=== PATIENT | male | born 1980 | race Caucasian/White ===

== ENCOUNTER 2017-02-07 12:41 | Inpatient (IN) | payer MEDICARE, MEDICAID ==
[~2017-02-07] VITALS: Ht 162.6 cm; Wt 121.2 kg
[~2017-02-07 12:41] MED LIST: /ADVA50050; /ADVA50050 IN; /ESCI10TA; /ESCI20TA; /HALO1T OR; /MOXI40TA OR; ABIL2TAB PO; ABIL5TAB; ALBU17IN INH; ALBUTEROL; AMMO12CR4 TOP; AMMO12LO TOP; AMMONIUM LACTATE; ATARAX; BABY81CH; BABY81CH OR; BETAMETHASONE; BUSP1TAB PO; BYET10IN2 SC; CHLO25CA PO; CHLORDIAZEPOXIDE PO; CLAR5CHW OR; CLOZ100T PO; CLOZ25TA2 PO; DEPA250T32 PO; DEPA500T OR; DEPA500T2 PO; DEPLIN; DIVA125C5 PO; DIVA500T9 PO; DUONSOL IN; FLON0.05; FLON0.054; FLOV250A2 INH; FLUO10CA8 PO; GEOD40CA; GEOD40CA OR; GEOD40CA PO; GLUC1000 PO; GLUC500T; GLUC500T OR; GLUCTAB PO; HALD100I2 IM; HALO10TA PO; HALO1TAB29 PO; HALO5TA PO; HYDR25TA6; HYDR25TA6 OR; Haldol PO; IBUP80TA PO; JANUVIA; LAC-12LO3 TOP; LAMI25TA PO; LAMO10TA PO; LEVO25TA2; LEVO75TA2 OR; LISI-538 PO; LISI10TA4 OR; LISI20TA5 OR; LISI5TAB OR; LOPR100T; LOPR100T OR; LOPR100T PO; LOPR1TAB6 PO; LOPR50TA OR; LORA10TA2 PO; LOTRIMIN; LOVA1CAP16 PO; LOVA1CAP17 PO; METF500T PO; METF500T4 PO; METO100T PO; MULTCAP PO; MULTIVIT; MULTTAB4 PO; MULTTAB50 PO; NASACORT AQ; OMEP20TA7 OR; OMEP40CA2 PO; PREDNISOLONE; PRIL20CA; PRIL20CA PO; PROA1AER IN; PROA1AER INH; PROZ10CA7 PO; SIMV20TA2 PO; SIMV40TA2; SIMV40TA2 PO; SYNT100T PO; SYNT150T PO; THERGRAN; TOPI25TA2 OR; TRAZ100T2 PO; TRAZ50TA2 PO; TRAZ50TA4 PO; TRIAMCINOLONE; VICT18IN SC; VYTO10TA5; VYTO10TA5 OR; ZETI10TA; ZETI10TA OR; ZIPR20INJ PO; ZIPR80CAP; ZIPR80CAP OR; ZITH250T OR; [UNRECOGNIZED DRUG - OTHER]; ammonium lactate TOP; byetta SC; haldol PO; levothroid PO; nicotine patch TD; o2
[2017-02-07] MEDS ORDERED: TRAZ100T4 PO (13:26)
[2017-02-07] MEDS ORDERED: LAMO100T PO (13:26)
[2017-02-07] MEDS ORDERED: LISI10TA4 PO (13:26)
[2017-02-07] MEDS ORDERED: BUSP15TA47 PO (13:26)
[2017-02-07] MEDS ORDERED: CLOZ100T2 PO (13:26)
[2017-02-07] MEDS ORDERED: FLUO20CA9 PO (13:26)
[2017-02-07] MEDS ORDERED: NS IV ONE (13:45)
[2017-02-07] MEDS ORDERED: DILUENT IV ONE (13:45)
[2017-02-07] MEDS ORDERED: CLAR1TAB2 PO (13:53)
[2017-02-07] MEDS ORDERED: BYDU1INJ SC ×2 (13:53→15:03)
[2017-02-07] MEDS ORDERED: ADV500INH INH (13:53)
[2017-02-07 14:00] LABS: BASO % 0.4 % (0.0-1.0); EOS # 0.1 K/mm3 (0.0-0.50); EOS % 0.8 % (0.0-3.0); LARGE UNSTAINED CELL # 0.1 K/mm3 (0.0-0.4); LARGE UNSTAINED CELL % 0.5 % (0.0-4.0); LYMPH # 1.3 K/mm3 (1.5-4.5); LYMPH % 13.3 % (24.0-44.0); MEAN CORPUSCULAR VOLUME 88.1 fl (80.0-96.0); MONO # 0.4 K/mm3 (0.0-0.8); NEUTROPHILS # 7.8 K/mm3 (1.8-7.7); PLATELET COUNT, AUTOMATED 309 k/mm3 (150-450); RED CELL DISTRIBUTION WIDTH 12.9 % (11.5-14.5); WHITE BLOOD COUNT 9.6 K/mm3 (4.0-10.0)
[2017-02-07 14:03] LABS: INR 0.92
[2017-02-07 14:15] LABS: ALBUMIN 2.9 GM/DL (3.2-5.2); ALBUMIN/GLOBULIN RATIO 0.78 (1.00-1.93); ALKALINE PHOSPHATASE 70 U/L (45-117); ALT/SGPT 24 U/L (12-78); AMYLASE 23 U/L (25-115); ANION GAP 8 MEQ/L (8-16); AST/SGOT 17 U/L (15-37); BILIRUBIN,DIRECT 0.1 MG/DL (0.0-0.2); BILIRUBIN,TOTAL 0.4 MG/DL (0.2-1.0); BLOOD UREA NITROGEN 36 MG/DL (7-18); CALCIUM LEVEL 9.1 MG/DL (8.5-10.1); CARBON DIOXIDE LEVEL 37 MEQ/L (21-32); CHLORIDE LEVEL 85 MEQ/L (98-107); CREATININE FOR GFR 5.81 MG/DL (0.70-1.30); GLOMERULAR FILTRATION RATE 11.7 (>60); GLUCOSE, FASTING 124 MG/DL (70-105); POTASSIUM SERUM 3.6 MEQ/L (3.5-5.1); SODIUM LEVEL 130 MEQ/L (136-145); TOTAL PROTEIN 6.6 GM/DL (6.4-8.2)
--- NOTE | 2017-02-07 14:34 | REP ---
CHEST PORTABLE: AP portable view of the chest is performed. There is poor ventilation with mild bibasilar liner fibroatelectatic change. Cardiomediastinal silhouette appears magnified. I see no acute infiltrate. IMPRESSION: No acute infiltrate. Signed by Arnel Panda MD 02/08/2017 04:43 P
[2017-02-07 14:57] LABS: ABG BASE EXCESS 8.6 (-2.0-2.0); ABG HCO3 33.4 MEQ/L (22.0-26.0); ABG PARTIAL PRESSURE CO2 46.5 mmHg (35.0-45.0); ABG PARTIAL PRESSURE O2 89.3 mmHg (75.0-100.0); ABG STANDARD HCO3 32.4 MEQ/L (22.0-26.0); ABG TOTAL CO2 34.8 MEQ/L (22.0-29.0); ABG pH (ARTERIAL) 7.474 UNITS (7.350-7.450)
[2017-02-07] MEDS ORDERED: CLOZ50TA PO (15:03)
[2017-02-07] MEDS ORDERED: VITMTA PO (15:03)
[2017-02-07] MEDS ORDERED: HALO10AM IM (15:06)
[2017-02-07] MEDS ORDERED: FLON1SPR (15:06)
[2017-02-07] MEDS ORDERED: BUSP30TA PO (15:06)
[2017-02-07] MEDS ORDERED: CEFEPIME HCL 2 GM in D5W MINI-BAG PLUS 50 ML IV ONE (15:45)
[2017-02-07 15:53] LABS: METHADONE URINE NEGATIVE (NEGATIVE)
--- NOTE | 2017-02-07 17:27 | REP ---
Renal ultrasound, stat request for acute renal failure: The kidneys are normal size. The right kidney measures 313.4 x 6.4 x 5.8 cm. Left kidney measures 14.0 x 4.2 by 6.2 cm. There is no hydronephrosis on the right on the left. There are no renal calculi. There are no cysts. In the right kidney there is a solid 3.0 x 1.7 x 2.7 cm mass versus congenital column of Aniket. Follow-up CT with IV contrast enhancement might be considered to assist in this differentiation when the patient's renal function improves. Bladder ultrasound: The bladder is nondistended and cannot be evaluated. Impression: There is no hydronephrosis. There is a mass versus, Aniket in the right kidney. A followup CT with IV contrast enhancement might be considered to assist in this differentiation when the patient's renal function improves. Signed by Arnel Auguste MD 02/07/2017 05:18 P
[2017-02-07] MEDS: HumaLOG INSULIN (NovoLOG) PER UNIT SC SCH ×2 (17:30→21:00)
[2017-02-07] MEDS ORDERED: GLUCOSE 4 GM CHEW TABLET PO PRN (17:45)
[2017-02-07] MEDS ORDERED: DEXTROSE 50% 50 ML SYRINGE IV PRN (17:45)
[2017-02-07] MEDS ORDERED: GLUCAGON FOR INJ 1 MG VIAL (J1610) SC PRN (17:45)
[2017-02-07] MEDS ORDERED: IPRATROPIUM 0.5MG/ALBUTEROL 2.5MG INH SOL UD 3ML (DUONEB)(J7620) NEB PRN (18:00)
[2017-02-07] MEDS: NS 1,000 ML IV SCH (19:43)
[2017-02-07] MEDS: IPRATROPIUM 0.5MG/ALBUTEROL 2.5MG INH SOL UD 3ML (DUONEB)(J7620) NEB SCH (20:00)
--- NOTE | 2017-02-07 20:50 | REPUSA ---
CLINICAL HISTORY: SLURRED SPEECH, SYNCOPE TECHNIQUE: Multiple axial brain CT scan sections were obtained from base to vertex without contrast a dministration. COMMENTS: The study shows normal configuration of sella turcica. There are no intra or extra-axial collections. There is no mass effect or midline shift. There is no evidence of hematoma formation. No hydrocephal us is present. No abnormal calcifications are noted. No significant abnormalities are seen either in the posterior fossa or supratentorial compartment. The sinuses and mastoid air cells are patent. IMPRESSION: No evidence of acute intracranial pathology. Thank you for your kind referral of this patient.
[2017-02-07] MEDS ORDERED: cloZAPine 100 MG TAB (S0136) PO SCH ×2 (21:00→22:48)
[2017-02-07] MEDS ORDERED: cloZAPine 25 MG TAB (S0136) PO SCH (21:00)
[2017-02-07 22:43] VITALS: BP 118/56
[2017-02-07 22:45] VITALS: BP 102/48
[2017-02-07 22:47] VITALS: BP 98/54
[2017-02-07] MEDS: HEPARIN SOD (PORCINE) 5000 UNITS/ML VIAL SC SCH (23:20)
[2017-02-07] MEDS: SIMVASTATIN 20 MG TAB PO SCH (23:21)
[2017-02-07] MEDS: FLUTICASONE PROP 0.05% NASAL SPRAY 16 GM (FLONASE) SCH (23:21)
[2017-02-07] MEDS: OMEGA-3 1050MG CAPSULE PO SCH (23:22)
[2017-02-07] MEDS: lamoTRIgine 25 MG TAB PO SCH (23:22)
[2017-02-07] MEDS: cloZAPine 100 MG TAB (S0136) PO SCH (23:23)
[2017-02-07] MEDS: ADVAIR DISKUS 500/50 INH PWD INH SCH (23:37)
[2017-02-08] VITALS (8 sets, daily range): BP systolic 95–129; BP diastolic 49–83
[2017-02-08] MEDS: IPRATROPIUM 0.5MG/ALBUTEROL 2.5MG INH SOL UD 3ML (DUONEB)(J7620) NEB SCH ×4 (01:29→20:00)
[2017-02-08] MEDS: NS 1,000 ML IV SCH ×3 (04:10→21:42)
[2017-02-08] MEDS: CEFEPIME HCL 1 GM in D5W MINI-BAG PLUS 50 ML IV SCH ×2 (04:10→16:05)
[2017-02-08 05:35] LABS: BASO % 0.4 % (0.0-1.0); EOS # 0.1 K/mm3 (0.0-0.50); EOS % 1.2 % (0.0-3.0); LARGE UNSTAINED CELL # 0.1 K/mm3 (0.0-0.4); LARGE UNSTAINED CELL % 1.4 % (0.0-4.0); LYMPH % 25.9 % (24.0-44.0); MEAN CORPUSCULAR HEMOGLOBIN 31.9 pg (27.0-33.0); MEAN CORPUSCULAR HGB CONC 35.9 g/dl (32.0-36.5); MEAN CORPUSCULAR VOLUME 88.9 fl (80.0-96.0); MONO # 0.4 K/mm3 (0.0-0.8); MONO % 4.8 % (0.0-5.0); NEUTROPHILS # 5.2 K/mm3 (1.8-7.7); NEUTROPHILS % 66.3 % (36.0-66.0); PLATELET COUNT, AUTOMATED 252 k/mm3 (150-450); RED CELL DISTRIBUTION WIDTH 12.9 % (11.5-14.5); WHITE BLOOD COUNT 7.8 K/mm3 (4.0-10.0)
[2017-02-08 05:46] LABS: ALBUMIN 2.4 GM/DL (3.2-5.2); CREATININE FOR GFR 3.1 MG/DL (0.70-1.30); GLOMERULAR FILTRATION RATE 24.1 (>60); PHOSPHORUS LEVEL 3.2 MG/DL (2.5-4.9); POTASSIUM SERUM 3.3 MEQ/L (3.5-5.1)
[2017-02-08] MEDS: LEVOTHYROXINE 0.15 MG TAB (150 MCG) PO SCH (06:18)
[2017-02-08] MEDS: ADVAIR DISKUS 500/50 INH PWD INH SCH ×2 (07:22→19:36)
[2017-02-08] MEDS: HumaLOG INSULIN (NovoLOG) PER UNIT SC SCH ×4 (07:30→20:34)
[2017-02-08] MEDS ORDERED: POTASSIUM CHLORIDE 10 MEQ SR TABLET PO ONE (08:15)
--- NOTE | 2017-02-08 09:18 | ECGEPIP ---
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
[2017-02-08 09:19] LABS: MAGNESIUM LEVEL 1.7 MG/DL (1.8-2.4); THYROXINE (T4) 10.4 UG/DL (4.5-12.0)
[2017-02-08] MEDS: lamoTRIgine 25 MG TAB PO SCH ×2 (09:26→20:35)
[2017-02-08] MEDS: LORATADINE 10 MG TAB PO SCH (09:26)
[2017-02-08] MEDS: OMEGA-3 1050MG CAPSULE PO SCH ×2 (09:26→20:35)
[2017-02-08] MEDS: FLUoxetine 20 MG CAP PO SCH (09:27)
[2017-02-08] MEDS: cloZAPine 100 MG TAB (S0136) PO SCH ×2 (09:27→20:35)
[2017-02-08] MEDS: HEPARIN SOD (PORCINE) 5000 UNITS/ML VIAL SC SCH ×2 (09:28→20:35)
[2017-02-08] MEDS: FLUTICASONE PROP 0.05% NASAL SPRAY 16 GM (FLONASE) SCH ×2 (09:28→20:34)
--- NOTE | 2017-02-08 10:23 | IPNPDOC ---
Subjective Date Seen The patient was seen on 02/08/17. Subjective Chief Complaint/HPI The patient is a 36-year-old male admitted with a reason for visit of Arf; Hypotension. General: Denies: Chills Constitutional: Denies: Chills, Fever Eyes: Denies: Pain, Vision change, Conjunctivae inflammation, Eyelid inflammation Skin: Denies: Rash Pulmonary: Denies: Dyspnea, Cough Cardiovascular: Denies: Chest Pain, Palpitations Gastrointestinal: Denies: Nausea, Vomiting, Abdominal Pain Neurological: Denies: Weakness Psych: Reports: Mood Normal Objective Physical Examination General Exam: Positive: Cooperative, No Acute Distress Eye Exam: Positive: Conjunctiva & lids normal, EOMI, Negative: Sclera icteric, Ptosis ENT Exam: Positive: Atraumatic, Nares Patent Neck Exam: Positive: Supple Chest Exam: Positive: Rhonchi, Negative: Normal air movement, Rales, Wheezing, Diminished Heart Exam: Positive: Rate Normal, Normal S1, Normal S2, Negative: Tachycardic, Bradycardic Telemetry: Positive: No significant arrhythmia Abdomen Exam: Positive: Normal bowel sounds, Soft, Negative: BS Hyperactive, BS Hypoactive, Tenderness, Hepatospenomegaly Extremity Exam: Negative: Clubbing, Cyanosis, Edema Assessment /Plan Problems (1) Hypotension Status: Acute Response to Treatment: Stable Problem Text: Patient will continue to receive IV fluid hydration Currently 109/52 Patient is receiving antibiotic therapy GI panel and blood cultures pending Continue to monitor (2) Renal mass Status: Acute Response to Treatment: Stable Problem Text: Nephrology consulted, appreciate their recommendations. (3) Diabetes Status: Chronic Response to Treatment: Stable Problem Text: Sliding scale (4) Hypothyroid Status: Chronic Response to Treatment: Stable Problem Text: Will continue home medications (5) Dyslipidemia Status: Chronic Response to Treatment: Stable Problem Text: Will continue home medications (6) DVT prophylaxis Status: Acute Response to Treatment: Stable Problem Text: SCD teds Plan/VTE VTE Prophylaxis Ordered?: Yes Plan/Urinary Catheter Reason for insertion/continuin: Critical Pt monitoring VS, I&O, 24H, Fishbone Vital Signs/I&O Vital Signs Date Time Temp Pulse Resp B/P (MAP) Pulse Ox O2 Delivery O2 Flow Rate FiO2 02/08/17 08:00 Nasal Cannula 3.0 02/08/17 08:00 98.3 105 27 109/52 (71) 93 I&O- Last 24 Hours up to 6 AM 02/08/17 06:00 Intake Total 5700 ml Output Total 1485 ml Balance 4215 ml Laboratory Data 24H LABS Laboratory Tests 2 02/07/17 13:37: White Blood Count 9.6, Red Blood Count 4.12L, Hemoglobin 12.4L, Hematocrit 36.3L , Mean Corpuscular Volume 88.1, Mean Corpuscular Hemoglobin 30.0, Mean Corpuscular Hemoglobin Concent 34.0, Red Cell Distribution Width 12.9, Platelet Count 309, Neutrophils (%) (Auto) 81.0H, Lymphocytes (%) (Auto) 13.3L, Monocytes (%) (Auto) 4.0, Eosinophils (%) (Auto) 0.8, Basophils (%) (Auto) 0.4, Neutrophils # (Auto) 7.8H, Lymphocytes # (Auto) 1.3L, Monocytes # (Auto) 0.4, Eosinophils # (Auto) 0.1, Basophils # (Auto) 0.0, Large Unclassified Cells % 0.5 , Large Unclassified Cells # 0.1, Anion Gap 8, Glomerular Filtration Rate 11.7L , Lactic Acid Level 3.4*H, Calcium Level 9.1, Aspartate Amino Transf (AST/SGOT) 17, Alanine Aminotransferase (ALT/SGPT) 24, Alkaline Phosphatase 70, Total Bilirubin 0.4, Direct Bilirubin 0.1, Total Creatine Kinase 55, Creatine Kinase MB 1.0, Creatine Kinase MB Relative Index 1.81, Troponin I < 0.02, C-Reactive Protein, Quantitative 2.57H, Total Protein 6.6, Albumin 2.9L, Albumin/Globulin Ratio 0.78L, Amylase Level 23L, Salicylates Level < 1.7L, Acetaminophen Level < 2.0L 02/07/17 13:42: Prothrombin Time 12.5, Prothromb Time International Ratio 0.92, Activated Partial Thromboplast Time 28.5 02/07/17 14:12: Blood Gas Bicarbonate Standard 32.4H, Arterial Blood pH 7.474H, Arterial Blood Partial Pressure CO2 46.5H, Arterial Blood Partial Pressure O2 89.3, Arterial Blood Total CO2 34.8H, Arterial Blood HCO3 33.4H, Arterial Blood Base Excess 8.6H, Arterial Blood Oxygen Saturation 97.0 02/07/17 15:22: Urine Amphetamines Screen NEGATIVE, Urine Benzodiazepines Screen NEGATIVE, Urine Opiates Screen NEGATIVE, Urine Methadone Screen NEGATIVE, Urine Barbiturates Screen NEGATIVE, Urine Phencyclidine Screen NEGATIVE, Urine Cocaine Metabolite Screen NEGATIVE, Urine Cannabinoids Screen NEGATIVE 02/07/17 15:23: Urine Appearance CLOUDYH, Urine Color KYLE, Urine pH 5.0, Urine Specific [place] 1.018, Urine Protein 1+H, Urine Glucose (UA) NEGATIVE, Urine Ketones NEGATIVE, Urine Urobilinogen 2.0H, Urine Bilirubin 1+H, Urine Leukocyte Esterase NEGATIVE, Urine Blood NEGATIVE, Urine Nitrite NEGATIVE, Urine WBC (Auto ) 5H, Urine RBC (Auto) 2, Urine Hyaline Casts (Auto) 14, Urine Bacteria (Auto) 1 +H, Urine Squamous Epithelial Cells 1, Urine Amorphous Sediment SMALLH, Urine Mucus (Auto) SMALL, Urine Sperm (Auto) 02/07/17 18:16: Osmolality 286, Lactic Acid Followup at 4 Hours 1.5, Thyroid Stimulating Hormone (TSH) 0.139L, Ethyl Alcohol Level < 0.003 02/07/17 23:30: Urine Random Creatinine 163.0, Urine Random Sodium 18 02/08/17 04:51: Thyroid Stimulating Hormone (TSH) 0.091L, White Blood Count 7.8, Red Blood Count 3.44L, Hemoglobin 11.0L, Hematocrit 30.6L, Mean Corpuscular Volume 88.9, Mean Corpuscular Hemoglobin 31.9, Mean Corpuscular Hemoglobin Concent 35.9, Red Cell Distribution Width 12.9, Platelet Count 252, Neutrophils (%) (Auto) 66.3H, Lymphocytes (%) (Auto) 25.9, Monocytes (%) (Auto) 4.8, Eosinophils (%) (Auto) 1.2, Basophils (%) (Auto) 0.4, Neutrophils # (Auto) 5.2, Lymphocytes # (Auto) 2.0, Monocytes # (Auto) 0.4, Eosinophils # (Auto) 0.1, Basophils # (Auto) 0.0, Large Unclassified Cells % 1.4, Large Unclassified Cells # 0.1, Blood Urea Nitrogen 32H, Creatinine 3.10H, Sodium Level 136, Potassium Level 3.3L, Chloride Level 96L, Carbon Dioxide Level 32, Anion Gap 8, Glomerular Filtration Rate 24.1L, Calcium Level 8.0L, Phosphorus Level 3.2, Magnesium Level 1.7L, C- Reactive Protein, Quantitative 1.93H, Albumin 2.4L, Free Thyroxine Index 3.8, Thyroxine (T4) 10.4, Triiodothyronine (T3) Uptake 37 CBC/BMP Laboratory Tests 02/07/17 13:37 Red Blood Count 4.12 L, Mean Corpuscular Volume 88.1, Mean Corpuscular Hemoglobin 30.0, Mean Corpuscular Hemoglobin Concent 34.0, Red Cell Distribution Width 12.9, Neutrophils (%) (Auto) 81.0 H, Lymphocytes (%) (Auto) 13.3 L, Monocytes (%) (Auto) 4.0, Eosinophils (%) (Auto) 0.8, Basophils (%) ( Auto) 0.4, Neutrophils # (Auto) 7.8 H, Lymphocytes # (Auto) 1.3 L, Monocytes # ( Auto) 0.4, Eosinophils # (Auto) 0.1, Basophils # (Auto) 0.0 02/08/17 04:51 Red Blood Count 3.44 L, Mean Corpuscular Volume 88.9, Mean Corpuscular Hemoglobin 31.9, Mean Corpuscular Hemoglobin Concent 35.9, Red Cell Distribution Width 12.9, Neutrophils (%) (Auto) 66.3 H, Lymphocytes (%) (Auto) 25.9, Monocytes (%) (Auto) 4.8, Eosinophils (%) (Auto) 1.2, Basophils (%) (Auto ) 0.4, Neutrophils # (Auto) 5.2, Lymphocytes # (Auto) 2.0, Monocytes # (Auto) 0.4, Eosinophils # (Auto) 0.1, Basophils # (Auto) 0.0, Anion Gap 8 Microbiology Microbiology 02/07/17 Blood Culture, Received Pending 02/07/17 Blood Culture, Received Pending 02/07/17 Influenza Virus Type A Antigen - Final, Complete 02/07/17 Influenza Virus Type B Antigen - Final, Complete 02/07/17 Urine Culture, Received Pending GME ATTESTATION GME ATTESTATION My preceptor for this patient encounter was physically present in the building during the encounter and was fully available. As needed, all aspects of the patient interview, examination, medical decision making process, and medical care plan development were reviewed and approved by the preceptor. Preceptor is aware and concurs with the plan as stated in the body of this note and will attest to such by his/her cosignature. ATTENDING NOTE I have both independently examined this patient as well as reviewed the note. I have discussed in detail with the resident the findings and plan of treatment as documented in the residents note. I will continue to follow the patient and offer further guidance to the patients care as necessary during this hospital stay. NAJMA Alcazar MD, DO Feb 08, 2017 10:23 RITA AGARWAL MD Feb 09, 2017 06:42
--- NOTE | 2017-02-08 14:19 | HPE ---
DATE OF ADMISSION: 02/07/2017 PRIMARY CARE PROVIDER: Susan Khoury PSYCHIATRIST: Yamile Brennan, [facility], [facility]. CHIEF COMPLAINT: Lethargy. HISTORY OF PRESENT ILLNESS: Mr. Cason is a 36-year-old male with past medical history of schizoaffective disorder, type 2 diabetes, metabolic syndrome, who was brought in today for episode of lethargy, dizziness, and fall earlier today. The patient was in the parking lot with his roommate by his van and planned to go to a buffet; however, as he attempted to get out of the car, he felt dizzy, lightheaded, and unsteady and subsequently almost fell down in the parking lot. States that in the last month he has not been feeling well; has been vomiting almost every night, approximately three episodes a night. Mostly vomited of food and brownish content. Because of his nausea and vomiting, his appetite has been poor. Has not been drinking a lot of water. Associated with decreased urination, lightheadedness, blurry vision. Intentional 50-pound weight loss in the last 4 months. He is unsure if he has had diarrhea. History is somewhat difficult to obtain as he tends to have difficulty remembering details. He is a resident of [facility] and because of his extensive psychiatric history, he has a nurse case management who every week does a medication count. The patient himself denies any suicidal or homicidal ideation. Most recent medication count was today, and every medication was accounted for. Reports compliance with all his medications. Has not taken more medication than is allowed. His last visit to his primary care provider was 2 months ago. No adjustment to medications were made. Also reports cough ongoing in the last 7-10 days. Mostly coughs green and yellow production. No chest pain, palpitations, fever, chills. Reports shortness of breath only after excessive coughing spells. No paroxysmal nocturnal dyspnea or pillow orthopnea. No sick contacts. Has not been treated for his cough. In the emergency department, he was found to be hypotensive with systolic in the 60s. Heart rate in the 90s. He did receive 1 liter bolus and, after fluid hydration, his systolic blood pressure increased in 90s to 100s. His lethargic state improved significantly. He was also given Cefepime empirically for sepsis protocol. PAST MEDICAL HISTORY: Schizoaffective disorder. Depression. Hypertension. Type 2 diabetes. Obstructive sleep apnea (PAVAN). Has not been on his CPAP machine for the last three months because there is a problem with his equipment. Hyperlipidemia. Hypothyroidism. Metabolic syndrome. Hallucinations. Morbid obesity. Diverticulosis. Psychogenic polydipsia. PAST SURGICAL HISTORY: Colonoscopy 2004. Tonsillectomy. ALLERGIES: No known drug allergies. HOME MEDICATIONS: - ProAir FHA two puffs inhaled every 4 hours as needed - BuSpar 30 mg - clozapine 150 mg twice a day - exanatide 2 mg subcutaneous weekly on Saturdays - Flonase one spray inhaled twice a day - fluoxetine 20 mg by mouth daily - Haldol 200 mg intramuscularly (IM) every month (last administered a week ago) - lamotrigine 100 mg by mouth twice a day - Synthroid 150 mcg by mouth daily - lisinopril 10 mg nightly - loratadine 10 mg by mouth daily - metformin 500 mg by mouth twice a day - Lopressor 50 mg twice a day - multivitamin - [place]-3 two capsules by mouth twice a day - Advair Diskus one puff inhaled twice a day - trazodone 100 mg nightly SOCIAL HISTORY: The patient is an ex-smoker, 20 pack year, quit 2010. Denies alcohol use. Last use was 2000. Reports history of marijuana use in high school; however, has since quit. He is a resident of [facility], independent of all his daily activities including medication administration. No pets. No travel outside of state or country. Currently is on disability. 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 FAMILY HISTORY: Mother from complications from heart disease. Had an extensive psychiatric history per patient. Father of complications from diabetes 2014. REVIEW OF SYSTEMS: CONSTITUTIONAL: Reports night sweats but no fevers, chills, rigors. HEENT: Positive for blurry vision prior to his fall earlier today, which has since resolved. Positive for dizziness, lightheadedness. No headache, diplopia. Case management reports some slurring of his speech. PULMONARY: Is as above. CARDIOVASCULAR: No chest pain, palpitations, leg edema, orthopnea. Positive for shortness of breath only with excessive coughing. GASTROINTESTINAL: Positive for emesis as above. No melena, hematochezia, hematemesis. GENITOURINARY: Positive for decreased urination but no dysuria, urgency, frequency. HEMATOLOGY: Reported one episode of blood in his emesis approximately a month ago, only the size of a tip of a pen, which has since resolved. ONCOLOGY: No history of malignancy. ENDOCRINOLOGY: Positive for thyroid, diabetes, and metabolic syndrome. NEUROLOGICAL: No paresthesia, paralysis, positive for near syncope earlier today. PSYCHIATRIC: Includes schizoaffective disorder. Depression. However, denies any suicidal or homicidal ideation. SKIN: No new rashes or lesions. PHYSICAL EXAMINATION: VITAL SIGNS: Blood pressure 109/64, repeat was 167/91. Heart rate 96, respiration rate 16, pulse oximetry 95% on room air. Temperature 96.6. Lowest blood pressure was 64/32 with a mean arterial pressure (MAP) of 43. GENERAL: The patient is lying in bed approximately 40-degree angle, comfortable. No acute distress. He is alert, awake, and oriented times three. Cooperative. Appears older than stated age. Chronically ill appearing. Obese appearing. HEENT: Normocephalic, atraumatic. Moist oral mucosa. Edentulous. Eyes: Extraocular movements intact. Pupils equal and reactive to light. NECK: Supple. Large neck. Could not appreciate jugular venous distention (JVD) secondary to large neck size. CHEST: Symmetric chest rise. No accessory muscle use. Breath sounds are diminished with occasional wheezing bilateral lung bases. No rhonchi appreciated. HEART: Regular rate and rhythm with normal S1, S2. Did not appreciate murmurs, rubs, or gallops. Distant sounding. ABDOMEN: Obese but nontender, nondistended. Bowel sounds present. No guarding. No rebound. Protuberant. EXTREMITIES: No pedal edema. Pedal pulses present bilaterally. NEUROLOGICAL: Alert, awake, oriented times three, though he is slow at answering questions. There is some slurring of his speech, which reportedly is new. Sensory intact. Strength 5 out of 5 in all extremities. No other deficits appreciated. PSYCHIATRIC: Pleasant, cooperative. Normal affect. GENITOURINARY (): He has an indwelling Belle with tea-colored urine. INTEGUMENT: No obvious rashes or lesions appreciated. LABORATORY DATA: WBC 9.6, hemoglobin 12.4, hematocrit 36.3, platelets 309. Sodium 130, potassium 3.6, chloride 85, carbon dioxide 37, BUN 36, creatinine 5.81, glucose 124, lactic acid 3.4, calcium 9.1. Total bilirubin normal, 8. Liver profile normal. CRP 2.57, albumin 2.9, amylase 23. PT 12.5, INR is 0.92. Urinalysis is cloudy appearance, pH is 5, specific gravity is 1.018, 1+ protein, 1+ bilirubin, WBC 5. Toxicology screen negative for salicylates and Tylenol. Essentially negative toxicology screen. ABG showed pH of 7.47, pCO2 46.5, pO2 89. Chest x-ray showed no acute cardiopulmonary disease. No infiltrate appreciated, though it is poor ventilation with bibasilar fibroatelectatic change. Renal ultrasound showed no hydronephrosis. There is a mass versus Aniket in the right kidney. CT with contrast is recommended after renal function improves. IMPRESSION/PLAN: Mr. Cason is a 36-year-old male with an extensive psychiatric past history, also diabetes, on metformin ,who was brought in today due to concern for lethargy and near syncopal episode. Was found to have acute kidney injury and severe hypotension. 1. Lethargy and near syncope. Based on his history of nausea and vomiting along with poor by mouth intake, suspect that this is likely secondary to dehydration. He reportedly has improved after a bolus given in the ER. However, will need to monitor for other causes including thyroid and infectious that might contribute to his symptoms as well. He will be monitored closely in the progressive care unit (PCU) for any arrhythmia. Empirically continue antibiotics cefepime for now. Recheck lactic acid level. Continue fluid titration 125 mL per hour. Check orthostatic vital signs. 2. Hypotension. Likely secondary to dehydration and/or infection as mentioned above. His blood pressure has improved significantly after fluid titration. Reportedly was taking all his antihypertensives regimen the last few days despite his decreased by mouth intake. We will hold his lisinopril and metoprolol for now. 3. Acute kidney injury. This is likely secondary to dehydration combined with medication induced. Continue holding his home nephrotoxic medications. On maintenance fluid. Renal ultrasound did not show indication of hydronephrosis. There was a mention of possible mass versus Aniket in the right kidney. However, because of his renal function, CT contrast could not be performed at this time. Dr. Allen has already been consulted in the emergency room (ER). Will followup with his recommendations. 4. Elevated lactic acid. Could be due to infection and/or metformin. He is on IV fluid hydration, on empiric coverage for infection. Also, metformin will be held. 5. Metabolic alkalosis. It could be secondary to intractable vomiting. Ongoing at least 1 month and/or contraction alkalosis secondary to dehydration. He is on maintenance fluids as mentioned above. 6. Hyponatremia. Check serum osmolality and urine electrolytes. 7. Intractable vomiting. Etiology unclear. He will require further workup after his current condition stabilizes. Denies history of diabetic gastroparesis. 8. Hypertension. Blood pressure was actually on hypotensive side requiring fluid boluses. Home medications are on hold at this time. 9. History of schizoaffective disorder and depression. Continue psychiatric medications. Lamictal dose will be renally dosed. Have order for Lamictal level to be checked. 10. Type 2 diabetes. Will hold metformin. On insulin sliding scale. 11. Obesity. Body mass index (BMI) 43. Will continue to complicate medical management. 12. Obstructive sleep apnea. Has not been compliant with his CPAP in the last 3 months. He will be on PAVAN protocol. 13. Hypothyroidism. Continue home dose levothyroxine. 14. Hyperlipidemia. Continue home dose Zocor. 15. Depression. Continue home dose Prozac. 16. Deep venous thrombosis (DVT) prophylaxis, Sequential compression devices (SCDs), thromboembolism deterrents (TEDs), and heparin. DISPOSITION: Due to patient's condition we expect his stay to be greater than 2 midnights. My preceptor for this patient encounter was Dr. Krystina Ramos. The preceptor was physically present in the building during the encounter and was fully available. As needed, all aspects of the patient interview, examination, medical decision making process, and medical care plan development were reviewed and approved by the preceptor. The preceptor is aware and concurs with the plan as stated in the body of this note and will attest to such by his/her cosignature. [facility]
[2017-02-08] MEDS: ONDANSETRON 4MG/2ML VIAL (J2405) IV PRN (18:44)
--- NOTE | 2017-02-08 20:23 | CR ---
DATE OF CONSULTATION: 02/08/2017 CONSULTATION REPORT FOR: Ole Dixon DO REASON FOR CONSULTATION: Acute renal failure. HISTORY OF PRESENT ILLNESS: Mr. Cason is a 36-year-old male who was admitted through the emergency room last evening due to nausea and vomiting for over a month. He has known history of type 2 diabetes, metabolic syndrome, hypertension, hyperlipidemia, obstructive sleep apnea, hypothyroidism, morbid obesity and psychogenic polydipsia. He was found to have acute renal failure with creatinine about 5.8. He is being hydrated with IV fluid. A nephrology consultation was requested and the patient is seen in intensive care unit this morning. PAST MEDICAL AND SURGICAL HISTORY: Significant for: 1. Schizoaffective disorder. 2. Psychogenic polydipsia. 3. Depression. 4. Hypertension. 5. Type 2 diabetes. 6. Obstructive sleep apnea. 7. Hyperlipidemia. 8. Hypothyroidism. 9. Morbid obesity. 10. Diverticulosis. PAST SURGICAL HISTORY: Significant for tonsillectomy and colonoscopy. ALLERGIES: No known drug allergies. HOME MEDICATIONS: Include: BuSpar, ProAir, Flonase, fluoxetine, Haldol, lamotrigine, Synthroid, lisinopril, loratadine, metformin, Lopressor, multivitamin, [place] 3 and Advair. In the hospital currently his medications include: Prozac 20 mg daily, Claritin 10 mg daily, Synthroid 0.15 mg daily, cefepime 1 gram every 12 hours, heparin 5000 units subcutaneous twice a day, Humalog insulin, Advair Diskus one puff twice a day, Flonase nasal spray twice a day, simvastatin 20 mg daily, lamotrigine 75 mg twice a day, clozapine 150 mg twice a day, DuoNebs every 6 hours as needed, Zofran 4 mg every 6 hours as needed for nausea, IV normal saline 125 mL/hour. PERSONAL AND SOCIAL HISTORY: The patient is an ex-smoker. He quit in 2010. He denies any alcohol use. He does have a history of marijuana use long time ago. He is currently a resident of [facility]. FAMILY HISTORY: Mother from heart disease and also had extensive psychiatric history. Father of complications of diabetes. REVIEW OF SYSTEMS: The patient denies any fever or chills. Head and neck is unremarkable. He denies any sinus problems or nosebleed. Cardiovascular system negative for dyspnea or chest pain. Respiratory system negative for cough or hemoptysis. Gastrointestinal (GI) system is significant for recurrent nausea and vomiting. He denies any rectal bleeding or black-colored stools. There is no history of blood in the vomitus. Genitourinary () system is significant for decreased urine output. There is no history of kidney stones. Endocrine system is significant for diabetes. Psychosocial system significant for multiple psychiatric issues. Neurological system is significant for no seizures or stroke. Hematological system is negative for anemia, easy bruising or excessive bleeding. Skin is negative for rash or ulcers. PHYSICAL EXAMINATION: The patient is awake and alert lying in the bed comfortably. Temperature 98 degrees Fahrenheit, heart rate 104 per minute and respiratory rate 25 per minute. Blood pressure 105/49 mmHg and oxygen saturation 95%. Head is atraumatic. Neck veins are difficult to be assessed. Oral mucosa is moist and healthy now. Pupils are equal and reactive to light and sclerae is anicteric. Neck is supple and without jugular venous distention (JVD) or thyroid enlargement. Heart sounds are tachycardiac but regular. Lungs clear to auscultation. Abdomen soft and nontender. Bowel sounds are normal. There is no palpable organomegaly. Extremities have no cyanosis or clubbing. Neurologically he is awake, alert and oriented times three. LABORATORY DATA: WBC count 9.6, hemoglobin 12.4 and hematocrit 36.3 on admission. Platelets were 309. Sodium 130 and potassium 3.6. BUN was 36 and creatinine 5.81. Today's labs show sodium 136 and potassium 3.3. BUN 32 and creatinine 3.10. Calcium 8.0 and phosphorus 3.2. PROBLEMS: 1. Acute renal failure. Most likely dehydration caused by recurrent nausea and vomiting over last few weeks. I recommend to continue with IV fluid hydration with normal saline. 2. Hypokalemia, again related to poor oral intake. I suggest to add 20 mEq of potassium chloride in each liter of IV fluid. 3. Hypotension. His hypotension is most likely related to dehydration. Aggressive hydration is recommended. I do not feel that he needs pressors at this point. I thank you for involving me in the care of Mr. Cason. I will follow him along with you.
[2017-02-08] MEDS: SIMVASTATIN 20 MG TAB PO SCH (20:35)
[2017-02-09] VITALS: BP 131/59
[2017-02-09] MEDS: IPRATROPIUM 0.5MG/ALBUTEROL 2.5MG INH SOL UD 3ML (DUONEB)(J7620) NEB SCH ×4 (01:11→20:00)
[2017-02-09] MEDS: CEFEPIME HCL 1 GM in D5W MINI-BAG PLUS 50 ML IV SCH ×2 (03:48→16:51)
[2017-02-09 04:00] VITALS: BP 118/60
[2017-02-09 05:15] LABS: BASO % 0.3 % (0.0-1.0); EOS # 0.1 K/mm3 (0.0-0.50); EOS % 1.4 % (0.0-3.0); LARGE UNSTAINED CELL # 0.1 K/mm3 (0.0-0.4); LARGE UNSTAINED CELL % 1.5 % (0.0-4.0); LYMPH # 1.8 K/mm3 (1.5-4.5); MEAN CORPUSCULAR HEMOGLOBIN 30.9 pg (27.0-33.0); MEAN CORPUSCULAR HGB CONC 34.5 g/dl (32.0-36.5); MEAN CORPUSCULAR VOLUME 89.6 fl (80.0-96.0); MONO # 0.5 K/mm3 (0.0-0.8); MONO % 6.9 % (0.0-5.0); NEUTROPHILS # 4.3 K/mm3 (1.8-7.7); PLATELET COUNT, AUTOMATED 257 k/mm3 (150-450); RED CELL DISTRIBUTION WIDTH 13.1 % (11.5-14.5); WHITE BLOOD COUNT 6.8 K/mm3 (4.0-10.0)
[2017-02-09 05:40] LABS: ALBUMIN 2.3 GM/DL (3.2-5.2); ANION GAP 5 MEQ/L (8-16); BLOOD UREA NITROGEN 16 MG/DL (7-18); CALCIUM LEVEL 7.9 MG/DL (8.5-10.1); CARBON DIOXIDE LEVEL 31 MEQ/L (21-32); CHLORIDE LEVEL 106 MEQ/L (98-107); CREATININE FOR GFR 1.18 MG/DL (0.70-1.30); GLUCOSE, FASTING 95 MG/DL (70-105); PHOSPHORUS LEVEL 2.2 MG/DL (2.5-4.9); POTASSIUM SERUM 3.8 MEQ/L (3.5-5.1); SODIUM LEVEL 142 MEQ/L (136-145)
[2017-02-09] MEDS: LEVOTHYROXINE 0.15 MG TAB (150 MCG) PO SCH (05:52)
[2017-02-09] MEDS: NS 1,000 ML IV SCH (05:52)
[2017-02-09 05:56] LABS: GLOMERULAR FILTRATION RATE > 60.0 (>60)
[2017-02-09 06:00] VITALS: BP_SYST 101; BP_SYST 105; BP_SYST 106; BP_DIAS 51; BP_DIAS 53; BP_DIAS 56
[2017-02-09] MEDS: HumaLOG INSULIN (NovoLOG) PER UNIT SC SCH ×4 (07:30→20:38)
[2017-02-09] MEDS: ADVAIR DISKUS 500/50 INH PWD INH SCH ×2 (07:56→20:15)
[2017-02-09 08:17] VITALS: BP 148/67
[2017-02-09] MEDS ORDERED: INFLUENZA QUADRIVALENT PF VACCINE 0.5ML SYRINGE/VIAL (90686) IM ONE (09:00)
--- NOTE | 2017-02-09 09:24 | REP ---
CHEST, SINGLE VIEW: There is no evidence of acute infiltrate. No pleural effusion is seen. The heart is normal in size. The mediastinal silhouette is unremarkable. The visualized osseous structures are intact. IMPRESSION: No acute pulmonary disease. Signed by Arnel Panda MD 02/09/2017 04:36 P
[2017-02-09] MEDS: HEPARIN SOD (PORCINE) 5000 UNITS/ML VIAL SC SCH ×2 (09:44→20:38)
[2017-02-09] MEDS: cloZAPine 100 MG TAB (S0136) PO SCH ×2 (09:44→20:37)
[2017-02-09] MEDS: FLUoxetine 20 MG CAP PO SCH (09:44)
[2017-02-09] MEDS: OMEGA-3 1050MG CAPSULE PO SCH ×2 (09:44→20:37)
[2017-02-09] MEDS: LORATADINE 10 MG TAB PO SCH (09:44)
[2017-02-09] MEDS: lamoTRIgine 25 MG TAB PO SCH ×2 (09:44→20:37)
[2017-02-09] MEDS: FLUTICASONE PROP 0.05% NASAL SPRAY 16 GM (FLONASE) SCH ×2 (09:45→21:55)
--- NOTE | 2017-02-09 11:27 | IPNPDOC ---
Subjective Date Seen The patient was seen on 02/09/17. Subjective Chief Complaint/HPI The patient is a 36-year-old male admitted with a reason for visit of Arf; Hypotension. General: Denies: Chills Constitutional: Denies: Chills, Fever Eyes: Denies: Pain, Vision change, Conjunctivae inflammation, Eyelid inflammation, Redness Pulmonary: Reports: Cough (pt states he has green phlegm), Denies: Dyspnea Cardiovascular: Denies: Chest Pain, Palpitations, Orthopnea, Paroxysmal Noc. Dyspnea, Edema, Lt Headedness Gastrointestinal: Denies: Nausea, Vomiting, Abdominal Pain Neurological: Denies: Weakness Psych: Reports: Mood Normal Objective Physical Examination General Exam: Positive: Cooperative, No Acute Distress Eye Exam: Positive: Conjunctiva & lids normal, EOMI, Negative: Sclera icteric, Ptosis ENT Exam: Positive: Atraumatic, Nares Patent Neck Exam: Positive: Supple Chest Exam: Positive: Rhonchi (throughout lung nguyễn, coarse), Negative: Normal air movement, Rales, Wheezing, Diminished Heart Exam: Positive: Rate Normal, Tachycardic, Normal S1, Normal S2, Negative: Bradycardic, Gallops, Murmurs, Rubs Telemetry: Positive: No significant arrhythmia Abdomen Exam: Positive: Normal bowel sounds, Soft, Negative: BS Hyperactive, BS Hypoactive, Tenderness, Hepatospenomegaly Extremity Exam: Negative: Clubbing, Cyanosis, Edema Assessment /Plan Problems (1) Hypotension Status: Acute Response to Treatment: Stable Problem Text: Patient is tolerating oral intake without n/v or abdominal pain, will d/c fluids at this time Currently 148/67 pt will be moved out of ICU today blood cx negative 24 hours, sputum culture pending, resp. panel negative, urine culture negative, flu negative Patient is receiving antibiotic therapy Continue to monitor (2) Renal mass Status: Acute Response to Treatment: Stable Problem Text: Nephrology consulted, appreciate their recommendations. fluid hydration with K supplementation. d/c fluids today as pt. is tolerating oral intake well (3) Diabetes Status: Chronic Response to Treatment: Stable Problem Text: glucose 95 today Sliding scale (4) Hypothyroid Status: Chronic Response to Treatment: Stable Problem Text: Will continue home medications (5) Dyslipidemia Status: Chronic Response to Treatment: Stable Problem Text: Will continue home medications (6) Tachycardia Status: Acute Response to Treatment: Stable Problem Text: rates have been >100 Repeat EKG benign continue to monitor (7) DVT prophylaxis Status: Acute Response to Treatment: Stable Problem Text: SCD teds Plan/VTE VTE Prophylaxis Ordered?: Yes Plan/Urinary Catheter Reason for insertion/continuin: Critical Pt monitoring VS, I&O, 24H, Fishbone Vital Signs/I&O Vital Signs Date Time Temp Pulse Resp B/P (MAP) Pulse Ox O2 Delivery O2 Flow Rate FiO2 02/09/17 08:30 118 20 91 Room Air 02/09/17 08:17 98.9 148/67 (94) 02/09/17 08:15 2.0 I&O- Last 24 Hours up to 6 AM 02/09/17 06:00 Intake Total 2325 ml Output Total 2900 ml Balance -575 ml Laboratory Data 24H LABS Laboratory Tests 2 02/08/17 11:34: Bedside Glucose (Misc Panel) 122H 02/08/17 16:58: Bedside Glucose (Misc Panel) 115H 02/08/17 20:33: Bedside Glucose (Misc Panel) 124H 02/09/17 04:42: White Blood Count 6.8, Red Blood Count 3.56L, Hemoglobin 11.0L, Hematocrit 31.9L , Mean Corpuscular Volume 89.6, Mean Corpuscular Hemoglobin 30.9, Mean Corpuscular Hemoglobin Concent 34.5, Red Cell Distribution Width 13.1, Platelet Count 257, Neutrophils (%) (Auto) 63.0, Lymphocytes (%) (Auto) 27.0, Monocytes ( %) (Auto) 6.9H, Eosinophils (%) (Auto) 1.4, Basophils (%) (Auto) 0.3, Neutrophils # (Auto) 4.3, Lymphocytes # (Auto) 1.8, Monocytes # (Auto) 0.5, Eosinophils # (Auto) 0.1, Basophils # (Auto) 0.0, Large Unclassified Cells % 1.5 , Large Unclassified Cells # 0.1, Blood Urea Nitrogen 16, Creatinine 1.18#, Sodium Level 142, Potassium Level 3.8, Chloride Level 106, Carbon Dioxide Level 31, Anion Gap 5L, Glomerular Filtration Rate > 60.0, Calcium Level 7.9L, Phosphorus Level 2.2#L, C-Reactive Protein, Quantitative 2.85H, Albumin 2.3L CBC/BMP Laboratory Tests 02/09/17 04:42 Red Blood Count 3.56 L, Mean Corpuscular Volume 89.6, Mean Corpuscular Hemoglobin 30.9, Mean Corpuscular Hemoglobin Concent 34.5, Red Cell Distribution Width 13.1, Neutrophils (%) (Auto) 63.0, Lymphocytes (%) (Auto) 27.0, Monocytes (%) (Auto) 6.9 H, Eosinophils (%) (Auto) 1.4, Basophils (%) ( Auto) 0.3, Neutrophils # (Auto) 4.3, Lymphocytes # (Auto) 1.8, Monocytes # (Auto ) 0.5, Eosinophils # (Auto) 0.1, Basophils # (Auto) 0.0, Anion Gap 5 L Microbiology Microbiology 02/07/17 Blood Culture - Preliminary, Resulted No growth after 24 hours . All specim... 02/07/17 Blood Culture - Preliminary, Resulted No growth after 24 hours . All specim... 02/08/17 Gram Stain - Final, Resulted 02/08/17 Sputum Culture, Resulted Pending 02/08/17 Respiratory Virus Panel (PCR) ([facility]) - Final, Complete 02/07/17 Influenza Virus Type A Antigen - Final, Complete 02/07/17 Influenza Virus Type B Antigen - Final, Complete 02/07/17 Urine Culture - Final, Complete GME ATTESTATION GME ATTESTATION My preceptor for this patient encounter was physically present in the building during the encounter and was fully available. As needed, all aspects of the patient interview, examination, medical decision making process, and medical care plan development were reviewed and approved by the preceptor. Preceptor is aware and concurs with the plan as stated in the body of this note and will attest to such by his/her cosignature. ATTENDING NOTE I have both independently examined this patient as well as reviewed the note. I have discussed in detail with the resident the findings and plan of treatment as documented in the residents note. I will continue to follow the patient and offer further guidance to the patients care as necessary during this hospital stay. NAJMA Alcazar MD, DO Feb 09, 2017 11:27 RITA AGARWAL MD Feb 10, 2017 07:33
[2017-02-09 14:00] VITALS: BP 129/58
--- NOTE | 2017-02-09 16:27 | IPN ---
DATE: 02/09/2017 Mr. Cason is seen this morning on his bedside in intensive care unit. He is laying in the bed as usual. I have not seen him sitting up in the chair since his admission. He denies any nausea, vomiting, dyspnea or chest pain. He reports that he had a good dinner yesterday but did not have breakfast so far. PHYSICAL EXAMINATION: Temperature 98.9 degrees Fahrenheit, heart rate 107 per minute and respiratory rate 20 per minute. Blood pressure 148/67 mmHg and oxygen saturation 94% on room air. His head is atraumatic. Ears, nose and throat are unremarkable. Neck is supple and without jugular venous distention (JVD) or thyroid enlargement. His heart sounds are tachycardiac but regular. Lungs clear to auscultation. Abdomen soft, obese and nontender. Extremities without any cyanosis or clubbing. Neurologically he is awake, alert and oriented times three. Intake and output records from yesterday showed total intake 2200 and output 2450. Today's labs show WBC count 6.8, hemoglobin 11.0 and hematocrit 31.9. Sodium 142 and potassium 3.8. BUN is down to 16 and creatinine 1.18. Calcium level 7.9 and phosphorus 2.2. PROBLEMS: 1. Acute renal failure. Kidney function has improved nicely. At present his IV fluid can be stopped as his oral intake is now adequate and he is tolerating it well. 2. Hypokalemia, potassium level has also improved and he does not need any supplement. He should be placed on regular diet. 3. Hypertension and tachycardia. Blood pressure has improved and the patient is mildly tachycardiac. I recommend to resume beta violet in low-dose and monitor his blood pressure closely. I would suggest to keep him off angiotensin-converting enzyme (SHYLA) inhibitor for now. DISPOSITION: From a renal standpoint, the patient can be transferred out of intensive care unit to regular medical/surgical floor.
[2017-02-09] MEDS: SIMVASTATIN 20 MG TAB PO SCH (20:37)
[2017-02-09] MEDS: ONDANSETRON 4MG/2ML VIAL (J2405) IV PRN (21:58)
[2017-02-09 22:00] VITALS: BP 124/76
[2017-02-10] MEDS: IPRATROPIUM 0.5MG/ALBUTEROL 2.5MG INH SOL UD 3ML (DUONEB)(J7620) NEB SCH ×4 (01:25→20:00)
[2017-02-10] MEDS: CEFEPIME HCL 1 GM in D5W MINI-BAG PLUS 50 ML IV SCH ×2 (03:30→16:25)
[2017-02-10 06:00] VITALS: BP 142/65
[2017-02-10] MEDS: LEVOTHYROXINE 0.15 MG TAB (150 MCG) PO SCH (06:02)
[2017-02-10 06:43] LABS: BASO % 0.6 % (0.0-1.0); EOS # 0.2 K/mm3 (0.0-0.50); EOS % 2.5 % (0.0-3.0); LARGE UNSTAINED CELL # 0.1 K/mm3 (0.0-0.4); LYMPH % 29.1 % (24.0-44.0); MEAN CORPUSCULAR HEMOGLOBIN 30.6 pg (27.0-33.0); MEAN CORPUSCULAR HGB CONC 33.8 g/dl (32.0-36.5); MEAN CORPUSCULAR VOLUME 90.4 fl (80.0-96.0); MONO # 0.4 K/mm3 (0.0-0.8); MONO % 5.8 % (0.0-5.0); PLATELET COUNT, AUTOMATED 272 k/mm3 (150-450); RED CELL DISTRIBUTION WIDTH 13.1 % (11.5-14.5); WHITE BLOOD COUNT 6.7 K/mm3 (4.0-10.0)
[2017-02-10 06:47] LABS: ALBUMIN 2.3 GM/DL (3.2-5.2); ANION GAP 5 MEQ/L (8-16); BLOOD UREA NITROGEN 9 MG/DL (7-18); CALCIUM LEVEL 8.5 MG/DL (8.5-10.1); CARBON DIOXIDE LEVEL 28 MEQ/L (21-32); CHLORIDE LEVEL 107 MEQ/L (98-107); CREATININE FOR GFR 0.89 MG/DL (0.70-1.30); GLOMERULAR FILTRATION RATE > 60.0 (>60); GLUCOSE, FASTING 86 MG/DL (70-105); MAGNESIUM LEVEL 1.2 MG/DL (1.8-2.4); PHOSPHORUS LEVEL 2.6 MG/DL (2.5-4.9); SODIUM LEVEL 140 MEQ/L (136-145)
[2017-02-10] MEDS: HumaLOG INSULIN (NovoLOG) PER UNIT SC SCH ×4 (07:30→20:13)
--- NOTE | 2017-02-10 07:36 | ECGEPIP ---
Stationary ECG Study [facility] Test Date: 2017-02-09 Pat Name: SOLOMON JEREZ Department: Room: [place] [address] Gender: M Social Research Assistant: TAI : 1980 Requested By: RITA AGARWAL Order Number: [id number] Reading MD: Sonny Mcdaniel Measurements Intervals Porter Rate: 102 P: 59 SD: 215 QRS: 1 QRSD: 104 T: 10 QT: 339 QTc: 443 Interpretive Statements Sinus tachycardia with first degree AV block Consider prior IWMI Nonspecific T wave abnormality No significant change when compared to prior tracing of 02/07/2017 Electronically Signed On 02-10-2017 7:35:49 EDT by Sonny Mcdaniel
[2017-02-10] MEDS: ADVAIR DISKUS 500/50 INH PWD INH SCH ×2 (07:48→20:11)
[2017-02-10] MEDS ORDERED: MAG SULF 1GM/100ML (MAG RUN) 1 GM in APPROPRIATE DILUENT 1 EA IV ONE (08:15)
[2017-02-10] MEDS: LORATADINE 10 MG TAB PO SCH (09:05)
[2017-02-10] MEDS: cloZAPine 100 MG TAB (S0136) PO SCH ×2 (09:05→20:35)
[2017-02-10] MEDS: FLUoxetine 20 MG CAP PO SCH (09:05)
[2017-02-10] MEDS: OMEGA-3 1050MG CAPSULE PO SCH ×2 (09:06→20:34)
[2017-02-10] MEDS: lamoTRIgine 25 MG TAB PO SCH ×2 (09:06→20:33)
[2017-02-10] MEDS: FLUTICASONE PROP 0.05% NASAL SPRAY 16 GM (FLONASE) SCH ×2 (09:10→20:33)
[2017-02-10] MEDS: HEPARIN SOD (PORCINE) 5000 UNITS/ML VIAL SC SCH ×2 (09:10→20:32)
[2017-02-10] MEDS: MAG SULF 1GM/100ML (MAG RUN) 1 GM in APPROPRIATE DILUENT 1 EA IV SCH ×2 (09:16→10:12)
--- NOTE | 2017-02-10 11:45 | IPNPDOC ---
Subjective Date Seen The patient was seen on 02/10/17. Subjective Chief Complaint/HPI The patient is a 36-year-old male admitted with a reason for visit of Arf; Hypotension. General: Denies: Chills Constitutional: Denies: Chills Eyes: Denies: Vision change, Conjunctivae inflammation, Eyelid inflammation Pulmonary: Denies: Dyspnea, Cough Cardiovascular: Denies: Chest Pain, Palpitations Gastrointestinal: Reports: Abdominal Pain (describes some achy lower mid abdominal cramps), Denies: Nausea, Vomiting Neurological: Denies: Weakness Psych: Reports: Mood Normal Objective Physical Examination General Exam: Positive: Cooperative, No Acute Distress Eye Exam: Positive: Conjunctiva & lids normal, EOMI, Negative: Sclera icteric, Ptosis ENT Exam: Positive: Atraumatic, Nares Patent Neck Exam: Positive: Supple Chest Exam: Positive: Other (coarse in RUL), Negative: Normal air movement, Rales, Rhonchi, Wheezing, Diminished Heart Exam: Positive: Rate Normal, Tachycardic, Normal S1, Normal S2, Negative: Bradycardic, Gallops, Murmurs, Rubs Telemetry: Positive: No significant arrhythmia Abdomen Exam: Positive: Normal bowel sounds, Soft, Tenderness (tender to palpitation in mid abdomen and left left quadrant, no rebound ridgity or guarding. ), Negative: BS Hyperactive, BS Hypoactive, Hepatospenomegaly Extremity Exam: Negative: Clubbing, Cyanosis, Edema Assessment /Plan Problems (1) Hypotension Status: Acute Response to Treatment: Stable Problem Text: Patient is tolerating oral intake without n/v or abdominal pain, no IV fluids needed Currently 142/65 blood cx negative 48 hours, sputum culture pending, resp. panel negative, GI panel neg, urine culture negative, flu negative Patient is receiving antibiotic therapy Continue to monitor (2) Renal mass Status: Acute Response to Treatment: Stable Problem Text: Nephrology consulted, appreciate their recommendations. pt tolerating oral intake well, will continue (3) Abdominal pain Status: Acute Response to Treatment: Stable Problem Text: pt described some achy, crampy abdominal discomfort on exam today , had some tenderness to middle abdomen and LLQ, no rebound rigidity or guarding appreciated pt had BM one night prior will order CT abdomen w/o and follow up continue to monitor (4) Tachycardia Status: Acute Response to Treatment: Stable Problem Text: rates have been low 100's Repeat EKG benign continue to monitor (5) Dyslipidemia Status: Chronic Response to Treatment: Stable Problem Text: Will continue home medications (6) Diabetes Status: Chronic Response to Treatment: Stable Problem Text: glucose 86 today Sliding scale (7) Hypothyroid Status: Chronic Response to Treatment: Stable Problem Text: Will continue home medications (8) DVT prophylaxis Status: Acute Response to Treatment: Stable Problem Text: SCD teds Plan/VTE VTE Prophylaxis Ordered?: Yes Plan/Urinary Catheter Reason for insertion/continuin: Critical Pt monitoring VS, I&O, 24H, Fishbone Vital Signs/I&O Vital Signs Date Time Temp Pulse Resp B/P (MAP) Pulse Ox O2 Delivery O2 Flow Rate FiO2 02/10/17 06:00 97.8 106 20 142/65 (90) 92 Room Air 02/09/17 08:15 2.0 I&O- Last 24 Hours up to 6 AM 02/10/17 05:59 Intake Total 3305 ml Output Total 125 ml Balance 3180 ml Laboratory Data 24H LABS Laboratory Tests 2 02/09/17 11:50: Bedside Glucose (Misc Panel) 97 02/09/17 17:05: Bedside Glucose (Misc Panel) 110H 02/09/17 20:03: Bedside Glucose (Misc Panel) 104 02/10/17 06:17: White Blood Count 6.7, Red Blood Count 3.64L, Hemoglobin 11.1L, Hematocrit 32.9L , Mean Corpuscular Volume 90.4, Mean Corpuscular Hemoglobin 30.6, Mean Corpuscular Hemoglobin Concent 33.8, Red Cell Distribution Width 13.1, Platelet Count 272, Neutrophils (%) (Auto) 60.0, Lymphocytes (%) (Auto) 29.1, Monocytes ( %) (Auto) 5.8H, Eosinophils (%) (Auto) 2.5, Basophils (%) (Auto) 0.6, Neutrophils # (Auto) 4.0, Lymphocytes # (Auto) 2.0, Monocytes # (Auto) 0.4, Eosinophils # (Auto) 0.2, Basophils # (Auto) 0.0, Large Unclassified Cells % 2.0 , Large Unclassified Cells # 0.1, Blood Urea Nitrogen 9, Creatinine 0.89, Sodium Level 140, Potassium Level 4.0, Chloride Level 107, Carbon Dioxide Level 28, Anion Gap 5L, Glomerular Filtration Rate > 60.0, Calcium Level 8.5, Phosphorus Level 2.6, Magnesium Level 1.2L, C-Reactive Protein, Quantitative 2.97H, Albumin 2.3L CBC/BMP Laboratory Tests 02/10/17 06:17 Red Blood Count 3.64 L, Mean Corpuscular Volume 90.4, Mean Corpuscular Hemoglobin 30.6, Mean Corpuscular Hemoglobin Concent 33.8, Red Cell Distribution Width 13.1, Neutrophils (%) (Auto) 60.0, Lymphocytes (%) (Auto) 29.1, Monocytes (%) (Auto) 5.8 H, Eosinophils (%) (Auto) 2.5, Basophils (%) ( Auto) 0.6, Neutrophils # (Auto) 4.0, Lymphocytes # (Auto) 2.0, Monocytes # (Auto ) 0.4, Eosinophils # (Auto) 0.2, Basophils # (Auto) 0.0, Anion Gap 5 L Microbiology Microbiology 02/07/17 Blood Culture - Preliminary, Resulted No Growth after 48 hours. All Specime... 02/07/17 Blood Culture - Preliminary, Resulted No Growth after 48 hours. All Specime... 02/09/17 Gastrointestinal Tract Panel (PCR) - Final, Complete 02/08/17 Gram Stain - Final, Resulted 02/08/17 Sputum Culture, Resulted Pending 02/08/17 Respiratory Virus Panel (PCR) ([facility]) - Final, Complete 02/07/17 Influenza Virus Type A Antigen - Final, Complete 02/07/17 Influenza Virus Type B Antigen - Final, Complete 02/07/17 Urine Culture - Final, Complete GME ATTESTATION GME ATTESTATION My preceptor for this patient encounter was physically present in the building during the encounter and was fully available. As needed, all aspects of the patient interview, examination, medical decision making process, and medical care plan development were reviewed and approved by the preceptor. Preceptor is aware and concurs with the plan as stated in the body of this note and will attest to such by his/her cosignature. ATTENDING NOTE I have both independently examined this patient as well as reviewed the note. I have discussed in detail with the resident the findings and plan of treatment as documented in the residents note. I will continue to follow the patient and offer further guidance to the patients care as necessary during this hospital stay. NAJMA Alcazar DO Feb 10, 2017 11:45 RITA AGARWAL MD Feb 11, 2017 06:50
[2017-02-10 14:00] VITALS: BP 134/71
[2017-02-10] MEDS: METOPROLOL TART 50 MG TAB PO SCH ×2 (14:49→20:35)
--- NOTE | 2017-02-10 15:27 | REP ---
CT ABDOMEN WITHOUT CONTRAST: HISTORY: Abdominal pain. The liver, gallbladder, pancreas, spleen, adrenal glands, and kidneys are normal in appearance. There is no mass or adenopathy. A very small amount of free fluid is present lateral to the inferior right lobe of the liver. Small areas of atelectasis or infiltrate are present in the lower lobes. A very small right pleural effusion is present. A small hiatal hernia is present. IMPRESSION: 1. Small hiatal hernia. 2. There is a very small amount of free fluid along the inferior aspect of the right lobe of the liver. 3. Bibasilar atelectasis or infiltrates and small right pleural effusion Signed by Bin Bush MD 02/10/2017 03:58 P
--- NOTE | 2017-02-10 20:28 | IPN ---
DATE: 02/10/2017 SUBJECTIVE: The patient was seen and examined at the bedside today in the morning. He was laying in the bed, no apparent distress. His renal function is back to its baseline. REVIEW OF SYSTEMS: The patient denies any fevers, chills, rigors, headache, nausea, vomiting, chest pain, shortness of breath, pain in the abdomen, constipation or diarrhea. The rest of the review of systems is negative. OBJECTIVE: VITAL SIGNS: Temperature is 97.8 degrees Fahrenheit. Blood pressure is 142/65, pulse is 106, respiratory rate of 20, saturating 92% on room air. Intake and output: Urine output recorded yesterday at 700 mL. There is no urine output recorded today. Weight on the bed scale is 120.6 kg. PHYSICAL EXAMINATION: GENERAL: The patient is awake, alert, and oriented times three. Lying in bed. No apparent distress. HEAD AND NECK EXAMINATION: Extraocular muscles intact. Pupils are equal, round and reactive to light. Mucous membranes are moist. Neck is supple. There is no jugular venous distention (JVD). CARDIOVASCULAR: S1, S2. Regular rate. No murmur, rub or gallop. RESPIRATORY: Chest is clear to auscultation bilaterally. Bilateral equal air entry. No rales or rhonchi. ABDOMEN: Soft. Positive bowel sounds. Nontender. No ascites. No organomegaly. EXTREMITIES: No clubbing or cyanosis. Pulses are 2+. NEUROLOGIC: No focal neurological deficits. Power is 5/5 in all extremities. LABORATORY REVIEW: Complete blood count (CBC) showed a WBC of 6.7, hemoglobin 11.1. Basic metabolic panel (BMP) showed sodium 140, potassium 4, chloride 107, bicarbonate 28, BUN 9, creatinine 0.89, calcium 8.5, phosphorous 2.6, magnesium is 1.2, albumin is 2.3. CURRENT MEDICATIONS: The patient's medications were all reviewed by me. The patient is getting magnesium sulfate 1 gram IV times two doses. He continues to get IV cefepime. There is no other change in the medications today as compared with yesterday. ASSESSMENT: 36-year-old male with acute renal failure secondary to dehydration and volume depletion. PLAN: 1. Acute kidney injury. The patient's renal function is improved to baseline with IV hydration. His creatinine is 0.8 today. 2. Hypomagnesemia. Magnesium is already being repleted by primary team. He will get 2 grams of magnesium sulfate IV today. 3. Hypertension and tachycardia. His blood pressure is acceptable at this time. His jvldpwghosp-busjizuefv-ljaghr (SHYLA) inhibitors are already on hold. Metoprolol has been restarted today this morning at 50 mg by mouth twice a day. Blood pressure and tachycardia will hopefully normalize with current dose of beta blockers. DISCHARGE PLANNING: The patient's renal function has improved back to his baseline. His blood pressure is also within the acceptable limit. Nephrology service will sign off at this time. Plan of care was discussed with primary team hospitalist, Dr. Karmen Harrell. It is okay to discharge the patient from nephrology standpoint at this time.
[2017-02-10] MEDS: SIMVASTATIN 20 MG TAB PO SCH (20:32)
[2017-02-10] MEDS: ONDANSETRON 4MG/2ML VIAL (J2405) IV PRN (20:32)
[2017-02-10 22:00] VITALS: BP 135/81
[2017-02-11] MEDS: IPRATROPIUM 0.5MG/ALBUTEROL 2.5MG INH SOL UD 3ML (DUONEB)(J7620) NEB SCH ×2 (02:20→07:35)
[2017-02-11] MEDS: CEFEPIME HCL 1 GM in D5W MINI-BAG PLUS 50 ML IV SCH (03:56)
[2017-02-11] MEDS: LEVOTHYROXINE 0.15 MG TAB (150 MCG) PO SCH (05:23)
[2017-02-11 06:00] VITALS: BP 128/75
[2017-02-11 06:52] LABS: BASO % 0.7 % (0.0-1.0); EOS # 0.2 K/mm3 (0.0-0.50); EOS % 2.5 % (0.0-3.0); LARGE UNSTAINED CELL # 0.2 K/mm3 (0.0-0.4); LYMPH % 26.3 % (24.0-44.0); MEAN CORPUSCULAR HEMOGLOBIN 30.3 pg (27.0-33.0); MEAN CORPUSCULAR HGB CONC 33.1 g/dl (32.0-36.5); MEAN CORPUSCULAR VOLUME 91.6 fl (80.0-96.0); MONO # 0.5 K/mm3 (0.0-0.8); MONO % 6.2 % (0.0-5.0); NEUTROPHILS # 4.7 K/mm3 (1.8-7.7); NEUTROPHILS % 62.2 % (36.0-66.0); PLATELET COUNT, AUTOMATED 282 k/mm3 (150-450); RED CELL DISTRIBUTION WIDTH 13.2 % (11.5-14.5); WHITE BLOOD COUNT 7.6 K/mm3 (4.0-10.0)
[2017-02-11 07:08] LABS: ALBUMIN 2.4 GM/DL (3.2-5.2); ANION GAP 5 MEQ/L (8-16); BLOOD UREA NITROGEN 9 MG/DL (7-18); CALCIUM LEVEL 8.7 MG/DL (8.5-10.1); CARBON DIOXIDE LEVEL 29 MEQ/L (21-32); CHLORIDE LEVEL 108 MEQ/L (98-107); CREATININE FOR GFR 0.88 MG/DL (0.70-1.30); GLOMERULAR FILTRATION RATE > 60.0 (>60); GLUCOSE, FASTING 82 MG/DL (70-105); MAGNESIUM LEVEL 1.3 MG/DL (1.8-2.4); PHOSPHORUS LEVEL 3.1 MG/DL (2.5-4.9); POTASSIUM SERUM 4.2 MEQ/L (3.5-5.1); SODIUM LEVEL 142 MEQ/L (136-145)
[2017-02-11] MEDS: HumaLOG INSULIN (NovoLOG) PER UNIT SC SCH ×2 (07:30→12:00)
[2017-02-11] MEDS: ADVAIR DISKUS 500/50 INH PWD INH SCH (07:35)
[2017-02-11] MEDS: MAG SULF 1GM/100ML (MAG RUN) 1 GM in APPROPRIATE DILUENT 1 EA IV SCH ×3 (08:00→12:25)
[2017-02-11 09:00] VITALS: BP 128/75
[2017-02-11] MEDS: lamoTRIgine 25 MG TAB PO SCH (09:00)
[2017-02-11] MEDS: LORATADINE 10 MG TAB PO SCH (09:00)
[2017-02-11] MEDS: HEPARIN SOD (PORCINE) 5000 UNITS/ML VIAL SC SCH (09:00)
[2017-02-11] MEDS: FLUTICASONE PROP 0.05% NASAL SPRAY 16 GM (FLONASE) SCH (09:00)
[2017-02-11] MEDS: METOPROLOL TART 50 MG TAB PO SCH (09:00)
[2017-02-11] MEDS: OMEGA-3 1050MG CAPSULE PO SCH (09:00)
[2017-02-11] MEDS: FLUoxetine 20 MG CAP PO SCH (09:00)
[2017-02-11] MEDS: cloZAPine 100 MG TAB (S0136) PO SCH (09:00)
[2017-02-11 10:00] VITALS: BP 124/68
[2017-02-11] MEDS ORDERED: MAGN400C3 PO (11:37)
[2017-02-11 14:00] VITALS: BP 136/78
--- NOTE | 2017-02-12 06:20 | DSES ---
DATE OF ADMISSION: 02/07/2017 DATE OF DISCHARGE: 02/11/2017 PRIMARY CARE PROVIDER: Susan Nevarez NP PSYCHIATRIST: Yamile Brennan, [facility]. FINAL DIAGNOSIS: 1. Hypotension. 2. Renal mass. 3. Acute on chronic renal insufficiency. 4. Abdominal pain. 5. Tachycardia. 6. Obstructive sleep apnea (PAVAN). 7. Dyslipidemia. 8. Diabetes. 9. Lethargy. 10. Hypotension. 11. Hypothyroidism. HISTORY OF PRESENT ILLNESS: This is a 36-year-old male patient with underlying medical history of schizoaffective disorder, type 2 diabetes, morbid obesity, metabolic syndrome who was brought in today for an episode of lethargy, dizziness and falling. The patient was in the parking lot with his roommate by his van and planned to go to a buffet; however, as he attempted to get out of the car he felt dizzy and lightheaded and subsequently almost fell down in the ground. He stated that in the past month or so he has not been feeling well, was vomiting almost every night approximately three episodes a night, mostly vomiting food and brownish content. Because of his nausea and vomiting his appetite has been poor. He has not been drinking a lot of water associated with decreased urination, dizziness, blurry vision, and also weight loss unintentionally in the past four months of 50 pounds. He is unsure if he had a diarrhea. History is somewhat difficult to obtain as he tends to have difficulty remembering details. The patient is a poor historian. He is a resident of [facility] because of his extensive psychiatric history. Subsequently the patient was admitted to the hospital. In the hospital the patient was initially found to be hypotension. Blood pressure medication was on hold. Blood culture was sent. Gastrointestinal (GI) panel, respiratory panel were negative. Aggressive fluid hydration was done. Renal ultrasound and CT of the head was also done. Ultrasound renal shows kidney mass and then nephrology was consulted for acute on chronic renal insufficiency. CT of the abdomen was also done for abdominal discomfort. The patient's clinical status continued to improve with kidney function returning to baseline, resolution of lactic acidosis and normal electrolytes. The patient currently tolerating oral and comfortable, reported back to baseline and ready for discharge for further care as an outpatient. Obstructive sleep apnea (PAVAN) monitoring was observed while he was an inpatient. Given the patient is not compliant with C-PAP counseling has been provided. VITAL SIGNS: Temperature 98.2, pulse 99, respirations 14, blood pressure 124/68, pulse oximetry 90% on room air. LABORATORY DATA: WBC 7.6, hemoglobin 11, hematocrit 33.2, platelets 282. Chemistries: Sodium 142, potassium 4.2, chloride 108, bicarbonate 29, BUN 9, creatinine 0.88, magnesium 1.3 supplemented. MEDICATIONS: - magnesium oxide 400 mg by mouth twice a day - ProAir inhalation every 4 hours as needed - buspirone 30 mg - clozapine 150 mg by mouth twice a day - Bydureon 2 mg subcutaneously weekly - Flonase inhalation intranasal twice a day - fluoxetine 20 mg by mouth daily - Haldol every monthly 200 mg intramuscularly (IM) - lamotrigine 100 mg by mouth twice a day - Synthroid 150 mcg by mouth daily - loratadine 10 mg by mouth daily - metformin 500 mg by mouth twice a day - metoprolol 50 mg by mouth twice a day - multivitamin one tablet by mouth daily - [place]-3 fatty acid two capsules by mouth twice a day - Advair Diskus 550 mcg dosage inhalation twice a day - Zocor 20 mg by mouth nightly - trazodone 100 mg by mouth nightly DISCHARGE INSTRUCTIONS: The patient was instructed to followup with collection manager in 1-2 weeks, primary care provider in seven days. Return to the hospital if symptoms worsen. Encourage ambulation, encourage C-PAP compliance.
== END 2017-02-11 15:38 | disposition home or self-care (01) | DRG 683 ==
LOC: M ED 15:42 → M ED INP 17:28 → M ICU 22:32 → M MS5PR 02-09 13:13
PROVIDERS: ADMIT Internal Medicine; ATTEND Hospitalist
DX: N17.9 Acute kidney failure, unspecified (principal); E87.2 Acidosis; E87.3 Alkalosis; E87.1 Hypo-osmolality and hyponatremia; Z68.41 Body mass index [BMI] 40.0-44.9, adult; E66.01 Morbid (severe) obesity due to excess calories; E11.9 Type 2 diabetes mellitus without complications; E88.81 Metabolic syndrome and other insulin resistance; E03.9 Hypothyroidism, unspecified; E78.5 Hyperlipidemia, unspecified; F32.9 Major depressive disorder, single episode, unspecified; G47.33 Obstructive sleep apnea (adult) (pediatric); R00.0 Tachycardia, unspecified; I95.9 Hypotension, unspecified; F25.9 Schizoaffective disorder, unspecified; N28.89 Other specified disorders of kidney and ureter; Z79.84 Long term (current) use of oral hypoglycemic drugs; Z79.899 Other long term (current) drug therapy; Z87.891 Personal history of nicotine dependence; Z82.49 Family history of ischemic heart disease and other diseases of the circulatory system; Z83.3 Family history of diabetes mellitus; Z81.8 Family history of other mental and behavioral disorders

== ENCOUNTER → 2017-04-26 | Outpatient (CLI) | payer MEDICARE, MEDICAID ==
[~2017-04-26] MED LIST changes: +ADV500INH INH; +BUSP15TA47 PO; +BUSP30TA PO; +BYDU1INJ SC; +CLAR1TAB2 PO; +CLOZ100T2 PO; +CLOZ50TA PO; +FLON1SPR; +FLUO20CA19 PO; +HALO10AM IM; +LAMO100T PO; +LISI10TA4 PO; +MAGN400C3 PO; -METF500T PO; +METF500T13 PO; -PROA1AER IN; -PROA1AER INH; +PROAAER10 IN; +PROAAER10 INH; +TRAZ-136 PO; +TRAZ50TA11 PO; -TRAZ50TA4 PO; +VITMTA PO
[2017-04-26 12:46] LABS: ANION GAP 4 MEQ/L (8-16); BLOOD UREA NITROGEN 5 MG/DL (7-18); CALCIUM LEVEL 9.7 MG/DL (8.5-10.1); CARBON DIOXIDE LEVEL 33 MEQ/L (21-32); CHLORIDE LEVEL 96 MEQ/L (98-107); CREATININE FOR GFR 0.91 MG/DL (0.70-1.30); GLOMERULAR FILTRATION RATE > 60.0 (>60); GLUCOSE, FASTING 107 MG/DL (70-105); POTASSIUM SERUM 3.4 MEQ/L (3.5-5.1); SODIUM LEVEL 133 MEQ/L (136-145)
== END ==
LOC: M LAB 11:55
PROVIDERS: ATTEND Nurse Practitioner Family
DX: N17.9 Acute kidney failure, unspecified (principal)

== ENCOUNTER → 2017-05-07 | Outpatient (CLI) | payer MEDICARE, MEDICAID ==
[2017-05-07 13:57] LABS: ANION GAP 9 MEQ/L (8-16); BLOOD UREA NITROGEN 4 MG/DL (7-18); CARBON DIOXIDE LEVEL 27 MEQ/L (21-32); CHLORIDE LEVEL 98 MEQ/L (98-107); CREATININE FOR GFR 0.95 MG/DL (0.70-1.30); GLOMERULAR FILTRATION RATE > 60.0 (>60); GLUCOSE, FASTING 114 MG/DL (70-105); POTASSIUM SERUM 4.2 MEQ/L (3.5-5.1); SODIUM LEVEL 134 MEQ/L (136-145)
== END ==
LOC: M LAB 12:59
PROVIDERS: ATTEND Nurse Practitioner Family
DX: E87.8 Other disorders of electrolyte and fluid balance, not elsewhere classified (principal)

== ENCOUNTER → 2017-05-21 | Outpatient (CLI) | payer MEDICARE, MEDICAID | LOC: M LAB 13:12 | PROVIDERS: ATTEND Physician Assistant Medical | DX: E11.9 Type 2 diabetes mellitus without complications (principal); E06.3 Autoimmune thyroiditis ==

== ENCOUNTER → 2017-05-25 | Outpatient (CLI) | payer MEDICARE, MEDICAID ==
[2017-05-25 11:01] LABS: MEAN CORPUSCULAR HEMOGLOBIN 28.4 pg (27.0-33.0); MEAN CORPUSCULAR HGB CONC 34.1 g/dl (32.0-36.5); MEAN CORPUSCULAR VOLUME 83.4 fl (80.0-96.0); RED CELL DISTRIBUTION WIDTH 13.7 % (11.5-14.5); WHITE BLOOD COUNT 6.7 K/mm3 (4.0-10.0)
[2017-05-25 11:38] LABS: ALBUMIN 3.1 GM/DL (3.2-5.2); ALBUMIN/GLOBULIN RATIO 0.94 (1.00-1.93); ALKALINE PHOSPHATASE 81 U/L (45-117); ALT/SGPT 22 U/L (12-78); ANION GAP 9 MEQ/L (8-16); AST/SGOT 12 U/L (15-37); BILIRUBIN,TOTAL 0.3 MG/DL (0.2-1.0); BLOOD UREA NITROGEN 4 MG/DL (7-18); CALCIUM LEVEL 9.3 MG/DL (8.5-10.1); CARBON DIOXIDE LEVEL 28 MEQ/L (21-32); CHLORIDE LEVEL 103 MEQ/L (98-107); CHOLESTEROL LEVEL 117 MG/DL (<200); FREE T4 1.42 NG/DL (0.76-1.46); GLOMERULAR FILTRATION RATE > 60.0 (>60); GLUCOSE, FASTING 95 MG/DL (70-105); MAGNESIUM LEVEL 2.1 MG/DL (1.8-2.4); SODIUM LEVEL 140 MEQ/L (136-145); TOTAL PROTEIN 6.4 GM/DL (6.4-8.2); TRIGLYCERIDES LEVEL 213 MG/DL (<150)
== END ==
LOC: M LAB 09:43
PROVIDERS: ATTEND Nurse Practitioner Family
DX: E11.9 Type 2 diabetes mellitus without complications (principal); G03.9 Meningitis, unspecified; E78.5 Hyperlipidemia, unspecified; I10 Essential (primary) hypertension; E78.00 Pure hypercholesterolemia, unspecified; E03.9 Hypothyroidism, unspecified; E83.42 Hypomagnesemia; Z12.5 Encounter for screening for malignant neoplasm of prostate; Z79.899 Other long term (current) drug therapy

== ENCOUNTER → 2017-05-30 | Outpatient (REF) | payer MEDICARE, MEDICAID | LOC: M LAB REF 16:21 | PROVIDERS: ATTEND Nurse Practitioner Family | DX: E78.5 Hyperlipidemia, unspecified (principal); E11.9 Type 2 diabetes mellitus without complications; E03.9 Hypothyroidism, unspecified; Z51.81 Encounter for therapeutic drug level monitoring; Z79.899 Other long term (current) drug therapy ==

== ENCOUNTER → 2017-05-31 | Outpatient (CLI) | payer MEDICARE, MEDICAID ==
[~2017-05-31] MED LIST changes: +GASTROGRAFIN SOLUTION 30ML (Q9963) As Ordered ONE; +ISOVUE-370 76% 100ML VIAL (Q9967) As Ordered ONE
--- NOTE | 2017-05-31 17:32 | REP ---
CT of the abdomen pelvis without and with IV contrast and with bowel contrast: Comparison is 02/10/2017. The visualized lung nguyễn are unremarkable. The hepatic parenchyma, gallbladder, pancreas, spleen, adrenals, kidneys and abdominal aorta are unremarkable. There is no bowel distension. Just distal to the ileocecal valve in the proximal ascending colon, there is the impression of luminal narrowing and wall thickening of the colon. This is nonspecific and could be artifact from peristalsis or could represent a circumferential neoplasm. Consider barium enema or colonoscopy for follow up. The colon is otherwise unremarkable. Small bowel is unremarkable. Pelvis: The bladder is unremarkable. There are bilateral fat containing inguinal hernias. There is no adenopathy or ascites. Impression: Circumferential neoplasm versus artifact from peristalsis in the proximal ascending colon just distal to the ileocecal valve. There is no adenopathy or ascites. The hepatic parenchyma is homogeneous. Otherwise, negative CT of the abdomen and pelvis. Signed by Arnel Auguste MD 05/31/2017 05:23 P
== END ==
LOC: M RAD 15:09
PROVIDERS: ATTEND Nurse Practitioner Family
DX: R19.00 Intra-abdominal and pelvic swelling, mass and lump, unspecified site (principal)
CPT/HCPCS: 74178; Q9963; Q9967

== ENCOUNTER → 2017-07-06 | Outpatient (CLI) | payer MEDICARE, MEDICAID ==
[~2017-07-06] MED LIST changes: -GASTROGRAFIN SOLUTION 30ML (Q9963) As Ordered ONE; -ISOVUE-370 76% 100ML VIAL (Q9967) As Ordered ONE
[2017-07-06 19:30] LABS: BASO % 0.3 % (0.0-1.0); EOS # 0.3 K/mm3 (0.0-0.50); EOS % 3.2 % (0.0-3.0); LYMPH % 22.9 % (24.0-44.0); MEAN CORPUSCULAR HEMOGLOBIN 28.8 pg (27.0-33.0); MEAN CORPUSCULAR HGB CONC 34.5 g/dl (32.0-36.5); MEAN CORPUSCULAR VOLUME 83.3 fl (80.0-96.0); MONO # 0.4 K/mm3 (0.0-0.8); MONO % 4.2 % (0.0-5.0); NEUTROPHILS # 6.1 K/mm3 (1.8-7.7); NEUTROPHILS % 68.7 % (36.0-66.0); RED CELL DISTRIBUTION WIDTH 14.5 % (11.5-14.5); WHITE BLOOD COUNT 8.9 K/mm3 (4.0-10.0)
== END ==
LOC: M LAB 15:33
PROVIDERS: ATTEND Nurse Practitioner Psychiatric/Mental Health
DX: Z51.81 Encounter for therapeutic drug level monitoring (principal); Z79.899 Other long term (current) drug therapy

== ENCOUNTER → 2017-09-12 | Outpatient (CLI) | payer MEDICARE, MEDICAID ==
[2017-09-12 14:02] LABS: BASO % 0.4 % (0.0-1.0); EOS # 0.1 10^3/uL (0.0-0.50); EOS % 1.3 % (0.0-3.0); IMMATURE GRANULOCYTE % 0.4 % (0-0); LYMPH # 1.9 10^3/uL (1.5-4.5); LYMPH % 17.7 % (24.0-44.0); MEAN CORPUSCULAR HEMOGLOBIN 28.4 pg (27.0-33.0); MEAN CORPUSCULAR HGB CONC 33.3 g/dl (32.0-36.5); MEAN CORPUSCULAR VOLUME 85.3 fl (80.0-96.0); MONO # 0.7 10^3/uL (0.0-0.8); MONO % 6.7 % (0.0-5.0); NEUTROPHILS # 7.8 10^3/uL (1.8-7.7); NEUTROPHILS % 73.5 % (36.0-66.0); PLATELET COUNT, AUTOMATED 284 10^3/uL (150-450); RED CELL DISTRIBUTION WIDTH 14.3 % (11.5-14.5); WHITE BLOOD COUNT 10.6 10^3/uL (4.0-10.0)
== END ==
LOC: M LAB 13:17
PROVIDERS: ATTEND Nurse Practitioner Psychiatric/Mental Health
DX: Z79.899 Other long term (current) drug therapy (principal)

== ENCOUNTER → 2017-10-09 | Outpatient (CLI) | payer MEDICARE, MEDICAID ==
[2017-10-09 15:15] LABS: BASO # 0.1 10^3/uL (0.0-0.2); BASO % 0.5 % (0.0-1.0); EOS # 0.1 10^3/uL (0.0-0.50); EOS % 1.2 % (0.0-3.0); IMMATURE GRANULOCYTE % 0.5 % (0-0); LYMPH # 2.6 10^3/uL (1.5-4.5); LYMPH % 23.2 % (24.0-44.0); MEAN CORPUSCULAR HEMOGLOBIN 28.5 pg (27.0-33.0); MEAN CORPUSCULAR HGB CONC 34.1 g/dl (32.0-36.5); MEAN CORPUSCULAR VOLUME 83.6 fl (80.0-96.0); MONO # 0.9 10^3/uL (0.0-0.8); MONO % 7.7 % (0.0-5.0); NEUTROPHILS # 7.5 10^3/uL (1.8-7.7); NEUTROPHILS % 66.9 % (36.0-66.0); PLATELET COUNT, AUTOMATED 313 10^3/uL (150-450); RED CELL DISTRIBUTION WIDTH 13.8 % (11.5-14.5); WHITE BLOOD COUNT 11.2 10^3/uL (4.0-10.0)
== END ==
LOC: M LAB 14:33
PROVIDERS: ATTEND Nurse Practitioner Psychiatric/Mental Health
DX: Z79.899 Other long term (current) drug therapy (principal)

== ENCOUNTER → 2017-11-07 | Outpatient (CLI) | payer MEDICARE, MEDICAID ==
[2017-11-07 15:17] LABS: THYROID STIMULATING HORMONE 0.409 uIU/ML (0.358-3.740)
== END ==
LOC: M LAB 13:55
DX: E11.9 Type 2 diabetes mellitus without complications (principal); Z51.81 Encounter for therapeutic drug level monitoring; Z79.899 Other long term (current) drug therapy
CPT/HCPCS: 84443

== ENCOUNTER → 2017-11-07 | Outpatient (CLI) | payer MEDICARE, MEDICAID ==
[2017-11-07 14:41] LABS: HEMOGLOBIN 11.9 g/dl (14.0-18.0); RED BLOOD COUNT 4.14 10^6/uL (4.30-6.10); WHITE BLOOD COUNT 8.7 10^3/uL (4.0-10.0)
[2017-11-07 14:42] LABS: BASO % 0.3 % (0.0-1.0); EOS # 0.1 10^3/uL (0.0-0.50); EOS % 1.5 % (0.0-3.0); HEMATOCRIT 36.1 % (42.0-52.0); IMMATURE GRANULOCYTE # 0.1 10^3/uL (0-0); IMMATURE GRANULOCYTE % 0.6 % (0-0); LYMPH # 1.8 10^3/uL (1.5-4.5); LYMPH % 21.2 % (24.0-44.0); MEAN CORPUSCULAR HEMOGLOBIN 28.7 pg (27.0-33.0); MEAN CORPUSCULAR VOLUME 87.2 fl (80.0-96.0); MONO # 0.5 10^3/uL (0.0-0.8); MONO % 6.1 % (0.0-5.0); NEUTROPHILS # 6.1 10^3/uL (1.8-7.7); NEUTROPHILS % 70.3 % (36.0-66.0); PLATELET COUNT, AUTOMATED 319 10^3/uL (150-450); RED CELL DISTRIBUTION WIDTH 13.2 % (11.5-14.5)
== END ==
LOC: M LAB 13:50
DX: Z51.81 Encounter for therapeutic drug level monitoring (principal); Z79.899 Other long term (current) drug therapy

== ENCOUNTER → 2017-11-29 | Outpatient (CLI) | payer MEDICARE, MEDICAID ==
[2017-11-29 14:44] LABS: BASO % 0.4 % (0.0-1.0); EOS # 0.2 10^3/uL (0.0-0.50); EOS % 1.9 % (0.0-3.0); HEMATOCRIT 39.3 % (42.0-52.0); HEMOGLOBIN 13.1 g/dl (14.0-18.0); IMMATURE GRANULOCYTE % 0.4 % (0-3.0); LYMPH # 2.1 10^3/uL (1.5-4.5); LYMPH % 19.7 % (24.0-44.0); MEAN CORPUSCULAR HEMOGLOBIN 28.7 pg (27.0-33.0); MEAN CORPUSCULAR HGB CONC 33.3 g/dl (32.0-36.5); MEAN CORPUSCULAR VOLUME 86.2 fl (80.0-96.0); MONO # 0.8 10^3/uL (0.0-0.8); MONO % 7.1 % (0.0-5.0); NEUTROPHILS # 7.6 10^3/uL (1.8-7.7); NEUTROPHILS % 70.5 % (36.0-66.0); PLATELET COUNT, AUTOMATED 294 10^3/uL (150-450); RED BLOOD COUNT 4.56 10^6/uL (4.30-6.10); RED CELL DISTRIBUTION WIDTH 13.3 % (11.5-14.5); WHITE BLOOD COUNT 10.7 10^3/uL (4.0-10.0)
== END ==
LOC: M LAB 13:59
DX: Z51.81 Encounter for therapeutic drug level monitoring (principal); Z79.899 Other long term (current) drug therapy
CPT/HCPCS: 85027

== ENCOUNTER → 2017-12-11 | Outpatient (CLI) | payer MEDICARE, MEDICAID | LOC: M SLEEP 19:06 | DX: G47.33 Obstructive sleep apnea (adult) (pediatric) (principal) | CPT/HCPCS: 95810 ==

== ENCOUNTER → 2018-01-10 | Outpatient (CLI) | payer MEDICARE, MEDICAID ==
[2018-01-10 15:30] LABS: BASO # 0.1 10^3/uL (0.0-0.2); BASO % 0.6 % (0.0-1.0); EOS # 0.2 10^3/uL (0.0-0.50); EOS % 2.3 % (0.0-3.0); HEMATOCRIT 39.2 % (42.0-52.0); HEMOGLOBIN 13.2 g/dl (13.5-17.5); IMMATURE GRANULOCYTE % 0.4 % (0-3.0); LYMPH # 2.5 10^3/uL (1.5-4.5); MEAN CORPUSCULAR HEMOGLOBIN 28.8 pg (27.0-33.0); MEAN CORPUSCULAR HGB CONC 33.7 g/dl (32.0-36.5); MEAN CORPUSCULAR VOLUME 85.6 fl (80.0-96.0); MONO # 0.8 10^3/uL (0.0-0.8); MONO % 7.4 % (0.0-5.0); NEUTROPHILS # 6.9 10^3/uL (1.8-7.7); NEUTROPHILS % 65.3 % (36.0-66.0); PLATELET COUNT, AUTOMATED 353 10^3/uL (150-450); RED BLOOD COUNT 4.58 10^6/uL (4.30-6.10); RED CELL DISTRIBUTION WIDTH 13.6 % (11.5-14.5); WHITE BLOOD COUNT 10.5 10^3/uL (4.0-10.0)
== END ==
LOC: M LAB 15:08
DX: Z79.899 Other long term (current) drug therapy (principal)
CPT/HCPCS: 85027

== ENCOUNTER → 2018-02-13 | Outpatient (CLI) | payer MEDICARE, MEDICAID ==
[2018-02-13 16:08] LABS: BASO # 0.1 10^3/uL (0.0-0.2); BASO % 0.4 % (0.0-1.0); EOS # 0.2 10^3/uL (0.0-0.50); EOS % 1.8 % (0.0-3.0); HEMATOCRIT 35.2 % (42.0-52.0); HEMOGLOBIN 11.5 g/dl (13.5-17.5); IMMATURE GRANULOCYTE % 0.4 % (0-3.0); LYMPH # 2.1 10^3/uL (1.5-4.5); LYMPH % 18.4 % (24.0-44.0); MEAN CORPUSCULAR HEMOGLOBIN 28.1 pg (27.0-33.0); MEAN CORPUSCULAR HGB CONC 32.7 g/dl (32.0-36.5); MEAN CORPUSCULAR VOLUME 86.1 fl (80.0-96.0); MONO # 0.7 10^3/uL (0.0-0.8); NEUTROPHILS # 8.3 10^3/uL (1.8-7.7); PLATELET COUNT, AUTOMATED 303 10^3/uL (150-450); RED BLOOD COUNT 4.09 10^6/uL (4.30-6.10); RED CELL DISTRIBUTION WIDTH 14.5 % (11.5-14.5); WHITE BLOOD COUNT 11.4 10^3/uL (4.0-10.0)
== END ==
LOC: M LAB 15:20
DX: Z79.899 Other long term (current) drug therapy (principal)
CPT/HCPCS: 85027

== ENCOUNTER → 2018-02-17 | Outpatient (CLI) | payer MEDICARE, MEDICAID | LOC: M SLEEP 20:00 | DX: G47.33 Obstructive sleep apnea (adult) (pediatric) (principal); G47.61 Periodic limb movement disorder | CPT/HCPCS: 95811 ==

== ENCOUNTER → 2018-02-21 | Outpatient (CLI) | payer MEDICARE, MEDICAID ==
[2018-02-21 10:58] LABS: HEMATOCRIT 38.8 % (42.0-52.0); HEMOGLOBIN 13.1 g/dl (13.5-17.5); MEAN CORPUSCULAR HEMOGLOBIN 28.3 pg (27.0-33.0); MEAN CORPUSCULAR HGB CONC 33.8 g/dl (32.0-36.5); MEAN CORPUSCULAR VOLUME 83.8 fl (80.0-96.0); PLATELET COUNT, AUTOMATED 386 10^3/uL (150-450); RED BLOOD COUNT 4.63 10^6/uL (4.30-6.10); RED CELL DISTRIBUTION WIDTH 13.9 % (11.5-14.5); WHITE BLOOD COUNT 8.6 10^3/uL (4.0-10.0)
[2018-02-21 11:58] LABS: ALBUMIN 3.3 GM/DL (3.2-5.2); ALBUMIN/GLOBULIN RATIO 0.94 (1.00-1.93); ALKALINE PHOSPHATASE 81 U/L (45-117); ALT/SGPT 15 U/L (12-78); ANION GAP 7 MEQ/L (8-16); AST/SGOT 15 U/L (7-37); BILIRUBIN,TOTAL 0.3 MG/DL (0.2-1.0); BLOOD UREA NITROGEN 6 MG/DL (7-18); CALCIUM LEVEL 9.3 MG/DL (8.5-10.1); CARBON DIOXIDE LEVEL 30 MEQ/L (21-32); CHLORIDE LEVEL 102 MEQ/L (98-107); CHOLESTEROL LEVEL 121 MG/DL (<200); CHOLESTEROL RISK RATIO 2.283 (<5); CPK CREATINE PHOSPHOKINASE 57 U/L (39-308); FREE T4 1.24 NG/DL (0.76-1.46); GLOMERULAR FILTRATION RATE > 60.0 (>60); GLUCOSE, FASTING 78 MG/DL (70-100); HDL CHOLESTEROL 53 MG/DL (>40); LDL CHOLESTEROL 52.6 MG/DL (<100); NON-HDL-C 68 MG/DL; POTASSIUM SERUM 4.4 MEQ/L (3.5-5.1); SODIUM LEVEL 139 MEQ/L (136-145); THYROID STIMULATING HORMONE 0.142 uIU/ML (0.358-3.740); TOTAL PROTEIN 6.8 GM/DL (6.4-8.2); TRIGLYCERIDES LEVEL 77 MG/DL (<150)
[2018-02-21 12:19] LABS: ESTIMATED AVERAGE GLUCOSE 82 MG/DL (60-110); HEMOGLOBIN A1c 4.5 %
[2018-02-21 14:26] LABS: MALB URINE SIEMENS 11.4 MG/L; MAU/CREAT RATIO 4.3 MCG/MG (0.0-30.0)
== END ==
LOC: M LAB 10:01
DX: E78.1 Pure hyperglyceridemia (principal); E11.9 Type 2 diabetes mellitus without complications; I10 Essential (primary) hypertension
CPT/HCPCS: 82550

== ENCOUNTER 2018-11-23 09:52 | Observation (INO) | payer MEDICARE, MEDICAID ==
[~2018-11-23] VITALS: Ht 162.6 cm; Wt 120.8 kg
[~2018-11-23 09:52] MED LIST changes: +BYET10IN10 SC; -BYET10IN2 SC; -DIVA125C5 PO; +DIVA1CAP PO; +LORA-243 PO; -TRAZ-136 PO; +TRAZ-160 PO; +TRAZ-163 PO; -TRAZ50TA11 PO
--- NOTE | 2018-11-23 10:59 | REP ---
CT BRAIN WITHOUT CONTRAST: CT brain performed without IV contrast. Ventricles are normal in size and position with no midline shift or mass effect. Panda-white differentiation is well maintained. There is no acute intracranial hemorrhage or extra-axial fluid collection. Bone window examination is unremarkable. IMPRESSION: Negative noncontrast CT brain. Electronically Signed by Arnel Panda MD 11/23/2018 07:21 P
--- NOTE | 2018-11-23 11:24 | REP ---
CHEST, SINGLE VIEW: There is no evidence of acute infiltrate. No pleural effusion is seen. The heart is normal in size. The mediastinal silhouette is unremarkable. The visualized osseous structures are intact. IMPRESSION: No acute pulmonary disease. Electronically Signed by Arnel Panda MD 11/23/2018 07:21 P
[2018-11-23 11:35] LABS: BASO # 0.1 10^3/uL (0.0-0.2); BASO % 0.7 % (0.0-1.0); EOS # 0.3 10^3/uL (0.0-0.50); EOS % 2.7 % (0.0-3.0); HEMATOCRIT 41.2 % (42.0-52.0); HEMOGLOBIN 14.1 g/dl (13.5-17.5); LYMPH # 2.2 10^3/uL (1.5-4.5); LYMPH % 20.1 % (24.0-44.0); MEAN CORPUSCULAR HEMOGLOBIN 31.3 pg (27.0-33.0); MEAN CORPUSCULAR HGB CONC 34.2 g/dl (32.0-36.5); MEAN CORPUSCULAR VOLUME 91.6 fl (80.0-96.0); MONO # 0.8 10^3/uL (0.0-0.8); MONO % 7.3 % (0.0-5.0); NEUTROPHILS # 7.5 10^3/uL (1.8-7.7); NEUTROPHILS % 68.7 % (36.0-66.0); PLATELET COUNT, AUTOMATED 229 10^3/uL (150-450); WHITE BLOOD COUNT 10.9 10^3/uL (4.0-10.0)
[2018-11-23 11:53] LABS: INR 0.81; PROTHROMBIN TIME 11.2 SECONDS (12.1-14.4)
[2018-11-23 11:54] LABS: PARTIAL THROMBOPLASTIN TIME 30.2 SECONDS (25.4-37.6)
[2018-11-23 12:11] LABS: BLOOD UREA NITROGEN 8 MG/DL (7-18); CALCIUM LEVEL 8.8 MG/DL (8.5-10.1); CARBON DIOXIDE LEVEL 32 MEQ/L (21-32); CHLORIDE LEVEL 102 MEQ/L (98-107); CPK CREATINE PHOSPHOKINASE 108 U/L (39-308); CREATININE FOR GFR 1.02 MG/DL (0.70-1.30); FREE T4 1.01 NG/DL (0.76-1.46); GLOMERULAR FILTRATION RATE > 60.0 (>60); GLUCOSE, FASTING 106 MG/DL (70-100); MB/CK RELATIVE INDEX 1.39 (< OR =4); POTASSIUM SERUM 4.3 MEQ/L (3.5-5.1); SODIUM LEVEL 136 MEQ/L (136-145); TROPONIN I < 0.02 NG/ML (< 0.10)
[2018-11-23] MEDS ORDERED: ISOVUE-370 76% 100ML VIAL (Q9967) As Ordered ONE (12:17)
[2018-11-23] MEDS ORDERED: NS 1,000 ML IV ONE (13:30)
[2018-11-23] MEDS ORDERED: MAGN400C PO (14:03)
[2018-11-23] MEDS ORDERED: SYNT137T7 PO (14:03)
--- NOTE | 2018-11-23 14:15 | REP ---
CT ANGIOGRAM OF THE NECK: CT angiogram of the neck is performed. Axial images are obtained following the intravenous administration of 100 mL of Isovue 370. Sagittal, coronal and 3D reconstruction images are performed. Both common carotid arteries are patent as are both internal carotid arteries with no evidence of significant stenosis. The vertebral arteries are symmetrical with no stenosis. No mass is seen in the neck. Incidental note is made of mild scattered patchy ill-defined opacities in the right upper lobe which are of uncertain significance. IMPRESSION: No evidence of internal carotid artery stenosis or vertebral artery stenosis. Mild scattered patchy parenchymal opacities in the right upper lobe. Electronically Signed by Arnel Panda MD 11/23/2018 07:33 P
--- NOTE | 2018-11-23 14:18 | REP ---
CT ANGIOGRAM OF THE BRAIN: Following the intravenous administration of 100 mL of Isovue 370 axial images are obtained. Sagittal, coronal, and 3D reconstruction images are performed. Basilar artery is patent with no stenosis. There is a widely patent left posterior communicating artery supplying flow to the left posterior cerebral artery. Both posterior cerebral arteries are widely patent with no evidence of significant stenosis. The intracranial carotid arteries are widely patent as are the anterior and middle cerebral arteries. Anterior communicating arteries are patent. I see no definite aneurysm or AVM. IMPRESSION: No significant arterial occlusion or stenosis. Electronically Signed by Arnel Panda MD 11/23/2018 07:33 P
[2018-11-23] MEDS ORDERED: GLUCOSE 4 GM CHEW TABLET PO PRN (15:00)
[2018-11-23] MEDS ORDERED: GLUCAGON FOR INJ 1 MG VIAL (J1610) SC PRN (15:00)
[2018-11-23] MEDS: ASPIRIN 81 MG CHEW TABLET PO SCH (15:00)
[2018-11-23] MEDS ORDERED: DEXTROSE 50% 50 ML SYRINGE IV PRN (15:00)
[2018-11-23] MEDS: ATORVASTATIN 20 MG TAB PO SCH (15:00)
[2018-11-23 15:27] LABS: ALT/SGPT 31 U/L (12-78); BILIRUBIN,DIRECT < 0.1 MG/DL (0.0-0.2); BILIRUBIN,TOTAL 0.2 MG/DL (0.2-1.0); CHOLESTEROL LEVEL 130 MG/DL (<200); HDL CHOLESTEROL 71 MG/DL (>40); LDL CHOLESTEROL 42 MG/DL (<100); NON-HDL-C 59 MG/DL; TOTAL PROTEIN 7.6 GM/DL (6.4-8.2); TRIGLYCERIDES LEVEL 87 MG/DL (<150)
[2018-11-23] MEDS: HumaLOG INSULIN (NovoLOG) PER UNIT SC SCH ×2 (17:30→20:24)
--- NOTE | 2018-11-23 19:24 | ECGEPIP ---
Stationary ECG Study [facility] - ED Test Date: 2018-11-23 Pat Name: SOLOMON JEREZ Department: Room: - Gender: M Pipe Buffer: vinicius : 1980 Requested By: Carolyn Bonilla Order Number: [id number] Reading MD: Carolyn Bonilla Measurements Intervals [place] Rate: 79 P: 50 AL: 229 QRS: -4 QRSD: 112 T: 5 QT: 363 QTc: 416 Interpretive Statements SINUS RHYTHM WITH FIRST DEGREE AV BLOCK MODERATE INTRAVENTRICULAR CONDUCTION DELAY MINIMAL VOLTAGE CRITERIA FOR LVH, CONSIDER NORMAL VARIANT NONSPECIFIC ST T WAVE CHANGES DELAYED R WAVE PROGRESSION INFERIOR WALL NH AGE UNDETERMINED CW 02/09/[address] T WAVE CHANGES Electronically Signed On 11-23-2018 19:24:40 EST by Carolyn Bonilla
[2018-11-23 20:23] VITALS: BP 140/82
[2018-11-23] MEDS: lamoTRIgine 100MG TAB PO SCH (20:23)
[2018-11-23] MEDS: METOPROLOL TART 50 MG TAB PO SCH (20:23)
[2018-11-23] MEDS: MAGNESIUM OXIDE 400 MG TAB (MAG-OX) PO SCH (20:23)
[2018-11-23] MEDS: FLUTICASONE PROP 0.05% NASAL SPRAY 16 GM (FLONASE) SCH (21:19)
[2018-11-23] MEDS: cloZAPine 25 MG TAB (S0136) PO SCH (21:19)
[2018-11-23 23:59] VITALS: BP 118/61
[2018-11-24 02:12] LABS: CPK CREATINE PHOSPHOKINASE 70 U/L (39-308); MB/CK RELATIVE INDEX 1.57 (< OR =4); TROPONIN I < 0.02 NG/ML (< 0.10)
[2018-11-24 04:00] VITALS: BP 126/71
[2018-11-24 04:37] LABS: HEMATOCRIT 36.1 % (42.0-52.0); HEMOGLOBIN 12.3 g/dl (13.5-17.5); MEAN CORPUSCULAR HEMOGLOBIN 31.2 pg (27.0-33.0); MEAN CORPUSCULAR HGB CONC 34.1 g/dl (32.0-36.5); MEAN CORPUSCULAR VOLUME 91.6 fl (80.0-96.0); PLATELET COUNT, AUTOMATED 217 10^3/uL (150-450); RED BLOOD COUNT 3.94 10^6/uL (4.30-6.10); WHITE BLOOD COUNT 6.4 10^3/uL (4.0-10.0)
[2018-11-24 04:57] LABS: BLOOD UREA NITROGEN 10 MG/DL (7-18); CALCIUM LEVEL 8.3 MG/DL (8.5-10.1); CARBON DIOXIDE LEVEL 27 MEQ/L (21-32); CHLORIDE LEVEL 108 MEQ/L (98-107); GLOMERULAR FILTRATION RATE > 60.0 (>60); GLUCOSE, FASTING 93 MG/DL (70-100); POTASSIUM SERUM 4.4 MEQ/L (3.5-5.1); SODIUM LEVEL 139 MEQ/L (136-145)
[2018-11-24] MEDS: LEVOTHYROXINE 137MCG TABLET (0.137MG) PO SCH (05:39)
[2018-11-24] MEDS: HumaLOG INSULIN (NovoLOG) PER UNIT SC SCH ×4 (05:59→20:50)
[2018-11-24 08:00] VITALS: BP 107/78
[2018-11-24] MEDS: LORATADINE 10 MG TAB PO SCH (08:37)
[2018-11-24] MEDS: MULTIVITAMINS/MINERALS THERAP 1 TAB PO SCH (08:37)
[2018-11-24] MEDS: cloZAPine 25 MG TAB (S0136) PO SCH ×2 (08:37→20:49)
[2018-11-24] MEDS: FLUTICASONE PROP 0.05% NASAL SPRAY 16 GM (FLONASE) SCH ×2 (08:38→20:49)
[2018-11-24] MEDS: ATORVASTATIN 20 MG TAB PO SCH (08:38)
[2018-11-24] MEDS: lamoTRIgine 100MG TAB PO SCH ×2 (08:38→20:48)
[2018-11-24] MEDS: ASPIRIN 81 MG CHEW TABLET PO SCH (08:38)
[2018-11-24] MEDS: FLUoxetine 20 MG CAP PO SCH (08:38)
[2018-11-24] MEDS: METOPROLOL TART 50 MG TAB PO SCH ×2 (08:38→20:49)
[2018-11-24] MEDS: MAGNESIUM OXIDE 400 MG TAB (MAG-OX) PO SCH ×2 (08:38→20:48)
--- NOTE | 2018-11-24 09:01 | REP ---
MRI BRAIN WITHOUT CONTRAST: Multiple sequences obtained in the axial and sagittal planes. Ventricles are normal in size and position with no midline shift or mass effect. Panda-white differentiation is well maintained. No abnormal signal is seen in the brain, brainstem or cerebellum. Seventh and eighth cranial nerve complexes are unremarkable. There is no abnormal signal on the ADC or DWI images. There is no evidence of acute infarct. Globes are intact. There is mild mucosal thickening in the left posterior ethmoid sinuses. IMPRESSION: No acute abnormalities in the brain. No acute infarct. Electronically Signed by Arnel Panda MD 11/24/2018 06:52 P
[2018-11-24 09:28] LABS: CPK CREATINE PHOSPHOKINASE 77 U/L (39-308); MB/CK RELATIVE INDEX 1.69 (< OR =4); TROPONIN I < 0.02 NG/ML (< 0.10)
--- NOTE | 2018-11-24 10:31 | IPNPDOC ---
Date Seen The patient was seen on 11/24/18. Progress Note Please note the time of the documentation is no H&P available in the chart SUBJECTIVE: Patient tells me that he is feeling better he has no further episodes of slurred speech or weakness he tells me that he feels back to his normal OBJECTIVE PHYSICAL EXAMINATION: VITAL SIGNS: Please see below. GENERAL: He is an obese somewhat disheveled middle-aged man sitting on the edge of his bed eating breakfast he does not appear to be in any acute distress HEENT: Cranial nerves II through XII are grossly intact face is symmetric tongue is midline CARDIOVASCULAR: S1-S2 regular. RESPIRATORY: Clear to auscultation bilaterally. ABDOMINAL: Grossly obese bowel sounds present abdomen soft and nontender EXTREMITIES: No clubbing cyanosis or edema NEUROLOGICAL: No focal deficits LABORATORY DATA, IMAGING STUDIES, MICROBIOLOGY: Please see below. DVT prophylaxis ordered?: Teds and sequentials ASSESSMENT AND PLAN: This is a [38-year-old man with slurred speech and weakness. PROBLEMS: 1. Slurred speech and weakness: The etiology is not immediately clear was started emergency room for possible TIA versus CVA his MRI did return did not reveal any acute CVA and his symptoms didn't completely resolved at this time is relatively young and healthy without significant risk factors to cause such premature CVA TIA we will continue to monitor him on telemetry and neurology consultation placed I'm not completely convinced this was a TIA. I will check a TSH and A1c. For the time being he is on aspirin and statin blood pressure is well-controlled. He denies any changes in his medications or new medications 2. Anxiety depression: He is continued on clozapine fluoxetine Lamictal. 3. Seasonal allergies: He is continued on Zyrtec. 4. Hypothyroidism: We're checking a TSH she's continued on levothyroxine 5. Hypertension: Continue with metoprolol blood pressure is well-controlled 6. Obstructive sleep apnea: He uses CPAP at home I encouraged him to bring it and use it here as well DISPOSITION: Pending neurology evaluation. VS, I&O, 24H, Fishbone Vital Signs/I&O Vital Signs Date Time Temp Pulse Resp B/P (MAP) Pulse Ox O2 Delivery O2 Flow Rate FiO2 11/24/18 04:00 97.4 79 18 126/71 (89) 91 11/23/18 19:45 Room Air I&O- Last 24 Hours up to 6 AM 11/24/18 06:00 Intake Total 100 ml Output Total 650 ml Balance -550 ml Laboratory Data 24H LABS Laboratory Tests 2 11/23/18 11:30: Immature Granulocyte % (Auto) 0.5, White Blood Count 10.9H, Red Blood Count 4.50, Hemoglobin 14.1, Hematocrit 41.2L, Mean Corpuscular Volume 91.6, Mean Corpuscular Hemoglobin 31.3, Mean Corpuscular Hemoglobin Concent 34.2, Red Cell Distribution Width 13.3, Platelet Count 229, Neutrophils (%) (Auto) 68.7H, Lymphocytes (%) (Auto) 20.1L, Monocytes (%) (Auto) 7.3H, Eosinophils (%) (Auto) 2.7, Basophils (%) (Auto) 0.7, Neutrophils # (Auto) 7.5, Lymphocytes # (Auto) 2.2, Monocytes # (Auto) 0.8, Eosinophils # (Auto) 0.3, Basophils # (Auto) 0.1, Nucleated Red Blood Cells % (auto) 0.0, Prothrombin Time 11.2L, Prothromb Time International Ratio 0.81, Activated Partial Thromboplast Time 30.2, Anion Gap 2L, Glomerular Filtration Rate > 60.0, Calcium Level 8.8, Aspartate Amino Transf (AST/SGOT) 21, Alanine Aminotransferase (ALT/SGPT) 31, Alkaline Phosphatase 93, Total Bilirubin 0.2, Direct Bilirubin < 0.1, Total Creatine Kinase 108, Creatine Kinase MB 2.0, Creatine Kinase MB Relative Index 1.39, Troponin I < 0.02, Total Protein 7.6, Albumin 4.0, Albumin/Globulin Ratio 1.11, Triglycerides Level 87, Total Cholesterol 130, LDL Cholesterol 42, Non-HDL Cholesterol (LDL + VLDL) 59, Total HDL Cholesterol 71, Cholesterol/HDL Ratio 1.830, Thyroid Stimulating Hormone (TSH) 4.560H, Free Thyroxine 1.01 11/23/18 18:27: Bedside Glucose (Misc Panel) 98 11/23/18 20:19: Bedside Glucose (Misc Panel) 94 11/24/18 00:46: 11/24/18 00:47: Erythrocyte Sedimentation Rate 12, Total Creatine Kinase 70, Creatine Kinase MB 1.0, Creatine Kinase MB Relative Index 1.57, Troponin I < 0.02, C-Reactive P rotein, Quantitative 3.80H 11/24/18 04:02: Nucleated Red Blood Cells % (auto) 0.0, Anion Gap 4L, Glomerular Filtration Rate > 60.0, Blood Urea Nitrogen 10, Creatinine 1.00, Sodium Level 139, Potassium Level 4.4, Chloride Level 108H, Carbon Dioxide Level 27, Calcium Level 8.3L CBC/BMP Laboratory Tests 11/23/18 11:30 Red Blood Count 4.50, Mean Corpuscular Volume 91.6, Mean Corpuscular Hemoglobin 31.3, Mean Corpuscular Hemoglobin Concent 34.2, Red Cell Distribution Width 13.3, Neutrophils (%) (Auto) 68.7 H, Lymphocytes (%) (Auto) 20.1 L, Monocytes (%) (Auto) 7.3 H, Eosinophils (%) (Auto) 2.7, Basophils (%) (Auto) 0.7, Neutrophils # (Auto) 7.5, Lymphocytes # (Auto) 2.2, Monocytes # (Auto) 0.8, Eosinophils # (Auto) 0.3, Basophils # (Auto) 0.1 11/24/18 04:02 Red Blood Count 3.94 L, Mean Corpuscular Volume 91.6, Mean Corpuscular H emoglobin 31.2, Mean Corpuscular Hemoglobin Concent 34.1, Red Cell Distribution Width 13.4, Calcium Level 8.3 L SABINA JOHNSON MD Nov 24, 2018 06:54
[2018-11-24 12:00] VITALS: BP 120/72
[2018-11-24 16:00] VITALS: BP 100/65
[2018-11-24 20:00] VITALS: BP 122/69
--- NOTE | 2018-11-24 21:44 | HPE ---
DATE OF ADMISSION: 11/23/2018 PRIMARY CARE PHYSICIAN: Mr. Frank INSTRUCTOR BUSINESS EDUCATION: Archana Stevens MD. LINE CONTROLLER: Dr. Mendoza PSYCHIATRIST: Dr. Brennan Mr. Cason is a 38-year-old male who lives at [facility] and has mental retardation. He was brought in by his electrostatic powder coating technician after noticing slurred speech that started around 8 a.m. early today while he was sitting watching TV. At the time of admission, his electrostatic powder coating technician has already left and history is limited and provided by Mr. Cason himself. He states that he also had one-sided weakness, but he does not remember which side it was. He states he "felt tipsy turvy, like my legs were gonna collapse." He states he felt difficulty finding words and also difficulty pronouncing his words; but currently at the time of admission, he feels back to his normal baseline. He denies any new paresthesias, numbness, weakness. Denies any chest pain, lightheadedness, dizziness, shortness of breath. No recent change in his medications, sick contacts or travel. In the emergency room (ER), imaging including head CT, chest x-ray and head and neck CT angiogram were negative for any acute stroke. Hospitalist was called to admit for possible transient ischemic attack (TIA). PAST MEDICAL HISTORY: 1. Hypothyroidism. 2. Obstructive sleep apnea. 3. Hypertension. 4. Mental retardation. 5. Schizoaffective bipolar and depression. 6. Type 2 diabetes mellitus. 7. Morbid obesity. 8. Metabolic syndrome. HOME MEDICATIONS: - ProAir - clozapine 50 mg by mouth twice a day - fluoxetine 20 mg by mouth daily - Flonase - lamotrigine 100 mg by mouth twice a day - Synthroid 137 mcg by mouth daily - loratadine 10 mg by mouth daily - magnesium oxide 400 mg by mouth daily - metformin 500 mg by mouth twice a day - Lopressor 50 mg by mouth twice a day - multivitamin - Lovaza 2 tabs by mouth twice a day - Advair and simvastatin 20 mg by mouth at bedtime (q.h.s.) ALLERGIES: BENZTROPINE, SOCIAL HISTORY: Lives in [facility] and mentally retarded. Quit tobacco in 2010. Smoked for about 20 years and quit alcohol in 2000. No other illicit substances. FAMILY HISTORY: Both parents are , but he did not recall what their medical conditions were. SURGICAL HISTORY: Tonsillectomy, colonoscopy and esophagogastroduodenoscopy (EGD). REVIEW OF SYSTEMS: GENERAL: Denies fevers, chills, recent weight changes. HEENT: Denies any blurred vision, eye pain, ear pain, dysphagia, dysarthria, headache. CARDIAC: Denies any chest pain, palpitations or chest tightness. RESPIRATORY: Denies any difficulty breathing, coughing, wheezing, sputum production. GASTROINTESTINAL (GI): No nausea, vomiting, abdominal pain, changes in bowel habits. MUSCULOSKELETAL: No motor weakness or loss of strength. NEURO: Admits to slurred speech that started around 8 a.m. this morning that has currently resolved spontaneously. Currently, denies any slurred speech, paresthesias, loss of sensation, tremor or unsteady gait or facial droop. SKIN: Denies any lesions or rashes. PHYSICAL EXAMINATION: VITAL SIGNS: Temperature 96.8, pulse 81, respirations 18, blood pressure (BP) 115/57, MAP 76, pulse oximetry 95% on room air. GENERAL: Alert and oriented times three, resting comfortably in bed in no acute distress. Pleasantly conversant. However, poor historian due to poor memory and baseline mental retardation. HEENT: Normocephalic, atraumatic. Pupils equal, round, and reactive to light and accommodation. Extraocular muscles intact. Anicteric sclerae. No pharyngeal erythema or exudates. No carotid bruits. CARDIAC: Regular rate and rhythm. No audible murmurs. No peripheral edema. LUNGS: Coarse breath sounds with some wheezing throughout. Equal chest rise. No crackles or rales. ABDOMEN: Soft, nontender, nondistended. Positive bowel sounds. MUSCULOSKELETAL: 5/5 strength in bilateral upper and lower extremities. Logistics/Shipper strength intact and equal bilaterally. No fasciculations or muscular atrophy. NEURO: No ptosis or facial droop or tongue deviation. Visual field intact bilaterally. Is able to smile, frown, puff out cheeks, raise and lower eyebrows without any difficulty or asymmetry. No pronator drift. Is fully conversant and able to follow a conversation. No confusion. Sensation intact bilaterally. No focal deficits. SKIN: No visible lesions. No ulcerations. LABORATORY: White blood count (WBC) 10.9, hemoglobin and hematocrit 14.1, 41.2, platelets 229. Electrolytes are normal. Normal renal function and normal liver function. Cardiac markers negative. Normal lipid panel. Thyroid simulating hormone (TSH) 4.5, free T4 1.0. IMAGING: Head CT negative. Chest x-ray negative. Head and neck CT are negative for any acute stroke. No evidence of internal carotid artery stenosis or vertebral artery stenosis. CT of the head: No significant arterial occlusion or stenosis. IMPRESSION AND PLAN: 1. Slurred speech that began around 8 a.m. that has spontaneously resolved at the time of admission, likely transient ischemic attack (TIA). Imaging thus far has been negative. Brain Magnetic Resonance Imaging (MRI) is currently pending. Echocardiogram is pending. Lipid panel and hypercoagulable work up has been ordered. The patient has been placed on neuro checks every 4 hours. Initially set of cardiac markers were negative. Will repeat an additional two sets for a total of three sets. Neurology has been consulted, appreciate Dr. Doll's input. The patient has been started on aspirin 81 mg and his Lipitor has been increased from 20 mg home dose to 80 mg. Of note, he is also on Lamictal and clozapine. We will check levels for both. 2. For the remainder of his medical condition, will continue his home medications, besides replacing his metformin with insulin sliding scale and increasing his home simvastatin from 20 mg to 80 mg. 3. Deep vein thrombosis (DVT) prophylaxis: TEDs and SCDs until Magnetic Resonance Imaging (MRI) is resulted. Will hold anticoagulation. DISPOSITION: Will admit to the hospitalist service to be seen by neurology. My faculty preceptor for this patient encounter was physically present during the encounter and was fully available. All aspects of the patient interview, examination, medical decision making process, and medical care plan development were reviewed and approved by the faculty preceptor. The faculty preceptor is aware and concurs with the plan as stated in the body of this note and will attest to such by his/her cosignature.
[2018-11-24 23:52] VITALS: BP 130/80
[2018-11-25 04:00] VITALS: BP 148/65
[2018-11-25] MEDS: LEVOTHYROXINE 137MCG TABLET (0.137MG) PO SCH (05:08)
[2018-11-25 05:31] LABS: HEMATOCRIT 34.6 % (42.0-52.0); MEAN CORPUSCULAR HEMOGLOBIN 31.1 pg (27.0-33.0); MEAN CORPUSCULAR HGB CONC 34.7 g/dl (32.0-36.5); MEAN CORPUSCULAR VOLUME 89.6 fl (80.0-96.0); PLATELET COUNT, AUTOMATED 221 10^3/uL (150-450); RED BLOOD COUNT 3.86 10^6/uL (4.30-6.10); WHITE BLOOD COUNT 6.7 10^3/uL (4.0-10.0)
[2018-11-25 06:02] LABS: BLOOD UREA NITROGEN 17 MG/DL (7-18); CALCIUM LEVEL 8.4 MG/DL (8.5-10.1); CARBON DIOXIDE LEVEL 29 MEQ/L (21-32); CHLORIDE LEVEL 106 MEQ/L (98-107); CREATININE FOR GFR 0.96 MG/DL (0.70-1.30); GLOMERULAR FILTRATION RATE > 60.0 (>60); GLUCOSE, FASTING 102 MG/DL (70-100); POTASSIUM SERUM 4.1 MEQ/L (3.5-5.1); SODIUM LEVEL 138 MEQ/L (136-145)
--- NOTE | 2018-11-25 07:24 | ECHO ---
DATE OF PROCEDURE: 11/23/2018 REFERRING PHYSICIAN: INDICATION: Transient ischemic attack (TIA). HEIGHT: 160 cm. WEIGHT: 118 kg. DIMENSIONS: IVS: 1.0 LV: 4.8 LVPW: 1.0 LA: 3.3 Aorta: 3.5 IVC: 1.6 Left atrial volume index: 22 Mitral E wave velocity: 106 A wave: 83 E prime septal: 10.1 E prime lateral: 15.6 FINDINGS: The study is of fair technical quality corresponding to patient's body habitus. The left ventricle is normal size and systolic function with overall estimated ejection fraction (EF) 65-70%. No segmental wall motion abnormalities are appreciated based on fair quality views. The right ventricle is normal size and systolic function. Both atria appear normal. All four cardiac valves were well seen and appear normal. No pericardial effusion is noted. Inferior vena cava is of normal size and appropriately collapses with respiration indicative of normal central venous pressure. Aortic root is normal. Aortic arch and abdominal aorta also appear normal. Doppler interrogation reveals no aortic stenosis or insufficiency, no mitral stenosis or insufficiency. Also, tricuspid and pulmonic valves are functionally competent. Mitral inflow pattern and tissue Doppler number imaging of the mitral annulus reveal normal diastolic function of left ventricle. CONCLUSIONS: 1. Study is of fair technical quality. 2. Normal LV size with normal LV systolic and diastolic function. 3. No significant valvular disease. 4. Normal central venous pressure. 5. Unable to estimate pulmonary artery pressure, but no signs to suggest pulmonary hypertension. COMMENT: Subacute bacterial endocarditis (SBE) prophylaxis is not recommended. Essentially normal echocardiogram.
[2018-11-25 08:00] VITALS: BP 127/82
[2018-11-25] MEDS: MULTIVITAMINS/MINERALS THERAP 1 TAB PO SCH (08:40)
[2018-11-25] MEDS: cloZAPine 25 MG TAB (S0136) PO SCH (08:42)
[2018-11-25] MEDS: FLUoxetine 20 MG CAP PO SCH (08:42)
[2018-11-25] MEDS: ATORVASTATIN 20 MG TAB PO SCH (08:42)
[2018-11-25 08:43] VITALS: BP 127/82
[2018-11-25] MEDS: METOPROLOL TART 50 MG TAB PO SCH (08:43)
[2018-11-25] MEDS: lamoTRIgine 100MG TAB PO SCH (08:43)
[2018-11-25] MEDS: MAGNESIUM OXIDE 400 MG TAB (MAG-OX) PO SCH (08:43)
[2018-11-25] MEDS: ASPIRIN 81 MG CHEW TABLET PO SCH (08:44)
[2018-11-25] MEDS: LORATADINE 10 MG TAB PO SCH (08:44)
[2018-11-25] MEDS: HumaLOG INSULIN (NovoLOG) PER UNIT SC SCH ×2 (08:45→12:00)
[2018-11-25] MEDS: FLUTICASONE PROP 0.05% NASAL SPRAY 16 GM (FLONASE) SCH (08:46)
--- NOTE | 2018-11-25 09:00 | CR ---
DATE OF CONSULTATION: 11/24/2018 REFERRING PHYSICIAN: Dr. Paola Vail REASON FOR CONSULTATION: Episode of slurred speech and knees giving out with trouble balancing. HISTORY OF PRESENT ILLNESS: Luther Cason is a 38-year-old man with history of schizoaffective disorder, type 2 diabetes, metabolic syndrome who was at his baseline state of health until 9:00 a.m. yesterday morning when he started feeling that his knees were giving out. He also felt trouble balancing himself. He felt slurred speech. His leg improved and his slurred speech lasted until last night. He now feels back to his normal self. He denies any headaches, neck pain or back pain. He denies any seizures, dysphagia, dysarthria, diplopia or urinary incontinence. He denies any falls or loss of consciousness. He denies any head injuries. He denies any changes in his medications. PAST MEDICAL HISTORY: Schizoaffective disorder. Anxiety, depression. Hypothyroidism. Hypertension. Diabetes. Metabolic syndrome. Obstructive sleep apnea syndrome. CURRENT MEDICATIONS: - Prozac - Claritin - levothyroxine - clozapine - Lamictal - magnesium - metoprolol - aspirin - Lipitor SOCIAL HISTORY: He denies smoking, alcohol or illicit drugs. He quit smoking in 2010. FAMILY HISTORY: Mother had heart disease. Father had diabetes. REVIEW OF SYSTEMS: All systems were reviewed and found to be noncontributory except as mentioned in history of present illness. ALLERGIES: None. PHYSICAL EXAMINATION: Temperature 97.4, pulse 79, respiratory rate 18, blood pressure 126/71, 91% saturation on room air. Heart regular rate and rhythm. Lungs clear to auscultation. Abdomen soft, nontender, nondistended. No pedal edema. No musculoskeletal abnormalities. No rash. No signs of meningeal irritation. No tremor, dysmetria or ataxia. The patient is awake, alert, oriented to place, person and time. Normal speech comprehension and repetition. Extraoral muscles are intact. No facial weakness. Tongue and uvula are midline. Visual nguyễn are full to confrontation. Pupils are 5 mm bilaterally reactive to light. Recent and distant memory is intact. There is no nystagmus. 5/5 strength in all four extremities. Deep tendon reflexes are 2+ throughout. Normal sensation throughout. Gait is normal. DIAGNOSTIC STUDIES: His MRI scan of brain was reportedly normal. There was no acute disease. CT angiography of head and neck were also normal. Hematocrit was 36.1. Metabolic profile was within normal limits. LDL was 42 and HDL was 59. ASSESSMENT: 1. Episode of slurred speech and imbalance. 2. There is concern for transient ischemic attack. 3. History of schizoaffective disorder, anxiety and depression. 4. Hypertension and obstructive sleep apnea syndrome. PLAN: 1. Aspirin 81 mg p.o. daily. 2. The patient states that he at home takes simvastatin 20 mg p.o. daily. His fasting lipid profile looks reasonably well. He can continue using his home dose of simvastatin. 3. Echocardiogram and continue telemetry monitoring. 4. Blood tests to rule out coagulopathy and vasculopathy.
[2018-11-25] MEDS ORDERED: CHIL81CH2 PO (11:35)
[2018-11-25 12:00] VITALS: BP 96/54
[2018-11-27 00:11] LABS: CARDIOLIPIN IGA ANTIBODY <9 APL U/mL (0-11); CARDIOLIPIN IGG ANTIBODY <9 GPL U/mL (0-14); CARDIOLIPIN IGM ANTIBODY <9 MPL U/mL (0-12); HOMOCYST(E)INE SERUM 9.7 umol/L (0.0-15.0); LAMOTRIGINE (LAMICTAL) 5.4 ug/mL (2.0-20.0)
--- NOTE | 2018-11-27 04:01 | DSES ---
DATE OF ADMISSION: 11/23/2018 DATE OF DISCHARGE: 11/25/2018 DISCHARGE DIAGNOSIS: Weakness. SECONDARY DIAGNOSES: 1. Suspected transient ischemic attack (TIA). 2. Schizoaffective disorder. 3. Anxiety/depression. 4. Hypertension. 5. Obstructive sleep apnea. 6. Seasonal allergies. 7. Hypothyroidism. 8. Diabetes. 9. Obesity. 10. Dyslipidemia. HOSPITAL COURSE: The patient is a 38-year-old man who had an episode of slurred speech and imbalance. He was brought to the hospital. He had never had this before. There was concern for a possible TIA or cerebrovascular accident (CVA). He did have an extensive workup including an MRI of the brain, which did not reveal any acute CVA. He also had a CT angiography that revealed no significant arterial occlusions or stenosis. Also had a CTA of the neck that revealed no evidence of internal carotid artery stenosis or vertebral artery stenosis. He had a CT scan of the head that was negative as well as chest x-ray that revealed no acute pulmonary disease. He subsequently had an echocardiogram that revealed normal left ventricle (LV) size and diastolic function as well as systolic function. No significant valvular disease. Normal central venous pressure. He was monitored on telemetry for 24 hours without any concerning arrhythmia. He was seen in consultation by Dr. Doll of the neurology service, who noted that he was on simvastatin 20 mg daily as well as recommended that he should be on aspirin 81 mg. Patient did have hypercoagulable workup sent, results of which are currently pending. SUBJECTIVE: This morning, the patient told me that his symptoms spontaneously resolved the day of his presentation. At the present time, he has no complaints whatsoever. He feels completely back to normal, has felt so (cut off) yesterday. OBJECTIVE: VITAL SIGNS: Temperature 97.7, pulse 76, respiratory rate 17, blood pressure (BP) 127/82, oxygen saturation 95% on room air. GENERAL: He is a morbidly obese, middle aged man sitting on the edge of his bed eating breakfast. He does not appear to be in any distress. HEENT: He is somewhat disheveled. Moist mucous membranes. No elevation in central venous pressure (CVP). CARDIOVASCULAR EXAM: S1, S2 regular. RESPIRATORY EXAM: Clear. ABDOMINAL EXAM: Grossly obese with bowel sounds present. The abdomen is soft. EXTREMITIES: No clubbing, cyanosis, or edema. LABORATORY STUDIES: WBC 6.7, hemoglobin 12.0, platelet count 221. Chemistry panel: Sodium 138, potassium 4.1, chloride 106, bicarbonate 29, BUN 17, creatinine 0.9. Multiple sets of cardiac enzymes were negative. TSH was slightly elevated. Recommend repeat testing in the outpatient setting after his acute medical illness has resolved. Lamictal level and clozapine level were currently pending as well as his hypocoagulable workup. IMAGING: As outlined above. ASSESSMENT AND PLAN: This is a 38-year-old man with suspected transient ischemic attack. PROBLEMS: 1. Slurred speech and weakness. It may have related to his significant anxiety medications versus TIA. So far, his workup has been fairly negative and he is on his usual medications without issue. Recommend he followup his hypocoagulable workup with the neurology team within 1 month. His clinical symptoms have resolved. He is actually functional at baseline. He is to continue with all of his regular medication. We are adding only an aspirin. Would recommend blood pressure and diabetes optimization. 2. Anxiety/depression. He is continued on clozapine, fluoxetine, and Lamictal. 3. Seasonal allergies. He is continued on Zyrtec. 4. Hypothyroidism. He is continued on levothyroxine. Recommend rechecking a TSH when his acute medical illness has resolved in the outpatient setting with his primary care provider. 5. Hypertension, controlled. He was continued on metoprolol. 6. Obstructive sleep apnea. He is continued on continuous positive airway pressure (CPAP). DISPOSITION: At this time, his clinical syndrome has resolved. He is being discharged to the care of [facility] ([facility] He is at his functional baseline. He has been cleared by physical therapy. He is to followup with his primary care provider (PCP) in 7 days and neurology within 1 month. His activity is as tolerated. His diet is as prior to admission. He is to return to the emergency room (ER) if symptoms worsen. MEDICATIONS AT THE TIME OF DISCHARGE: Aspirin 81 mg daily; otherwise, no other changes to his admission medications.
[2018-11-27 11:24] LABS: DRVV SCREEN 42.6 SEC
[2018-11-28 10:57] LABS: ANTI THROMBIN 3 ANTIGEN IMMUNO 90 % (72-124); ANTI THROMBIN 3 FUNCT ACTIVITY 114 % (75-135); PROTEIN C ANTIGEN 113 % (60-150); PROTEIN S ANTIGEN FREE 125 % (57-157); PROTEIN S ANTIGEN TOTAL 60 % (60-150)
== END 2018-11-25 14:50 | disposition home or self-care (01) ==
LOC: M ED 09:52 → M ED INP 15:41 → M PCU 20:00
PROVIDERS: ADMIT Internal Medicine; ATTEND Internal Medicine
DX: R53.1 Weakness (principal); G45.9 Transient cerebral ischemic attack, unspecified; F25.9 Schizoaffective disorder, unspecified; I10 Essential (primary) hypertension; F32.9 Major depressive disorder, single episode, unspecified; F41.9 Anxiety disorder, unspecified; E88.81 Metabolic syndrome and other insulin resistance; G47.33 Obstructive sleep apnea (adult) (pediatric); F79 Unspecified intellectual disabilities; E03.9 Hypothyroidism, unspecified; E11.9 Type 2 diabetes mellitus without complications; E66.9 Obesity, unspecified; E78.5 Hyperlipidemia, unspecified; Z79.899 Other long term (current) drug therapy
CPT/HCPCS: 36415; 70450; 70496; 70498; 70551; 71045; 80048; 80061; 80076; 80159; 80175; 81240; 81241; 82550; 82553; 83090; 84439; 84443; 84484; 85025; 85027; 85300; 85301; 85302; 85305; 85306; 85610; 85652; 85730; 86038; 86140; 86147; 86235; 86256; 86850; 86900; 86901; 93005; 93041; 93306; 94760; 97161; 99285; G0378; Q9967

== ENCOUNTER → 2019-11-05 | Outpatient (REF) | payer MEDICARE, MEDICAID ==
[~2019-11-05] MED LIST changes: -/ADVA50050; -/ADVA50050 IN; -/ESCI10TA; -/ESCI20TA; -/HALO1T OR; -/MOXI40TA OR; +ADVA1AER2; +ADVA1AER2 IN; -AMMO12CR4 TOP; +AMMO12CR7 TOP; +ASPI-286 PO; +AVEL1TAB2 OR; +FLUO10CA15 PO; -FLUO10CA8 PO; -HALO10TA PO; +HALO10TA20 PO; +HALO1TAB20 OR; -LAMO100T PO; +LAMO100T3 PO; +LAMO100T80 PO; -LAMO10TA PO; +LEXA1TAB; +LEXA1TAB2; +MAGN400C PO; +METF-791 PO; -METF500T4 PO; -OMEP40CA2 PO; +OMEP40CA97 PO; -SIMV20TA2 PO; +SIMV20TA22 PO; +SYNT137T7 PO; -TRAZ-160 PO; -TRAZ-163 PO; +TRAZ-252 PO; +TRAZ-257 PO
[2019-11-05 18:01] LABS: FREE T4 2.62 NG/DL (0.76-1.46); THYROID STIMULATING HORMONE 0.019 uIU/ML (0.358-3.740)
== END ==
LOC: M LABDRAW1 16:57
PROVIDERS: ATTEND Nurse Practitioner Family
DX: E06.3 Autoimmune thyroiditis (principal)

== ENCOUNTER 2021-01-21 14:49 | Inpatient (IN) | payer MEDICARE, MEDICAID ==
[~2021-01-21] VITALS: Ht 165.1 cm; Wt 121.5 kg
[~2021-01-21 14:49] MED LIST changes: -FLON1SPR; +FLON1SPR NARES; -FLUO10CA15 PO; +FLUO10CA16 PO; -FLUO20CA19 PO; +FLUO20CA22 PO; -LISI-538 PO; +LISI10TA22 PO; -LISI10TA4 PO; +LISI20TA33 PO; -METF-791 PO; +METF-838 PO
--- NOTE | 2021-01-21 15:52 | REP ---
INDICATION: fall with LOC 5-7 days ago. COMPARISON: None. TECHNIQUE: Axial CT images with multiplanar reformations. FINDINGS: No acute bleed or fracture. Ventricles, cisterns and sulci are within normal limits. No mass effect or midline shift. No abnormal fluid collections. Paranasal sinuses and mastoid air cells are clear. IMPRESSION: No acute findings. <Electronically signed by Filiberto Gayle > 01/21/21 [id number]
--- NOTE | 2021-01-21 16:00 | REP ---
INDICATION: fall 5-7 days ago, severe bruising, unable to ambulate COMPARISON: None. TECHNIQUE: Four views right ankle. FINDINGS: There is a fracture of the medial malleolus which is displaced distally. Tiny avulsion fractures are visualized just distal to the lateral malleolus. There is medial soft tissue swelling. There is displacement of the talus laterally with respect to the tibia. IMPRESSION: Fractures of medial and lateral malleoli with lateral subluxation at the tibiotalar joint. <Electronically signed by Arnel Panda > 01/21/21 [id number]
--- NOTE | 2021-01-21 16:04 | REP ---
INDICATION: fall 5-7 days ago, severe bruising, unable to ambulate COMPARISON: None. TECHNIQUE: Four views right foot. FINDINGS: There is no evidence of acute fracture, dislocation, or intrinsic bone disease. IMPRESSION: No fracture or dislocation. Please see today's report of right ankle for description of distal tibia and fibula fractures. <Electronically signed by Arnel Panda > 01/21/21 [id number]
--- NOTE | 2021-01-21 16:04 | REP ---
INDICATION: crackles throughout, cough. COMPARISON: Portable chest dated 11/23/2018 and PA and lateral chest dated 02/09/2017. TECHNIQUE: Upright PA and lateral chest. FINDINGS: The lung nguyễn are clear. Cardiac size is normal. The bhanu, mediastinum and skeletal structures are unremarkable. IMPRESSION: Essentially negative PA and lateral chest There are no interval changes. <Electronically signed by Arnel Auguste > 01/21/21 1600
[2021-01-21 16:37] LABS: HEMOGLOBIN 7.6 g/dl (13.5-17.5); MEAN CORPUSCULAR HGB CONC 31.7 g/dl (32.0-36.5); MEAN CORPUSCULAR VOLUME 78.9 fl (80.0-96.0); PLATELET COUNT, AUTOMATED 906 10^3/uL (150-450); RED BLOOD COUNT 3.04 10^6/uL (4.30-6.10); WHITE BLOOD COUNT 25.3 10^3/uL (4.0-10.0)
[2021-01-21 16:54] LABS: INR 1.1; PARTIAL THROMBOPLASTIN TIME 29.4 SECONDS (24.2-38.5); PROTHROMBIN TIME 14.4 SECONDS (12.5-14.3)
[2021-01-21 17:07] LABS: ALBUMIN 3.4 GM/DL (3.2-5.2); ALT/SGPT 21 U/L (12-78); BILIRUBIN,DIRECT 0.2 MG/DL (0.0-0.2); BILIRUBIN,TOTAL 0.6 MG/DL (0.2-1.0); CK-MB VALUE MASS < 1.0 NG/ML (<3.6); CPK CREATINE PHOSPHOKINASE 272 U/L (39-308); MB/CK RELATIVE INDEX 0.37 (< OR =4); NT-PRO BNP 663 PG/ML (<125); TOTAL PROTEIN 7.7 GM/DL (6.4-8.2); TROPONIN I < 0.02 NG/ML (< 0.10)
[2021-01-21 17:24] LABS: LYMPHOCYTES 16 % (16-44); METAMYELOCYTES 3 % (0-0); MONOCYTES 6 % (0-5); NEUTROPHILS 73 % (28-66)
[2021-01-21 17:25] LABS: ANISOCYTOSIS 2+; MICROCYTOSIS 1+; OVALOCYTES 1+; PLATELET ESTIMATE INCREASED (NORMAL); POIKILOCYTOSIS 1+; POLYCHROMASIA 1+
[2021-01-21] MEDS ORDERED: NS 1,000 ML IV ONE (17:25)
[2021-01-21 17:26] LABS: HYPOCHROMASIA 1+
[2021-01-21 17:32] LABS: BLOOD UREA NITROGEN 169 MG/DL (7-18); CALCIUM LEVEL 9.9 MG/DL (8.5-10.1); CARBON DIOXIDE LEVEL 36 MEQ/L (21-32); CHLORIDE LEVEL 82 MEQ/L (98-107); CREATININE FOR GFR 6.99 MG/DL (0.70-1.30); GLOMERULAR FILTRATION RATE 9.3 (>60); GLUCOSE, FASTING 122 MG/DL (70-100); POTASSIUM SERUM 3.5 MEQ/L (3.5-5.1); SODIUM LEVEL 133 MEQ/L (136-145)
[2021-01-21] MEDS ORDERED: fentaNYL 100 MCG/2 ML INJECTION (J3010) IV ONE (17:45)
[2021-01-21] MEDS ORDERED: ACETAMINOPHEN TAB 650MG DOSE (2X325MG) PO PRN (18:15)
[2021-01-21] MEDS: NS 1,000 ML IV SCH (18:25)
[2021-01-21] MEDS ORDERED: GLUCOSE 4GM CHEW TABLET PO PRN (19:00)
[2021-01-21] MEDS ORDERED: DEXTROSE 50% 50 ML SYRINGE IV PRN (19:00)
[2021-01-21] MEDS ORDERED: GLUCAGON INJ 1MG VIAL SC PRN (19:00)
--- NOTE | 2021-01-21 19:05 | HPEPDOC ---
General Date of Admission 01/21/21 Date of Service: Jan 21, 2021 Chief Complaint The patient is a 40-year-old male admitted with a reason for visit of Ankle Injury. Source: Patient Exam Limitations: No limitations Timing/Duration: Day(s) Severity: Moderate History of Present Illness Patient is 40 years old male with past history of bipolar disorder, Schizoaffective disorder, mental retardation, type 2 diabetes, hypertension, hyperlipidemia, depression/anxiety presented to the hospital with right ankle pain. Patient stated that he did not feel well for 5 days and he stayed in his bed. He told me that he had right ankle injury but did not specify when. Patient extremely poor historian with tangential thoughts. He denied fever or chills. He denied history of black stool or blood in the stool. In ER patient was found to have Fractures of medial and lateral malleoli with lateral subluxation at the tibiotalar joint on x-ray. Labs pertinent for creatinine 6.9, BUN of 169, BNP 663, white blood count 25.3, hemoglobin 7.6, platelets count 906 Home Medications Scheduled Aspirin (Children's Aspirin) 81 Mg Chew, 81 MG PO DAILY Clozapine (Clozapine) 50 Mg Tab, 50 MG PO BID, (Reported) Fluoxetine Hcl (Fluoxetine HCl) 20 Mg Cap, 20 MG PO DAILY, (Reported) Fluticasone Propionate (Flonase Allergy Relief) 50 Mcg/Act Spr, 1 SPRAY NA BID, (Reported) Lamotrigine (Lamotrigine) 100 Mg Tab, 100 MG PO BID, (Reported) Levothyroxine Sodium (Synthroid) 137 Mcg Tab, 137 MCG PO DAILY, (Reported) Loratadine (Loratadine) 10 Mg Tab, 10 MG PO DAILY, (Reported) Magnesium Oxide (Magnesium) 400 Mg Cap, 400 MG PO BID, (Reported) Metformin HCl (Glucophage Xr) 500 Mg Tab, 500 MG PO BID, (Reported) Metoprolol Tartrate (Lopressor) 50 Mg Tab, 50 MG PO BID, (Reported) Multivitamins (Thera M Plus Tablet) 1 Tab Tab, 1 TAB PO DAILY, (Reported) Turrell-3 Acid Ethyl Esters (Lovaza) 1 Cap Cap, 2 CAP PO BID, (Reported) Salmeterol/Fluticasone (Advair 500-50 Diskus) 28 Puff/Inhaler Aerp, 1 PUFF INH BID, (Reported) Simvastatin (Simvastatin) 20 Mg Tab, 20 MG PO QHS, (Reported) Scheduled PRN Albuterol Sulfate (Proair Hfa) 108 Mcg/Act Aer, 2 PUFF INH Q4HP PRN for SHORTNESS OF BREATH, (Reported) Allergies Coded Allergies: benztropine (Verified Allergy, Severe, 01/21/21) locks jaw Past Medical History Medical History 1. Hypothyroidism. 2. Obstructive sleep apnea. 3. Hypertension. 4. Mental retardation. 5. Schizoaffective bipolar and depression. 6. Type 2 diabetes mellitus. 7. Morbid obesity. 8. Metabolic syndrome. 6. Seasonal allergies. 7. Hypothyroidism. 8. Diabetes. 9. Obesity. 10 Dyslipidemia. Surgical History Tonsillectomy, colonoscopy and esophagogastroduodenoscopy (EGD). Family History Both parents are , but he did not recall what their medical conditions were. Social History * Smoker: former Smoker Alcohol: Denies Drugs: denies A-FIB/CHADSVASC A-FIB History Current/History of A-Fib/PAF?: No Current PO Anticoag Therapy: No Review of Systems Constitutional: Denies: Chills, Fever Eyes: Denies: Pain ENT: Denies: Head Aches Skin: Denies: Rash Pulmonary: Denies: Dyspnea Cardiovascular: Denies: Chest Pain, Palpitations Gastrointestinal: Denies: Nausea Genitourinary: Denies: Dysuria, Frequency Hematologic: Denies: Bruising Endocrine: Denies: Polydipsia Musculoskeletal: Reports: Neck Pain, Leg Pain (right ankle pain) Neurological: Denies: Weakness Psych: Reports: Mood Normal Physical Examination General Exam: Positive: Alert, Cooperative Eye Exam: Positive: PERRLA ENT Exam: Positive: Atraumatic Neck Exam: Positive: Supple; Negative: JVD Chest Exam: Positive: Clear to auscultation Heart Exam: Positive: Rate Normal Telemetry: Positive: No significant arrhythmia Abdomen Exam: Positive: Normal bowel sounds Extremity Exam: Positive: Clubbing, Edema (of right ankle), Tenderness (right ankle), Swelling (right ankle) Neuro Exam: Positive: Cranial Nerves 3-12 NL Psych Exam: Positive: Oriented x 3 Vital Signs Vital Signs Date Time Temp Pulse Resp B/P (MAP) Pulse Ox O2 Delivery O2 Flow Rate FiO2 01/21/21 15:04 97.9 104 18 142/78 (99) 100 Room Air Laboratory Data Labs 24H Laboratory Tests 2 01/21/21 15:29: Anion Gap 15, Glomerular Filtration Rate 9.3L, Calcium Level 9.9, Total Bilirubin 0.6, Direct Bilirubin 0.2, Aspartate Amino Transf (AST/SGOT) 24, Alanine Aminotransferase (ALT/SGPT) 21, Alkaline Phosphatase 106, Total Creatine Kinase 272, Creatine Kinase MB < 1.0, Creatine Kinase MB Relative Index 0.37, Troponin I < 0.02, IA-Nin-A-Type Natriuretic Peptide 663H, Total Protein 7.7, Albumin 3.4, Albumin/Globulin Ratio 0.8 01/21/21 15:54: Immature Granulocyte % (Auto) , Neutrophils (%) (Auto) , Nucleated Red Blood Cells % (auto) 0.2H, Neutrophils 73H, Band Neutrophils 2, Lymphocytes (Manual) 16, Monocytes (Manual) 6H, Metamyelocytes 3H, Polychromasia 1+, Hypochromasia 1+, Poikilocytosis 1+, Anisocytosis 2+, Microcytosis 1+, Ovalocytes 1+, Platelet Estimate INCREASED, Prothrombin Time 14.4H, Prothromb Time International Ratio 1.10, Activated Partial Thromboplast Time 29.4 01/21/21 17:09: Bedside Glucose (Misc Panel) 121H 01/21/21 17:51: CBC/BMP Laboratory Tests 01/21/21 15:29 01/21/21 15:54 Assessment/Plan Patient is 40 years old male with past history of bipolar disorder, Schizoaffective disorder, mental retardation, type 2 diabetes, hypertension, hyperlipidemia, depression/anxiety presented to the hospital with right ankle pain. Patient stated that he did not feel well for 5 days and he stayed in his bed. He told me that he had right ankle injury but did not specify when. Patient extremely poor historian with tangential thoughts. He denied fever or chills. He denied history of black stool or blood in the stool. In ER patient was found to have Fractures of medial and lateral malleoli with lateral subluxation at the tibiotalar joint on x-ray. Labs pertinent for creatinine 6.9, BUN of 169, BNP 663, white blood count 25.3, hemoglobin 7.6, platelets count 906 Problems (1) Bimalleolar fracture of right ankle Status: Acute Problem Text: I talked Dr. Leo he will see the patient today (2) RAN (acute kidney injury) Status: Acute Problem Text: Most likely secondary to dehydration superimposed with anemia IV fluid Appreciate/agree with globe changer consult Belle catheter Continue to monitor (3) Dyslipidemia Status: Chronic Problem Text: Continue statin (4) Hypothyroid Status: Chronic Problem Text: Continue levothyroxine (5) Diabetes Status: Chronic Problem Text: Diabetes diet insulin sliding scale Glucose level under control (6) Anemia Status: Acute Problem Text: Most likely multifactorial Could be Attributed to kidney failure, iron deficiency, GI blood loss We will check iron panel, LDH, haptoglobin, B12, folate Will transfuse 2 units of blood H&H every 6 hours PPI twice a day I did not find any family contact in the chart to talk about possible EGD and colonoscopy. (7) Leukocytosis Status: Acute Problem Text: Most likely reactive secondary to ankle fracture superimposed with dehydration Patient afebrile, normotensive We will check procalcitonin and blood culture (8) PAVAN (obstructive sleep apnea) Status: Chronic Problem Text: CPAP overnight (9) Depression Status: Chronic Problem Text: Continue home meds (10) Bipolar disorder Status: Chronic Problem Text: Nonpsychotic Continue home meds (11) Hypertension Status: Chronic Problem Text: Blood pressures under control Continue home meds (12) Obesity Status: Chronic Problem Text: BMI 43.4 Complicated care (13) Hypothyroidism Status: Chronic Problem Text: Continue levothyroxine Plan / VTE VTE Prophylaxis Ordered?: No VTE Exclusion Pharmacological: Bleeding Risk LITZY DIAZ DO Jan 21, 2021 19:05
--- NOTE | 2021-01-21 19:08 | REP ---
INDICATION: post reduction COMPARISON: 01/21/2021, 3:39 p.m. TECHNIQUE: AP and lateral right ankle FINDINGS: Again noted are fractures of the distal medial and lateral malleoli with lateral subluxation of the talus. There is an overlying splint. IMPRESSION: Splint placed on the right ankle, otherwise no change. <Electronically signed by Arnel Pnada > 01/21/21 [id number]
[2021-01-21] MEDS ORDERED: BYDU2INJ7 SQ (19:16)
[2021-01-21] MEDS ORDERED: ASPI-117 PO (19:16)
[2021-01-21] MEDS ORDERED: MONT10TA10 PO (19:16)
[2021-01-21] MEDS ORDERED: FERR32TA PO (19:16)
[2021-01-21] MEDS ORDERED: INCR1INH INH (19:16)
[2021-01-21] MEDS ORDERED: ATOR40TA75 PO (19:16)
[2021-01-21] MEDS ORDERED: VASC1CAP2 PO (19:16)
[2021-01-21] MEDS ORDERED: LEVO150T42 PO (19:16)
[2021-01-21] MEDS ORDERED: VITA50005 PO (19:16)
[2021-01-21] MEDS ORDERED: ALBUTEROL 90 MCG/ACT 8GM HFA INHALER INH PRN (19:25)
[2021-01-21] MEDS: ADVAIR HFA 230/21MCG INHALER INH SCH (20:00)
--- NOTE | 2021-01-21 20:22 | CR.PDOC ---
General Date of Consultation: Jan 21, 2021 Consultation REASON FOR CONSULTATION/CHIEF COMPLAINT: Right ankle fracture, possibly subacute HPI: Patient is 40 years old male with past history of bipolar disorder, Schizoaffective disorder, mental retardation, type 2 diabetes, hypertension, hyperlipidemia, depression/anxiety presented to the hospital with right ankle pain. Patient stated that he did not feel well for 5 days and he stayed in his bed. Patient reports that he had been walking in [facility] last week with some pain, but is unable to express when the pain actually started for him. Does not recall a fall or otherwise. Patient is a poor historian and majority of PMHx taken from Chart and H&P. He denied fever or chills. He denied history of black stool or blood in the stool. In ER patient was found to have Fractures of medial and lateral malleoli with lateral subluxation at the tibiotalar joint on x-ray. Labs pertinent for creatinine 6.9, BUN of 169, BNP 663, white blood count 25.3, hemoglobin 7.6, platelets count 906 Home Meds: Aspirin (Children's Aspirin) 81 Mg Chew, 81 MG PO DAILY Clozapine (Clozapine) 50 Mg Tab, 50 MG PO BID, (Reported) Fluoxetine Hcl (Fluoxetine HCl) 20 Mg Cap, 20 MG PO DAILY, (Reported) Fluticasone Propionate (Flonase Allergy Relief) 50 Mcg/Act Spr, 1 SPRAY NA BID, (Reported) Lamotrigine (Lamotrigine) 100 Mg Tab, 100 MG PO BID, (Reported) Levothyroxine Sodium (Synthroid) 137 Mcg Tab, 137 MCG PO DAILY, (Reported) Loratadine (Loratadine) 10 Mg Tab, 10 MG PO DAILY, (Reported) Magnesium Oxide (Magnesium) 400 Mg Cap, 400 MG PO BID, (Reported) Metformin HCl (Glucophage Xr) 500 Mg Tab, 500 MG PO BID, (Reported) Metoprolol Tartrate (Lopressor) 50 Mg Tab, 50 MG PO BID, (Reported) Multivitamins (Thera M Plus Tablet) 1 Tab Tab, 1 TAB PO DAILY, (Reported) [place]-3 Acid Ethyl Esters (Lovaza) 1 Cap Cap, 2 CAP PO BID, (Reported) Salmeterol/Fluticasone (Advair 500-50 Diskus) 28 Puff/Inhaler Aerp, 1 PUFF INH BID, (Reported) Simvastatin (Simvastatin) 20 Mg Tab, 20 MG PO QHS, (Reported) Scheduled PRN Albuterol Sulfate (Proair Hfa) 108 Mcg/Act Aer, 2 PUFF INH Q4HP PRN for SHORTNESS OF BREATH, (Reported) Allergies Coded Allergies: benztropine (Verified Allergy, Severe, 01/21/21) locks jaw Past Medical History Past Medical History Medical History 1. Hypothyroidism. 2. Obstructive sleep apnea. 3. Hypertension. 4. Mental retardation. 5. Schizoaffective bipolar and depression. 6. Type 2 diabetes mellitus. 7. Morbid obesity. 8. Metabolic syndrome. 6. Seasonal allergies. 7. Hypothyroidism. 8. Diabetes. 9. Obesity. 10 Dyslipidemia. Surgical History Tonsillectomy, colonoscopy and esophagogastroduodenoscopy (EGD). Family History Both parents are , but he did not recall what their medical conditions were. Social History * Smoker: former Smoker Alcohol: Denies Drugs: denies Reportedly lives alone in an apt. REVIEW OF SYSTEMS: Refer to HPI: Patient does not report any significant pain or discomfort at time of consult PHYSICAL EXAMINATION: VITAL SIGNS: Please see below. GENERAL APPEARANCE: Relaxed, Comfortable EXTREMITIES: Right leg in sugartong splint. This was removed and webril was cut to expose the skin. Skin showed significant bruising globally about the ankle and foot. The edema was not as significant as anticipated, almost comparable to the contralateral limb. There was an eschar anterior to the medial mall over the joint line measuring ~2 cm x 1 cm. This is most consistent with skin necrosis secondary to tenting and pressure from a fracture fragment. The ankle is clearly unstable; however, the patient is moving his foot and ankle without any apparent discomfort. NEUROLOGICAL: Palpable PT and DP pulses, Cap refill less than 3 seconds. Report s intact sensation to foot grossly. XRAY: Xrays were independently reviewed by myself, today. Showed 100% displaced medial malleolar fracture with rounding of fracture surface, suggestive of subac habematolel injury. Lateral subluxation of talus and syndesmosis disruption. Possible healed undisplaced fibular fracture. LABORATORY DATA: Please see below. ASSESSMENT/PLAN: 1. Patient is being admitted to the hospitalist service for management of medical comorbidities. Nephrology consult pending. Surgical Clearance pending. 2. Right ankle fracture dislocation: Attempted CR in ED. Patient signed consent for CR and splinting in the ED after discussion of Risks and benefits. As the patient did not demonstrate any pain with manipulation of the leg and ankle, no sedation was required. Nursing provided pain medications PRN. After the ED sugartong splint was removed, a vasoline impregnated gauze dressing was placed over the eschar and then a stockinette was placed over the leg and foot. An assistant plant controller held the great toe and supported the knee while webril was placed. A backslab and sugartong splint was then applied and pressure molding was applied medially and laterally as the plaster cured. Splint was then wrapped in a tensor bandage. Patient was found to have a cap refill < 3 seconds post splinting and intact sensation to the 1st webspace of the right foot. Xrays were independently ordered and reviewed by myself, these showed no significant change in the position of the fracture dislocation of the right ankle, which supports the idea of a subacute or chronic fracture. Possible soft tissue interposition interfering with reduction. PLAN: The patient will be made NPO this evening and be evaluated by Nephro and Hospitalist services tomorrow for surgical optimization and clearance. I have spoken with Dr. Schwartz, Orthopedic Surgeon, who is structural ironworker this weekend about this patient. He will evaluate the patient tomorrow for surgery, likely open reduction with internal fixation, planned. Hopefully the patient will be cleared for surgery Sunday or Sunday. The patient is aware that he is at high risk for wound complications, given his diabetes, the presence of the eschar and skin necrosis, etc. The patient is also aware of the higher risk of post traumatic osteoarthritis associated with a chronically displaced ankle fracture dislocation. Vital Signs/I&O Vital Signs Date Time Temp Pulse Resp B/P (MAP) Pulse Ox O2 Delivery O2 Flow Rate FiO2 01/21/21 19:05 97.9 104 18 142/78 100 Room Air Laboratory Data Labs 24H Laboratory Tests 2 01/21/21 15:29: Anion Gap 15, Glomerular Filtration Rate 9.3L, Calcium Level 9.9, Total Bilirubin 0.6, Direct Bilirubin 0.2, Aspartate Amino Transf (AST/SGOT) 24, Alanine Aminotransferase (ALT/SGPT) 21, Alkaline Phosphatase 106, Total Creatine Kinase 272, Creatine Kinase MB < 1.0, Creatine Kinase MB Relative Index 0.37, Troponin I < 0.02, OW-Jsi-N-Type Natriuretic Peptide 663H, Total Protein 7.7, Albumin 3.4, Albumin/Globulin Ratio 0.8 01/21/21 15:54: Immature Granulocyte % (Auto) , Neutrophils (%) (Auto) , Nucleated Red Blood Cells % (auto) 0.2H, Neutrophils 73H, Band Neutrophils 2, Lymphocytes (Manual) 16, Monocytes (Manual) 6H, Metamyelocytes 3H, Polychromasia 1+, Hypochromasia 1+, Poikilocytosis 1+, Anisocytosis 2+, Microcytosis 1+, Ovalocytes 1+, Platelet Estimate INCREASED, Prothrombin Time 14.4H, Prothromb Time International Ratio 1.10, Activated Partial Thromboplast Time 29.4 01/21/21 17:09: Bedside Glucose (Misc Panel) 121H 01/21/21 17:51: Coronavirus (COVID-19)(PCR) NEGATIVE CBC/BMP Laboratory Tests 01/21/21 15:29 01/21/21 15:54 Allergies Coded Allergies: benztropine (Verified Allergy, Severe, 01/21/21) locks jaw Home Medications Scheduled Aspirin (Aspirin EC) 81 Mg Tablet.dr, 81 MG PO DAILY, (Reported) Atorvastatin Calcium (Atorvastatin Calcium) 40 Mg Tablet, 40 MG PO QHS, (Reported) Clozapine (Clozapine) 50 Mg Tab, 50 MG PO BID, (Reported) Ergocalciferol (Vitamin D2) (Vitamin D2) 50,000 Units Cap, 50,000 UNITS PO QWEEK, (Reported) Exenatide Microspheres (Bydureon Bcise) 2 Mg/0.85 Ml Auto.injct, 2 MG SQ QWEEK, (Reported) Ferrous Gluconate (Ferrous Gluconate) 324 Mg Tablet, 324 MG PO DAILY, (Reported) Fluoxetine Hcl (Fluoxetine HCl) 20 Mg Cap, 20 MG PO DAILY, (Reported) Fluticasone Propionate (Flonase Allergy Relief) 50 Mcg/Act Spr, 1 SPRAY NA BID, (Reported) Icosapent Ethyl (Vascepa) 1 Gm Capsule, 2 GM PO BID, (Reported) Lamotrigine (Lamotrigine) 100 Mg Tab, 100 MG PO BID, (Reported) Levothyroxine Sodium (Levoxyl) 150 Mcg Tablet, 150 MCG PO DAILY, (Reported) Loratadine (Loratadine) 10 Mg Tab, 10 MG PO DAILY, (Reported) Magnesium Oxide (Magnesium) 400 Mg Cap, 400 MG PO BID, (Reported) Metformin HCl (Glucophage Xr) 500 Mg Tab, 500 MG PO BID, (Reported) Metoprolol Tartrate (Lopressor) 50 Mg Tab, 50 MG PO BID, (Reported) Montelukast Sodium (Montelukast Sodium) 10 Mg Tablet, 10 MG PO DAILY, (Reported) Multivitamins (Thera M Plus Tablet) 1 Tab Tab, 1 TAB PO DAILY, (Reported) Salmeterol/Fluticasone (Advair 500-50 Diskus) 28 Puff/Inhaler Aerp, 1 PUFF INH BID, (Reported) Umeclidinium [place] (Incruse Ellipta) 62.5 Mcg Blst.w.dev, 1 PUFF INH DAILY, (Reported) Scheduled PRN Albuterol Sulfate (Proair Hfa) 108 Mcg/Act Aer, 2 PUFF INH Q6H PRN for SHORTNESS OF BREATH, (Reported) RAPHAEL YANG MD Jan 21, 2021 20:22
[2021-01-21 20:36] VITALS: BP 159/73
[2021-01-21 20:40] VITALS: BP 159/73
[2021-01-21 20:55] VITALS: BP 163/76
[2021-01-21 21:05] LABS: FOLATE 19.8 NG/ML (>5.4); IRON (FE) 29 UG/DL (65-175); LDH LACTATE DEHYDROGENASE 531 U/L (87-241); PERCENT SATURATION 6.8 % (19.7-50.0); TOTAL IRON BINDING CAPACITY 429 UG/DL (250-450); VITAMIN B12 LEVEL > 2000 PG/ML (247-911)
--- NOTE | 2021-01-21 21:26 | REPVR ---
PROCEDURE INFORMATION: Exam: CT Right Lower Extremity Without Contrast, Ankle Exam date and time: 01/21/2021 8:02 PM Age: 40 years old Clinical indication: Injury or trauma; Fall; Blunt trauma; Ankle; Right; Additional info: R ankle fracture w/ 3d recons of R ankle TECHNIQUE: Imaging protocol: CT of the Right lower extremity without contrast was performed. Exam focused on the ankle. 3D reconstructed images were created and reviewed. Radiation optimization: All CT scans at this facility use at least one of these dose optimization techniques: automated exposure control; mA and/or kV adjustment per patient size (includes targeted exams where dose is matched to clinical indication); or iterative reconstruction. COMPARISON: 1. VA Ankle, Ap-Lat 01/21/2021 6:37 PM 2. VA Ankle, complete 01/21/2021 3:37:22 PM FINDINGS: Bones/joints: There is an acute, minimally displaced fracture involving the medial aspect of the base of the right 2nd metatarsal at the insertion of the Lisfranc ligament. There is also an acute nondisplaced fracture involving the base of the right 3rd metatarsal. The Lisfranc alignment is maintained. There is an acute, complete, displaced transverse fracture of the right medial malleolus with diastasis of approximately 19 mm in craniocaudal dimension. There are tiny avulsed bony fragments arising from the talar insertion of the anterior talofibular ligament just inferior to the lateral malleolus. The subluxation of the right tibiotalar joint has improved compared to the prior right ankle x-rays on 01/21/2021 6:37 PM. However, there is persistent mild lateral subluxation of the talus with respect to the distal tibia and asymmetric widening of the medial aspect of the ankle mortise secondary to an avulsion fracture involving the deltoid ligament. There are 2 well-corticated accessory ossicles medial to the navicular, which represent an os naviculari. Soft tissues: There is soft tissue swelling and edema in the subcutaneous tissues of the right ankle. There is a posterior calcaneal spur at the insertion of the Achilles tendon, which is compatible with a right Achilles enthesopathy. IMPRESSION: 1. Acute, minimally displaced fracture involving the medial aspect of the base of the right 2nd metatarsal at the insertion of the Lisfranc ligament. 2. Acute nondisplaced fracture involving the base of the right 3rd metatarsal. 3. Acute, complete, displaced transverse fracture of the right medial malleolus with diastasis of approximately 19 mm in craniocaudal dimension. 4. Tiny avulsed bony fragments arising from the talar insertion of the anterior talofibular ligament just inferior to the lateral malleolus. 5. Improvement in the subluxation of the right tibiotalar joint compared to the prior right ankle x-rays on 01/21/2021 6:37 PM. However, there is persistent mild lateral subluxation of the talus with respect to the distal tibia and asymmetric widening of the medial aspect of the ankle mortise secondary to an avulsion fracture involving the deltoid ligament. Electronically signed by: Delmer Parker On 01/21/2021 21:27:12 PM
[2021-01-21 21:45] VITALS: BP 102/58
--- NOTE | 2021-01-21 22:15 | REPVR ---
PROCEDURE INFORMATION: Exam: XR Right Knee Exam date and time: 01/21/2021 9:25 PM Age: 40 years old Clinical indication: R leg pain TECHNIQUE: Imaging protocol: XR Right knee. Views: 1 or 2 views. COMPARISON: CR Tibia, Fibula lower leg RIGHT 01/21/2021 8:22:51 PM FINDINGS: Bones/joints: In the lateral view, there is a questionable fracture of the posterior portion of the tibial plateau that is not identified in the AP view. There is an acute nondisplaced fracture involving the medial aspect of the head of the right fibula. There is also an acute, complete displaced fracture of the right proximal fibular diaphysis, which was not fully imaged in the AP view. Soft tissues: Unremarkable. IMPRESSION: 1. Questionable fracture of the posterior portion of the right tibial plateau. 2. Acute nondisplaced fracture involving the medial aspect of the head of the right fibula. 3. Acute, complete displaced fracture of the right proximal fibular diaphysis. Electronically signed by: Delmer Parker On 01/21/2021 22:16:04 PM
--- NOTE | 2021-01-21 22:15 | REPVR ---
PROCEDURE INFORMATION: Exam: XR Right Tibia and Fibula Exam date and time: 01/21/2021 9:25 PM Age: 40 years old Clinical indication: R leg pain TECHNIQUE: Imaging protocol: XR Right tibia and fibula. Views: 2 views. COMPARISON: CT-Ankle WITHOUT CONTRAST RIGHT 01/21/2021 8:10:42 PM FINDINGS: Bones/joints: In the lateral view, there is a questionable fracture of the posterior portion of the tibial plateau that is not identified in the AP view. There is an acute nondisplaced fracture involving the medial aspect of the head of the right fibula. There is also an acute, complete fracture of the right proximal fibular diaphysis, with medial displacement of the distal component of the fracture by approximately 3/4 shaft width. There is an acute, complete, displaced transverse fracture of the right medial malleolus. There are tiny avulsed bony fragments arising from the talar insertion of the anterior talofibular ligament just inferior to the right lateral malleolus. There is asymmetric widening of the medial aspect of the ankle mortise secondary to an avulsion fracture involving the deltoid ligament. There are acute fractures of the base of the right 2nd and 3rd metatarsals, which are better visualized in the CT on 01/21/2021. Soft tissues: The right lower extremity is held in a cast. IMPRESSION: 1. Questionable fracture of the posterior portion of the tibial plateau. 2. Acute nondisplaced fracture involving the medial aspect of the head of the right fibula. 3. Acute, complete fracture of the right proximal fibular diaphysis, with medial displacement of the distal component of the fracture by approximately 3/4 shaft width. 4. Acute, complete, displaced transverse fracture of the right medial malleolus. 5. Tiny avulsed bony fragments arising from the talar insertion of the anterior talofibular ligament just inferior to the right lateral malleolus. 6. Acute fractures of the base of the right 2nd and 3rd metatarsals, which are better visualized in the CT on 01/21/2021. Electronically signed by: Delmer Parker On 01/21/2021 22:16:21 PM
[2021-01-21] MEDS: HumaLOG INSULIN (NovoLOG) PER UNIT SC SCH (22:18)
[2021-01-21] MEDS: PANTOPRAZOLE 40MG VIAL (C9113 PER 1) IV SCH (22:22)
[2021-01-21] MEDS: MAGNESIUM OXIDE 400MG TAB (MAG-OX) PO SCH (22:23)
[2021-01-21] MEDS: ATORVASTATIN 20 MG TAB PO SCH (22:23)
[2021-01-21] MEDS: METOPROLOL TART 50 MG TAB PO SCH (22:26)
[2021-01-21] MEDS: lamoTRIgine 100MG TAB PO SCH (22:27)
[2021-01-21 22:30] VITALS: BP 110/58
[2021-01-21 23:40] VITALS: BP 113/42
[2021-01-22] VITALS (15 sets, daily range): BP systolic 72–124; BP diastolic 40–81
[2021-01-22] MEDS: FLUTICASONE PROP 0.05% NASAL SPRAY 16 GM (FLONASE) SCH ×3 (00:52→20:26)
[2021-01-22] MEDS: cloZAPine 25 MG TAB (S0136) PO SCH ×3 (00:52→20:26)
[2021-01-22] MEDS ORDERED: SODIUM CHLORIDE 0.9% 1000ML IV ONE ×2 (02:40→09:10)
[2021-01-22] MEDS: NS 1,000 ML IV SCH (04:06)
[2021-01-22 04:50] LABS: BASO # 0.1 10^3/uL (0.0-0.2); BASO % 0.2 % (0.0-1.0); EOS # 0.1 10^3/uL (0.0-0.5); EOS % 0.5 % (0.0-3.0); HEMATOCRIT 24.2 % (42.0-52.0); HEMOGLOBIN 7.5 g/dl (13.5-17.5); LYMPH # 2.2 10^3/uL (1.5-5.0); LYMPH % 10.6 % (24.0-44.0); MEAN CORPUSCULAR HEMOGLOBIN 25.5 pg (27.0-33.0); MEAN CORPUSCULAR VOLUME 82.3 fl (80.0-96.0); MONO # 1.2 10^3/uL (0.0-0.8); MONO % 5.7 % (2.0-8.0); NEUTROPHILS # 16.3 10^3/uL (1.5-8.5); PLATELET COUNT, AUTOMATED 677 10^3/uL (150-450); RED BLOOD COUNT 2.94 10^6/uL (4.30-6.10); WHITE BLOOD COUNT 20.9 10^3/uL (4.0-10.0)
[2021-01-22] MEDS: LEVOTHYROXINE 150MCG TABLET (0.15MG) PO SCH (05:29)
[2021-01-22 05:48] LABS: ALBUMIN 2.8 GM/DL (3.2-5.2); BILIRUBIN,TOTAL 0.6 MG/DL (0.2-1.0); CALCIUM LEVEL 8.6 MG/DL (8.5-10.1); CREATININE FOR GFR 5.71 MG/DL (0.70-1.30); GLOMERULAR FILTRATION RATE 11.7 (>60); MAGNESIUM LEVEL 3.2 MG/DL (1.8-2.4); POTASSIUM SERUM 2.9 MEQ/L (3.5-5.1); TOTAL PROTEIN 6.5 GM/DL (6.4-8.2)
[2021-01-22] MEDS: HumaLOG INSULIN (NovoLOG) PER UNIT SC SCH ×4 (07:30→20:00)
[2021-01-22] MEDS: ADVAIR HFA 230/21MCG INHALER INH SCH ×2 (07:45→20:20)
[2021-01-22] MEDS ORDERED: POTASSIUM CHLORIDE 10 MEQ SR TABLET PO ONE ×4 (08:40→17:25)
[2021-01-22] MEDS: MAGNESIUM OXIDE 400MG TAB (MAG-OX) PO SCH ×2 (09:00→09:48)
[2021-01-22] MEDS ORDERED: KCL 10MEQ/100ML SWI (KRUN) 10 MEQ in IV 1 EA IV ONE (09:00)
[2021-01-22] MEDS: METOPROLOL TART 50 MG TAB PO SCH ×2 (09:00→21:43)
[2021-01-22] MEDS ORDERED: ENOXAPARIN 40MG/0.4ML SYRINGE (J1650 PER 10MG) SC SCH (09:00)
[2021-01-22] MEDS: MULTIVITAMINS/MINERALS THERAP 1 TAB PO SCH (09:47)
[2021-01-22] MEDS: ASPIRIN 81MG ENTERIC TABLET PO SCH (09:47)
[2021-01-22] MEDS: lamoTRIgine 100MG TAB PO SCH ×2 (09:47→20:25)
[2021-01-22] MEDS: KCL 20MEQ IN 0.45NS 1000ML 1,000 ML IV SCH ×2 (09:49→20:24)
[2021-01-22] MEDS: FERROUS GLUCONATE 324 MG TAB PO SCH (09:50)
[2021-01-22] MEDS: LORATADINE 10 MG TAB PO SCH (09:50)
[2021-01-22] MEDS: PANTOPRAZOLE 40MG VIAL (C9113 PER 1) IV SCH ×2 (09:50→20:24)
[2021-01-22] MEDS: MONTELUKAST 10 MG TAB PO SCH (09:50)
[2021-01-22] MEDS: FLUoxetine 20 MG CAP PO SCH (09:50)
[2021-01-22 10:17] LABS: BASO % 0.2 % (0.0-1.0); EOS # 0.1 10^3/uL (0.0-0.5); EOS % 0.6 % (0.0-3.0); HEMATOCRIT 24.5 % (42.0-52.0); HEMOGLOBIN 7.8 g/dl (13.5-17.5); LYMPH # 2.4 10^3/uL (1.5-5.0); LYMPH % 11.5 % (24.0-44.0); MEAN CORPUSCULAR HEMOGLOBIN 25.7 pg (27.0-33.0); MEAN CORPUSCULAR HGB CONC 31.8 g/dl (32.0-36.5); MEAN CORPUSCULAR VOLUME 80.9 fl (80.0-96.0); MONO # 1.1 10^3/uL (0.0-0.8); MONO % 5.3 % (2.0-8.0); NEUTROPHILS # 16.5 10^3/uL (1.5-8.5); NEUTROPHILS % 77.6 % (36.0-66.0); PLATELET COUNT, AUTOMATED 687 10^3/uL (150-450); RED BLOOD COUNT 3.03 10^6/uL (4.30-6.10); WHITE BLOOD COUNT 21.3 10^3/uL (4.0-10.0)
[2021-01-22 11:11] LABS: ALBUMIN 2.7 GM/DL (3.2-5.2); BILIRUBIN,TOTAL 0.5 MG/DL (0.2-1.0); CALCIUM LEVEL 8.8 MG/DL (8.5-10.1); CREATININE FOR GFR 4.84 MG/DL (0.70-1.30); GLOMERULAR FILTRATION RATE 14.1 (>60); POTASSIUM SERUM 2.8 MEQ/L (3.5-5.1); TOTAL PROTEIN 6.9 GM/DL (6.4-8.2)
[2021-01-22] MEDS ORDERED: KCL 10MEQ/100ML SWI (KRUN) 10 MEQ in IV 1 EA IV SCH ×2 (11:15→12:30)
--- NOTE | 2021-01-22 11:54 | CR ---
CONSULTATION DATE: 01/22/2021 REFERRING PHYSICIAN: Lakhwinder Rodriguez DO CONSULTING PHYSICIAN: Poppy Grant MD REASON FOR CONSULTATION: Management of acute renal failure. CHIEF COMPLAINT: The patient came into the hospital yesterday for a right ankle injury. HISTORY OF PRESENT ILLNESS: Note, history was obtained from the patient's chart and medical team. The patient himself is a poor historian. Luther Cason is a 40-year-old male with past medical history of baseline creatinine of less than 1.0 found 0.9 as per previous hospitalizations, history of bipolar disorder, schizoaffective disorder, mental retardation, type 2 diabetic, and multiple other comorbidities as mentioned below. As reported by the patient, he was not feeling well for about five days. He fell at home. His ankle was hurting and he was just staying in bed. He was not eating or drinking much. He was feeling thirsty and dehydrated. When he came to the hospital, x-ray showed bimalleolar fracture of the right ankle. Labs showed that the patient was in acute renal failure. He had a creatinine of 6.9 on arrival with a BUN of 169. The case was discussed with myself yesterday by the admitting hospitalist. The plan was to stop his metformin and antihypertensive medications and hydrate the patient with IV fluids. I saw and evaluated the patient today morning at the bedside. The patient is awake. He was still complaining of feeling thirsty, and he complains of pain in the right ankle. PAST MEDICAL HISTORY: 1. Hypothyroidism. 2. Obstructive sleep apnea. 3. Hypertension. 4. Mental retardation. 5. Schizoaffective and bipolar disorder. 6. Type 2 diabetic. 7. Obesity. 8. Hyperlipidemia. PAST SURGICAL HISTORY: 1. Status post tonsillectomy. 2. Colonoscopy and EGD in the past. ALLERGIES: He is allergic to BENZTROPINE. FAMILY HISTORY: No family history is available at this time. SOCIAL HISTORY: There is no history of smoking, illicit drug abuse, or alcohol abuse. REVIEW OF SYSTEMS: Constitutional: He denies any fevers or chills. Eyes: He denies any blurry vision or double vision. ENT: He reports feeling thirsty and dry mouth. Cardiovascular: Denies any chest pain or palpitations. Respiratory: Denies any shortness of breath. GI: Denies any nausea or vomiting. Genitourinary: He reports decreased urine output. Musculoskeletal: He reports right ankle pain and injury. Skin: Denies any rashes or ulcers. Hematology/Oncologic: Denies any easy bleeding or bruising. SPEED RUNNER: There is no syncope or seizures. All other review of systems is negative. PHYSICAL EXAMINATION: GENERAL: The patient is awake. He is oriented x2, laying in bed. VITAL SIGNS: Temperature 97.2 degrees Fahrenheit, blood pressure 118/54, pulse 87, respiratory rate 17, saturating 95% on room air. HEAD/NECK: Extraocular muscles intact. Pupils equally round and reactive to light. Mucous membranes are dry. Neck is supple. There is no JVD. CARDIOVASCULAR: S1, S2. Regular rate. No edema of the bilateral lower extremities. RESPIRATORY: Chest is clear to auscultation bilaterally. Bilaterally currently no rales or rhonchi. ABDOMEN: Soft and obese with positive bowel sounds and nontender with no organomegaly. GENITOURINARY: He has an indwelling Belle catheter. Urine in the bag is dark. MUSCULOSKELETAL: The patient has pain in the right ankle. SPEED RUNNER: No focal deficits. The patient is able to move extremities and follow commands. LABORATORY DATA: CBC showed a WBC of 25.3 on arrival and it is 21.3 today. Hemoglobin is 7.8, platelets 687,000. Urinalysis done yesterday showed no leukocyte esterase, no nitrites, no proteinuria. BMP on arrival showed a creatinine of 6.9. BMP done today showed sodium 134, potassium 2.8, chloride 93, bicarb 31, BUN 170, creatinine 4.8, magnesium 3, albumin 2.7. MICROBIOLOGY: Blood cultures are pending. IMAGING DATA: CT scan of the right lower extremity was done, which showed acute minimally displaced fracture involving the left medial aspect of the base of the right second metatarsal. Acute nondisplaced fracture involving the base of the third metatarsal. Acute complete displaced transverse fracture of the right medial malleolus. CURRENT INPATIENT MEDICATIONS: The patient's medications were all reviewed by myself. He is being given IV Kimberly Ciel. He was given a normal saline bolus yesterday. I have ordered two more liters of IV normal saline bolus and IV fluid Kimberly Ciel 20 mEq and half-normal saline has been started at 100 mL/hour. He is on Tylenol p.r.n., Albuterol p.r.n., aspirin 81 mg p.o. daily, Lipitor 40 mg q. h.s. He is on clozapine 50 mg p.o. twice a day, Fentanyl p.r.n., iron tablet 324 mg p.o. daily, fluoxetine 20 mg p.o. daily, Glucagon insulin, lispro sliding scale, lamotrigine 100 mg p.o. twice a day, levothyroxine 150 mg p.o. daily, loratadine 10 mg p.o. daily, magnesium oxide 400 mg p.o. twice a day, metoprolol 50 mg p.o. twice a day, multivitamin, Protonix 40 mg IV twice a day. Two dose of potassium chloride 40 mEq have been ordered today. He is on Advair twice a day and vitamin D 50,000 units p.o. daily. ASSESSMENT AND PLAN: 1. Acute nonoliguric renal failure. It is most likely secondary to dehydration, volume depletion, use of metformin at home. The patient was being given IV fluids, but developed leaking from his right arm IV line. I saw a lot of saline on the bed. Most likely, he has lost some of the fluids through the IV line and that is why two more liters of normal saline bolus have been ordered. Creatinine is slowly gradually improving. There is no urgent need for hemodialysis at this time; however, the patient is not cleared for surgery today. I will review his labs tomorrow morning. 2. Iron deficiency anemia. The patient has two units of packed red blood cells (PRBC) transfusion ordered. I am also going to start the patient on IV Venofer starting tomorrow. 3. Hypokalemia. The patient is being given oral and IV potassium. Potassium is expected to improve. 4. Hyponatremia. The patient has hypovolemia hyponatremia. Sodium level is improving with IV fluid hydration. 5. Metabolic alkalosis. This is secondary to volume depletion. Bicarb level is improving with IV fluids. 6. Diabetes mellitus type 2. Avoid use of metformin at this time. Okay to continue insulin sliding scale. 7. Fracture of the right ankle. The patient is not optimized for surgery at this time. He will be evaluated tomorrow morning for clearance for right ankle surgery.
--- NOTE | 2021-01-22 14:46 | IPNPDOC ---
Text Note Date of Service The patient was seen on 01/22/21. NOTE Subjective: No any acute events overnight. Patient denied fever, chills, nausea, diarrhea or dysuria Objective: GENERAL APPEARANCE: Obese male HEENT: no scleral icterus, no JVD, EOMI CARDIOVASCULAR: S1S2 LUNGS: CTA ABDOMEN: soft & not tender w palpitation MUSCULOSKELETAL: no cyanosis, no swelling INTEGUMENT: no generalized pallor NEUROLOGICAL: cranial nerve function from 2-12 intact intact, follows commands, speech not dysarthric Assessment/Plan Patient is 40 years old male with past history of bipolar disorder, Schizoaffective disorder, mental retardation, type 2 diabetes, hypertension, hyperlipidemia, depression/anxiety presented to the hospital with right ankle pain. Patient stated that he did not feel well for 5 days and he stayed in his bed. He told me that he had right ankle injury but did not specify when. Patient extremely poor historian with tangential thoughts. He denied fever or chills. He denied history of black stool or blood in the stool. In ER patient was found to have Fractures of medial and lateral malleoli with lateral subluxation at the tibiotalar joint on x-ray. Labs pertinent for creatinine 6.9, BUN of 169, BNP 663, white blood count 25.3, hemoglobin 7.6, platelets count 906 Problems (1) Bimalleolar fracture of right ankle Orthopedic team will proceed with surgery tomorrow if his volume status improved (2) RAN (acute kidney injury) Most likely secondary to dehydration superimposed with anemia Continue IV fluid Belle catheter Continue to monitor Creatinine slow improved (3) Dyslipidemia Continue statin (4) Hypothyroid Continue levothyroxine (5) Diabetes Diabetes diet insulin sliding scale Glucose level under control (6) Anemia Most likely multifactorial Could be Attributed to kidney failure, iron deficiency, GI blood loss iron 429, B12, folate within normal limit Patient received 2 units of blood H&H every 6 hours PPI twice a day Nephrology team recommended Venofer IV starting tomorrow I did not find any family contact in the chart to talk about possible EGD and colonoscopy. (7) Leukocytosis Most likely reactive secondary to ankle fracture superimposed with dehydration Patient afebrile, normotensive Await procalcitonin and blood culture (8) PAVAN (obstructive sleep apnea) CPAP overnight (9) Depression Continue home meds (10) Bipolar disorder Nonpsychotic Continue home meds (11) Hypertension Blood pressures under control Continue home meds (12) Obesity BMI 43.4 Complicated care (13) Hypothyroidism Continue levothyroxine Hypokalemia Replaced Metabolic alkalosis Secondary to intravascular depletion Continue IV fluid VS,Fishbone, I+O VS, Fishbone, I+O Laboratory Tests 01/21/21 15:29 01/21/21 15:54 01/22/21 04:14 01/22/21 10:08 Vital Signs Date Time Temp Pulse Resp B/P (MAP) Pulse Ox O2 Delivery O2 Flow Rate FiO2 01/22/21 09:00 86 106/51 01/22/21 06:00 97.2 17 95 Room Air I&O- Last 24 Hours up to 6 AM 01/22/21 06:00 Intake Total 2807 ml Output Total 800 ml Balance 2007 ml LITZY DIAZ Jan 22, 2021 14:46
[2021-01-22 16:10] LABS: HEMATOCRIT 23.3 % (42.0-52.0); HEMOGLOBIN 7.2 g/dl (13.5-17.5)
[2021-01-22 16:40] LABS: ALBUMIN 2.8 GM/DL (3.2-5.2); BILIRUBIN,TOTAL 0.5 MG/DL (0.2-1.0); CALCIUM LEVEL 8.3 MG/DL (8.5-10.1); CREATININE FOR GFR 3.94 MG/DL (0.70-1.30); GLOMERULAR FILTRATION RATE 17.9 (>60); POTASSIUM SERUM 3.5 MEQ/L (3.5-5.1); TOTAL PROTEIN 6.3 GM/DL (6.4-8.2)
[2021-01-22] MEDS ORDERED: CEFTAROLINE FOSAMIL 600 MG in D5W MINI-BAG PLUS 50 ML IV SCH (18:50)
[2021-01-22] MEDS: CEFTAROLINE FOSAMIL 300 MG in D5W 50 ML IV SCH (20:24)
[2021-01-22] MEDS: ATORVASTATIN 20 MG TAB PO SCH (20:25)
[2021-01-23 00:13] VITALS: BP 109/76
[2021-01-23] MEDS: MAGNESIUM OXIDE 400MG TAB (MAG-OX) PO SCH ×2 (00:22→09:00)
[2021-01-23 00:50] LABS: HEMATOCRIT 28.7 % (42.0-52.0); HEMOGLOBIN 9.1 g/dl (13.5-17.5)
[2021-01-23 02:12] LABS: ALBUMIN 2.6 GM/DL (3.2-5.2); BILIRUBIN,TOTAL 0.6 MG/DL (0.2-1.0); CALCIUM LEVEL 8.6 MG/DL (8.5-10.1); CREATININE FOR GFR 3.05 MG/DL (0.70-1.30); GLOMERULAR FILTRATION RATE 24.1 (>60); POTASSIUM SERUM 3.1 MEQ/L (3.5-5.1); TOTAL PROTEIN 6.4 GM/DL (6.4-8.2)
[2021-01-23] MEDS: LEVOTHYROXINE 150MCG TABLET (0.15MG) PO SCH (05:32)
[2021-01-23 06:00] VITALS: BP 123/66
[2021-01-23 06:10] LABS: HEMATOCRIT 28.8 % (42.0-52.0); HEMOGLOBIN 9.2 g/dl (13.5-17.5); MEAN CORPUSCULAR HEMOGLOBIN 26.7 pg (27.0-33.0); MEAN CORPUSCULAR HGB CONC 31.9 g/dl (32.0-36.5); MEAN CORPUSCULAR VOLUME 83.5 fl (80.0-96.0); RED BLOOD COUNT 3.45 10^6/uL (4.30-6.10)
[2021-01-23 06:25] LABS: PLATELET COUNT, AUTOMATED 534 10^3/uL (150-450)
[2021-01-23 06:33] LABS: ALBUMIN 2.6 GM/DL (3.2-5.2); BILIRUBIN,TOTAL 0.7 MG/DL (0.2-1.0); CALCIUM LEVEL 8.8 MG/DL (8.5-10.1); CREATININE FOR GFR 2.8 MG/DL (0.70-1.30); GLOMERULAR FILTRATION RATE 26.6 (>60); POTASSIUM SERUM 3.2 MEQ/L (3.5-5.1); TOTAL PROTEIN 6.3 GM/DL (6.4-8.2)
[2021-01-23 06:47] LABS: BASOPHILS 1 % (0-1); EOSINOPHILS 1 % (0-3); LYMPHOCYTES 16 % (16-44); MONOCYTES 2 % (0-5); MYELOCYTES 4 % (0-0); NEUTROPHILS 76 % (28-66)
[2021-01-23 06:48] LABS: ANISOCYTOSIS 1+; PLATELET ESTIMATE INCREASED (NORMAL)
[2021-01-23] MEDS: ADVAIR HFA 230/21MCG INHALER INH SCH ×2 (07:30→20:25)
[2021-01-23] MEDS: HumaLOG INSULIN (NovoLOG) PER UNIT SC SCH ×4 (07:30→20:27)
[2021-01-23] MEDS ORDERED: POTASSIUM CHLORIDE 10 MEQ SR TABLET PO ONE ×2 (08:10→19:05)
[2021-01-23] MEDS: CEFTAROLINE FOSAMIL 300 MG in D5W 50 ML IV SCH (08:50)
[2021-01-23] MEDS: FLUTICASONE PROP 0.05% NASAL SPRAY 16 GM (FLONASE) SCH ×2 (08:50→21:00)
[2021-01-23] MEDS: PANTOPRAZOLE 40MG VIAL (C9113 PER 1) IV SCH ×2 (08:50→20:12)
[2021-01-23] MEDS: lamoTRIgine 100MG TAB PO SCH ×2 (09:00→20:13)
[2021-01-23] MEDS: METOPROLOL TART 50 MG TAB PO SCH ×2 (09:00→20:17)
[2021-01-23] MEDS: cloZAPine 25 MG TAB (S0136) PO SCH ×2 (09:00→20:13)
[2021-01-23] MEDS: KCL 20MEQ IN 0.45NS 1000ML 1,000 ML IV SCH ×2 (11:49→20:26)
[2021-01-23 12:06] VITALS: BP 110/57
[2021-01-23] MEDS ORDERED: SENNA 8.6 MG TAB (SENOKOT) PO PRN (12:15)
[2021-01-23 12:59] LABS: ALBUMIN 2.7 GM/DL (3.2-5.2); BILIRUBIN,TOTAL 0.6 MG/DL (0.2-1.0); CALCIUM LEVEL 8.5 MG/DL (8.5-10.1); CREATININE FOR GFR 2.51 MG/DL (0.70-1.30); GLOMERULAR FILTRATION RATE 30.2 (>60); POTASSIUM SERUM 3.3 MEQ/L (3.5-5.1); TOTAL PROTEIN 6.8 GM/DL (6.4-8.2)
[2021-01-23] MEDS: ASPIRIN 81MG ENTERIC TABLET PO SCH (13:57)
[2021-01-23] MEDS: MULTIVITAMINS/MINERALS THERAP 1 TAB PO SCH (13:57)
[2021-01-23] MEDS: LORATADINE 10 MG TAB PO SCH (13:57)
[2021-01-23] MEDS: FERROUS GLUCONATE 324 MG TAB PO SCH (13:57)
--- NOTE | 2021-01-23 13:57 | IPNPDOC ---
Text Note Date of Service The patient was seen on 01/23/21. NOTE Subjective: No any acute events overnight. Patient denies fever, chills, nausea, vomiting or diarrhea dysuria Objective: GENERAL APPEARANCE: Obese male HEENT: no scleral icterus, no JVD, EOMI CARDIOVASCULAR: S1S2 LUNGS: CTA ABDOMEN: soft & not tender w palpitation MUSCULOSKELETAL: no cyanosis, no swelling INTEGUMENT: no generalized pallor NEUROLOGICAL: cranial nerve function from 2-12 intact intact, follows commands, speech not dysarthric Assessment/Plan Patient is 40 years old male with past history of bipolar disorder, Schizoaffective disorder, mental retardation, type 2 diabetes, hypertension, hyperlipidemia, depression/anxiety presented to the hospital with right ankle pain. Patient stated that he did not feel well for 5 days and he stayed in his b ed. He told me that he had right ankle injury but did not specify when. Patient extremely poor historian with tangential thoughts. He denied fever or chills. He denied history of black stool or blood in the stool. In ER patient was found to have Fractures of medial and lateral malleoli with lateral subluxation at the tibiotalar joint on x-ray. Labs pertinent for creatinine 6.9, BUN of 169, BNP 66 3, white blood count 25.3, hemoglobin 7.6, platelets count 906 Problems (1) Bimalleolar fracture of right ankle Orthopedic team follows him (2) RAN (acute kidney injury) Most likely secondary to dehydration superimposed with anemia Continue IV fluid Belle catheter Continue to monitor Creatinine slow improved (3) Dyslipidemia Continue statin (4) Hypothyroid Continue levothyroxine (5) Diabetes Diabetes diet insulin sliding scale Glucose level under control (6) Anemia Most likely multifactorial Could be Attributed to kidney failure, iron deficiency, GI blood loss iron 429, B12, folate within normal limit Patient received 2 units of blood H&H every 6 hours PPI twice a day Nephrology team recommended Venofer IV I did not find any family contact in the chart to talk about possible EGD and colonoscopy. Hemoglobin 9.2 (7) Leukocytosis/bacteremia Most likely reactive secondary to ankle fracture superimposed with dehydration Patient afebrile, normotensive Yesterday One set of blood culture positive for gram-positive cocci in clusters. There is possibility of contamination, second set of blood culture negative however patient has leukocytosis. I started Ceftaroline empirically. Blood culture repeated, await result (8) PAVAN (obstructive sleep apnea) CPAP overnight (9) Depression Continue home meds (10) Bipolar disorder Nonpsychotic Continue home meds (11) Hypertension Blood pressures under control Continue home meds (12) Obesity BMI 43.4 Complicated care (13) Hypothyroidism Continue levothyroxine Hypokalemia Replaced Metabolic alkalosis Secondary to intravascular depletion Continue IV fluid VS,Fishbone, I+O VS, Fishbone, I+O Laboratory Tests 01/22/21 15:53 01/23/21 00:42 01/23/21 05:53 01/23/21 12:20 Vital Signs Date Time Temp Pulse Resp B/P (MAP) Pulse Ox O2 Delivery O2 Flow Rate FiO2 01/23/21 12:06 98.7 88 20 110/57 (74) 93 Room Air I&O- Last 24 Hours up to 6 AM 01/23/21 06:00 Intake Total 5875 ml Output Total 2650 ml Balance 3225 ml LITZY DIAZ DO Jan 23, 2021 13:57
[2021-01-23 14:00] VITALS: BP 112/63
[2021-01-23] MEDS: MONTELUKAST 10 MG TAB PO SCH (17:37)
[2021-01-23] MEDS: FLUoxetine 20 MG CAP PO SCH (17:37)
[2021-01-23 19:12] LABS: ALBUMIN 2.6 GM/DL (3.2-5.2); BILIRUBIN,TOTAL 0.5 MG/DL (0.2-1.0); CALCIUM LEVEL 8.4 MG/DL (8.5-10.1); CREATININE FOR GFR 2.32 MG/DL (0.70-1.30); POTASSIUM SERUM 3.5 MEQ/L (3.5-5.1); TOTAL PROTEIN 6.7 GM/DL (6.4-8.2)
--- NOTE | 2021-01-23 19:45 | IPN ---
NEPHROLOGY PROGRESS NOTE DATE: 01/23/2021 SUBJECTIVE: Patient was seen and examined at the bedside today morning. Last 24 hour intake and output was reviewed. Patient is making very good urine output. His renal function is also gradually improving. Patient still has leukocytosis and one out of two blood cultures is positive for gram-positive cocci, so his surgery has been postponed. Otherwise, patient denies any active complaints. OBJECTIVE: VITAL SIGNS: Temperature 98.7 degrees Fahrenheit, blood pressure 110/57, pulse 88, respiratory rate 20, saturating 93% on room air. INTAKE AND OUTPUT: Urine output recorded as 2.5 liters yesterday, 1.9 liters so far today since overnight. Weight in the bed scale is not available. PHYSICAL EXAMINATION: GENERAL: Patient is awake, alert, oriented times two, laying in bed, no apparent distress. HEAD AND NECK EXAM: Extraocular muscles intact. Pupils equally round and reactive to light. Mucous membranes are moist. Neck is supple. There is no jugular venous distention (JVD). CARDIOVASCULAR: S1, S2. Regular rate. No significant edema of the bilateral lower extremities. RESPIRATORY: Chest is clear to auscultation bilaterally. Bilateral equal air entry. No rales or rhonchi. ABDOMEN: Soft. Positive bowel sounds. Nontender. No organomegaly. MUSCULOSKELETAL: No clubbing or cyanosis. Right ankle pain is noted. CENTRAL NERVOUS SYSTEM (LIME MIXER): No focal deficits. Patient follows commands and he is awake and alert. LABORATORY REVIEW: CBC shows a WBC 17, hemoglobin 9.2, platelets 534. BMP shows sodium 135, potassium 3.3, chloride 101, bicarbonate 31, BUN 88, creatinine 2.5, glucose 88, calcium 8.5. MICROBIOLOGY: Blood cultures one out of two sent on January 21, 2021 is growing gram-positive cocci in clusters. CURRENT INPATIENT MEDICATIONS: Patient's medications were all reviewed by myself. He continues to be on intravenous (IV) ceftaroline. He also continues to be on potassium chloride (KCl) 20 mEq and half-normal saline at 100 mL/hour. No other significant change in the medications today. He was given a dose of potassium chloride 40 mEq in the morning. ASSESSMENT AND PLAN: 1. Acute nonoliguric renal failure. It was secondary to dehydration and volume depletion. Patient is getting IV fluid hydration. Renal function is gradually improving. Continue IV fluids for three more liters. Orders were placed today. 2. Iron deficiency anemia. Patient is status post packed red blood cells transfusion. IV iron is not being given because of recent bacteremia. 3. Leukocytosis and bacteremia. One of the two cultures is positive. Repeat cultures have been sent. He continues to be on ceftaroline, which should adequately cover any infection. 4. Hypokalemia. Patient is getting oral and IV potassium. Another dose of potassium in the afternoon was ordered. 5. Fracture of the right ankle. Patient was not cleared for surgery because of leukocytosis and one out of two cultures being positive. From a nephrology standpoint, he is otherwise optimized to go for surgery whenever he is cleared from medical team with negative cultures.
[2021-01-23] MEDS: CEFTAROLINE FOSAMIL 400 MG in D5W MINI-BAG PLUS 50 ML IV SCH (20:12)
[2021-01-23] MEDS: ATORVASTATIN 20 MG TAB PO SCH (20:14)
[2021-01-24] MEDS: LEVOTHYROXINE 150MCG TABLET (0.15MG) PO SCH (05:23)
[2021-01-24 06:00] VITALS: BP 109/61
[2021-01-24] MEDS: HumaLOG INSULIN (NovoLOG) PER UNIT SC SCH ×4 (07:30→20:39)
[2021-01-24 08:10] LABS: HEMATOCRIT 27.4 % (42.0-52.0); HEMOGLOBIN 8.6 g/dl (13.5-17.5); MEAN CORPUSCULAR HEMOGLOBIN 26.3 pg (27.0-33.0); MEAN CORPUSCULAR HGB CONC 31.4 g/dl (32.0-36.5); MEAN CORPUSCULAR VOLUME 83.8 fl (80.0-96.0); PLATELET COUNT, AUTOMATED 508 10^3/uL (150-450); RED BLOOD COUNT 3.27 10^6/uL (4.30-6.10)
[2021-01-24 08:38] LABS: ALBUMIN 2.4 GM/DL (3.2-5.2); CALCIUM LEVEL 8.2 MG/DL (8.5-10.1); CREATININE FOR GFR 2.09 MG/DL (0.70-1.30); GLOMERULAR FILTRATION RATE 37.3 (>60); PHOSPHORUS LEVEL 1.6 MG/DL (2.5-4.9); POTASSIUM SERUM 4.3 MEQ/L (3.5-5.1)
[2021-01-24] MEDS: CEFTAROLINE FOSAMIL 400 MG in D5W MINI-BAG PLUS 50 ML IV SCH ×2 (08:39→20:38)
[2021-01-24] MEDS: KCL 20MEQ IN 0.45NS 1000ML 1,000 ML IV SCH (08:39)
[2021-01-24] MEDS: FERROUS GLUCONATE 324 MG TAB PO SCH (08:39)
[2021-01-24] MEDS: FLUoxetine 20 MG CAP PO SCH (08:40)
[2021-01-24] MEDS: ASPIRIN 81MG ENTERIC TABLET PO SCH (08:40)
[2021-01-24] MEDS: METOPROLOL TART 50 MG TAB PO SCH ×2 (08:40→20:39)
[2021-01-24] MEDS: lamoTRIgine 100MG TAB PO SCH ×2 (08:40→20:39)
[2021-01-24] MEDS: LORATADINE 10 MG TAB PO SCH (08:40)
[2021-01-24] MEDS: MULTIVITAMINS/MINERALS THERAP 1 TAB PO SCH (08:40)
[2021-01-24] MEDS: MONTELUKAST 10 MG TAB PO SCH (08:40)
[2021-01-24] MEDS: PANTOPRAZOLE 40MG VIAL (C9113 PER 1) IV SCH ×2 (08:42→20:40)
[2021-01-24] MEDS: FLUTICASONE PROP 0.05% NASAL SPRAY 16 GM (FLONASE) SCH ×2 (09:00→20:40)
[2021-01-24 09:05] LABS: ANISOCYTOSIS 1+; ATYPICAL LYMPH 1 % (0-5); HYPOCHROMASIA 1+; LYMPHOCYTES 24 % (16-44); MONOCYTES 3 % (0-5); MYELOCYTES 2 % (0-0); NEUTROPHILS 67 % (28-66); PLATELET ESTIMATE INCREASED (NORMAL); POIKILOCYTOSIS 1+
--- NOTE | 2021-01-24 09:20 | REP ---
INDICATION: natalio on ckd. COMPARISON: 02/07/2017. TECHNIQUE: Real-time sonographic evaluation of the kidneys is performed. FINDINGS: Renal cortical echogenicity pattern is normal bilaterally and contours are smooth. There is no evidence of hydronephrosis, cyst, mass, or calculus in either kidney. The right kidney measures 13.0 x 7.1 x 5.3 cm. Left renal dimensions are 13.0 x 5.4 x 6.7 cm. Belle catheter is seen in the urinary bladder. IMPRESSION: Negative renal ultrasound. <Electronically signed by Arnel Panda > 01/24/21 0916
[2021-01-24] MEDS ORDERED: SODIUM PHOSPHATE INJ 20 MMOL in D5W 250 ML IV ONE (11:00)
[2021-01-24] MEDS: ADVAIR HFA 230/21MCG INHALER INH SCH ×2 (11:27→19:59)
--- NOTE | 2021-01-24 12:11 | ECHO ---
DATE OF PROCEDURE: 01/22/2021 Age: 40 Gender: Male REFERRING PROVIDER: Dr. Lakhwinder Rodriguez. PATIENT LOCATION: Room 4213. REASON FOR STUDY: Congestive heart failure, unspecified. 2D MEASUREMENTS: IVS 1.2 cm LV 4.2 cm LVPW 1.2 cm LA 2.5 cm Aorta 3.1 cm IVC 1.9 cm DOPPLER MEASUREMENT Peak velocity across the aortic valve 1.4 m/s Peak velocity across the LVOT 1.1 m/s Mitral E 0.81 Mitral A 0.63 with a ratio of 1.3 2D COMMENTS: 1. Normal left ventricular size, wall thickness, and normal global left ventricular systolic function. The estimated left ventricular systolic ejection fraction is 60 to 65%. 2. Normal left atrium. Normal right atrium and right ventricle. 3. The atrial septum appeared to be normal without evidence of defect or shunt. 4. Normal aortic root. 5. Trace to small pericardial effusion noted, no evidence of cardiac tamponade. 6. Minimally calcified aortic valve with normal leaflet excursion. Mildly calcified mitral annulus with normal appearing mitral valve leaflet motion. Normal tricuspid valve and pulmonic valve. The proximal pulmonary artery branches were not well visualized. 7. The inferior vena cava was normal in size, central venous pressure was most likely normal. DOPPLER: No significant valvular abnormalities noted. Assessment of the left ventricular diastolic function appeared to be normal. IMPRESSION: 1. Normal global left ventricular systolic and diastolic function. 2. Aortic valve sclerosis without stenosis or aortic regurgitation. 3. Isolated mitral annulus calcification. No evidence of mitral regurgitation. 4. Trace to small pericardial effusion, no evidence of cardiac tamponade. [facility]
[2021-01-24] MEDS: cloZAPine 25 MG TAB (S0136) PO SCH ×2 (12:33→20:39)
[2021-01-24] MEDS: NS 0.45% 1,000 ML IV SCH (12:43)
--- NOTE | 2021-01-24 13:53 | IPN ---
INPATIENT PROGRESS NOTE DATE: 01/24/2021 SUBJECTIVE: Mr. Cason is seen and examined this morning at the bedside. He reports no complaints, specifically on shortness of breath, no chest pain, no nausea, no vomiting, no diarrhea. Tells me he has not gotten out of bed since he was admitted. Laboratory studies show improving renal function and improving leukocytosis. PHYSICAL EXAMINATION: Temperature 98.7, pulse 87, respiratory rate 18, blood pressure 109/61, saturating 91% on room air. Intake was 1200, urine output was 2 liters, net negative 800. Weight on the bed scale today is not recorded. General: Patient is seen awake, alert, lying in bed in no apparent distress, interactive and conversational. HEENT: Extraocular muscles are intact. Tongue is moist. Neck: Supple. Jugular veins are not elevated. Heart: Sounds are regular S1 and S2. There is trace edema bilaterally. Lungs: Clear to auscultation bilaterally, no rales or rhonchi. Abdomen: Soft and protuberant and obese. Extremities: No clubbing or cyanosis. The right ankle was not examined today. Skin: Warm and dry. Genitourinary: Indwelling Belle catheter draining clear yellow urine. LABORATORY DATA: White count 14, hemoglobin 8.6, platelets 508. Sodium 142, potassium 4.3, bicarbonate 27, BUN 54, creatinine 2. Phosphorus 1.6. Blood cultures repeat set on January 23 no growth for 24 hours times 2 sets. RADIOLOGY STUDIES: Renal ultrasound January 24 showed no acute findings. INPATIENT MEDICATIONS: I discontinued his half normal saline with potassium chloride running at 100 mL an hour. I switched him to half normal saline at 80 mL an hour. He is ordered for 20 mmol of sodium phosphate by the primary team. His remainder of medications are unchanged as compared to yesterday. PROBLEMS/PLAN: 1. Non-oliguric acute renal failure superimposed on CKD stage 2: Patient has a baseline creatinine of around 1. His renal failure was secondary to dehydration and volume depletion and is improving with I.V. fluids. His potassium has now normalized so I am switching him to half normal saline at 80 mL an hour. His renal imaging was negative for any obstruction. I have encouraged him for improving oral intake so we can hopefully get him off of I.V. fluids in the coming 24-48 hours. 2. Hypokalemia: Patient has received aggressive I.V. and oral potassium. His potassium has now normalized. His fluids have been adjusted accordingly. 3. Iron deficiency anemia: Hemoglobin is suboptimal, but stable at 8.6. He was transfused 3 units of packed red blood cells on this admission. He is on oral iron supplement. I.V. iron was not given because of 1 positive blood culture. I see no prior CBC in the system since 2018. I will get FOBT as well for further work-up of his severe iron deficiency anemia in this 40-year-old male. 4. Leukocytosis and bacteremia: He had 1 positive set of blood cultures. He has been on I.V. ceftaroline. His repeat blood cultures from January 23 are no growth. His leukocytosis is improving. I recommend to continue with antibiotics at this time. 5. Hypertension: Blood pressure is acceptable and he is on Lopressor with holding parameters.
[2021-01-24 14:00] VITALS: BP 117/57
--- NOTE | 2021-01-24 16:51 | IPNPDOC ---
Text Note Date of Service The patient was seen on 01/24/21. NOTE Subjective: No any acute events overnight. Patient is resting comfortably on the bed. Objective: GENERAL APPEARANCE: Obese male HEENT: no scleral icterus, no JVD, EOMI CARDIOVASCULAR: S1S2 LUNGS: CTA ABDOMEN: soft & not tender w palpitation MUSCULOSKELETAL: no cyanosis, no swelling, medial deviation of the right ankle, stage II wound of the right lateral malleoli INTEGUMENT: no generalized pallor NEUROLOGICAL: cranial nerve function from 2-12 intact intact, follows commands, speech not dysarthric Assessment/Plan Patient is 40 years old male with past history of bipolar disorder, Schizoaffective disorder, mental retardation, type 2 diabetes, hypertension, hyperlipidemia, depression/anxiety presented to the hospital with right ankle pain. Patient stated that he did not feel well for 5 days and he stayed in his bed. He told me that he had right ankle injury but did not specify when. Patient extremely poor historian with tangential thoughts. He denied fever or chills. He denied history of black stool or blood in the stool. In ER patient was found to have Fractures of medial and lateral malleoli with lateral subluxation at the tibiotalar joint on x-ray. Labs pertinent for creatinine 6.9, BUN of 169, BNP 663, white blood count 25.3, hemoglobin 7.6, platelets count 906 Problems (1) Bimalleolar fracture of right ankle Orthopedic team follows him Patient is cleared for surgery (2) RAN (acute kidney injury) Most likely secondary to dehydration superimposed with anemia Continue IV fluid Belle catheter dc Continue to monitor Creatinine improved (3) Dyslipidemia Continue statin (4) Hypothyroid Continue levothyroxine (5) Diabetes Diabetes diet insulin sliding scale Glucose level under control (6) Anemia Most likely multifactorial Could be Attributed to kidney failure, iron deficiency, slow GI blood loss iron 429, B12, folate within normal limit Patient received 3 units of blood PPI twice a day Nephrology team recommended Venofer IV Hemoglobin 8.6 today Appreciated/agree with surgical consult for EGD and colonoscopy (7) Leukocytosis/bacteremia Patient afebrile, normotensive -one set of blood culture positive for Staphylococcus saprophyticus. Another set from blood culture from the same date01/21/21 negative 2 sets from 01/23/21 negative. Most likely first set of blood culture negative (8) PAVAN (obstructive sleep apnea) CPAP overnight (9) Depression Continue home meds (10) Bipolar disorder Nonpsychotic Continue home meds (11) Hypertension Blood pressures under control Continue home meds (12) Obesity BMI 43.4 Complicated care (13) Hypothyroidism Continue levothyroxine Hypokalemia Replaced Metabolic alkalosis Secondary to intravascular depletion Resolved Deconditioning Secondary to ankle fracture 1) The beneficiary has a mobility limitation that significantly impairs her ability to participate in one or more mobility related activities of daily living (MRADL) such as toileting, feeding dressing, grooming and bathing in customary locations in the home. A mobility limitation is one that: a) Prevents her from accomplishing an MRADL entirely b) Places the beneficiary at reasonably determined heightened risk of morbidity or mortality secondary to the attempts to perform an MRADL c) Prevents the beneficiary from completing an MRADL within a reasonable time frame 2) The beneficiary's mobility limitation cannot be sufficiently resolved by the use of an appropriate fitted cane or walker 3) Her home provides adequate access between rooms, maneuvering space and surface for use of the manual wheelchair that is provided 4) Use of manual wheelchair will significantly improve the beneficiary's ability to participate in MRADLs and she will use it on a regular basis in the home 5) The beneficiary has not expressed unwillingness to use the manual wheelchair that is provided in the home. 6) She has a caregiver who is available, willing and able to provide assistance with the wheelchair VS,Eve, I+O VS, Eve, I+O Laboratory Tests 01/23/21 18:30 01/24/21 07:44 Vital Signs Date Time Temp Pulse Resp B/P (MAP) Pulse Ox O2 Delivery O2 Flow Rate FiO2 01/24/21 14:00 98.4 74 18 117/57 (77) 98 Room Air I&O- Last 24 Hours up to 6 AM 01/24/21 06:00 Intake Total 770 ml Output Total 2700 ml Balance -1930 ml LITZY DIAZ DO Jan 24, 2021 16:51
[2021-01-24] MEDS: ATORVASTATIN 20 MG TAB PO SCH (20:39)
[2021-01-24 22:00] VITALS: BP 111/62
[2021-01-25] MEDS: NS 0.45% 1,000 ML IV SCH ×2 (04:55→14:05)
[2021-01-25] MEDS: LEVOTHYROXINE 150MCG TABLET (0.15MG) PO SCH (05:47)
[2021-01-25 06:00] VITALS: BP 117/65
[2021-01-25] MEDS: ADVAIR HFA 230/21MCG INHALER INH SCH ×2 (07:01→21:07)
[2021-01-25] MEDS: HumaLOG INSULIN (NovoLOG) PER UNIT SC SCH ×4 (07:30→21:00)
[2021-01-25 07:34] LABS: HEMATOCRIT 29.7 % (42.0-52.0); MEAN CORPUSCULAR HEMOGLOBIN 25.9 pg (27.0-33.0); MEAN CORPUSCULAR HGB CONC 30.3 g/dl (32.0-36.5); MEAN CORPUSCULAR VOLUME 85.6 fl (80.0-96.0); PLATELET COUNT, AUTOMATED 435 10^3/uL (150-450); RED BLOOD COUNT 3.47 10^6/uL (4.30-6.10); WHITE BLOOD COUNT 13.3 10^3/uL (4.0-10.0)
[2021-01-25 07:50] LABS: ALBUMIN 2.6 GM/DL (3.2-5.2); CALCIUM LEVEL 8.7 MG/DL (8.5-10.1); CREATININE FOR GFR 1.78 MG/DL (0.70-1.30); GLOMERULAR FILTRATION RATE 44.8 (>60); MAGNESIUM LEVEL 1.5 MG/DL (1.8-2.4); PHOSPHORUS LEVEL 1.8 MG/DL (2.5-4.9); POTASSIUM SERUM 3.8 MEQ/L (3.5-5.1)
[2021-01-25 08:03] LABS: EOSINOPHILS 2 % (0-3); LYMPHOCYTES 23 % (16-44); METAMYELOCYTES 1 % (0-0); MONOCYTES 4 % (0-5); NEUTROPHILS 68 % (28-66)
[2021-01-25 08:05] LABS: PLATELET ESTIMATE NORMAL (NORMAL)
--- NOTE | 2021-01-25 08:34 | CR ---
CONSULTATION DATE: 01/25/2021 REASON FOR CONSULTATION: Iron deficiency anemia. HISTORY OF PRESENT ILLNESS: The patient is a 40-year-old male who presented to the hospital with complaints of right ankle pain. He was found to have bimalleolar displaced right ankle fracture as well as anemia with a hemoglobin of 7.6. He was admitted to the Hospitalist service, they have been stabilizing him over the past four days and preparing her for possible for the ankle. Subsequently, they have asked me to evaluate his anemia while he is an inpatient. He was given 2 units of blood two days ago and since this his hemoglobin has been stable. He denies any blood in his stool nor any black stools. No change in bowel movements. No abdominal pains or epigastric pains. No problems with acid reflux, heartburn, coughing or vomiting up any blood. He has never had any problems with bleeding in the past. He did have upper and lower endoscopy about 15 years ago that were essentially negative for any major abnormalities. He did have hemorrhoids, diverticulosis and hiatal hernia. Since his 3 units of blood, they were all given on the evening on the and two on the . Since then, his hemoglobin has remained stable. No signs of anymore persistent bleeding. No family history of colon problems. He denies excessive caffeine or alcohol usage. No [id number] medications. He does take home medications that are prescribed to him and some of which he does take on an empty stomach. No other risk factors for an upper GI bleed. PAST MEDICAL HISTORY: Hypothyroidism, sleep apnea, hypertension, mental retardation, schizoaffective, bipolar and depression, Type 2 diabetes, obesity, metabolic syndrome, dyslipidemia. PAST SURGICAL HISTORY: Tonsillectomy, EGD and colonoscopy. SOCIAL HISTORY: Negative. FAMILY HISTORY: Negative. ALLERGIES: Benztropine. HOME MEDICATIONS: Please see med req. REVIEW OF SYSTEMS: Pertinent positives or negatives as stated in the HPI. PHYSICAL EXAMINATION: GENERAL: Alert and oriented x3, in no acute distress. VITAL SIGNS: Temperature is 98.4, pulse is 77, respirations are 20, blood pressure is 117/65, pulse oximetry 97% on room air. HEENT: Pupils equal, round and reactive to light and accommodation. HEART: S1 and S2. Regular rate and rhythm. LUNGS: Clear to auscultation bilaterally. ABDOMEN: Soft, nontender and nondistended. EXTREMITIES: Right lower extremity is in a splint. LABORATORY DATA: White count is 13.3, hemoglobin 9, up from 8.6 yesterday, platelets 435,000. Potassium is 3.8, creatinine 1.78. Phosphorus 1.8, magnesium 1.5. ASSESSMENT AND PLAN: The patient is a 40-year-old male with iron deficient anemia from an unknown source, likely multifactorial, also is in acute renal failure and also has a right ankle fracture. The recommendation at this time is to avoid inpatient emergent scoping, this is likely a chronic issue. Once he is stabilized, he can be followed up in the office as an outpatient and we can plan an upper and lower endoscopy at that time. I discussed this in detail with him. He agrees with the plan and will follow-up with me in the office upon discharge.
[2021-01-25] MEDS: FLUTICASONE PROP 0.05% NASAL SPRAY 16 GM (FLONASE) SCH ×2 (09:00→20:58)
[2021-01-25] MEDS: CEFTAROLINE FOSAMIL 400 MG in D5W MINI-BAG PLUS 50 ML IV SCH ×2 (09:25→20:58)
[2021-01-25] MEDS: PANTOPRAZOLE 40MG VIAL (C9113 PER 1) IV SCH ×2 (09:25→20:58)
[2021-01-25] MEDS: ASPIRIN 81MG ENTERIC TABLET PO SCH (09:26)
[2021-01-25] MEDS: FLUoxetine 20 MG CAP PO SCH (09:26)
[2021-01-25] MEDS: MULTIVITAMINS/MINERALS THERAP 1 TAB PO SCH (09:26)
[2021-01-25] MEDS: LORATADINE 10 MG TAB PO SCH (09:26)
[2021-01-25] MEDS: METOPROLOL TART 50 MG TAB PO SCH ×2 (09:26→20:58)
[2021-01-25] MEDS: MONTELUKAST 10 MG TAB PO SCH (09:26)
[2021-01-25] MEDS: lamoTRIgine 100MG TAB PO SCH ×2 (09:26→20:57)
[2021-01-25] MEDS: FERROUS GLUCONATE 324 MG TAB PO SCH (09:26)
[2021-01-25] MEDS: cloZAPine 25 MG TAB (S0136) PO SCH ×2 (09:26→20:57)
[2021-01-25] MEDS ORDERED: POTASSIUM PHOSPHATE INJ 20 MMOL in D5W 250 ML IV ONE (10:00)
[2021-01-25] MEDS: MAG SULF 1GM/100ML (MAG RUN) 1 GM in IV 1 EA IV SCH ×2 (10:42→12:06)
[2021-01-25] MEDS ORDERED: DOXY-350 PO (13:45)
[2021-01-25] MEDS ORDERED: SENN18TA PO (13:45)
[2021-01-25 14:00] VITALS: BP 115/66
[2021-01-25] MEDS ORDERED: ESSE250T PO (15:38)
[2021-01-25] MEDS ORDERED: SUCR1TA PO (15:46)
[2021-01-25] MEDS ORDERED: OMEP40CA97 PO (15:46)
--- NOTE | 2021-01-25 18:10 | DS.PDOC ---
Discharge Summary General Date of Admission Jan 21, 2021 at 18:15 Date of Discharge 01/25/21 Discharge Summary PROCEDURES PERFORMED DURING STAY: [None]. ADMITTING DIAGNOSES: Bimalleolar fracture of right ankle RAN (acute kidney injury) Dyslipidemia Hypothyroid Diabetes Anemia Leukocytosis/bacteremia PAVAN (obstructive sleep apnea) Depression Bipolar disorder Hypertension Obesity Hypothyroidism Metabolic alkalosis Deconditioning DISCHARGE DIAGNOSES: Bimalleolar fracture of right ankle RAN (acute kidney injury) Dyslipidemia Hypothyroid Diabetes Anemia Leukocytosis/bacteremia PAVAN (obstructive sleep apnea) Depression Bipolar disorder Hypertension Obesity Hypothyroidism Metabolic alkalosis Deconditioning COMPLICATIONS/CHIEF COMPLAINT: Acute Renal Failure. HISTORY OF PRESENT ILLNESS: Patient is 40 years old male with past history of bipolar disorder, Schizoaffective disorder, mental retardation, type 2 diabetes, hypertension, hyperlipidemia, depression/anxiety presented to the hospital with right ankle pain. Patient stated that he did not feel well for 5 days and he stayed in his bed. He told me that he had right ankle injury but did not specify when. Patient extremely poor historian with tangential thoughts. He denied fever or chills. He denied history of black stool or blood in the stool. In ER patient was found to have Fractures of medial and lateral malleoli with lateral subluxation at the tibiotalar joint on x-ray. Labs pertinent for creatinine 6.9, BUN of 169, BNP 663, white blood count 25.3, hemoglobin 7.6, platelets count 906 HOSPITAL COURSE: During the hospital stay the following issue addressed (1) Bimalleolar fracture of right ankle Orthopedic team follows him (2) RAN (acute kidney injury) Most likely secondary to dehydration superimposed with anemia Continue IV fluid Belle catheter dc Continue to monitor Creatinine improved (3) Dyslipidemia Continue statin (4) Hypothyroid Continue levothyroxine (5) Diabetes Diabetes diet insulin sliding scale Glucose level under control (6) Anemia Most likely multifactorial Could be Attributed to kidney failure, iron deficiency, slow GI blood loss iron 429, B12, folate within normal limit Patient received 3 units of blood PPI twice a day Nephrology team recommended Venofer IV Hemoglobin 8.6 today Appreciated/agree with surgical consult for EGD and colonoscopy (7) Leukocytosis/bacteremia Patient afebrile, normotensive -one set of blood culture positive for Staphylococcus saprophyticus. Another set from blood culture from the same date01/21/21 negative 2 sets from 01/23/21 negative. Most likely first set of blood culture negative (8) PAVAN (obstructive sleep apnea) CPAP overnight (9) Depression Continue home meds (10) Bipolar disorder Nonpsychotic Continue home meds (11) Hypertension Blood pressures under control Continue home meds (12) Obesity BMI 43.4 Complicated care (13) Hypothyroidism Continue levothyroxine Hypokalemia Replaced Metabolic alkalosis Secondary to intravascular depletion Resolved Deconditioning Secondary to ankle fracture 1) The beneficiary has a mobility limitation that significantly impairs her ability to participate in one or more mobility related activities of daily living (MRADL) such as toileting, feeding dressing, grooming and bathing in customary locations in the home. A mobility limitation is one that: a) Prevents her from accomplishing an MRADL entirely b) Places the beneficiary at reasonably determined heightened risk of morbidity or mortality secondary to the attempts to perform an MRADL c) Prevents the beneficiary from completing an MRADL within a reasonable time frame 2) The beneficiary's mobility limitation cannot be sufficiently resolved by the use of an appropriate fitted cane or walker 3) Her home provides adequate access between rooms, maneuvering space and surface for use of the manual wheelchair that is provided 4) Use of manual wheelchair will significantly improve the beneficiary's ability to participate in MRADLs and she will use it on a regular basis in the home 5) The beneficiary has not expressed unwillingness to use the manual wheelchair that is provided in the home. 6) She has a caregiver who is available, willing and able to provide assistance with the wheelchair DISCHARGE MEDICATIONS: Please see below. ALLERGIES: Please see below. PHYSICAL EXAMINATION ON DISCHARGE: VITAL SIGNS: Please see below. GENERAL: HEENT: NECK: CARDIOVASCULAR EXAMINATION: RESPIRATORY EXAMINATION: ABDOMINAL EXAMINATION: EXTREMITIES: SKIN: NEUROLOGICAL EXAMINATION: PSYCHIATRIC EXAMINATION: LABORATORY DATA: Please see below. IMAGING: PROGNOSIS: ACTIVITY: [As tolerated]. DIET: DISCHARGE PLAN: DISPOSITION: . DISCHARGE INSTRUCTIONS: 1. . ITEMS TO FOLLOWUP ON ON OUTPATIENT: 1. . DISCHARGE CONDITION: [Stable]. TIME SPENT ON DISCHARGE: Greater than minutes. Vital Signs/I&Os Vital Signs Date Time Temp Pulse Resp B/P (MAP) Pulse Ox O2 Delivery O2 Flow Rate FiO2 01/25/21 14:00 97.4 74 19 115/66 (82) 98 Room Air I&O- Last 24 Hours up to 6 AM 01/25/21 06:00 Intake Total 2146 ml Output Total 1300 ml Balance 846 ml Laboratory Data Labs 24H Laboratory Tests 2 01/24/21 20:30: Bedside Glucose (Misc Panel) 93 01/25/21 06:13: Bedside Glucose (Misc Panel) 92 01/25/21 06:51: Immature Granulocyte % (Auto) , Neutrophils (%) (Auto) , Nucleated Red Blood Cells % (auto) 0.0, Neutrophils 68H, Band Neutrophils 2, Lymphocytes (Manual) 23, Monocytes (Manual) 4, Eosinophils (Manual) 2, Metamyelocytes 1H, Platelet Estimate NORMAL, Anion Gap 8, Glomerular Filtration Rate 44.8L, Calcium Level 8.7, Phosphorus Level 1.8L, Magnesium Level 1.5L, Albumin 2.6L 01/25/21 11:15: Bedside Glucose (Misc Panel) 100 01/25/21 15:36: Methicillin-Resist S.aureus DNA PCR NOT DETECTED 01/25/21 16:41: Bedside Glucose (Misc Panel) 121H CBC/BMP Laboratory Tests 01/25/21 06:51 FSBS Laboratory Tests Test 01/24/21 20:30 01/25/21 06:13 01/25/21 11:15 01/25/21 16:41 Range/Units Bedside Glucose (Misc Panel) 93 92 100 121 70-105 MG/DL Microbiology Microbiology 01/23/21 Blood Culture - Preliminary, Resulted No Growth after 48 hours. All Specime... 01/23/21 Blood Culture - Preliminary, Resulted No Growth after 48 hours. All Specime... 01/21/21 Blood Culture - Preliminary, Resulted No Growth after 72 hours. All specime... 01/21/21 Blood Culture - Final, Complete Staphylococcus Saprophyticus Discharge Medications Scheduled Aspirin (Aspirin EC) 81 Mg Tablet.dr, 81 MG PO DAILY, (Reported) Atorvastatin Calcium (Atorvastatin Calcium) 40 Mg Tablet, 40 MG PO QHS, (Reported) Clozapine (Clozapine) 50 Mg Tab, 50 MG PO BID, (Reported) Doxycycline Monohydrate (Doxycycline) 100 Mg Capsule, 1 CAP PO BID Ergocalciferol (Vitamin D2) (Vitamin D2) 50,000 Units Cap, 50,000 UNITS PO QWEEK, (Reported) Exenatide Microspheres (Bydureon Bcise) 2 Mg/0.85 Ml Auto.injct, 2 MG SQ QWEEK, (Reported) Ferrous Gluconate (Ferrous Gluconate) 324 Mg Tablet, 324 MG PO DAILY, (Reported) Fluoxetine Hcl (Fluoxetine HCl) 20 Mg Cap, 20 MG PO DAILY, (Reported) Fluticasone Propionate (Flonase Allergy Relief) 50 Mcg/Act Spr, 1 SPRAY NA BID, (Reported) Icosapent Ethyl (Vascepa) 1 Gm Capsule, 2 GM PO BID, (Reported) Lamotrigine (Lamotrigine) 100 Mg Tab, 100 MG PO BID, (Reported) Levothyroxine Sodium (Levoxyl) 150 Mcg Tablet, 150 MCG PO DAILY, (Reported) Loratadine (Loratadine) 10 Mg Tab, 10 MG PO DAILY, (Reported) Magnesium Oxide (Magnesium Oxide) 250 Mg Tablet, 250 MG PO DAILY Metformin HCl (Glucophage Xr) 500 Mg Tab, 500 MG PO BID, (Reported) Metoprolol Tartrate (Lopressor) 50 Mg Tab, 50 MG PO BID, (Reported) Montelukast Sodium (Montelukast Sodium) 10 Mg Tablet, 10 MG PO DAILY, (Reported) Multivitamins (Thera M Plus Tablet) 1 Tab Tab, 1 TAB PO DAILY, (Reported) Omeprazole (Omeprazole) 40 Mg Capsule.dr, 40 MG PO DAILY Salmeterol/Fluticasone (Advair 500-50 Diskus) 28 Puff/Inhaler Aerp, 1 PUFF INH BID, (Reported) Sucralfate (Sucralfate) 1 Gm Tablet, 1 GRAM PO QID Umeclidinium [place] (Incruse Ellipta) 62.5 Mcg Blst.w.dev, 1 PUFF INH DAILY, (Reported) Scheduled PRN Albuterol Sulfate (Proair Hfa) 108 Mcg/Act Aer, 2 PUFF INH Q6H PRN for SHORTNESS OF BREATH, (Reported) Senna (Senna Lax) 8.6 Mg Tablet, 1 TAB PO DAILYPRN PRN for CONSTIPATION Allergies Coded Allergies: benztropine (Verified Allergy, Severe, 01/21/21) locks LITZY Arizmendi DO Jan 25, 2021 18:10
[2021-01-25] MEDS ORDERED: IRON1TAB2 PO (18:17)
--- NOTE | 2021-01-25 18:21 | DS.PDOC ---
Discharge Summary General Date of Admission Jan 21, 2021 at 18:15 Date of Discharge 01/26/21 Discharge Summary PROCEDURES PERFORMED DURING STAY: [None]. ADMITTING DIAGNOSES: Bimalleolar fracture of right ankle RAN (acute kidney injury) Dyslipidemia Hypothyroid Diabetes Anemia Leukocytosis/bacteremia PAVAN (obstructive sleep apnea) Depression Bipolar disorder Hypertension Obesity Hypothyroidism Hypokalemia Metabolic alkalosis Deconditioning DISCHARGE DIAGNOSES: Bimalleolar fracture of right ankle RAN (acute kidney injury) Dyslipidemia Hypothyroid Diabetes Anemia Leukocytosis/bacteremia PAVAN (obstructive sleep apnea) Depression Bipolar disorder Hypertension Obesity Hypothyroidism Hypokalemia Metabolic alkalosis Deconditioning COMPLICATIONS/CHIEF COMPLAINT: Acute Renal Failure. HISTORY OF PRESENT ILLNESS: Patient is 40 years old male with past history of bipolar disorder, Schizoaffective disorder, mental retardation, type 2 diabetes, hypertension, hyperlipidemia, depression/anxiety presented to the hospital with right ankle pain. Patient stated that he did not feel well for 5 days and he stayed in his bed. He told me that he had right ankle injury but did not specify when. Patient extremely poor historian with tangential thoughts. He denied fever or chills. He denied history of black stool or blood in the stool. In ER patient was found to have Fractures of medial and lateral malleoli with lateral subluxation at the tibiotalar joint on x-ray. Labs pertinent for creatinine 6.9, BUN of 169, BNP 663, white blood count 25.3, hemoglobin 7.6, platelets count 906 HOSPITAL COURSE: During hospital stay the following issues addressed (1) Bimalleolar fracture of right ankle keep in splint and nonweightbearing to his right ankle crutches with wheelchair Follow-up with Dr. Schwartz on January 27 in the clinic for pre-op appointment Ankle surgery on 07 of February (2) RAN (acute kidney injury) Most likely secondary to dehydration superimposed with anemia Patient received IV fluid with positive effect (3) Dyslipidemia Continue statin (4) Hypothyroid Continue levothyroxine (5) Diabetes Diabetes diet insulin sliding scale Glucose level under control (6) Anemia Most likely multifactorial Could be Attributed to kidney failure, iron deficiency, slow GI blood loss iron 429, B12, folate within normal limit Patient received 3 units of blood PPI twice a day Nephrology team recommended Venofer IV Dr. Kunz will proceed with EGD and colonoscopy in the outpatient settings Hemoglobin stable (7) Leukocytosis/bacteremia Patient afebrile, normotensive -one set of blood culture positive for Staphylococcus saprophyticus. Another set from blood culture from the same date01/21/21 negative 2 sets from 01/23/21 negative. Most likely first set of blood culture contaminated, however patient had leukocytosis. Patient received treatment with empiric antibiotic Ceftaroline (8) PAVAN (obstructive sleep apnea) CPAP overnight (9) Depression Continue home meds (10) Bipolar disorder Nonpsychotic Continue home meds (11) Hypertension Blood pressures under control Continue home meds (12) Obesity BMI 43.4 Complicated care (13) Hypothyroidism Continue levothyroxine Hypokalemia Replaced Metabolic alkalosis Secondary to intravascular depletion Resolved Deconditioning Secondary to ankle fracture 1) The beneficiary has a mobility limitation that significantly impairs her ability to participate in one or more mobility related activities of daily living (MRADL) such as toileting, feeding dressing, grooming and bathing in customary locations in the home. A mobility limitation is one that: a) Prevents her from accomplishing an MRADL entirely b) Places the beneficiary at reasonably determined heightened risk of morbidity or mortality secondary to the attempts to perform an MRADL c) Prevents the beneficiary from completing an MRADL within a reasonable time frame 2) The beneficiary's mobility limitation cannot be sufficiently resolved by the use of an appropriate fitted cane or walker 3) Her home provides adequate access between rooms, maneuvering space and surface for use of the manual wheelchair that is provided 4) Use of manual wheelchair will significantly improve the beneficiary's ability to participate in MRADLs and she will use it on a regular basis in the home 5) The beneficiary has not expressed unwillingness to use the manual wheelchair that is provided in the home. 6) She has a caregiver who is available, willing and able to provide assistance with the wheelchair DISCHARGE MEDICATIONS: Please see below. ALLERGIES: Please see below. PHYSICAL EXAMINATION ON DISCHARGE: VITAL SIGNS: Please see below. GENERAL APPEARANCE: Obese male HEENT: no scleral icterus, no JVD, EOMI CARDIOVASCULAR: S1S2 LUNGS: CTA ABDOMEN: soft & not tender w palpitation MUSCULOSKELETAL: no cyanosis, no swelling, medial deviation of the right ankle, stage II wound of the right lateral malleoli, right cast in place INTEGUMENT: no generalized pallor NEUROLOGICAL: cranial nerve function from 2-12 intact intact, follows commands, speech not dysarthric LABORATORY DATA: Please see below. [facility] NAME: SOLOMON JEREZ DATE OF : 1980 BUSINESS NUMBER: [id number] AGE: 40 SEX: M REPORT #: [id number] ROOM: ED INP TECHNOLOGIST: IVELISSE DOCTOR: CORBY SCHWARTZ MD Ordered for Date&Time: 01/21/211954 cc: [~ rep ct ivnm] Service Date&Time: 01/21/212001 This report is in Signed status. Interpretation performed by [facility]. Thank you for having your radiology procedures performed at [facility] RADIOLOGY REPORT Date&Time printed: [~ rep prt dt last] [~ rep prt tm last] Page 2 of 2 [place] [id number] RADIOLOGY REPORT This report is in Signed status. Interpretation performed by [facility]. Thank you for having your radiology procedures performed at [facility] RADIOLOGY REPORT Date&Time printed: [~ rep prt dt last] [~ rep prt tm last] Page 1 of 2 PROCEDURE INFORMATION: Exam: CT Right Lower Extremity Without Contrast, Ankle Exam date and time: 01/21/2021 8:02 PM Age: 40 years old Clinical indication: Injury or trauma; Fall; Blunt trauma; Ankle; Right; Additional info: R ankle fracture w/ 3d recons of R ankle TECHNIQUE: Imaging protocol: CT of the Right lower extremity without contrast was performed. Exam focused on the ankle. 3D reconstructed images were created and reviewed. Radiation optimization: All CT scans at this facility use at least one of these dose optimization techniques: automated exposure control; mA and/or kV adjustment per patient size (includes targeted exams where dose is matched to clinical indication); or iterative reconstruction. COMPARISON: 1. [place] Ankle, Ap-Lat 01/21/2021 6:37 PM 2. [place] Ankle, complete 01/21/2021 3:37:22 PM FINDINGS: Bones/joints: There is an acute, minimally displaced fracture involving the medial aspect of the base of the right 2nd metatarsal at the insertion of the Lisfranc ligament. There is also an acute nondisplaced fracture involving the base of the right 3rd metatarsal. The Lisfranc alignment is maintained. There is an acute, complete, displaced transverse fracture of the right medial malleolus with diastasis of approximately 19 mm in craniocaudal dimension. There are tiny avulsed bony fragments arising from the talar insertion of the anterior talofibular ligament just inferior to the lateral malleolus. The subluxation of the right tibiotalar joint has improved compared to the prior right ankle x-rays on 01/21/2021 6:37 PM. However, there is persistent mild lateral subluxation of the talus with respect to the distal tibia and asymmetric widening of the medial aspect of the ankle mortise secondary to an avulsion fracture involving the deltoid ligament. There are 2 well-corticated accessory ossicles medial to the navicular, which represent an os naviculari. Soft tissues: There is soft tissue swelling and edema in the subcutaneous tissues of the right ankle. There is a posterior calcaneal spur at the insertion of the Achilles tendon, which is compatible with a right Achilles enthesopathy. IMPRESSION: 1. Acute, minimally displaced fracture involving the medial aspect of the base of the right 2nd metatarsal at the insertion of the Lisfranc ligament. 2. Acute nondisplaced fracture involving the base of the right 3rd metatarsal. 3. Acute, complete, displaced transverse fracture of the right medial malleolus with diastasis of approximately 19 mm in craniocaudal dimension. 4. Tiny avulsed bony fragments arising from the talar insertion of the anterior talofibular ligament just inferior to the lateral malleolus. 5. Improvement in the subluxation of the right tibiotalar joint compared to the prior right ankle x-rays on 01/21/2021 6:37 PM. However, there is persistent mild lateral subluxation of the talus with respect to the distal tibia and asymmetric widening of the medial aspect of the ankle mortise secondary to an avulsion fracture involving the deltoid ligament. Electronically signed by: Delmer Negron On 01/21/2021 21:27:12 PM DD: DELMER NEGRON MD 01/21/212001 DT: EMILY 01/21/212126 DS: DIANA 01/21/212126 [~ rep ct labl] PROGNOSIS: Fair ACTIVITY: [As tolerated]. DIET: Regular DISPOSITION: Home ITEMS TO FOLLOWUP ON ON OUTPATIENT: keep in splint and nonweightbearing to his right ankle crutches with wheelchair Follow-up with Dr. Schwartz on January 27 in the clinic for pre-op appointment Ankle surgery on 07 of February Follow-up with Dr. Bhatti for endoscopy and colonoscopy in the outpatient [facility] DISCHARGE CONDITION: [Stable]. TIME SPENT ON DISCHARGE: 40minutes. Vital Signs/I&Os Vital Signs Date Time Temp Pulse Resp B/P (MAP) Pulse Ox O2 Delivery O2 Flow Rate FiO2 01/25/21 14:00 97.4 74 19 115/66 (82) 98 Room Air I&O- Last 24 Hours up to 6 AM 01/25/21 06:00 Intake Total 2146 ml Output Total 1300 ml Balance 846 ml Laboratory Data Labs 24H Laboratory Tests 2 01/24/21 20:30: Bedside Glucose (Misc Panel) 93 01/25/21 06:13: Bedside Glucose (Misc Panel) 92 01/25/21 06:51: Immature Granulocyte % (Auto) , Neutrophils (%) (Auto) , Nucleated Red Blood Cells % (auto) 0.0, Neutrophils 68H, Band Neutrophils 2, Lymphocytes (Manual) 23, Monocytes (Manual) 4, Eosinophils (Manual) 2, Metamyelocytes 1H, Platelet Estimate NORMAL, Anion Gap 8, Glomerular Filtration Rate 44.8L, Calcium Level 8.7, Phosphorus Level 1.8L, Magnesium Level 1.5L, Albumin 2.6L 01/25/21 11:15: Bedside Glucose (Misc Panel) 100 01/25/21 15:36: Methicillin-Resist S.aureus DNA PCR NOT DETECTED 01/25/21 16:41: Bedside Glucose (Misc Panel) 121H CBC/BMP Laboratory Tests 01/25/21 06:51 FSBS Laboratory Tests Test 01/24/21 20:30 01/25/21 06:13 01/25/21 11:15 01/25/21 16:41 Range/Units Bedside Glucose (Misc Panel) 93 92 100 121 70-105 MG/DL Microbiology Microbiology 01/23/21 Blood Culture - Preliminary, Resulted No Growth after 48 hours. All Specime... 01/23/21 Blood Culture - Preliminary, Resulted No Growth after 48 hours. All Specime... 01/21/21 Blood Culture - Preliminary, Resulted No Growth after 72 hours. All specime... 01/21/21 Blood Culture - Final, Complete Staphylococcus Saprophyticus Discharge Medications Scheduled Aspirin (Aspirin EC) 81 Mg Tablet.dr, 81 MG PO DAILY, (Reported) Atorvastatin Calcium (Atorvastatin Calcium) 40 Mg Tablet, 40 MG PO QHS, (Reported) Clozapine (Clozapine) 50 Mg Tab, 50 MG PO BID, (Reported) Doxycycline Monohydrate (Doxycycline) 100 Mg Capsule, 1 CAP PO BID Ergocalciferol (Vitamin D2) (Vitamin D2) 50,000 Units Cap, 50,000 UNITS PO QWEEK, (Reported) Exenatide Microspheres (Bydureon Bcise) 2 Mg/0.85 Ml Auto.injct, 2 MG SQ QWEEK, (Reported) Ferrous Gluconate (Ferrous Gluconate) 324 Mg Tablet, 324 MG PO DAILY, (Reported) Ferrous Sulfate (Iron) 325 Mg Tablet, 1 TAB PO BID Fluoxetine Hcl (Fluoxetine HCl) 20 Mg Cap, 20 MG PO DAILY, (Reported) Fluticasone Propionate (Flonase Allergy Relief) 50 Mcg/Act Spr, 1 SPRAY NA BID, (Reported) Icosapent Ethyl (Vascepa) 1 Gm Capsule, 2 GM PO BID, (Reported) Lamotrigine (Lamotrigine) 100 Mg Tab, 100 MG PO BID, (Reported) Levothyroxine Sodium (Levoxyl) 150 Mcg Tablet, 150 MCG PO DAILY, (Reported) Loratadine (Loratadine) 10 Mg Tab, 10 MG PO DAILY, (Reported) Magnesium Oxide (Magnesium Oxide) 250 Mg Tablet, 250 MG PO DAILY Metformin HCl (Glucophage Xr) 500 Mg Tab, 500 MG PO BID, (Reported) Metoprolol Tartrate (Lopressor) 50 Mg Tab, 50 MG PO BID, (Reported) Montelukast Sodium (Montelukast Sodium) 10 Mg Tablet, 10 MG PO DAILY, (Reported) Multivitamins (Thera M Plus Tablet) 1 Tab Tab, 1 TAB PO DAILY, (Reported) Omeprazole (Omeprazole) 40 Mg Capsule.dr, 40 MG PO DAILY Salmeterol/Fluticasone (Advair 500-50 Diskus) 28 Puff/Inhaler Aerp, 1 PUFF INH BID, (Reported) Sucralfate (Sucralfate) 1 Gm Tablet, 1 GRAM PO QID Umeclidinium [place] (Incruse Ellipta) 62.5 Mcg Blst.w.dev, 1 PUFF INH DAILY, (Reported) Scheduled PRN Albuterol Sulfate (Proair Hfa) 108 Mcg/Act Aer, 2 PUFF INH Q6H PRN for SHORTNESS OF BREATH, (Reported) Senna (Senna Lax) 8.6 Mg Tablet, 1 TAB PO DAILYPRN PRN for CONSTIPATION Allergies Coded Allergies: benztropine (Verified Allergy, Severe, 01/21/21) locks LITZY Arizmendi DO Jan 25, 2021 18:21
--- NOTE | 2021-01-25 20:02 | IPN ---
NEPHROLOGY PROGRESS NOTE DATE: 01/25/2021 SUBJECTIVE: Patient seen and examined this morning at the bedside. He feels well. He reports he got out of bed and ambulated to the bathroom. He denies any complaints. No shortness of breath. Reports no trouble emptying his bladder. Laboratory studies show improving renal function, though not yet back to baseline. PHYSICAL EXAMINATION: Temperature 97.4, pulse 74, respiratory rate 19, blood pressure 115/66, saturating 98% on room air. INTAKE AND OUTPUT: Intake yesterday was 2 liters. Urine output was 3 liters. Weight in the bed scale is 119.5 kg. GENERAL: Patient is seen awake, alert, oriented, comfortable, in no apparent distress, sitting up in bed. HEENT: Extraocular muscles are intact. Tongue is moist. Neck is supple. Jugular veins are not elevated. He is comfortable on room air. HEART SOUNDS: Regular S1, S2. There is no leg edema. LUNGS: Clear to auscultation bilaterally. No rale or rhonchus. ABDOMEN: Soft, protuberant and obese. GENITOURINARY: He is voiding into the urinal. I am unable to palpate his bladder. EXTREMITIES: The right ankle is in a brace and there is no clubbing or cyanosis. SKIN: Warm and dry. LABORATORY STUDIES: White count 13.3, hemoglobin 9.0. platelets 435. Sodium 139, potassium 3.8, bicarbonate 24, BUN 35, creatinine 1.7, magnesium 1.5. Blood cultures January 23, 2021: No growth for 48 hours times two sets. INPATIENT MEDICATIONS: Reviewed by myself. I decreased the half-normal saline to 50 mL/hour and he received a dose of sodium phosphate. The remainder of his medications are unchanged as compared to yesterday. PROBLEMS: 1. Nonoliguric renal failure superimposed on chronic kidney disease (CKD) stage II. Patient has a baseline creatinine around 1. His renal failure was secondary to dehydration and volume depletion and has improved very nicely with intravenous (IV) fluids. I cut the rate down now of half-normal saline to 50 mL/hour and I will discontinue it this evening. He is tolerating oral intake without any issue. His renal imaging was negative for obstruction. He is voiding well. 2. Iron deficiency anemia. He is status post 3 units packed red blood cells on this admission and he is on oral iron supplements. He should receive intravenous (IV) iron once all the infectious issues have resolved and he also needs to follow up with gastroenterology (GI) outpatient for concern of gastrointestinal (GI) bleed given his severe iron deficiency anemia. 3. Leukocytosis and bacteremia. He had one positive set of blood cultures followed by a repeat set of negative blood cultures on January 23, 2021. He has been on IV ceftaroline. I recommend to continue IV antibiotics as his leukocytosis is improving and I would defer to the primary team. 4. Hypophosphatemia. It will improve with improved diet and he also received IV phosphorus supplementation today. 5. Hypomagnesemia. The patient is receiving magnesium supplementation IV. 6. Hypertension. Blood pressures are well-controlled on current regimen and no change is being made.
[2021-01-25] MEDS: ATORVASTATIN 20 MG TAB PO SCH (20:57)
[2021-01-25 22:00] VITALS: BP 123/70
[2021-01-26 06:00] VITALS: BP 119/64
[2021-01-26] MEDS: LEVOTHYROXINE 150MCG TABLET (0.15MG) PO SCH (06:14)
[2021-01-26 06:38] LABS: BASO % 0.3 % (0.0-1.0); EOS # 0.2 10^3/uL (0.0-0.5); EOS % 1.7 % (0.0-3.0); HEMATOCRIT 26.6 % (42.0-52.0); HEMOGLOBIN 8.4 g/dl (13.5-17.5); LYMPH # 2.3 10^3/uL (1.5-5.0); LYMPH % 19.8 % (24.0-44.0); MEAN CORPUSCULAR HEMOGLOBIN 26.5 pg (27.0-33.0); MEAN CORPUSCULAR HGB CONC 31.6 g/dl (32.0-36.5); MEAN CORPUSCULAR VOLUME 83.9 fl (80.0-96.0); MONO # 0.7 10^3/uL (0.0-0.8); MONO % 5.6 % (2.0-8.0); NEUTROPHILS # 7.9 10^3/uL (1.5-8.5); NEUTROPHILS % 68.8 % (36.0-66.0); PLATELET COUNT, AUTOMATED 375 10^3/uL (150-450); RED BLOOD COUNT 3.17 10^6/uL (4.30-6.10); WHITE BLOOD COUNT 11.5 10^3/uL (4.0-10.0)
[2021-01-26 07:06] LABS: CALCIUM LEVEL 7.7 MG/DL (8.5-10.1); CREATININE FOR GFR 1.49 MG/DL (0.70-1.30); GLOMERULAR FILTRATION RATE 55.1 (>60); POTASSIUM SERUM 3.3 MEQ/L (3.5-5.1)
[2021-01-26 07:07] LABS: ALBUMIN 2.3 GM/DL (3.2-5.2); PHOSPHORUS LEVEL 1.9 MG/DL (2.5-4.9)
[2021-01-26] MEDS ORDERED: POTASSIUM CHLORIDE 10 MEQ SR TABLET PO ONE (08:00)
[2021-01-26] MEDS: ADVAIR HFA 230/21MCG INHALER INH SCH (08:19)
[2021-01-26] MEDS: HumaLOG INSULIN (NovoLOG) PER UNIT SC SCH ×3 (08:43→17:22)
[2021-01-26 08:44] VITALS: BP 119/64
[2021-01-26] MEDS: METOPROLOL TART 50 MG TAB PO SCH (08:44)
[2021-01-26] MEDS: lamoTRIgine 100MG TAB PO SCH (08:44)
[2021-01-26] MEDS: MONTELUKAST 10 MG TAB PO SCH (08:44)
[2021-01-26] MEDS: MULTIVITAMINS/MINERALS THERAP 1 TAB PO SCH (08:44)
[2021-01-26] MEDS: cloZAPine 25 MG TAB (S0136) PO SCH (08:44)
[2021-01-26] MEDS: FLUoxetine 20 MG CAP PO SCH (08:45)
[2021-01-26] MEDS: FERROUS GLUCONATE 324 MG TAB PO SCH (08:45)
[2021-01-26] MEDS: LORATADINE 10 MG TAB PO SCH (08:45)
[2021-01-26] MEDS: ASPIRIN 81MG ENTERIC TABLET PO SCH (08:45)
[2021-01-26] MEDS: FLUTICASONE PROP 0.05% NASAL SPRAY 16 GM (FLONASE) SCH (08:46)
[2021-01-26] MEDS: PANTOPRAZOLE 40MG VIAL (C9113 PER 1) IV SCH (08:46)
[2021-01-26] MEDS: CEFTAROLINE FOSAMIL 400 MG in D5W MINI-BAG PLUS 50 ML IV SCH (08:46)
--- NOTE | 2021-01-26 18:15 | IPN ---
PROGRESS NOTE DATE: 01/26/2021 SUBJECTIVE: Patient seen and examined this morning at the bedside. He is discharge pending. He denies any complaints. His IV fluids were discontinued yesterday. His renal function continues to improve. Creatinine is down to 1.4 on chemistry today and his baseline creatinine is 1. I discussed the need for follow-up in the nephrology office with him. OBJECTIVE: VITAL SIGNS: Temperature 97.7, pulse 84, respiratory rate 18, blood pressure 119/64, saturating 95% on room air. Intake yesterday was 2.8 liters. Weight on the bed scale today is 121.500 and 21.5 kg. GENERAL: The patient is seen sitting out of bed in the chair awake, alert, and oriented x3; interactive, conversational, and in no distress. HEENT: Extraocular muscles are intact. Tongue is moist. Supple. Jugular veins are not elevated. He is comfortable on room air. HEART: Regular S1, S2. There is no edema in the left leg. LUNGS: Clear to auscultation bilaterally. No crackle or rale. ABDOMEN: Soft, protuberant, and obese. EXTREMITIES: The right ankle is in a brace. SKIN: Warm and dry. LABORATORY DATA: Today show creatinine 1.4, sodium 140, potassium 3.3, bicarbonate 24, BUN 26, magnesium 1.5. Hemoglobin 8.4. INPATIENT MEDICATIONS: Reviewed by myself and no change noted as compared to prior day with the exception of one dose of potassium chloride. PROBLEMS: 1. Nonoliguric acute kidney injury superimposed on chronic kidney disease (CKD) stage II. The patient's baseline creatinine is 1. He presented with a creatinine of 6.9. His renal function has improved nicely over the past six days and is almost back to baseline. I advised him to stay off of NSAIDs at home and he will need to follow-up in the nephrology office. He can resume metformin in the outpatient setting if renal function remains stable. 2. Iron deficiency anemia. He is status post three units of packed red blood cells on this admission. He should receive IV iron infusion once he has completed the course of antibiotics that he is presently on and once his infectious issues have all resolved. He also needs to follow-up with gastroenterology as an outpatient for endoscopy and colonoscopy for concern of slow gastrointestinal (GI) bleed given his severe iron deficiency anemia. 3. Hypokalemia. He is receiving oral potassium supplementation. 4. Hypertension. Blood pressures are well-controlled on the current regimen. No changes are being made. 5. Disposition: The patient is stable for discharge from the nephrology point of view.
[2021-01-26] MEDS ORDERED: CEFTAROLINE FOSAMIL 600 MG in D5W MINI-BAG PLUS 50 ML IV SCH (20:00)
[2021-01-27] MEDS ORDERED: VITAMIN D 50,000 UNITS CAPSULE (ERGOCALCIFEROL 1.25MG) PO SCH (09:00)
== END 2021-01-26 17:35 | disposition home health service (06) | DRG 563 ==
LOC: M ED 14:49 → EDBD 14:49 → M ED INP 18:15 → ENRESERV 19:27 → M MSPAV 21:33 → M MS5PR 01-23 11:54
PROVIDERS: ADMIT Internal Medicine; ATTEND Internal Medicine
PROC: 0QSGXZZ Reposition Right Tibia, External Approach (ICD-10-PCS; principal; 2021-01-21)
PROC: 30233N1 Transfusion of Nonautologous Red Blood Cells into Peripheral Vein, Percutaneous Approach (ICD-10-PCS; 2021-01-21)
DX: S82.841A Displaced bimalleolar fracture of right lower leg, initial encounter for closed fracture (principal); N17.9 Acute kidney failure, unspecified; Z68.41 Body mass index [BMI] 40.0-44.9, adult; E87.3 Alkalosis; E78.5 Hyperlipidemia, unspecified; E03.9 Hypothyroidism, unspecified; E11.9 Type 2 diabetes mellitus without complications; G47.33 Obstructive sleep apnea (adult) (pediatric); F31.9 Bipolar disorder, unspecified; I10 Essential (primary) hypertension; E66.9 Obesity, unspecified; F79 Unspecified intellectual disabilities; E88.81 Metabolic syndrome and other insulin resistance; J30.9 Allergic rhinitis, unspecified; Z88.8 Allergy status to other drugs, medicaments and biological substances; X58.XXXA Exposure to other specified factors, initial encounter; Y92.9 Unspecified place or not applicable; D50.9 Iron deficiency anemia, unspecified; E87.6 Hypokalemia; K57.30 Diverticulosis of large intestine without perforation or abscess without bleeding; K64.8 Other hemorrhoids; K44.9 Diaphragmatic hernia without obstruction or gangrene; Z79.84 Long term (current) use of oral hypoglycemic drugs; Z87.891 Personal history of nicotine dependence; Z79.82 Long term (current) use of aspirin; Z79.899 Other long term (current) drug therapy

== ENCOUNTER → 2021-01-27 | Outpatient (CLI) | payer MEDICARE, MEDICAID ==
[~2021-01-27] VITALS: Ht 167.6 cm; Wt 121.1 kg
[~2021-01-27] MED LIST changes: +ACET650T61 PO; +ASPI-117 PO; +ATOR40TA75 PO; +BYDU2INJ7 SC; +DOXY-350 PO; +ESSE250T PO; +FERR32TA PO; +FLON1SPR; -FLON1SPR NARES; +FURO20TA2 PO; +GNP8.6TA7 PO; +HYDR-3715 PO; +HYDR-4571 PO; +INCR1INH INH; +IRON1TAB2 PO; +LEVO150T42 PO; +MAGN250T9 PO; +MAGN400T3 PO; +METO25TA4 PO; +MONT10TA10 PO; +OMEP-221 PO; +POTA10TA14 PO; +SENN18TA PO; +SUCR1ORA PO; +SUCR1TA PO; +SUCR1TAB56 PO; +VASC1CAP2 PO; +VITA50005 PO
--- NOTE | 2021-01-27 14:46 | REP ---
INDICATION: F/U FX. COMPARISON: Comparison right ankle radiographs 8 January 21, 2021.. TECHNIQUE: Four views of the right ankle are obtained through overlying plaster cast material. FINDINGS: Fine bone details obscured by cast material. There is however persistent lateral subluxation of the hindfoot relative to the distal tibia. There is a transversely oriented medial malleolar fracture which is diastatic. No definite posterior tibial fracture is appreciated. The distal tibiofibular interval is widened. Ankle mortise is widened medially. Position is similar to the January 21, 2021 study. IMPRESSION: Fracture subluxation at the ankle. <Electronically signed by Philipp Daniel > 01/27/21 [id number]
--- NOTE | 2021-01-27 15:50 | REP ---
INDICATION: POST SPLINT. COMPARISON: 01/21/2021 as well as other prior exams. TECHNIQUE: AP and lateral right ankle. FINDINGS: Fracture of medial malleolus again noted. There is lateral displacement and lateral subluxation of the talus. An overlying splint obscures underlying osseous detail. IMPRESSION: Fracture medial malleolus with lateral displacement and lateral subluxation of the talus appearing similar to the prior study. <Electronically signed by Arnel Panda > 01/27/21 [id number]
== END ==
LOC: M SOG 13:34
PROVIDERS: ATTEND Student in an Organized Health Care Education/Training Program
DX: S82.51XD Displaced fracture of medial malleolus of right tibia, subsequent encounter for closed fracture with routine healing (principal); S93.01XD Subluxation of right ankle joint, subsequent encounter

== ENCOUNTER 2021-01-28 13:55 | Inpatient (IN) | payer MEDICARE, MEDICAID ==
[~2021-01-28] VITALS: Ht 167.6 cm; Wt 121.1 kg
[~2021-01-28 13:55] MED LIST changes: -ACET650T61 PO; -FURO20TA2 PO; -GNP8.6TA7 PO; -HYDR-3715 PO; -HYDR-4571 PO; -MAGN250T9 PO; -MAGN400T3 PO; -METO25TA4 PO; -OMEP-221 PO; -POTA10TA14 PO; -SUCR1ORA PO; -SUCR1TAB56 PO
[2021-01-28] MEDS ORDERED: GLUCAGON INJ 1MG VIAL SC PRN (14:35)
[2021-01-28] MEDS ORDERED: GLUCOSE 4GM CHEW TABLET PO PRN (14:35)
[2021-01-28] MEDS ORDERED: DEXTROSE 50% 50 ML SYRINGE IV PRN (14:35)
--- NOTE | 2021-01-28 14:54 | HPEPDOC ---
General Date of Admission Jan 28, 2021 at 14:42 Date of Service: Jan 28, 2021 Chief Complaint The patient is a 40-year-old male admitted with a reason for visit of Rt Ankle Fracture. Source: Patient Exam Limitations: No limitations History of Present Illness Patient is 40 years old male with past history of bipolar disorder, Schizoaffective disorder, mental retardation, type 2 diabetes, hypertension, hyperlipidemia, depression/anxiety presented to the hospital for elective surgery for Bimalleolar fracture of right ankle. Patient was recently admitted to the hospital with anemia, kidney failure, and sepsis, he was treated with IV fluids and IV antibiotics with positive effect. Today patient denied any fever, chills, nausea, vomiting, diarrhea or dysuria. Home Medications Scheduled Aspirin (Aspirin EC) 81 Mg Tablet.dr, 81 MG PO DAILY, (Reported) Atorvastatin Calcium (Atorvastatin Calcium) 40 Mg Tablet, 40 MG PO QHS, (Reported) Clozapine (Clozapine) 50 Mg Tab, 50 MG PO BID, (Reported) Doxycycline Monohydrate (Doxycycline) 100 Mg Capsule, 1 CAP PO BID Ergocalciferol (Vitamin D2) (Vitamin D2) 50,000 Units Cap, 50,000 UNITS PO QWEEK, (Reported) Exenatide Microspheres (Bydureon Bcise) 2 Mg/0.85 Ml Auto.injct, 2 MG SQ QWEEK, (Reported) Ferrous Gluconate (Ferrous Gluconate) 324 Mg Tablet, 324 MG PO DAILY, (Reported) Ferrous Sulfate (Iron) 325 Mg Tablet, 1 TAB PO BID Fluoxetine Hcl (Fluoxetine HCl) 20 Mg Cap, 20 MG PO DAILY, (Reported) Fluticasone Propionate (Flonase Allergy Relief) 50 Mcg/Act Spr, 1 SPRAY NA BID, (Reported) Icosapent Ethyl (Vascepa) 1 Gm Capsule, 2 GM PO BID, (Reported) Lamotrigine (Lamotrigine) 100 Mg Tab, 100 MG PO BID, (Reported) Levothyroxine Sodium (Levoxyl) 150 Mcg Tablet, 150 MCG PO DAILY, (Reported) Loratadine (Loratadine) 10 Mg Tab, 10 MG PO DAILY, (Reported) Magnesium Oxide (Magnesium Oxide) 250 Mg Tablet, 250 MG PO DAILY Metformin HCl (Glucophage Xr) 500 Mg Tab, 500 MG PO BID, (Reported) Metoprolol Tartrate (Lopressor) 50 Mg Tab, 50 MG PO BID, (Reported) Montelukast Sodium (Montelukast Sodium) 10 Mg Tablet, 10 MG PO DAILY, (Reported) Multivitamins (Thera M Plus Tablet) 1 Tab Tab, 1 TAB PO DAILY, (Reported) Omeprazole (Omeprazole) 40 Mg Capsule.dr, 40 MG PO DAILY Salmeterol/Fluticasone (Advair 500-50 Diskus) 28 Puff/Inhaler Aerp, 1 PUFF INH BID, (Reported) Sucralfate (Sucralfate) 1 Gm Tablet, 1 GRAM PO QID Umeclidinium [place] (Incruse Ellipta) 62.5 Mcg Blst.w.dev, 1 PUFF INH DAILY, (Reported) Scheduled PRN Albuterol Sulfate (Proair Hfa) 108 Mcg/Act Aer, 2 PUFF INH Q6H PRN for SHORTNESS OF BREATH, (Reported) Senna (Senna Lax) 8.6 Mg Tablet, 1 TAB PO DAILYPRN PRN for CONSTIPATION Allergies Coded Allergies: benztropine (Verified Allergy, Severe, 01/21/21) locks jaw Past Medical History Medical History Medical History 1. Hypothyroidism. 2. Obstructive sleep apnea. 3. Hypertension. 4. Mental retardation. 5. Schizoaffective bipolar and depression. 6. Type 2 diabetes mellitus. 7. Morbid obesity. 8. Metabolic syndrome. 6. Seasonal allergies. 7. Hypothyroidism. 8. Diabetes. 9. Obesity. 10 Dyslipidemia. Surgical History Tonsillectomy, colonoscopy and esophagogastroduodenoscopy (EGD). Family History Both parents are , but he did not recall what their medical conditions were. Social History * Smoker: Denies Alcohol: Denies Drugs: denies A-FIB/CHADSVASC A-FIB History Current/History of A-Fib/PAF?: No Current PO Anticoag Therapy: No Review of Systems Constitutional: Denies: Chills, Fever Eyes: Denies: Pain ENT: Denies: Head Aches Skin: Denies: Rash, Lesions Pulmonary: Denies: Dyspnea Cardiovascular: Denies: Chest Pain Gastrointestinal: Denies: Nausea Genitourinary: Denies: Dysuria Hematologic: Denies: Bruising Musculoskeletal: Reports: Leg Pain (right ankle pain) Neurological: Denies: Weakness Psych: Reports: Mood Normal Physical Examination General Exam: Positive: Alert, Cooperative Eye Exam: Positive: PERRLA ENT Exam: Positive: Atraumatic Neck Exam: Positive: Supple; Negative: JVD Chest Exam: Positive: Clear to auscultation Heart Exam: Positive: Rate Normal Telemetry: Positive: No significant arrhythmia Abdomen Exam: Positive: Normal bowel sounds Extremity Exam: Positive: Tenderness (right ankle); Negative: Clubbing Skin Exam: Positive: Nl turgor and temperature Neuro Exam: Positive: Strength at 5/5 X4 ext Psych Exam: Positive: Mental status NL Assessment/Plan Patient is 40 years old male with past history of bipolar disorder, Schizoaffective disorder, mental retardation, type 2 diabetes, hypertension, hyperlipidemia, depression/anxiety presented to the hospital for elective surgery for Bimalleolar fracture of right ankle. Patient was recently admitted to the hospital with anemia, kidney failure, and sepsis, he was treated with IV fluids and IV antibiotics with positive effect. Today patient denied any fever, chills, nausea, vomiting, diarrhea or dysuria. Problems (1) Bimalleolar fracture of right ankle Status: Chronic Problem Text: Nothing by mouth after midnight Orthopedic team will proceed with surgery tomorrow CBC, BMP, EKG (2) PAVAN (obstructive sleep apnea) Status: Chronic Problem Text: Continue CPAP overnight (3) Hypertension Status: Chronic Problem Text: Continue home meds (4) Hypothyroidism Status: Chronic Problem Text: Continue with levothyroxine (5) Dyslipidemia Status: Chronic Problem Text: Continue statin (6) Bipolar disorder Status: Chronic Problem Text: Continue home meds (7) Diabetes Status: Chronic Problem Text: Insulin sliding scale Diabetes diet (8) DVT prophylaxis Status: Acute Problem Text: Lovenox (9) Anemia Status: Chronic Problem Text: Iron deficient anemia Most likely secondary to slow GI bleed Patient have appointment this month with Dr Kunz for colonoscopy and EGD Continue iron supplementation Plan / VTE VTE Prophylaxis Ordered?: Yes LITZY DIAZ DO Jan 28, 2021 14:54
[2021-01-28 15:00] VITALS: BP 126/66
[2021-01-28] MEDS ORDERED: ADV500INH INH (15:17)
[2021-01-28] MEDS ORDERED: MAGN250T9 PO (15:17)
[2021-01-28] MEDS ORDERED: OMEP-221 PO (15:17)
[2021-01-28] MEDS ORDERED: GNP8.6TA7 PO (15:17)
[2021-01-28] MEDS ORDERED: SUCR1TAB56 PO (15:17)
[2021-01-28 15:29] LABS: HEMATOCRIT 32.2 % (42.0-52.0); HEMOGLOBIN 9.7 g/dl (13.5-17.5); MEAN CORPUSCULAR HEMOGLOBIN 25.7 pg (27.0-33.0); MEAN CORPUSCULAR HGB CONC 30.1 g/dl (32.0-36.5); MEAN CORPUSCULAR VOLUME 85.4 fl (80.0-96.0); PLATELET COUNT, AUTOMATED 289 10^3/uL (150-450); RED BLOOD COUNT 3.77 10^6/uL (4.30-6.10); WHITE BLOOD COUNT 9.4 10^3/uL (4.0-10.0)
[2021-01-28 16:03] LABS: ALBUMIN 2.9 GM/DL (3.2-5.2); ALT/SGPT 26 U/L (12-78); BILIRUBIN,TOTAL 0.5 MG/DL (0.2-1.0); BLOOD UREA NITROGEN 8 MG/DL (7-18); CALCIUM LEVEL 8.1 MG/DL (8.5-10.1); CARBON DIOXIDE LEVEL 24 MEQ/L (21-32); CHLORIDE LEVEL 109 MEQ/L (98-107); CREATININE FOR GFR 1.24 MG/DL (0.70-1.30); GLOMERULAR FILTRATION RATE > 60.0 (>60); GLUCOSE, FASTING 64 MG/DL (70-100); POTASSIUM SERUM 3.3 MEQ/L (3.5-5.1); SODIUM LEVEL 140 MEQ/L (136-145); TOTAL PROTEIN 6.1 GM/DL (6.4-8.2)
[2021-01-28] MEDS ORDERED: VITAMIN D 50,000 UNITS CAPSULE (ERGOCALCIFEROL 1.25MG) PO SCH (16:25)
[2021-01-28] MEDS ORDERED: SENNA 8.6 MG TAB (SENOKOT) PO PRN (16:25)
[2021-01-28] MEDS ORDERED: POTASSIUM CHLORIDE 10 MEQ SR TABLET PO ONE (16:25)
[2021-01-28] MEDS ORDERED: ALBUTEROL 90 MCG/ACT 8GM HFA INHALER INH PRN (17:00)
[2021-01-28] MEDS: HumaLOG INSULIN (NovoLOG) PER UNIT SC SCH ×2 (17:18→21:00)
[2021-01-28] MEDS: SUCRALFATE 1 GM TAB PO SCH ×2 (17:22→21:42)
[2021-01-28] MEDS: ADVAIR HFA 230/21MCG INHALER INH SCH (20:15)
[2021-01-28] MEDS ORDERED: FLUTICASONE PROP 0.05% NASAL SPRAY 16 GM (FLONASE) NARES PRN (21:00)
[2021-01-28] MEDS: FERROUS SULFATE 325MG TAB PO SCH (21:42)
[2021-01-28] MEDS: ATORVASTATIN 20 MG TAB PO SCH (21:42)
[2021-01-28] MEDS: lamoTRIgine 100MG TAB PO SCH (21:42)
[2021-01-28] MEDS: cloZAPine 25 MG TAB (S0136) PO SCH (21:42)
[2021-01-28] MEDS: METOPROLOL TART 50 MG TAB PO SCH (21:43)
[2021-01-28] MEDS: ACETAMINOPHEN TAB 650MG DOSE (2X325MG) PO PRN (21:43)
[2021-01-28 22:00] VITALS: BP 127/69
[2021-01-29] MEDS: LEVOTHYROXINE 150MCG TABLET (0.15MG) PO SCH (05:08)
[2021-01-29] MEDS: ACETAMINOPHEN TAB 650MG DOSE (2X325MG) PO PRN (05:08)
[2021-01-29 06:00] VITALS: BP 117/66
[2021-01-29 06:05] LABS: HEMATOCRIT 27.1 % (42.0-52.0); HEMOGLOBIN 8.3 g/dl (13.5-17.5); MEAN CORPUSCULAR HGB CONC 30.6 g/dl (32.0-36.5); PLATELET COUNT, AUTOMATED 298 10^3/uL (150-450); RED BLOOD COUNT 3.19 10^6/uL (4.30-6.10); WHITE BLOOD COUNT 7.3 10^3/uL (4.0-10.0)
[2021-01-29 06:34] LABS: ALBUMIN 2.5 GM/DL (3.2-5.2); ALT/SGPT 21 U/L (12-78); BILIRUBIN,TOTAL 0.4 MG/DL (0.2-1.0); BLOOD UREA NITROGEN 8 MG/DL (7-18); CALCIUM LEVEL 8.2 MG/DL (8.5-10.1); CARBON DIOXIDE LEVEL 25 MEQ/L (21-32); CHLORIDE LEVEL 110 MEQ/L (98-107); CREATININE FOR GFR 1.22 MG/DL (0.70-1.30); GLOMERULAR FILTRATION RATE > 60.0 (>60); GLUCOSE, FASTING 86 MG/DL (70-100); MAGNESIUM LEVEL 1.3 MG/DL (1.8-2.4); POTASSIUM SERUM 3.4 MEQ/L (3.5-5.1); SODIUM LEVEL 142 MEQ/L (136-145); TOTAL PROTEIN 5.1 GM/DL (6.4-8.2)
[2021-01-29] MEDS: HumaLOG INSULIN (NovoLOG) PER UNIT SC SCH ×4 (07:30→20:31)
[2021-01-29] MEDS: ADVAIR HFA 230/21MCG INHALER INH SCH ×2 (07:57→20:09)
[2021-01-29] MEDS ORDERED: MAG SULF 1GM/100ML (MAG RUN) 1 GM in IV 1 EA IV ONE (09:00)
[2021-01-29] MEDS ORDERED: POTASSIUM CHLORIDE 10 MEQ SR TABLET PO ONE (09:00)
[2021-01-29] MEDS: METOPROLOL TART 50 MG TAB PO SCH ×2 (09:38→20:55)
[2021-01-29] MEDS: lamoTRIgine 100MG TAB PO SCH ×2 (09:38→21:18)
[2021-01-29] MEDS: MONTELUKAST 10 MG TAB PO SCH (09:38)
[2021-01-29] MEDS: OMEPRAZOLE 20 MG CAP PO SCH (09:38)
[2021-01-29] MEDS: FLUoxetine 20 MG CAP PO SCH (09:38)
[2021-01-29] MEDS: ASPIRIN 81MG ENTERIC TABLET PO SCH (09:38)
[2021-01-29] MEDS: cloZAPine 25 MG TAB (S0136) PO SCH ×2 (09:38→21:18)
[2021-01-29] MEDS: MAGNESIUM OXIDE 400MG TAB (MAG-OX) PO SCH (09:38)
[2021-01-29] MEDS: MULTIVITAMINS/MINERALS THERAP 1 TAB PO SCH (09:38)
[2021-01-29] MEDS: FERROUS SULFATE 325MG TAB PO SCH ×2 (09:41→21:18)
[2021-01-29] MEDS: SUCRALFATE 1 GM TAB PO SCH ×4 (09:41→21:18)
[2021-01-29] MEDS: LORATADINE 10 MG TAB PO SCH (09:41)
[2021-01-29 14:00] VITALS: BP 137/99
[2021-01-29] MEDS ORDERED: PERCOCET 5MG/325MG TAB PO PRN ×2 (14:55)
--- NOTE | 2021-01-29 15:08 | IPNPDOC ---
Subjective Date Seen The patient was seen on 01/29/21. Subjective Chief Complaint/HPI Does not have any complaints this morning. Reports pain controlled with the cast. he reports he has not been able to use the CPAP for the past week since he hurt his right ankle. Objective Physical Examination General Exam: Positive: Alert, Cooperative, No Acute Distress Eye Exam: Positive: PERRLA ENT Exam: Positive: Atraumatic, Mucous membr. moist/pink, Pharynx Normal Neck Exam: Positive: Supple; Negative: JVD, thyromegaly Chest Exam: Positive: Clear to auscultation, Normal air movement Heart Exam: Positive: Rate Normal, Regular Rhythm, Normal S1, Normal S2; Negative: Murmurs, Rubs Abdomen Exam: Positive: Normal bowel sounds, Soft; Negative: Tenderness Extremity Exam: Positive: Tenderness (right ankle), Swelling Skin Exam: Positive: Other skin issue (bruising at the right ankle and in the left feet and toes) Neuro Exam: Positive: Strength at 5/5 X4 ext, Normal Tone Assessment /Plan Assessment Patient is a 40 years old male with past history of Morbid obesity, PAVAN on CPAP, bipolar disorder, Schizoaffective disorder, mental retardation, type 2 diabetes, hypertension, hyperlipidemia, hypothyroid, depression/anxiety presented to the hospital for elective surgery for Bimalleolar fracture of right ankle. Right ankle bimalleolar fracture going for ORIF today. pain control with percocet, bowel regimen PT/OT Anemia Iron deficient anemia Most likely secondary to slow GI bleed Patient has appointment this month with Dr Bhatti for colonoscopy and EGD Continue iron supplementation, PPI and sucralfate. Hypokalemia dn hypomagnesemia replaced. Hypertension metoprolol Hypothyroidism. synthroid Morbid obesity/ Obstructive sleep apnea. own CPAP if available Mental retardation/ Schizoaffective bipolar and depression. lamotrigine, fluoxetine, clozapine Type 2 diabetes mellitus/ Metabolic syndrome. lispro sliding scale hold metformin Seasonal allergies. monteleukast, loratadine, flonase Asthma/ copd advair, monteleukast., spiriva Dyslipidemia. statin Plan/VTE VTE Prophylaxis Ordered?: Yes VS, I&O, 24H, Fishbone Vital Signs/I&O Vital Signs Date Time Temp Pulse Resp B/P (MAP) Pulse Ox O2 Delivery O2 Flow Rate FiO2 01/29/21 14:00 97.3 75 16 137/99 (112) 99 Room Air I&O- Last 24 Hours up to 6 AM 01/29/21 07:00 Intake Total 360 ml Balance 360 ml Laboratory Data 24H LABS Laboratory Tests 2 01/28/21 15:15: Nucleated Red Blood Cells % (auto) 0.0, Anion Gap 7L, Glomerular Filtration Rate > 60.0, Calcium Level 8.1L, Total Bilirubin 0.5, Aspartate Amino Transf (AST/SGOT) 43H, Alanine Aminotransferase (ALT/SGPT) 26, Alkaline Phosphatase 90, Total Protein 6.1L, Albumin 2.9#L, Albumin/Globulin Ratio 0.9 01/28/21 17:15: Bedside Glucose (Misc Panel) 74 01/28/21 19:48: Bedside Glucose (Misc Panel) 93 01/28/21 20:12: Bedside Glucose (Misc Panel) 83 01/29/21 05:36: Nucleated Red Blood Cells % (auto) 0.0, Anion Gap 7L, Glomerular Filtration Rate > 60.0, Calcium Level 8.2L, Magnesium Level 1.3L, Total Bilirubin 0.4, Aspartate Amino Transf (AST/SGOT) 30, Alanine Aminotransferase (ALT/SGPT) 21, Alkaline Phosphatase 79, Total Protein 5.1L, Albumin 2.5L, Albumin/Globulin Ratio 1.0 01/29/21 11:41: Bedside Glucose (Misc Panel) 79 CBC/BMP Laboratory Tests 01/28/21 15:15 01/29/21 05:36 Microbiology Microbiology 01/28/21 Respiratory Virus Panel (PCR) ([facility]) - Final, Complete CARLOS ROSENBERG MD Jan 29, 2021 15:08
[2021-01-29] MEDS: MOM 30ML SUSPENSION UDC PO SCH (15:20)
[2021-01-29 20:00] VITALS: BP 98/68
[2021-01-29] MEDS: ATORVASTATIN 20 MG TAB PO SCH (21:18)
[2021-01-29] MEDS: SENOKOT S TAB PO SCH (21:18)
--- NOTE | 2021-01-29 23:00 | ECGEPIP ---
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
[2021-01-30] MEDS: LEVOTHYROXINE 150MCG TABLET (0.15MG) PO SCH (05:14)
[2021-01-30 06:00] VITALS: BP 104/63
[2021-01-30] MEDS: HumaLOG INSULIN (NovoLOG) PER UNIT SC SCH ×4 (07:30→21:00)
[2021-01-30 07:57] LABS: BASO % 0.5 % (0.0-1.0); EOS # 0.2 10^3/uL (0.0-0.5); EOS % 3.4 % (0.0-3.0); HEMATOCRIT 27.1 % (42.0-52.0); HEMOGLOBIN 8.2 g/dl (13.5-17.5); LYMPH # 1.4 10^3/uL (1.5-5.0); LYMPH % 21.2 % (24.0-44.0); MEAN CORPUSCULAR HGB CONC 30.3 g/dl (32.0-36.5); MONO # 0.4 10^3/uL (0.0-0.8); MONO % 6.3 % (2.0-8.0); NEUTROPHILS # 4.4 10^3/uL (1.5-8.5); NEUTROPHILS % 67.4 % (36.0-66.0); PLATELET COUNT, AUTOMATED 265 10^3/uL (150-450); RED BLOOD COUNT 3.15 10^6/uL (4.30-6.10); WHITE BLOOD COUNT 6.5 10^3/uL (4.0-10.0)
[2021-01-30] MEDS: TIOTROPIUM INHALER/CAPSULE (SPIRIVA) INH SCH (07:59)
[2021-01-30] MEDS: ADVAIR HFA 230/21MCG INHALER INH SCH ×2 (08:00→20:00)
[2021-01-30 08:41] LABS: BLOOD UREA NITROGEN 7 MG/DL (7-18); CALCIUM LEVEL 7.6 MG/DL (8.5-10.1); CARBON DIOXIDE LEVEL 25 MEQ/L (21-32); CHLORIDE LEVEL 113 MEQ/L (98-107); CREATININE FOR GFR 1.12 MG/DL (0.70-1.30); GLOMERULAR FILTRATION RATE > 60.0 (>60); GLUCOSE, FASTING 89 MG/DL (70-100); POTASSIUM SERUM 3.5 MEQ/L (3.5-5.1); SODIUM LEVEL 143 MEQ/L (136-145)
[2021-01-30] MEDS: ENOXAPARIN 40MG/0.4ML SYRINGE (J1650 PER 10MG) SC SCH ×2 (09:00→09:11)
[2021-01-30] MEDS: MAGNESIUM OXIDE 400MG TAB (MAG-OX) PO SCH (09:01)
[2021-01-30] MEDS: OMEPRAZOLE 20 MG CAP PO SCH (09:01)
[2021-01-30] MEDS: cloZAPine 25 MG TAB (S0136) PO SCH ×2 (09:01→22:41)
[2021-01-30] MEDS: MULTIVITAMINS/MINERALS THERAP 1 TAB PO SCH (09:01)
[2021-01-30] MEDS: SENOKOT S TAB PO SCH ×2 (09:02→21:00)
[2021-01-30] MEDS: MONTELUKAST 10 MG TAB PO SCH (09:02)
[2021-01-30] MEDS: LORATADINE 10 MG TAB PO SCH (09:02)
[2021-01-30] MEDS: lamoTRIgine 100MG TAB PO SCH ×2 (09:03→22:41)
[2021-01-30] MEDS: SUCRALFATE 1 GM TAB PO SCH ×4 (09:03→22:41)
[2021-01-30] MEDS: FLUoxetine 20 MG CAP PO SCH (09:03)
[2021-01-30] MEDS: METOPROLOL TART 50 MG TAB PO SCH ×2 (09:03→22:42)
[2021-01-30] MEDS: FERROUS SULFATE 325MG TAB PO SCH ×2 (09:03→22:41)
[2021-01-30] MEDS: ASPIRIN 81MG ENTERIC TABLET PO SCH (09:03)
[2021-01-30] MEDS: MOM 30ML SUSPENSION UDC PO SCH (09:04)
[2021-01-30] MEDS: ACETAMINOPHEN TAB 650MG DOSE (2X325MG) PO PRN ×2 (09:12→22:42)
--- NOTE | 2021-01-30 13:05 | IPNPDOC ---
Subjective Date Seen The patient was seen on 01/30/21. Subjective Chief Complaint/HPI Going to OR today. No complaints this morning. had a good night. Objective Physical Examination General Exam: Positive: Alert, Cooperative, No Acute Distress Eye Exam: Positive: PERRLA ENT Exam: Positive: Atraumatic, Mucous membr. moist/pink, Pharynx Normal Neck Exam: Positive: Supple; Negative: JVD, thyromegaly Chest Exam: Positive: Clear to auscultation, Normal air movement Heart Exam: Positive: Rate Normal, Regular Rhythm, Normal S1, Normal S2; Negative: Murmurs, Rubs Abdomen Exam: Positive: Normal bowel sounds, Soft; Negative: Tenderness Extremity Exam: Positive: Tenderness (right ankle), Swelling Skin Exam: Positive: Other skin issue (bruising at the right ankle and in the left feet and toes) Neuro Exam: Positive: Strength at 5/5 X4 ext, Normal Tone Assessment /Plan Assessment Patient is a 40 years old male with past history of Morbid obesity, PAVAN on CPAP, bipolar disorder, Schizoaffective disorder, mental retardation, type 2 diabetes, hypertension, hyperlipidemia, hypothyroid, depression/anxiety presented to the hospital for elective surgery for Bimalleolar fracture of right ankle. Right ankle bimalleolar fracture going for ORIF today. pain control with percocet, bowel regimen PT/OT DVT prophylaxis as per ortho Anemia Iron deficient anemia Most likely secondary to slow GI bleed Patient has appointment this month with Dr Bhatti for colonoscopy and EGD Continue iron supplementation, PPI and sucralfate. Hypokalemia dn hypomagnesemia replaced. Hypertension metoprolol Hypothyroidism. synthroid Morbid obesity/ Obstructive sleep apnea. own CPAP if available Mental retardation/ Schizoaffective bipolar and depression. lamotrigine, fluoxetine, clozapine Type 2 diabetes mellitus/ Metabolic syndrome. lispro sliding scale hold metformin Seasonal allergies. monteleukast, loratadine, flonase Asthma/ copd advair, monteleukast., spiriva Dyslipidemia. statin Plan/VTE VTE Prophylaxis Ordered?: Yes VS, I&O, 24H, Fishbone Vital Signs/I&O Vital Signs Date Time Temp Pulse Resp B/P (MAP) Pulse Ox O2 Delivery O2 Flow Rate FiO2 01/30/21 09:03 90 115/91 01/30/21 06:00 98.6 19 96 01/29/21 20:00 Room Air I&O- Last 24 Hours up to 6 AM 01/30/21 06:00 Intake Total 1800 ml Output Total 0 ml Balance 1800 ml Laboratory Data 24H LABS Laboratory Tests 2 01/29/21 16:21: Bedside Glucose (Misc Panel) 103 01/29/21 19:46: Bedside Glucose (Misc Panel) 97 01/30/21 07:11: Bedside Glucose (Misc Panel) 81 01/30/21 07:47: Immature Granulocyte % (Auto) 1.2, Neutrophils (%) (Auto) 67.4H, Lymphocytes (%) (Auto) 21.2L, Monocytes (%) (Auto) 6.3, Eosinophils (%) (Auto) 3.4H, Basophils (%) (Auto) 0.5, Neutrophils # (Auto) 4.4, Lymphocytes # (Auto) 1.4L, Monocytes # (Auto) 0.4, Eosinophils # (Auto) 0.2, Basophils # (Auto) 0.0, Nucleated Red Blood Cells % (auto) 0.0, Anion Gap 5L, Glomerular Filtration Rate > 60.0, Calcium Level 7.6L 01/30/21 11:43: Bedside Glucose (Misc Panel) 72 CBC/BMP Laboratory Tests 01/30/21 07:47 Microbiology Microbiology 01/28/21 Respiratory Virus Panel (PCR) ([facility]) - Final, Complete CARLOS ROSENBERG MD Jan 30, 2021 13:05
[2021-01-30 14:00] VITALS: BP 116/60
[2021-01-30] MEDS ORDERED: ceFAZolin 2 GM/D5W 50 ML IV BAG (J0690 PER 500MG) As Ordered ONE (17:53)
[2021-01-30] MEDS ORDERED: LIDOCAINE 2% 100MG/5ML SDV (FOR ANES.) As Ordered ONE (18:19)
[2021-01-30] MEDS ORDERED: ONDANSETRON 4MG/2ML VIAL As Ordered ONE (18:19)
[2021-01-30] MEDS ORDERED: HYDROmorphone HCL 2 MG/ML 1ML VIAL (J1170) As Ordered ONE (18:19)
[2021-01-30] MEDS ORDERED: PHENYLephrine 500MCG 5ML (100MCG/ML) SYRINGE As Ordered ONE (18:19)
[2021-01-30] MEDS ORDERED: propofoL 200 MG/20 ML VIAL As Ordered ONE (18:19)
[2021-01-30] MEDS ORDERED: MIDAZOLAM INJ 2MG/2ML VIAL (J2250 PER 1MG) As Ordered ONE (18:19)
[2021-01-30] MEDS ORDERED: ROCURONIUM BROMIDE 50 MG/5 ML VIAL As Ordered ONE ×2 (18:19→20:47)
[2021-01-30] MEDS ORDERED: dexameTHASONE 4 MG/ML 1ML VIAL (J1100 PER 1MG) As Ordered ONE (18:19)
[2021-01-30] MEDS ORDERED: SUGAMMADEX SODIUM 500 MG/5 ML VIAL (BRIDION) As Ordered ONE (18:20)
[2021-01-30] MEDS ORDERED: fentaNYL 100 MCG/2 ML INJECTION (J3010) IV PRN (21:15)
[2021-01-30] MEDS ORDERED: LR 1,000 ML IV SCH (21:15)
[2021-01-30] MEDS ORDERED: ONDANSETRON 4MG/2ML VIAL IV PRN (21:15)
[2021-01-30] MEDS ORDERED: oxyCODONE 5MG TAB PO PRN (21:15)
[2021-01-30 22:30] VITALS: BP 117/79
[2021-01-30] MEDS: ATORVASTATIN 20 MG TAB PO SCH (22:41)
[2021-01-30 23:08] VITALS: BP 118/79
[2021-01-31 00:04] VITALS: BP 119/78
[2021-01-31 01:00] VITALS: BP 118/75
[2021-01-31 02:16] VITALS: BP 134/82
[2021-01-31] MEDS: LEVOTHYROXINE 150MCG TABLET (0.15MG) PO SCH (05:17)
[2021-01-31 06:00] VITALS: BP 148/76
--- NOTE | 2021-01-31 07:08 | RO ---
OPERATIVE NOTE DATE OF OPERATION: 01/30/2021 TIME: 6 p.m. PREOPERATIVE DIAGNOSIS: Right ankle fracture four weeks prior as well as syndesmosis injury. POSTOPERATIVE DIAGNOSIS: Right ankle fracture four weeks prior as well as syndesmosis injury. NAME OF OPERATION: 1. Right ankle open reduction and internal fixation. 2. Syndesmosis reduction and definitive fixation. 3. Right ankle spanning external fixator placement. SURGEON: Byron Schwartz MD [employer] OPERATOR: Jf Rueda MD SUPERVISING ATTENDING: Byron Schwartz MD FINDINGS: The patient had a disrupted syndesmotic injury, a right medial malleolar fracture and a proximal fibular fracture. INDICATIONS: This is a 40-year-old male with a past medical history of bipolar disorder, schizoaffective disorder, mental retardation, type 2 diabetes, hypertension, hyperlipidemia, depression, anxiety who presented to the [facility] for the aforementioned surgery. The patient was seen in clinic on the January, where his splint had been falling off and his right ankle previously reduced fracture had displaced since weightbearing. The patient although instructed to be nonweightbearing on his right lower extremity was walking on his right ankle fracture. Given his diabetic neuropathy, the patient did not feel pain. The patient had two pressure ulcers that were appreciated in clinic. He was indicated for semi-urgent right ankle open reduction and internal fixation in order to take pressure off the skin, reduce the fracture and syndesmosis fixation. He was indicated for the aforementioned surgery. He was admitted to [facility] for management of his medical comorbidities and the aforementioned surgery. ANESTHESIA: GETA. TOURNIQUET TIME: 92 minutes. ESTIMATED BLOOD LOSS: 20 mL. IV FLUIDS: Please see anesthesia report. IV ANTIBIOTICS: 2 gm Ancef. IMPLANTS: Synthes. CULTURES: Two aerobic, two anaerobic. SPECIMENS: Medial malleolar callus formation. DESCRIPTION OF PROCEDURE: The patient was met in the preoperative holding area where the patient's operative extremity was signed, the patient's consent was confirmed to be correct, and the patient's identity was confirmed to be correct. The patient was then transported to the operating theater where he was placed supine on a regular surgical bed with a radiolucent flat foot extension. A safety strap secured the patient to the bed. All bony prominences were well padded. The contralateral lower extremity had an SCD placed. A timeout was called to confirm the correct patient, correct operative extremity and correct consent. All staff was in agreement. We began the procedure by marking out our skin incisions as well as obtaining fluoroscopic imaging to ensure the correct location of our surgical skin incisions. We also wanted to note the displacement due to the previous imaging in clinic on the 27 of January. At this point in time, we got a lateral fluoroscopic view of the patient's calcaneus which we used to place a calcaneal pin. This would be used in order to assist in our syndesmosis reduction as well as skeletal traction to assist in the reduction. After placement of this calcaneal pin, we then placed a clean tong, [id number] bone-reducing clamp on the fibula, the medial distal tibial in order to ensure that we were able to reduce our syndesmosis. Once this was confirmed, we then turned our attention to the fibula where we would place a four-hole, 1/3 tubular plate which we used in order to disperse the stress risers while placing our tentative cortical screws. Once we used fluoroscopic imaging to assure that we were satisfied with the fibular plate placement, we placed one suspensory fixation implant in order to provisionally reduce our fracture so that we could remove our clamp. Once this was placed, we were satisfied with our syndesmosis reduction. We then placed one distal 3.5 mm tension cortical screw parallel to the joint line at the level of syndesmosis. We then placed two additional 3.5 mm cortical screws which were tetra-cortical in nature. At this point in time, we then tightened our suspensory fixation and retightened all the screws to ensure that we had satisfactory reduction of the syndesmosis and that it was secure. At the completion of our suspensory fixation using the aforementioned fixation construct, we turned our attention to the medial malleolus. We made a small one inch incision overlying the medial malleolus which was posterior to the two skin lesions on the distal medial aspect of the tibia. Our skin incision was posterior to these areas of skin breakdown to ensure that we would not violate the healing skin breakdown which was likely secondary to the patient's poorly reduced fracture. We used a scalpel in order to sharply incise the skin and then to elevate the periosteum. We then copiously irrigated the fracture site, cleaned the fracture callus which had formed using a scalpel as well as a rongeur and we were able to establish the cortical edges of the medial malleolar fracture. We then reduced this provisionally using a dental pick followed by a [id number] bone-reducing clamp. We were satisfied with our fixation. We then placed two thin wires across the fracture site which would later be used for partially threaded screw fixation. Once we were satisfied with the placement of our thin wires in AP and lateral views, we then measured these and placed one 50 mm followed by one 44 mm partially threaded 4.0 mm cortical screws. This was lagging by design. At the completion of the two screws, we copiously irrigated all surgical sites. We were able to use 2-0 Vicryl to cover the implants using periosteum on both the medial and lateral incisions. We closed the dermal layer using 2-0 Vicryl and a running 3-0 nylon stitch. We then turned our attention to the placement of our external fixator. We placed two proximal, fully threaded 5-0 external fixator pins just distal to the pubic tubercle. The placement was confirmed with AP and lateral fluoroscopic views. While maintaining the reduction of the tibiotalar joint, we placed a five-hole connector to the two proximal tibial Shanz pins and constructed an external fixator into position in order to protect our definitive repair. At the completion of this, we then placed Xeroform over both surgical incisions as well as three Schanz pins, one in the calcaneus and two in the proximal tibia. We then placed 4x4 gauze and Webril over the surgical incisions. We then placed the patient's right lower extremity into a posterior slab plaster splint secured with Webril and Lauri bandage. The patient was then extubated without complication and transported to the postanesthesia care unit. The patient's care will be transferred to the hospitalist service. He will be nonweightbearing to the right lower extremity for at least three months. We recommend the patient's care is transferred to a rehabilitative center for at least one month. The patient shall be on DVT chemoprophylaxis for 30 days per hospitalist recommendation. This could include 81 mg of aspirin. The patient will be given the appropriate pain medications per the hospitalist service. We will see the patient in two weeks on the January, at the [facility] orthopedic clinic.
[2021-01-31] MEDS: HumaLOG INSULIN (NovoLOG) PER UNIT SC SCH ×2 (07:27→12:00)
[2021-01-31] MEDS: TIOTROPIUM INHALER/CAPSULE (SPIRIVA) INH SCH (07:45)
[2021-01-31] MEDS: ADVAIR HFA 230/21MCG INHALER INH SCH (07:45)
[2021-01-31 08:06] LABS: BASO % 0.1 % (0.0-1.0); EOS # 0.1 10^3/uL (0.0-0.5); EOS % 0.9 % (0.0-3.0); HEMATOCRIT 30.2 % (42.0-52.0); HEMOGLOBIN 9.1 g/dl (13.5-17.5); LYMPH % 10.5 % (24.0-44.0); MEAN CORPUSCULAR HEMOGLOBIN 26.1 pg (27.0-33.0); MEAN CORPUSCULAR HGB CONC 30.1 g/dl (32.0-36.5); MEAN CORPUSCULAR VOLUME 86.5 fl (80.0-96.0); MONO # 0.4 10^3/uL (0.0-0.8); MONO % 4.5 % (2.0-8.0); NEUTROPHILS # 7.8 10^3/uL (1.5-8.5); NEUTROPHILS % 83.1 % (36.0-66.0); PLATELET COUNT, AUTOMATED 242 10^3/uL (150-450); RED BLOOD COUNT 3.49 10^6/uL (4.30-6.10); WHITE BLOOD COUNT 9.4 10^3/uL (4.0-10.0)
--- NOTE | 2021-01-31 08:12 | REP ---
INDICATION: FRACTURE. Open reduction internal fixation right ankle fracture. COMPARISON: Comparison radiographs January 27, 2021.. TECHNIQUE: 20 views. 193.9 seconds of fluoroscopy time. FINDINGS: A sequence of 20 last image hold fluoroscopically obtained spot radiographs of the right ankle document open reduction internal fixation procedure for right ankle fracture. IMPRESSION: Procedural imaging. <Electronically signed by Philipp Daniel > 01/31/21 0809
[2021-01-31 08:29] LABS: BLOOD UREA NITROGEN 8 MG/DL (7-18); CALCIUM LEVEL 8.5 MG/DL (8.5-10.1); CARBON DIOXIDE LEVEL 23 MEQ/L (21-32); CHLORIDE LEVEL 109 MEQ/L (98-107); GLOMERULAR FILTRATION RATE > 60.0 (>60); GLUCOSE, FASTING 89 MG/DL (70-100); SODIUM LEVEL 139 MEQ/L (136-145)
[2021-01-31] MEDS: lamoTRIgine 100MG TAB PO SCH (08:29)
[2021-01-31] MEDS: FLUoxetine 20 MG CAP PO SCH (08:29)
[2021-01-31] MEDS: FERROUS SULFATE 325MG TAB PO SCH (08:29)
[2021-01-31] MEDS: cloZAPine 25 MG TAB (S0136) PO SCH (08:29)
[2021-01-31] MEDS: ACETAMINOPHEN TAB 650MG DOSE (2X325MG) PO PRN (08:29)
[2021-01-31] MEDS: SENOKOT S TAB PO SCH (08:29)
[2021-01-31] MEDS: SUCRALFATE 1 GM TAB PO SCH ×2 (08:29→12:28)
[2021-01-31] MEDS: MULTIVITAMINS/MINERALS THERAP 1 TAB PO SCH (08:29)
[2021-01-31] MEDS: MONTELUKAST 10 MG TAB PO SCH (08:29)
[2021-01-31] MEDS: ASPIRIN 81MG ENTERIC TABLET PO SCH (08:29)
[2021-01-31 08:30] VITALS: BP 151/81
[2021-01-31] MEDS: OMEPRAZOLE 20 MG CAP PO SCH (08:30)
[2021-01-31] MEDS: ENOXAPARIN 40MG/0.4ML SYRINGE (J1650 PER 10MG) SC SCH (08:30)
[2021-01-31] MEDS: MOM 30ML SUSPENSION UDC PO SCH (08:30)
[2021-01-31] MEDS: LORATADINE 10 MG TAB PO SCH (08:30)
[2021-01-31] MEDS: MAGNESIUM OXIDE 400MG TAB (MAG-OX) PO SCH (08:30)
[2021-01-31] MEDS: METOPROLOL TART 50 MG TAB PO SCH (08:30)
[2021-01-31 10:00] VITALS: BP 137/86
[2021-01-31] MEDS ORDERED: NORCO, ANEXSIA 5/325MG TABLET (HYDROcodone/ACETAMINOPHEN) PO PRN (10:20)
--- NOTE | 2021-01-31 10:25 | IPNPDOC ---
Subjective Date Seen The patient was seen on 01/31/21. Subjective Chief Complaint/HPI Does have any complaints , no pain . Objective Physical Examination General Exam: Positive: Alert, Cooperative, No Acute Distress Eye Exam: Positive: PERRLA ENT Exam: Positive: Atraumatic, Mucous membr. moist/pink, Pharynx Normal Neck Exam: Positive: Supple; Negative: JVD, thyromegaly Chest Exam: Positive: Clear to auscultation, Normal air movement Heart Exam: Positive: Rate Normal, Regular Rhythm, Normal S1, Normal S2; Negative: Murmurs, Rubs Abdomen Exam: Positive: Normal bowel sounds, Soft; Negative: Tenderness Extremity Exam: Positive: Tenderness (right ankle), Swelling Skin Exam: Positive: Other skin issue (bruising at the right ankle and in the left feet and toes) Neuro Exam: Positive: Strength at 5/5 X4 ext, Normal Tone Assessment /Plan Assessment Patient is a 40 years old male with past history of Morbid obesity, PAVAN on CPAP, bipolar disorder, Schizoaffective disorder, mental retardation, type 2 diabetes, hypertension, hyperlipidemia, hypothyroid, depression/anxiety presented to the hospital for elective surgery for Bimalleolar fracture of right ankle. Right ankle bimalleolar fracture Had ORIF on 01/30/21 with syndesmosis repair and external fixator placement. Not much pain sensation likely due to diabetic neuropathy pain control with percocet, bowel regimen PT/OT DVT prophylaxis Asa 81 mg will not give any other AC as has likely ongoing slow GIB Anemia Iron deficient anemia Most likely secondary to slow GI bleed Patient has appointment this month with Dr Bhatti for colonoscopy and EGD Continue iron supplementation, PPI and sucralfate. Hypokalemia and hypomagnesemia replaced. Hypertension metoprolol Hypothyroidism. synthroid Morbid obesity/ Obstructive sleep apnea. own CPAP if available Mental retardation/ Schizoaffective bipolar and depression. lamotrigine, fluoxetine, clozapine Type 2 diabetes mellitus/ Metabolic syndrome. lispro sliding scale hold metformin Seasonal allergies. monteleukast, loratadine, flonase Asthma/ copd advair, monteleukast., spiriva Dyslipidemia. statin Dispo: home vs rehab Plan/VTE VTE Prophylaxis Ordered?: Yes VS, I&O, 24H, Fishbone Vital Signs/I&O Vital Signs Date Time Temp Pulse Resp B/P (MAP) Pulse Ox O2 Delivery O2 Flow Rate FiO2 4/19/21 10:00 98.6 107 17 137/86 (103) 95 Nasal Cannula 2.0 I&O- Last 24 Hours up to 6 AM 01/31/21 06:00 Intake Total 2870 ml Output Total 720 ml Balance 2150 ml Laboratory Data 24H LABS Laboratory Tests 2 01/30/21 11:43: Bedside Glucose (Misc Panel) 72 01/30/21 16:34: Bedside Glucose (Misc Panel) 68L 01/30/21 21:26: Bedside Glucose (Misc Panel) 105 01/31/21 07:26: Bedside Glucose (Misc Panel) 78 01/31/21 07:31: Immature Granulocyte % (Auto) 0.9, Neutrophils (%) (Auto) 83.1H, Lymphocytes (%) (Auto) 10.5L, Monocytes (%) (Auto) 4.5, Eosinophils (%) (Auto) 0.9, Basophils (%) (Auto) 0.1, Neutrophils # (Auto) 7.8, Lymphocytes # (Auto) 1.0L, Monocytes # (Auto) 0.4, Eosinophils # (Auto) 0.1, Basophils # (Auto) 0.0, Nucleated Red Blood Cells % (auto) 0.0, Anion Gap 7L, Glomerular Filtration Rate > 60.0, Calcium Level 8.5 CBC/BMP Laboratory Tests 01/31/21 07:31 Microbiology Microbiology 01/30/21 Gram Stain - Final, Resulted 01/30/21 Wound Culture, Resulted Pending 01/30/21 Anaerobic Culture, Resulted Pending 01/30/21 Gram Stain - Final, Resulted 01/30/21 Wound Culture, Resulted Pending 01/30/21 Anaerobic Culture, Resulted Pending 01/28/21 Respiratory Virus Panel (PCR) ([facility]) - Final, Complete CARLOS ROSENBERG MD Jan 31, 2021 10:25
[2021-01-31] MEDS ORDERED: HYDR-3715 PO (12:56)
[2021-01-31] MEDS ORDERED: ACET650T61 PO (12:56)
--- NOTE | 2021-02-01 22:01 | DS.PDOC ---
Discharge Summary General Date of Admission Jan 28, 2021 at 14:42 Date of Discharge 01/31/21 Discharge Summary PROCEDURES PERFORMED DURING STAY: 01/30/21 1. Right ankle open reduction and internal fixation. 2. Syndesmosis reduction and definitive fixation. 3. Right ankle spanning external fixator placement. DISCHARGE DIAGNOSES: Bimalleolar right ankle fracture s/p surgery as above Iron def anemia Hypokalemia, hypomagnesemia SECONDARY DIAGNOSIS Morbid obesity/ Obstructive sleep apnea. HTN HLD Hypothyroid DM with diabetic neuropathy. Mental retardation/ Schizoaffective bipolar and depression. Asthma/COPD COMPLICATIONS/CHIEF COMPLAINT: Rt Ankle Fracture. HOSPITAL COURSE: Patient is a 40 years old male with past history of Morbid obesity, PAVAN on CPAP, bipolar disorder, Schizoaffective disorder, mental retardation, type 2 diabetes, hypertension, hyperlipidemia, hypothyroid, depression/anxiety presented to the hospital for elective surgery for Bimalleolar fracture of right ankle. Patient had fractured his ankle in the end of December. He came to ED in the beginning of january was casted to follow up with Ortho. Was seen at the ortho clinic patient had been walking on the broken ankle and the cast had been dislodged and there was displacement of previous chronic ankle fracture. It was casted again and patient scheduled for a ankle repair surgery. Right ankle bimalleolar fracture Had ORIF on 01/30/21 with syndesmosis repair and external fixator placement. Not much pain sensation likely due to diabetic neuropathy pain control with [place] and tylenol, bowel regimen DVT prophylaxis Asa 81 mg will not give any other AC as has likely ongoing slow GIB Patient was evaluated by PT and OT and felt he was mobilizing well and maintaining right foot non weight bearing status and was felt safe to go home. Anemia Iron deficient anemia Most likely secondary to slow GI bleed Patient has appointment this month with Dr Bhatti for colonoscopy and EGD Continue iron supplementation, PPI and sucralfate. Hypokalemia and hypomagnesemia replaced. Hypertension metoprolol Hypothyroidism. synthroid Morbid obesity/ Obstructive sleep apnea. own CPAP if available Mental retardation/ Schizoaffective bipolar and depression. lamotrigine, fluoxetine, clozapine Type 2 diabetes mellitus/ Metabolic syndrome. lispro sliding scale hold metformin Seasonal allergies. monteleukast, loratadine, flonase Asthma/ copd advair, monteleukast., spiriva Dyslipidemia. statin DISCHARGE MEDICATIONS: Please see below. ALLERGIES: Please see below. PHYSICAL EXAMINATION ON DISCHARGE: VITAL SIGNS: Please see below. General Exam: Positive: Alert, Cooperative, No Acute Distress Eye Exam: Positive: PERRLA ENT Exam: Positive: Atraumatic, Mucous membr. moist/pink, Pharynx Normal Neck Exam: Positive: Supple; Negative: JVD, thyromegaly Chest Exam: Positive: Clear to auscultation, Normal air movement Heart Exam: Positive: Rate Normal, Regular Rhythm, Normal S1, Normal S2; Negative: Murmurs, Rubs Abdomen Exam: Positive: Normal bowel sounds, Soft; Negative: Tenderness Extremity Exam: Positive: Tenderness (right ankle), Swelling Skin Exam: Positive: Other skin issue (bruising at the right ankle and in the left feet and toes) Neuro Exam: Positive: Strength at 5/5 X4 ext, Normal Tone LABORATORY DATA: Please see below. ACTIVITY: [As tolerated]. DIET: Carb consistent. DISPOSITION: Home Health Service. DISCHARGE INSTRUCTIONS: Follow up in ortho clinic in 2 weeks, PMD in 1 month DISCHARGE CONDITION: [Stable]. TIME SPENT ON DISCHARGE 35 minutes. Vital Signs/I&Os Vital Signs Date Time Temp Pulse Resp B/P (MAP) Pulse Ox O2 Delivery O2 Flow Rate FiO2 01/31/21 10:00 98.6 107 17 137/86 (103) 95 Nasal Cannula 2.0 I&O- Last 24 Hours up to 6 AM 02/01/21 07:00 Intake Total 900 ml Output Total 1300 ml Balance -400 ml Microbiology Microbiology 01/30/21 Gram Stain - Final, Complete 01/30/21 Wound Culture - Final, Complete 01/30/21 Anaerobic Culture - Final, Complete 01/30/21 Gram Stain - Final, Complete 01/30/21 Wound Culture - Final, Complete 01/30/21 Anaerobic Culture - Final, Complete 01/28/21 Respiratory Virus Panel (PCR) ([facility]) - Final, Complete Discharge Medications Scheduled Aspirin (Aspirin EC) 81 Mg Tablet.dr, 81 MG PO DAILY, (Reported) Atorvastatin Calcium (Atorvastatin Calcium) 40 Mg Tablet, 40 MG PO QHS, (Report ed) Clozapine (Clozapine) 50 Mg Tab, 50 MG PO BID, (Reported) Ergocalciferol (Vitamin D2) (Vitamin D2) 50,000 Units Cap, 50,000 UNITS PO QWEEK, (Reported) Exenatide Microspheres (Bydureon Bcise) 2 Mg/0.85 Ml Auto.injct, 2 MG SQ QWEEK, (Reported) Ferrous Sulfate (Iron) 325 Mg Tablet, 1 TAB PO BID Fluoxetine Hcl (Fluoxetine HCl) 20 Mg Cap, 20 MG PO DAILY, (Reported) Icosapent Ethyl (Vascepa) 1 Gm Capsule, 2 GM PO BID, (Reported) Lamotrigine (Lamotrigine) 100 Mg Tab, 100 MG PO BID, (Reported) Levothyroxine Sodium (Levoxyl) 150 Mcg Tablet, 150 MCG PO DAILY, (Reported) Loratadine (Loratadine) 10 Mg Tab, 10 MG PO DAILY, (Reported) Magnesium Oxide (Magnesium Oxide) 250 Mg Tablet, 250 MG PO DAILY, (Reported) Metformin HCl (Glucophage Xr) 500 Mg Tab, 500 MG PO BID, (Reported) Metoprolol Tartrate (Lopressor) 50 Mg Tab, 50 MG PO BID, (Reported) Montelukast Sodium (Montelukast Sodium) 10 Mg Tablet, 10 MG PO DAILY, (Reported) Multivitamins (Thera M Plus Tablet) 1 Tab Tab, 1 TAB PO DAILY, (Reported) Omeprazole (Omeprazole) 40 Mg Capsule.dr, 40 MG PO DAILY, (Reported) Salmeterol/Fluticasone (Advair 500-50 Diskus) 1 Each Blst.w.dev, 1 PUFF INH BID, (Reported) Sucralfate (Sucralfate) 1 Gm Tablet, 1 GM PO QID, (Reported) Umeclidinium [place] (Incruse Ellipta) 62.5 Mcg Blst.w.dev, 1 PUFF INH DAILY, (Reported) Scheduled PRN Acetaminophen (Tylenol Arthritis) 650 Mg Tablet.er, 650 MG PO Q8HP PRN for MILD/MODERATE PAIN (PS 1-7) Albuterol Sulfate (Proair Hfa) 108 Mcg/Act Aer, 2 PUFF INH Q6H PRN for SHORTNESS OF BREATH, (Reported) Fluticasone Propionate (Flonase Allergy Relief) 50 Mcg/Act Spr, 1 SPRAY NARES BID PRN for SHORTNESS OF BREATH, (Reported) Hydrocodone/Acetaminophen (Hydrocodone-Acetamin 5-325 mg) 1 Each Tablet, 1 TAB PO Q8HP PRN for SEVERE PAIN (PS 8-10) Sennosides (Senna Lax) 8.6 Mg Tablet, 8.6 MG PO DAILY PRN for CONSTIPATION, (Reported) Allergies Coded Allergies: benztropine (Verified Allergy, Severe, 01/21/21) CARLOS Ignacio MD Feb 01, 2021 22:01
== END 2021-01-31 16:00 | disposition home health service (06) | DRG 493 ==
LOC: M MS5PR 14:42
PROVIDERS: ADMIT Internal Medicine; ATTEND Internal Medicine Nephrology
PROC: 0QSG05Z Reposition Right Tibia with External Fixation Device, Open Approach (ICD-10-PCS; 2021-01-30)
PROC: 0QSJ04Z Reposition Right Fibula with Internal Fixation Device, Open Approach (ICD-10-PCS; principal; 2021-01-30 17:00)
DX: S82.841A Displaced bimalleolar fracture of right lower leg, initial encounter for closed fracture (principal); Z68.41 Body mass index [BMI] 40.0-44.9, adult; I10 Essential (primary) hypertension; D50.0 Iron deficiency anemia secondary to blood loss (chronic); E66.01 Morbid (severe) obesity due to excess calories; E11.40 Type 2 diabetes mellitus with diabetic neuropathy, unspecified; F79 Unspecified intellectual disabilities; J44.9 Chronic obstructive pulmonary disease, unspecified; E87.6 Hypokalemia; E83.42 Hypomagnesemia; G47.33 Obstructive sleep apnea (adult) (pediatric); F31.9 Bipolar disorder, unspecified; E78.5 Hyperlipidemia, unspecified; E03.9 Hypothyroidism, unspecified; F41.9 Anxiety disorder, unspecified; Z79.899 Other long term (current) drug therapy; Z79.82 Long term (current) use of aspirin; Z88.8 Allergy status to other drugs, medicaments and biological substances; W18.30XA Fall on same level, unspecified, initial encounter; Y92.009 Unspecified place in unspecified non-institutional (private) residence as the place of occurrence of the external cause

== ENCOUNTER 2021-02-02 15:42 | Inpatient (IN) | payer MEDICARE, MEDICAID ==
[~2021-02-02] VITALS: Ht 167.6 cm; Wt 125.0 kg
[~2021-02-02 15:42] MED LIST changes: +ACET650T61 PO; +GNP8.6TA7 PO; +HYDR-3715 PO; +MAGN250T9 PO; +OMEP-221 PO; +SUCR1TAB56 PO
[2021-02-02 20:30] LABS: BASO # 0.1 10^3/uL (0.0-0.2); BASO % 0.7 % (0.0-1.0); EOS # 0.3 10^3/uL (0.0-0.5); EOS % 4.3 % (0.0-3.0); HEMATOCRIT 28.2 % (42.0-52.0); HEMOGLOBIN 8.6 g/dl (13.5-17.5); MEAN CORPUSCULAR HEMOGLOBIN 26.6 pg (27.0-33.0); MEAN CORPUSCULAR HGB CONC 30.5 g/dl (32.0-36.5); MEAN CORPUSCULAR VOLUME 87.3 fl (80.0-96.0); MONO # 0.4 10^3/uL (0.0-0.8); MONO % 6.1 % (2.0-8.0); NEUTROPHILS # 4.1 10^3/uL (1.5-8.5); NEUTROPHILS % 59.3 % (36.0-66.0); PLATELET COUNT, AUTOMATED 258 10^3/uL (150-450); RED BLOOD COUNT 3.23 10^6/uL (4.30-6.10); WHITE BLOOD COUNT 6.9 10^3/uL (4.0-10.0)
[2021-02-02 20:59] LABS: ALBUMIN 2.9 GM/DL (3.2-5.2); ALT/SGPT 21 U/L (12-78); BILIRUBIN,DIRECT 0.2 MG/DL (0.0-0.2); BILIRUBIN,TOTAL 0.5 MG/DL (0.2-1.0); BLOOD UREA NITROGEN 4 MG/DL (7-18); CALCIUM LEVEL 8.4 MG/DL (8.5-10.1); CARBON DIOXIDE LEVEL 27 MEQ/L (21-32); CHLORIDE LEVEL 110 MEQ/L (98-107); CK-MB VALUE MASS 2.3 NG/ML (<3.6); CPK CREATINE PHOSPHOKINASE 203 U/L (39-308); CREATININE FOR GFR 0.79 MG/DL (0.70-1.30); GLOMERULAR FILTRATION RATE > 60.0 (>60); GLUCOSE, FASTING 84 MG/DL (70-100); MB/CK RELATIVE INDEX 1.13 (< OR =4); POTASSIUM SERUM 3.9 MEQ/L (3.5-5.1); SODIUM LEVEL 142 MEQ/L (136-145); TOTAL PROTEIN 6.2 GM/DL (6.4-8.2); TROPONIN I < 0.02 NG/ML (< 0.10)
[2021-02-02 21:42] LABS: RSV AMPLIFICATION NEGATIVE (NEGATIVE)
[2021-02-02] MEDS ORDERED: ACETAMINOPHEN TAB 650MG DOSE (2X325MG) PO PRN (22:35)
[2021-02-02] MEDS ORDERED: MAALOX 30 ML SUSP *UDC PO PRN (22:35)
[2021-02-02] MEDS ORDERED: MOM 30ML SUSPENSION UDC PO PRN (22:35)
--- NOTE | 2021-02-02 22:36 | HPEPDOC ---
[facility] Medical History & Physical Date of Admission Feb 03, 2021 Date of Service: Feb 03, 2021 Primary Care Physician: Howard Frank Attending Physician: RICHAR BUCHANAN MD History and Physical TIME OF SERVICE: 1115PM CHIEF COMPLAINT: sent by physical therapist HISTORY OF PRESENT ILLNESS: This 40 yr old M had developed a right Bimalleolar fracture at the beginning of January which was initially managed conservatively but the patient continued to walk on the foot which dislodged the cast and underwent elective Right ankle open reduction and internal fixation, Syndesmosis reduction and definitive fixation & Right ankle spanning external fixator placement on January 30. His course was complicated by JAYLA and electrolyte abnormalities but he was sent home on January 31 with home PT. Today his physical therapist sent him back to the hospital; according to the patient he thinks the reason he was sent back is because it would be easier to perform PT if he is admitted to ARU. Per True Lynn the patient doesnt seem to be capable of taking care of himself right now. REVIEW OF SYSTEMS: 12-point review of systems negative except as listed in HPI PAST MEDICAL/ SURGICAL HISTORY: JAYLA Hypothyroidism PAVAN Essential HTN Schizoaffective disorder bipolar and depression. 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 FAMILY HISTORY: Both parents are , but he did not recall what their medical conditions were. He has 1 brother and 2 sisters. ALLERGIES: Please see below. HOME MEDICATIONS: Please see below. PHYSICAL EXAMINATION: Vital Signs Date Time Temp Pulse Resp B/P (MAP) Pulse Ox O2 Delivery O2 Flow Rate FiO2 02/02/21 15:42 97.0 80 20 112/63 (79) 99 Room Air GENERAL APPEARANCE: well-nourished and developed HEENT: EOMI CARDIOVASCULAR: RRR/NMRG LUNGS: CTAB on RA ABDOMEN: obese MUSCULOSKELETAL: right ankle wrapped in cast that appears to be unraveling INTEGUMENT: not flushed, pale or diaphoretic NEUROLOGICAL: speech not dysarthric PSYCHIATRIC: A&O / able to understand and follow all commands LABORATORY DATA: IMAGING: n/a MICROBIOLOGY: Coronavirus (COVID-19)(PCR) NEGATIVE, Influenza Type A (RT-PCR) N EGATIVE, Influenza Type B (RT-PCR) NEGATIVE, Respiratory Syncytial Virus (PCR) NEGATIVE ASSESSMENT: is a 40 yr old M w a hx of HTN, PAVAN, JAYLA, Hypothyroidism, NIDDM, obesity, Schizoaffective disorder, bipolar disorder w depression who recently underwent surgery to manage a bimalleolar fx after failing to comply w instructions not to walk with a splint on; he was sent back to the ER by his physical therapist to complete rehab at ARU. PLAN: Bimalleolar fx POD #5 Plan: admit to medical floor pending ARU screen / Hydrocodone/Acetaminophen 2 JAYLA Plan: Ferrous Gluconate , Sucralfate / has apt this month with Dr Bhatti for colonoscopy and EGD 3 Hypothyroidism Plan: Levothyroxine 4 Essential HTN Plan: Metoprolol 5 NIDDM Plan: DM diet / FSBS / SSI / hypoglycemia protocol / Metformin 6 Asthma ? / COPD ? Montelukast, Salmeterol/Fluticasone / Albuterol 7 Schizoaffective disorder / Bipolar disorder w depression Plan: Clozapine, Fluoxetine ? Lamotrigine 8 DLP Plan: Atorvastatin 9 PAVAN Plan: CPAP [id number] 10 Morbid obesity /metabolic syndrome Complicates care DVT px w SCDs Dispo: ARU after at least 2 midnights stay Home Medications Scheduled Aspirin (Aspirin EC) 81 Mg Tablet., 81 MG PO DAILY Atorvastatin Calcium (Atorvastatin Calcium) 40 Mg Tablet, 40 MG PO QHS Clozapine (Clozapine) 50 Mg Tab, 50 MG PO BID Ergocalciferol (Vitamin D2) (Vitamin D2) 50,000 Units Cap, 50,000 UNITS PO QWEEK TUESDAYS Exenatide Microspheres (Bydureon Bcise) 2 Mg/0.85 Ml Auto.injct, 2 MG SC QWEEK SUNDAYS Ferrous Gluconate (Ferrous Gluconate) 324 Mg Tablet, 324 MG PO DAILY Fluoxetine Hcl (Fluoxetine HCl) 20 Mg Cap, 20 MG PO DAILY Fluticasone Propionate (Flonase Allergy Relief) 50 Mcg/Act Spr, 1 SPRAY NA BID Icosapent Ethyl (Vascepa) 1 Gm Capsule, 2 GM PO BID Lamotrigine (Lamotrigine) 100 Mg Tab, 100 MG PO BID Levothyroxine Sodium (Levoxyl) 150 Mcg Tablet, 150 MCG PO DAILY Loratadine (Loratadine) 10 Mg Tab, 10 MG PO DAILY Magnesium Oxide (Magnesium Oxide) 400 Mg Tablet, 400 MG PO BID Metformin HCl (Metformin HCl ER) 500 Mg Tab.er.24h, 500 MG PO BID Metoprolol Tartrate (Lopressor) 50 Mg Tab, 50 MG PO BID Montelukast Sodium (Montelukast Sodium) 10 Mg Tablet, 10 MG PO DAILY Multivitamins (Thera M Plus Tablet) 1 Tab Tab, 1 TAB PO DAILY Omeprazole (Omeprazole) 40 Mg Capsule.dr, 40 MG PO DAILY Salmeterol/Fluticasone (Advair 500-50 Diskus) 1 Each Blst.w.dev, 1 PUFF INH BID Sucralfate (Sucralfate) 1 Gm Tablet, 1 GM PO QID Umeclidinium [place] (Incruse Ellipta) 62.5 Mcg Blst.w.dev, 1 PUFF INH DAILY Scheduled PRN Acetaminophen (Tylenol Arthritis) 650 Mg Tablet.er, 650 MG PO Q8H PRN for MILD/MODERATE PAIN (PS 1-7) Albuterol Sulfate (Proair Hfa) 108 Mcg/Act Aer, 2 PUFF INH Q4H PRN for SHORTNESS OF BREATH Hydrocodone/Acetaminophen (Hydrocodone-Acetamin 5-325 mg) 1 Each Tablet, 1 TAB PO Q8H PRN for SEVERE PAIN (PS 8-10) Allergies Coded Allergies: benztropine (Verified Adverse Reaction, Intermediate, LOCKS JAW, 02/03/21) A-FIB/CHADSVASC A-FIB History Current/History of A-Fib/PAF?: No Current PO Anticoag Therapy: No RICHAR BUCHANAN MD Feb 02, 2021 22:36
[2021-02-03] MEDS ORDERED: MAGN400T3 PO (00:51)
[2021-02-03] MEDS ORDERED: FERR32TA PO (00:51)
[2021-02-03] MEDS ORDERED: METF-838 PO (00:51)
[2021-02-03] MEDS ORDERED: HYDR-4571 PO (00:51)
[2021-02-03] MEDS ORDERED: ACET650T61 PO (00:51)
[2021-02-03] MEDS: METOPROLOL TART 50 MG TAB PO SCH ×2 (01:50→09:12)
[2021-02-03] MEDS: lamoTRIgine 100MG TAB PO SCH ×2 (01:50→09:14)
[2021-02-03] MEDS: FLUTICASONE PROP 0.05% NASAL SPRAY 16 GM (FLONASE) SCH ×2 (01:50→09:00)
[2021-02-03] MEDS ORDERED: ADVAIR HFA 230/21MCG INHALER INH SCH (01:50)
[2021-02-03] MEDS: cloZAPine 25 MG TAB (S0136) PO SCH ×2 (01:50→09:11)
[2021-02-03] MEDS: MAGNESIUM OXIDE 400MG TAB (MAG-OX) PO SCH ×2 (01:50→09:12)
[2021-02-03] MEDS ORDERED: IPRATROPIUM HFA INHALER 12.9 GRAMS (ATROVENT HFA) INH SCH (01:50)
[2021-02-03] MEDS ORDERED: ATORVASTATIN 20 MG TAB PO SCH (01:50)
[2021-02-03] MEDS ORDERED: ALBUTEROL 90 MCG/ACT 8GM HFA INHALER INH PRN (01:50)
[2021-02-03 02:00] VITALS: BP 108/87
[2021-02-03] MEDS ORDERED: GLUCAGON INJ 1MG VIAL SC PRN (02:25)
[2021-02-03] MEDS ORDERED: GLUCOSE 4GM CHEW TABLET PO PRN (02:25)
[2021-02-03] MEDS ORDERED: NORCO, ANEXSIA 5/325MG TABLET (HYDROcodone/ACETAMINOPHEN) PO PRN (02:25)
[2021-02-03] MEDS ORDERED: DEXTROSE 50% 50 ML SYRINGE IV PRN (02:25)
[2021-02-03] MEDS: SUCRALFATE 1 GM TAB PO SCH ×3 (03:12→13:44)
[2021-02-03 06:00] VITALS: BP 116/85
[2021-02-03] MEDS: HumaLOG INSULIN (NovoLOG) PER UNIT SC SCH ×2 (07:30→12:00)
[2021-02-03 08:00] LABS: HEMATOCRIT 27.8 % (42.0-52.0); HEMOGLOBIN 8.5 g/dl (13.5-17.5); MEAN CORPUSCULAR HEMOGLOBIN 26.6 pg (27.0-33.0); MEAN CORPUSCULAR HGB CONC 30.6 g/dl (32.0-36.5); MEAN CORPUSCULAR VOLUME 87.1 fl (80.0-96.0); PLATELET COUNT, AUTOMATED 249 10^3/uL (150-450); RED BLOOD COUNT 3.19 10^6/uL (4.30-6.10)
[2021-02-03 08:27] LABS: BLOOD UREA NITROGEN 5 MG/DL (7-18); CALCIUM LEVEL 7.9 MG/DL (8.5-10.1); CARBON DIOXIDE LEVEL 24 MEQ/L (21-32); CHLORIDE LEVEL 111 MEQ/L (98-107); GLOMERULAR FILTRATION RATE > 60.0 (>60); GLUCOSE, FASTING 76 MG/DL (70-100); POTASSIUM SERUM 3.6 MEQ/L (3.5-5.1); SODIUM LEVEL 142 MEQ/L (136-145)
[2021-02-03 08:45] VITALS: BP 157/84
[2021-02-03] MEDS ORDERED: LEVOTHYROXINE 150MCG TABLET (0.15MG) PO SCH (09:00)
[2021-02-03] MEDS ORDERED: LORATADINE 10 MG TAB PO SCH (09:00)
[2021-02-03] MEDS ORDERED: FLUoxetine 20 MG CAP PO SCH (09:00)
[2021-02-03] MEDS ORDERED: PANTOPRAZOLE 40MG TAB (PROTONIX) PO SCH (09:00)
[2021-02-03] MEDS ORDERED: MONTELUKAST 10 MG TAB PO SCH (09:00)
[2021-02-03] MEDS ORDERED: MULTIVITAMINS/MINERALS THERAP 1 TAB PO SCH (09:00)
[2021-02-03] MEDS ORDERED: metFORMIN XR 500MG TAB *GLUCOPHAGE XR PO SCH (09:00)
[2021-02-03] MEDS ORDERED: FERROUS GLUCONATE 324 MG TAB PO SCH (09:00)
[2021-02-03] MEDS ORDERED: ASPIRIN 81MG ENTERIC TABLET PO SCH (09:00)
[2021-02-03 09:12] VITALS: BP 157/84
--- NOTE | 2021-02-03 13:04 | ECGEPIP ---
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
[2021-02-03 14:00] VITALS: BP 123/83
[2021-02-03] MEDS ORDERED: HumaLOG INSULIN (NovoLOG) PER UNIT SC SCH (21:00)
--- NOTE | 2021-02-03 22:00 | DS.PDOC ---
Discharge Summary General Date of Admission Feb 02, 2021 at 22:33 Date of Discharge Feb 03, 2021 Discharge Summary PROCEDURES PERFORMED DURING STAY: None ADMITTING DIAGNOSES: 1. Bimalleolar fracture 2. Iron deficiency anemia 3. Hypothyroidism 4. Essential hypertension 5. Non-insulin dependent diabetes mellitus 6. Asthma/COPD 7. Schizoaffective disorder 8. Bipolar with depression 9. Dyslipidemia 10. PAVAN 11. Morbid obesity DISCHARGE DIAGNOSES: 1. Bimalleolar fracture 2. Iron deficiency anemia 3. Hypothyroidism 4. Essential hypertension 5. Non-insulin dependent diabetes mellitus 6. Asthma/COPD 7. Schizoaffective disorder 8. Bipolar with depression 9. Dyslipidemia 10. PAVAN 11. Morbid obesity COMPLICATIONS/CHIEF COMPLAINT: Bimalleolar Fracture Of R Ankle. HISTORY OF PRESENT ILLNESS: Mr. Cason is a 40 year old male with recent hospitalization for right bimalleolar fracture who was sent back to the hospital by physical therapy as patient is not capable of caring for self. Fracture initially occurred at the beginning of January. It was initially managed conservatively, but patient continued to walk on the foot. This dislodged the cast. On January 30, patient underwent elevate right ORIF, syndesmosis reduction, and definitive fication and right ankle spanning external fixator placement. He was sent home on January 31 with home PT. Physical therapist sent patient back to hospital. HOSPITAL COURSE: I saw him in the morning. He felt well. Denies chest pain, dyspnea, abdominal pain, or dysuria. He felt ready for rehab and was subsequently sent to ARU. DISCHARGE MEDICATIONS: Please see below. ALLERGIES: Please see below. PHYSICAL EXAMINATION ON DISCHARGE: VITAL SIGNS: Please see below. GENERAL: Comfortable, in no apparent distress HEENT: Head normocephalic, atraumatic NECK: Supple CARDIOVASCULAR EXAMINATION: Regular rate and rhythm RESPIRATORY EXAMINATION: Lungs clear to auscultation bilaterally ABDOMINAL EXAMINATION: Soft, non-tender, normal bowel sounds EXTREMITIES: Right foot wrapped in bandages NEUROLOGICAL EXAMINATION: CN 3-12 grossly intact PSYCHIATRIC EXAMINATION: Normal mood and affect LABORATORY DATA: Please see below. IMAGING: None PROGNOSIS: Good ACTIVITY: As tolerated. DIET: Consistent Carbohydrates DISCHARGE PLAN: ARU DISPOSITION: 02 Xfer To Acute Hosp. DISCHARGE INSTRUCTIONS: 1. Follow up with ARU provider 2. Follow up with your PCP after discharge from ARU 3. Follow up with orthopedic surgery in 2 weeks DISCHARGE CONDITION: Stable. Total time spent on discharge planning, discharge summary, and medication reconciliation: 40 minutes Vital Signs/I&Os Vital Signs Date Time Temp Pulse Resp B/P (MAP) Pulse Ox O2 Delivery O2 Flow Rate FiO2 02/03/21 14:00 97.0 85 20 123/83 (96) 99 Room Air I&O- Last 24 Hours up to 6 AM 02/03/21 06:00 Intake Total 200 ml Output Total 0 ml Balance 200 ml Laboratory Data Labs 24H Laboratory Tests 2 02/03/21 07:42: Nucleated Red Blood Cells % (auto) 0.0, Anion Gap 7L, Glomerular Filtration Rate > 60.0, Calcium Level 7.9L 02/03/21 11:33: Bedside Glucose (Misc Panel) 96 CBC/BMP Laboratory Tests 02/03/21 07:42 FSBS Laboratory Tests Test 02/03/21 11:33 Range/Units Bedside Glucose (Misc Panel) 96 70-105 MG/DL Discharge Medications Scheduled Aspirin (Aspirin EC) 81 Mg Tablet.dr, 81 MG PO DAILY, (Reported) Atorvastatin Calcium (Atorvastatin Calcium) 40 Mg Tablet, 40 MG PO QHS, (Reported) Clozapine (Clozapine) 50 Mg Tab, 50 MG PO BID, (Reported) Ergocalciferol (Vitamin D2) (Vitamin D2) 50,000 Units Cap, 50,000 UNITS PO QWEEK, (Reported) TUESDAYS Exenatide Microspheres (Bydureon Bcise) 2 Mg/0.85 Ml Auto.injct, 2 MG SC QWEEK, (Reported) SUNDAYS Ferrous Gluconate (Ferrous Gluconate) 324 Mg Tablet, 324 MG PO DAILY, (Reported) Fluoxetine Hcl (Fluoxetine HCl) 20 Mg Cap, 20 MG PO DAILY, (Reported) Fluticasone Propionate (Flonase Allergy Relief) 50 Mcg/Act Spr, 1 SPRAY NA BID, (Reported) Icosapent Ethyl (Vascepa) 1 Gm Capsule, 2 GM PO BID, (Reported) Lamotrigine (Lamotrigine) 100 Mg Tab, 100 MG PO BID, (Reported) Levothyroxine Sodium (Levoxyl) 150 Mcg Tablet, 150 MCG PO DAILY, (Reported) Loratadine (Loratadine) 10 Mg Tab, 10 MG PO DAILY, (Reported) Magnesium Oxide (Magnesium Oxide) 400 Mg Tablet, 400 MG PO BID, (Reported) Metformin HCl (Metformin HCl ER) 500 Mg Tab.er.24h, 500 MG PO BID, (Reported) Metoprolol Tartrate (Lopressor) 50 Mg Tab, 50 MG PO BID, (Reported) Montelukast Sodium (Montelukast Sodium) 10 Mg Tablet, 10 MG PO DAILY, (Reported) Multivitamins (Thera M Plus Tablet) 1 Tab Tab, 1 TAB PO DAILY, (Reported) Omeprazole (Omeprazole) 40 Mg Capsule.dr, 40 MG PO DAILY, (Reported) Salmeterol/Fluticasone (Advair 500-50 Diskus) 1 Each Blst.w.dev, 1 PUFF INH BID, (Reported) Sucralfate (Sucralfate) 1 Gm Tablet, 1 GM PO QID, (Reported) Umeclidinium [place] (Incruse Ellipta) 62.5 Mcg Blst.w.dev, 1 PUFF INH DAILY, (Reported) Scheduled PRN Acetaminophen (Tylenol Arthritis) 650 Mg Tablet.er, 650 MG PO Q8H PRN for MILD/MODERATE PAIN (PS 1-7), (Reported) Albuterol Sulfate (Proair Hfa) 108 Mcg/Act Aer, 2 PUFF INH Q4H PRN for SHORTNESS OF BREATH, (Reported) Hydrocodone/Acetaminophen (Hydrocodone-Acetamin 5-325 mg) 1 Each Tablet, 1 TAB PO Q8H PRN for SEVERE PAIN (PS 8-10), (Reported) Allergies Coded Allergies: benztropine (Verified Adverse Reaction, Intermediate, LOCKS JAW, 02/03/21) SERAFIN GRIFFITHS DO Feb 03, 2021 22:00
[2021-02-08] MEDS ORDERED: VITAMIN D 50,000 UNITS CAPSULE (ERGOCALCIFEROL 1.25MG) PO SCH (09:00)
== END 2021-02-03 16:00 | DRG 560 ==
LOC: M ED 15:42 → M ED INP 22:33 → ENRESERV 23:45 → M MS5PR 02-03 01:55
PROVIDERS: ADMIT Internal Medicine; ATTEND Internal Medicine
DX: S82.841D Displaced bimalleolar fracture of right lower leg, subsequent encounter for closed fracture with routine healing (principal); Z68.41 Body mass index [BMI] 40.0-44.9, adult; D50.9 Iron deficiency anemia, unspecified; E03.9 Hypothyroidism, unspecified; G47.33 Obstructive sleep apnea (adult) (pediatric); I10 Essential (primary) hypertension; F25.0 Schizoaffective disorder, bipolar type; E11.9 Type 2 diabetes mellitus without complications; E66.01 Morbid (severe) obesity due to excess calories; E78.5 Hyperlipidemia, unspecified; Z87.891 Personal history of nicotine dependence; E88.81 Metabolic syndrome and other insulin resistance; X58.XXXD Exposure to other specified factors, subsequent encounter; Y92.9 Unspecified place or not applicable; Z20.822 Contact with and (suspected) exposure to COVID-19; Z79.82 Long term (current) use of aspirin; Z79.899 Other long term (current) drug therapy; Z88.8 Allergy status to other drugs, medicaments and biological substances

== ENCOUNTER 2021-02-03 12:45 | Inpatient (IN) | payer MEDICARE, MEDICAID ==
[~2021-02-03] VITALS: Ht 167.6 cm; Wt 111.0 kg
[~2021-02-03 12:45] MED LIST changes: +HYDR-4571 PO; +MAGN400T3 PO
[2021-02-03] MEDS ORDERED: BISACODYL 10 MG SUPP PR PRN (14:00)
--- NOTE | 2021-02-03 14:05 | HPEPDOC ---
Desk Maker Note DATE OF ADMISSION: 02-03-21 DATE OF SERVICE: 02-03-21 TIME OF ADMISSION: Please refer to physician's admission order. SOURCE OF ADMISSION INFORMATION: [facility] record and patient CHIEF COMPLAINT:right ankle fracture HISTORY OF PRESENT ILLNESS: 40M pmh DM, obesity, schizoaffective bipolar, Hypothyroid, PAVAN, HTN, iron deficiency anemia who fell fractured his ankle requiring ORIF performed on 01-30-21 with external fixator. He was initially discharged hoe, but presented to [facility] ED on 02-03-21 complaining of weakness and inability to maintain NWB, requesting more intensive rehab. On admission he was noted to be anemic with plan made for outpatient endoscopic work-up with Dr. Bhatti. He was evaluated by therapy, noted to have mobility and ADL impairments below his prior level of function and deemed medically appropriate for discharge to ARU. REVIEW OF SYSTEMS: The following is a completed review of systems and has been reviewed. Review of systems otherwise unremarkable. PAIN: Patient self reports no pain EYES: No recent vision changes EARS, NOSE, & THROAT: No throat pain, or dysphagia, or rhinorrhea CARDIOVASCULAR: Denies chest pain or palpitations PULMONARY: Denies shortness of breath GASTROINTESTINAL: Denies constipation/diarrhea. GENITOURINARY: denies dysuria MUSCULOSKELETAL: right ankle fracture NEUROLOGICAL:denies tremor HEMATOLOGICAL: denies easy bruising SKIN: right ankle surgery incision PSYCHIATRIC: Unremarkable All other review of systems found to be negative. PAST MEDICAL HISTORY: as per HPI PAST SURGICAL HISTORY: as per HPI and tonsillectomy ALLERGIES: Please see below. MEDICATIONS: Please see below. SOCIAL HISTORY: Lives in [facility] facility, former smoker and drug use, former etoh DIET: consistent carb PHYSICAL EXAMINATION: VITAL SIGNS: Please see below. GENERAL: Pleasant and cooperative. No acute distress. HEENT: [PERRL. Extraocular movements intact. Clear conjunctiva CARDIOVASCULAR: Regular rate and rhythm. No murmurs, rubs, or gallops LUNGS: scattered wheeze ABDOMEN: Soft, nontender, nondistended. Positive bowel sounds. Normal active bowel sounds NEUROLOGICAL: Alert and oriented times three. Cranial nerves II through XII grossly intact. Sensation grossly intact EXTREMITIES: 5\5 strength bilateral upper extremities. 5\5 strength right hip flexor and knee extension, able to wiggle toes (limited due to ankle surgery). LLE edema LABORATORY DATA: Please see below. IMAGING:Imaging documentation personally reviewed by record FUNCTIONAL STATUS: Premorbid: Independent with all activities of daily life as well as mobility On Admission: stand-by assist to moderate assist for ambulation, functional transfers, dressing, bed mobility GOALS: Mod-I for ambulation, functional transfers, dressing, bed mobility, bathing ASSESSMENT:40-year-old M with past medical history of DM, HTN, schizoaffective bipolar who presents status post right ankle fracture with ORIF PLAN: 1. Rehab- PT/OT advance mobility and ADLs, emphasize upper body and core strengthening to better maintain NWB to RLE 2. Ortho s/p right ankle ORIF 01-30-21, NWB, monitor for infection, f/u ortho outpatient 3. Cardiac- metabolic syndrome with HTN c/u ASA and BP meds, adjust prn -HLD-c/u statin -medicine consulted to assist in overall management 4. Resp- hx of COPD c/u Singulair, Advair, and duonebs prn -PAVAN- nocturnal 02 while inhouse -monitor for infection 5. Endo- hx of hypothyroidism c/u synthroid -DM c/u metformin and ISS 6. Psych- schizoaffective bipolar d/o- c/u clozapine, prozac, and lamictal 7. GI ppx- protonix and sucralfate -f/u Dr. Bhatti as outpatient 8. Pain- tylenol and oxycodone 9. Heme- iron deficiency anemia, c/u supplement 10. DVT ppx- lovenox 11. Dispo- TBD POST ADMISSION PHYSICIAN EVALUATION: Medical and functional status: Description of medical status, medical assessment: As above. Rehabilitation diagnosis and current and prior cold morbid medical conditions as above. Risk of complications and plans to mitigate them as above. Description of functional status current status is as above. Prior status as above. Status compared to preadmission: There are no clinically significant differences between the patient's current status and the information described on the preadmission screening document. Treatment plan anticipated: Treatment plan is as described above. Required disciplines including physical therapy, occupational therapy, others as noted above Intensity of services: 3 hours a day, 6 days a week. Special considerations: There are no specific special or safety considerations that would likely preclude immediate implementation of an intensive rehabilitation program or subsequently influence the plan of care. ATTESTATION: Considering all the information above, it is my best judgment that this patient requires intensive rehabilitation therapy as described above and an inpatient hospital environment due to the complexity of nursing, medical, and rehabilitation needs required by the patient. Furthermore, this patient can reasonably be expected to participate in an benefit from an inpatient rehabilitation stay with an interdisciplinary team approach to the delivery of r ehabilitation care under the direction and supervision of rehabilitation physician. PROGNOSIS: good ESTIMATED LENGTH OF STAY:10-14 days. PROJECTED DISCHARGE DESTINATION: Home with family support and any durable medical equipment required to increase functional safety and mobility. TIME SPENT COUNSELING AND COORDINATING INITIAL CARE: Greater than 70 minutes. Vital Signs Vital Signs Date Time Temp Pulse Resp B/P (MAP) Pulse Ox O2 Delivery O2 Flow Rate FiO2 02/03/21 16:00 97.9 93 18 137/87 (104) 99 Room Air Home Medications Scheduled Aspirin (Aspirin EC) 81 Mg Tablet.dr, 81 MG PO DAILY, (Reported) Atorvastatin Calcium (Atorvastatin Calcium) 40 Mg Tablet, 40 MG PO QHS, (Reported) Clozapine (Clozapine) 50 Mg Tab, 50 MG PO BID, (Reported) Ergocalciferol (Vitamin D2) (Vitamin D2) 50,000 Units Cap, 50,000 UNITS PO QWEE K, (Reported) TUESDAYS Exenatide Microspheres (Bydureon Bcise) 2 Mg/0.85 Ml Auto.injct, 2 MG SC QWEEK, (Reported) SUNDAYS Ferrous Gluconate (Ferrous Gluconate) 324 Mg Tablet, 324 MG PO DAILY, (Reported) Fluoxetine Hcl (Fluoxetine HCl) 20 Mg Cap, 20 MG PO DAILY, (Reported) Fluticasone Propionate (Flonase Allergy Relief) 50 Mcg/Act Spr, 1 SPRAY NA BID, (Reported) Icosapent Ethyl (Vascepa) 1 Gm Capsule, 2 GM PO BID, (Reported) Lamotrigine (Lamotrigine) 100 Mg Tab, 100 MG PO BID, (Reported) Levothyroxine Sodium (Levoxyl) 150 Mcg Tablet, 150 MCG PO DAILY, (Reported) Loratadine (Loratadine) 10 Mg Tab, 10 MG PO DAILY, (Reported) Magnesium Oxide (Magnesium Oxide) 400 Mg Tablet, 400 MG PO BID, (Reported) Metformin HCl (Metformin HCl ER) 500 Mg Tab.er.24h, 500 MG PO BID, (Reported) Metoprolol Tartrate (Lopressor) 50 Mg Tab, 50 MG PO BID, (Reported) Montelukast Sodium (Montelukast Sodium) 10 Mg Tablet, 10 MG PO DAILY, (Reported) Multivitamins (Thera M Plus Tablet) 1 Tab Tab, 1 TAB PO DAILY, (Reported) Omeprazole (Omeprazole) 40 Mg Capsule.dr, 40 MG PO DAILY, (Reported) Salmeterol/Fluticasone (Advair 500-50 Diskus) 1 Each Blst.w.dev, 1 PUFF INH BID, (Reported) Sucralfate (Sucralfate) 1 Gm Tablet, 1 GM PO QID, (Reported) Umeclidinium [place] (Incruse Ellipta) 62.5 Mcg Blst.w.dev, 1 PUFF INH DAILY, (Reported) Scheduled PRN Acetaminophen (Tylenol Arthritis) 650 Mg Tablet.er, 650 MG PO Q8H PRN for MILD/MODERATE PAIN (PS 1-7), (Reported) Albuterol Sulfate (Proair Hfa) 108 Mcg/Act Aer, 2 PUFF INH Q4H PRN for SHORTNESS OF BREATH, (Reported) Hydrocodone/Acetaminophen (Hydrocodone-Acetamin 5-325 mg) 1 Each Tablet, 1 TAB PO Q8H PRN for SEVERE PAIN (PS 8-10), (Reported) Allergies Coded Allergies: benztropine (Verified Adverse Reaction, Intermediate, LOCKS JAW, 02/03/21) A-FIB/CHADSVASC A-FIB History Current/History of A-Fib/PAF?: No Current PO Anticoag Therapy: No SIMRAN LOWERY MD Feb 03, 2021 14:05
[2021-02-03 16:00] VITALS: BP 137/87
[2021-02-03] MEDS: REMEDY PHYTOPLEX Z-GUARD PASTE 113GM TUBE (FROM STOREROOM PRODUCT) TOP SCH ×2 (16:00→22:37)
[2021-02-03] MEDS: ACETAMINOPHEN 500 MG TAB PO SCH ×2 (16:00→22:36)
[2021-02-03] MEDS: SUCRALFATE 1 GM TAB PO SCH ×2 (17:30→22:34)
[2021-02-03] MEDS ORDERED: IPRATROPIUM 0.5MG/ALBUTEROL 2.5MG INH SOL UD 3ML (DUONEB) NEB PRN (18:25)
[2021-02-03] MEDS: IPRATROPIUM HFA INHALER 12.9 GRAMS (ATROVENT HFA) INH SCH (20:00)
[2021-02-03] MEDS ORDERED: IPRATROPIUM 0.5MG/ALBUTEROL 2.5MG INH SOL UD 3ML (DUONEB) NEB SCH (20:00)
[2021-02-03] MEDS: ADVAIR HFA 230/21MCG INHALER INH SCH (20:00)
[2021-02-03 20:15] VITALS: BP 136/76
[2021-02-03] MEDS: metFORMIN XR 500MG TAB *GLUCOPHAGE XR PO SCH (22:34)
[2021-02-03] MEDS: DOCUSATE SODIUM 100MG CAPSULE PO SCH (22:34)
[2021-02-03] MEDS: cloZAPine 25 MG TAB (S0136) PO SCH (22:34)
[2021-02-03] MEDS: ATORVASTATIN 20 MG TAB PO SCH (22:35)
[2021-02-03] MEDS: lamoTRIgine 100MG TAB PO SCH (22:35)
[2021-02-03] MEDS: METOPROLOL TART 50 MG TAB PO SCH (22:35)
[2021-02-03] MEDS: SENNA 8.6 MG TAB (SENOKOT) PO SCH (22:36)
[2021-02-03] MEDS: MAGNESIUM OXIDE 400MG TAB (MAG-OX) PO SCH (22:36)
[2021-02-03] MEDS: FLUTICASONE PROP 0.05% NASAL SPRAY 16 GM (FLONASE) NARES SCH (22:37)
[2021-02-04] MEDS: LEVOTHYROXINE 150MCG TABLET (0.15MG) PO SCH (06:06)
[2021-02-04 06:36] VITALS: BP 135/74
[2021-02-04] MEDS: IPRATROPIUM HFA INHALER 12.9 GRAMS (ATROVENT HFA) INH SCH ×2 (07:27→20:00)
[2021-02-04] MEDS: ADVAIR HFA 230/21MCG INHALER INH SCH ×2 (07:27→20:00)
[2021-02-04 08:12] LABS: BASO # 0.1 10^3/uL (0.0-0.2); BASO % 1.3 % (0.0-1.0); EOS # 0.3 10^3/uL (0.0-0.5); EOS % 5.3 % (0.0-3.0); HEMATOCRIT 26.3 % (42.0-52.0); HEMOGLOBIN 8.2 g/dl (13.5-17.5); LYMPH # 1.6 10^3/uL (1.5-5.0); MEAN CORPUSCULAR HEMOGLOBIN 27.1 pg (27.0-33.0); MEAN CORPUSCULAR HGB CONC 31.2 g/dl (32.0-36.5); MEAN CORPUSCULAR VOLUME 86.8 fl (80.0-96.0); MONO # 0.4 10^3/uL (0.0-0.8); MONO % 7.6 % (2.0-8.0); NEUTROPHILS # 2.9 10^3/uL (1.5-8.5); NEUTROPHILS % 55.4 % (36.0-66.0); PLATELET COUNT, AUTOMATED 219 10^3/uL (150-450); RED BLOOD COUNT 3.03 10^6/uL (4.30-6.10); WHITE BLOOD COUNT 5.3 10^3/uL (4.0-10.0)
[2021-02-04] MEDS: ASPIRIN 81MG ENTERIC TABLET PO SCH (08:16)
[2021-02-04] MEDS: MONTELUKAST 10 MG TAB PO SCH (08:16)
[2021-02-04] MEDS: FLUoxetine 20 MG CAP PO SCH (08:17)
[2021-02-04] MEDS: metFORMIN XR 500MG TAB *GLUCOPHAGE XR PO SCH ×2 (08:17→21:29)
[2021-02-04] MEDS: PANTOPRAZOLE 40MG TAB (PROTONIX) PO SCH (08:17)
[2021-02-04] MEDS: FERROUS GLUCONATE 324 MG TAB PO SCH (08:17)
[2021-02-04] MEDS: DOCUSATE SODIUM 100MG CAPSULE PO SCH ×2 (08:17→21:27)
[2021-02-04] MEDS: ACETAMINOPHEN 500 MG TAB PO SCH ×3 (08:17→21:29)
[2021-02-04] MEDS: MAGNESIUM OXIDE 400MG TAB (MAG-OX) PO SCH ×2 (08:17→21:27)
[2021-02-04] MEDS: cloZAPine 25 MG TAB (S0136) PO SCH ×2 (08:18→21:27)
[2021-02-04] MEDS: FLUTICASONE PROP 0.05% NASAL SPRAY 16 GM (FLONASE) NARES SCH ×2 (08:18→21:27)
[2021-02-04] MEDS: ENOXAPARIN 40MG/0.4ML SYRINGE (J1650 PER 10MG) SC SCH (08:18)
[2021-02-04] MEDS: MULTIVITAMINS/MINERALS THERAP 1 TAB PO SCH (08:18)
[2021-02-04] MEDS: lamoTRIgine 100MG TAB PO SCH ×2 (08:18→21:28)
[2021-02-04] MEDS: METOPROLOL TART 50 MG TAB PO SCH ×2 (08:18→21:28)
[2021-02-04] MEDS: REMEDY PHYTOPLEX Z-GUARD PASTE 113GM TUBE (FROM STOREROOM PRODUCT) TOP SCH ×3 (08:19→21:00)
[2021-02-04] MEDS: SUCRALFATE 1 GM TAB PO SCH ×4 (08:20→21:28)
[2021-02-04 08:46] LABS: ALBUMIN 2.4 GM/DL (3.2-5.2); ALT/SGPT 17 U/L (12-78); BILIRUBIN,TOTAL 0.3 MG/DL (0.2-1.0); BLOOD UREA NITROGEN 7 MG/DL (7-18); CALCIUM LEVEL 8.1 MG/DL (8.5-10.1); CARBON DIOXIDE LEVEL 28 MEQ/L (21-32); CHLORIDE LEVEL 110 MEQ/L (98-107); CREATININE FOR GFR 0.74 MG/DL (0.70-1.30); GLOMERULAR FILTRATION RATE > 60.0 (>60); GLUCOSE, FASTING 74 MG/DL (70-100); POTASSIUM SERUM 3.5 MEQ/L (3.5-5.1); SODIUM LEVEL 142 MEQ/L (136-145); TOTAL PROTEIN 5.3 GM/DL (6.4-8.2)
--- NOTE | 2021-02-04 10:03 | REP ---
INDICATION: wheeze, ro infiltrate. COMPARISON: 01/22/2020 TECHNIQUE: Two views FINDINGS: The superior mediastinal structures are midline. The cardiac silhouette is unremarkable in size, shape, and position. The diaphragmatic surfaces of the lungs are regular, and the costophrenic angles are clear. The pulmonary nguyễn are clear. The imaged osseous structures are intact. IMPRESSION: There is no acute cardiopulmonary disease. <Electronically signed by Igor Franco > 02/04/21 0959
[2021-02-04 14:00] VITALS: BP 122/65
--- NOTE | 2021-02-04 16:36 | IPNPDOC ---
Subjective Date Seen The patient was seen on 02/04/21. Subjective Chief Complaint/HPI Mr. Cason is a 40 year old male with recent hospitalization for right bimalleolar fracture who was sent back to the hospital by physical therapy as patient was not able to care for self at home. He was seen this afternoon watching TV. He feels well. Denies any chest pain or dyspnea. He had a good first day of rehab. Objective Physical Examination General Exam: Positive: Alert, Cooperative Eye Exam: Positive: EOMI; Negative: Sclera icteric ENT Exam: Positive: Atraumatic Neck Exam: Positive: Supple Chest Exam: Positive: Other (Coarse, but not in any distress) Heart Exam: Positive: Rate Normal, Regular Rhythm Abdomen Exam: Positive: Normal bowel sounds, Soft; Negative: Tenderness Extremity Exam: Positive: Other (Right foot wrapped in bandages) Neuro Exam: Positive: Normal Speech Psych Exam: Positive: Mental status NL, Mood NL Assessment /Plan Assessment Mr. Cason is a 40 year old male with recent hospitalization for right bimalleolar fracture who was sent back to the hospital by physical therapy as patient was not able to care for self at home. He will need to continue physical therapy. He will need to follow up with orthopedic surgery further recommendations on his right bimalleolar fracture. He has an appointment on 02/10/2021 Plan/VTE VTE Prophylaxis Ordered?: Yes Plan 1. Bimalleolar fracture -Right ankle ORIF, syndesmosis reduction and fixation, and right ankle spanning external fixator by Dr. Schwartz on 01/30/2021 -Orthopedic appointment on 02/10/2021 -Continue rehab 2. Iron deficiency anemia -Continue iron supplementation 3. Hypothyroidism -Continue Levothyroxine 4. Essential hypertension -Continue metoprolol tartrate 5. Non-insulin dependent diabetes mellitus -Continue antidiabetic regimen 6. Asthma/COPD -Continue Advair and duonebs 7. Schizoaffective disorder -Continue Clozapine 8. Bipolar disorder -Continue lamotrigine 9. Dyslipidemia -Continue atorvastatin 10. PAVAN -Nocturnal NC 11. Morbid obesity -BMI 44.5 -Complicates care 12. DVT ppx -Lovenox Disposition: Per ARU provider VS, I&O, 24H, Fishbone Vital Signs/I&O Vital Signs Date Time Temp Pulse Resp B/P (MAP) Pulse Ox O2 Delivery O2 Flow Rate FiO2 02/04/21 14:00 96.7 76 20 122/65 (84) 99 Room Air I&O- Last 24 Hours up to 6 AM 02/04/21 06:00 Intake Total 480 ml Balance 480 ml Laboratory Data 24H LABS Laboratory Tests 2 02/03/21 17:13: Bedside Glucose (Misc Panel) 88 02/03/21 21:26: Bedside Glucose (Misc Panel) 87 02/04/21 06:47: Bedside Glucose (Misc Panel) 86 02/04/21 07:28: Immature Granulocyte % (Auto) 0.4, Neutrophils (%) (Auto) 55.4, Lymphocytes (%) (Auto) 30.0, Monocytes (%) (Auto) 7.6, Eosinophils (%) (Auto) 5.3H, Basophils (%) (Auto) 1.3H, Neutrophils # (Auto) 2.9, Lymphocytes # (Auto) 1.6, Monocytes # (Auto) 0.4, Eosinophils # (Auto) 0.3, Basophils # (Auto) 0.1, Nucleated Red Blood Cells % (auto) 0.0, Anion Gap 4L, Glomerular Filtration Rate > 60.0, Williams cium Level 8.1L, Total Bilirubin 0.3, Aspartate Amino Transf (AST/SGOT) 20, Alanine Aminotransferase (ALT/SGPT) 17, Alkaline Phosphatase 124H, Total Protein 5.3L, Albumin 2.4L, Albumin/Globulin Ratio 0.8 02/04/21 11:21: Bedside Glucose (Misc Panel) 85 CBC/BMP Laboratory Tests 02/04/21 07:28 SERAFIN GRIFFITHS DO Feb 04, 2021 16:36
[2021-02-04 20:26] VITALS: BP 119/66
[2021-02-04] MEDS: LORATADINE 10 MG TAB PO SCH (21:28)
[2021-02-04] MEDS: ATORVASTATIN 20 MG TAB PO SCH (21:28)
[2021-02-04] MEDS: SENNA 8.6 MG TAB (SENOKOT) PO SCH (21:29)
--- NOTE | 2021-02-04 22:13 | IPNPDOC ---
PM&R Progress Note DATE OF SERVICE: Feb 04, 2021 Valve Mechanic Progress Note Subjective: Patient stating he feels good today and denies having cough or difficulty breathing. He denies having ankle pain. REVIEW OF SYSTEMS: The following is a completed review of systems and has been reviewed. Review of systems otherwise unremarkable. PAIN: Patient self reports no pain EYES: No recent vision changes EARS, NOSE, & THROAT: No throat pain, or dysphagia, or rhinorrhea CARDIOVASCULAR: Denies chest pain or palpitations PULMONARY: Denies shortness of breath GASTROINTESTINAL: Denies constipation/diarrhea. GENITOURINARY: denies dysuria MUSCULOSKELETAL: right ankle fracture NEUROLOGICAL:denies tremor HEMATOLOGICAL: denies easy bruising SKIN: right ankle surgery incision PSYCHIATRIC: Unremarkable All other review of systems found to be negative. PHYSICAL EXAMINATION: VITAL SIGNS: Please see below. GENERAL: Pleasant and cooperative. No acute distress. HEENT: [PERRL. Extraocular movements intact. Clear conjunctiva CARDIOVASCULAR: Regular rate and rhythm. No murmurs, rubs, or gallops LUNGS: scattered wheeze ABDOMEN: Soft, nontender, nondistended. Positive bowel sounds. Normal active bowel sounds NEUROLOGICAL: Alert and oriented times three. Cranial nerves II through XII grossly intact. Sensation grossly intact EXTREMITIES: 5\5 strength bilateral upper extremities. 5\5 strength right hip flexor and knee extension, able to wiggle toes (limited due to ankle surgery). LLE edema ASSESSMENT:40-year-old M with past medical history of DM, HTN, schizoaffective bipolar who presents status post right ankle fracture with ORIF PLAN: 1. Rehab- PT/OT advance mobility and ADLs, emphasize upper body and core strengthening to better maintain NWB to RLE 2. Ortho s/p right ankle ORIF 01-30-21, NWB, monitor for infection, f/u ortho outpatient 3. Cardiac- metabolic syndrome with HTN c/u ASA and BP meds, will add lasix given edema on exam -HLD-c/u statin -medicine consulted to assist in overall management 4. Resp- hx of COPD c/u Singulair, Advair, and duonebs prn -PAVAN- nocturnal 02 while inhouse -persistent wheeze on exma, will order CXR 5. Endo- hx of hypothyroidism c/u synthroid -DM c/u metformin and ISS 6. Psych- schizoaffective bipolar d/o- c/u clozapine, prozac, and lamictal 7. GI ppx- protonix and sucralfate -f/u Dr. Bhatti as outpatient 8. Pain- tylenol and oxycodone 9. Heme- iron deficiency anemia, c/u supplement 10. DVT ppx- lovenox -will order dopplers to r/o DVT given LE swelling 11. Dispo- TBD Allergies Coded Allergies: benztropine (Verified Adverse Reaction, Intermediate, LOCKS JAW, 02/03/21) Vital Signs Vital Signs Date Time Temp Pulse Resp B/P (MAP) Pulse Ox O2 Delivery O2 Flow Rate FiO2 02/04/21 21:28 68 119/66 02/04/21 20:26 96.2 20 96 Room Air Laboratory Data CBC/BMP Laboratory Tests 02/04/21 07:28 Labs 24H Laboratory Tests 2 02/04/21 06:47: Bedside Glucose (Misc Panel) 86 02/04/21 07:28: Immature Granulocyte % (Auto) 0.4, Neutrophils (%) (Auto) 55.4, Lymphocytes (%) (Auto) 30.0, Monocytes (%) (Auto) 7.6, Eosinophils (%) (Auto) 5.3H, Basophils (%) (Auto) 1.3H, Neutrophils # (Auto) 2.9, Lymphocytes # (Auto) 1.6, Monocytes # (Auto) 0.4, Eosinophils # (Auto) 0.3, Basophils # (Auto) 0.1, Nucleated Red Blood Cells % (auto) 0.0, Anion Gap 4L, Glomerular Filtration Rate > 60.0, Calcium Level 8.1L, Total Bilirubin 0.3, Aspartate Amino Transf (AST/SGOT) 20, Alanine Aminotransferase (ALT/SGPT) 17, Alkaline Phosphatase 124H, Total Protein 5.3L, Albumin 2.4L, Albumin/Globulin Ratio 0.8 02/04/21 11:21: Bedside Glucose (Misc Panel) 85 02/04/21 16:25: Bedside Glucose (Misc Panel) 78 02/04/21 20:34: Bedside Glucose (Misc Panel) 97 Current Medications Current Medications Current Medications Medications (Trade) Dose Ordered Sig/Buster Route PRN Reason Start Time Stop Time Status Last Admin Dose Admin Acetaminophen (Tylenol Tab) 1,000 mg TID PO 02/03/21 16:00 02/04/21 21:29 Albuterol/ Ipratropium (Duoneb (Ipr 0.5mg/Alb 2.5mg)) 3 ml RTID NEB 02/03/21 20:00 02/03/21 18:22 DC Albuterol/ Ipratropium (Duoneb (Ipr 0.5mg/Alb 2.5mg)) 3 ml TIDP PRN NEB SHORTNESS OF BREATH 02/03/21 18:25 Aspirin (Ecotrin) 81 mg DAILY PO 02/04/21 09:00 02/04/21 08:16 Atorvastatin Calcium (Lipitor) 40 mg QHS PO 02/03/21 21:00 02/04/21 21:28 Bisacodyl (Dulcolax Suppository) 10 mg DAILYPRN PRN [place] CONSTIPATION 02/03/21 14:00 Clozapine (Clozaril) 50 mg BID PO 02/03/21 21:00 02/04/21 21:27 Docusate Sodium (Colace) 100 mg BID PO 02/03/21 21:00 02/04/21 21:27 Enoxaparin Sodium (Lovenox) 40 mg DAILY SC 02/04/21 09:00 02/04/21 08:18 Ferrous Gluconate (Fergon) 324 mg DAILY PO 02/04/21 09:00 02/04/21 08:17 Fluoxetine HCl (PROzac) 20 mg DAILY PO 02/04/21 09:00 02/04/21 08:17 Fluticasone Propionate (Flonase 0.05% Nasal [place]) 1 spray BID NARES 02/03/21 21:00 02/04/21 21:27 Home Med (Med Rec Complete!) ASDIRECTED XX 02/03/21 17:25 02/03/21 17:29 DC Ipratropium [place] (Atrovent Hfa) 2 puff RBID INH 02/03/21 20:00 02/04/21 20:00 Lamotrigine (LaMICtal) 100 mg BID PO 02/03/21 21:00 02/04/21 21:28 Levothyroxine Sodium (Synthroid) 150 mcg DAILY@06 PO 02/04/21 06:00 02/04/21 06:06 Loratadine (Claritin) 10 mg QHS PO 02/04/21 21:00 02/04/21 21:28 Magnesium Oxide (Mag-Ox) 400 mg BID PO 02/03/21 21:00 02/04/21 21:27 Metformin HCl (Glucophage Xr) 500 mg BID PO 02/03/21 21:00 02/04/21 21:29 Metoprolol Tartrate (Lopressor) 50 mg BID PO 02/03/21 21:00 02/04/21 21:28 Montelukast Sodium (Singulair) 10 mg DAILY PO 02/04/21 09:00 02/04/21 08:16 Multivitamins (Theragram-M) 1 tab DAILY PO 02/04/21 09:00 02/04/21 08:18 Pantoprazole Sodium (Protonix) 40 mg DAILY PO 02/04/21 09:00 02/04/21 08:17 Salmeterol Xinafoate/ Fluticasone (Advair Hfa 230/ 21) 2 puff RBID INH 02/03/21 20:00 02/04/21 20:00 Senna (Senokot) 1 tab QHS PO 02/03/21 21:00 02/04/21 21:29 Sucralfate (Carafate) 1 gm ACHS PO 02/03/21 17:30 02/04/21 21:28 Vitamin D (Drisdol) 50,000 units @09 PO 02/08/21 09:00 SIMRAN LOWERY MD Feb 04, 2021 22:13
[2021-02-05] MEDS: LEVOTHYROXINE 150MCG TABLET (0.15MG) PO SCH (05:45)
[2021-02-05 05:57] VITALS: BP 129/62
[2021-02-05] MEDS: IPRATROPIUM HFA INHALER 12.9 GRAMS (ATROVENT HFA) INH SCH ×2 (07:50→20:05)
[2021-02-05] MEDS: ADVAIR HFA 230/21MCG INHALER INH SCH ×2 (07:50→20:05)
--- NOTE | 2021-02-05 08:21 | REP ---
INDICATION: immobilitiy COMPARISON: None. TECHNIQUE: Panda scale and color Doppler evaluation right and left lower extremity using linear high frequency transducer. FINDINGS: Ultrasound examination of the right and left lower extremity deep venous structures from the common femoral vein to the popliteal vein demonstrates normal compressibility flow and wave patterns in response to respiration and augmentation. There is no evidence for deep venous thrombosis. Incidental duplicated mid femoral veins noted bilaterally. IMPRESSION: No evidence for deep venous thrombosis. <Electronically signed by Darrel Moreira > 02/05/21 0818
[2021-02-05 10:30] VITALS: BP 134/68
[2021-02-05] MEDS: lamoTRIgine 100MG TAB PO SCH ×2 (10:32→20:39)
[2021-02-05] MEDS: MONTELUKAST 10 MG TAB PO SCH (10:32)
[2021-02-05] MEDS: MULTIVITAMINS/MINERALS THERAP 1 TAB PO SCH (10:32)
[2021-02-05] MEDS: MAGNESIUM OXIDE 400MG TAB (MAG-OX) PO SCH ×2 (10:32→20:38)
[2021-02-05] MEDS: ASPIRIN 81MG ENTERIC TABLET PO SCH (10:32)
[2021-02-05] MEDS: metFORMIN XR 500MG TAB *GLUCOPHAGE XR PO SCH ×2 (10:32→20:38)
[2021-02-05] MEDS: ACETAMINOPHEN 500 MG TAB PO SCH ×3 (10:33→20:40)
[2021-02-05] MEDS: cloZAPine 25 MG TAB (S0136) PO SCH ×2 (10:33→20:39)
[2021-02-05] MEDS: FUROSEMIDE 20 MG TAB PO SCH (10:33)
[2021-02-05] MEDS: DOCUSATE SODIUM 100MG CAPSULE PO SCH ×2 (10:33→20:41)
[2021-02-05] MEDS: SUCRALFATE 1 GM TAB PO SCH ×4 (10:34→20:38)
[2021-02-05] MEDS: FLUoxetine 20 MG CAP PO SCH (10:34)
[2021-02-05] MEDS: PANTOPRAZOLE 40MG TAB (PROTONIX) PO SCH (10:34)
[2021-02-05] MEDS: FERROUS GLUCONATE 324 MG TAB PO SCH (10:34)
[2021-02-05] MEDS: ENOXAPARIN 40MG/0.4ML SYRINGE (J1650 PER 10MG) SC SCH (10:35)
[2021-02-05] MEDS: REMEDY PHYTOPLEX Z-GUARD PASTE 113GM TUBE (FROM STOREROOM PRODUCT) TOP SCH ×3 (10:35→20:42)
[2021-02-05] MEDS: FLUTICASONE PROP 0.05% NASAL SPRAY 16 GM (FLONASE) NARES SCH ×2 (10:36→20:41)
[2021-02-05] MEDS: METOPROLOL TART 50 MG TAB PO SCH ×2 (10:40→20:40)
[2021-02-05 14:00] VITALS: BP 126/70
[2021-02-05 20:00] VITALS: BP 152/69
[2021-02-05] MEDS: ATORVASTATIN 20 MG TAB PO SCH (20:40)
[2021-02-05] MEDS: SENNA 8.6 MG TAB (SENOKOT) PO SCH (20:41)
[2021-02-05] MEDS: LORATADINE 10 MG TAB PO SCH (20:48)
[2021-02-06 05:34] VITALS: BP 154/79
[2021-02-06] MEDS: LEVOTHYROXINE 150MCG TABLET (0.15MG) PO SCH (06:36)
[2021-02-06] MEDS: ADVAIR HFA 230/21MCG INHALER INH SCH ×2 (07:24→20:18)
[2021-02-06] MEDS: IPRATROPIUM HFA INHALER 12.9 GRAMS (ATROVENT HFA) INH SCH ×2 (07:26→20:18)
[2021-02-06] MEDS: REMEDY PHYTOPLEX Z-GUARD PASTE 113GM TUBE (FROM STOREROOM PRODUCT) TOP SCH ×3 (09:00→20:47)
[2021-02-06 09:20] VITALS: BP 165/84
[2021-02-06] MEDS: ENOXAPARIN 40MG/0.4ML SYRINGE (J1650 PER 10MG) SC SCH (09:22)
[2021-02-06] MEDS: MULTIVITAMINS/MINERALS THERAP 1 TAB PO SCH (09:22)
[2021-02-06] MEDS: FERROUS GLUCONATE 324 MG TAB PO SCH (09:23)
[2021-02-06] MEDS: FUROSEMIDE 20 MG TAB PO SCH (09:23)
[2021-02-06] MEDS: MAGNESIUM OXIDE 400MG TAB (MAG-OX) PO SCH ×2 (09:23→20:45)
[2021-02-06] MEDS: PANTOPRAZOLE 40MG TAB (PROTONIX) PO SCH (09:23)
[2021-02-06] MEDS: MONTELUKAST 10 MG TAB PO SCH (09:23)
[2021-02-06] MEDS: DOCUSATE SODIUM 100MG CAPSULE PO SCH ×2 (09:23→20:47)
[2021-02-06] MEDS: FLUoxetine 20 MG CAP PO SCH (09:23)
[2021-02-06] MEDS: ASPIRIN 81MG ENTERIC TABLET PO SCH (09:23)
[2021-02-06] MEDS: cloZAPine 25 MG TAB (S0136) PO SCH ×2 (09:23→20:45)
[2021-02-06] MEDS: metFORMIN XR 500MG TAB *GLUCOPHAGE XR PO SCH ×2 (09:23→20:45)
[2021-02-06] MEDS: ACETAMINOPHEN 500 MG TAB PO SCH ×3 (09:25→20:46)
[2021-02-06] MEDS: FLUTICASONE PROP 0.05% NASAL SPRAY 16 GM (FLONASE) NARES SCH ×2 (09:25→20:47)
[2021-02-06] MEDS: lamoTRIgine 100MG TAB PO SCH ×2 (09:26→20:45)
[2021-02-06] MEDS: METOPROLOL TART 50 MG TAB PO SCH ×2 (09:27→20:46)
[2021-02-06] MEDS: SUCRALFATE 1 GM TAB PO SCH ×4 (09:28→20:44)
[2021-02-06 14:00] VITALS: BP 145/69
[2021-02-06 20:00] VITALS: BP 124/72
[2021-02-06] MEDS: ATORVASTATIN 20 MG TAB PO SCH (20:44)
[2021-02-06] MEDS: LORATADINE 10 MG TAB PO SCH (20:45)
[2021-02-06] MEDS: SENNA 8.6 MG TAB (SENOKOT) PO SCH (20:47)
[2021-02-07] MEDS: LEVOTHYROXINE 150MCG TABLET (0.15MG) PO SCH (06:05)
[2021-02-07 06:16] VITALS: BP 134/73
[2021-02-07 06:39] LABS: BASO # 0.1 10^3/uL (0.0-0.2); BASO % 1.1 % (0.0-1.0); EOS # 0.3 10^3/uL (0.0-0.5); EOS % 6.7 % (0.0-3.0); HEMATOCRIT 24.1 % (42.0-52.0); HEMOGLOBIN 7.5 g/dl (13.5-17.5); LYMPH # 1.5 10^3/uL (1.5-5.0); LYMPH % 31.9 % (24.0-44.0); MEAN CORPUSCULAR HEMOGLOBIN 26.9 pg (27.0-33.0); MEAN CORPUSCULAR HGB CONC 31.1 g/dl (32.0-36.5); MEAN CORPUSCULAR VOLUME 86.4 fl (80.0-96.0); MONO # 0.4 10^3/uL (0.0-0.8); MONO % 7.8 % (2.0-8.0); NEUTROPHILS # 2.4 10^3/uL (1.5-8.5); NEUTROPHILS % 51.6 % (36.0-66.0); PLATELET COUNT, AUTOMATED 194 10^3/uL (150-450); RED BLOOD COUNT 2.79 10^6/uL (4.30-6.10); WHITE BLOOD COUNT 4.6 10^3/uL (4.0-10.0)
[2021-02-07 06:54] LABS: BLOOD UREA NITROGEN 8 MG/DL (7-18); CALCIUM LEVEL 8.7 MG/DL (8.5-10.1); CARBON DIOXIDE LEVEL 30 MEQ/L (21-32); CHLORIDE LEVEL 106 MEQ/L (98-107); CREATININE FOR GFR 0.96 MG/DL (0.70-1.30); GLOMERULAR FILTRATION RATE > 60.0 (>60); GLUCOSE, FASTING 84 MG/DL (70-100); POTASSIUM SERUM 3.3 MEQ/L (3.5-5.1); SODIUM LEVEL 142 MEQ/L (136-145)
[2021-02-07] MEDS: IPRATROPIUM HFA INHALER 12.9 GRAMS (ATROVENT HFA) INH SCH ×2 (07:15→20:00)
[2021-02-07] MEDS: ADVAIR HFA 230/21MCG INHALER INH SCH ×2 (07:15→20:00)
[2021-02-07] MEDS: REMEDY PHYTOPLEX Z-GUARD PASTE 113GM TUBE (FROM STOREROOM PRODUCT) TOP SCH ×3 (09:00→21:00)
[2021-02-07] MEDS: MONTELUKAST 10 MG TAB PO SCH (10:02)
[2021-02-07] MEDS: cloZAPine 25 MG TAB (S0136) PO SCH ×2 (10:02→21:21)
[2021-02-07] MEDS: metFORMIN XR 500MG TAB *GLUCOPHAGE XR PO SCH ×2 (10:02→21:21)
[2021-02-07] MEDS: ASPIRIN 81MG ENTERIC TABLET PO SCH (10:02)
[2021-02-07] MEDS: FERROUS GLUCONATE 324 MG TAB PO SCH (10:03)
[2021-02-07] MEDS: METOPROLOL TART 50 MG TAB PO SCH ×2 (10:04→21:20)
[2021-02-07] MEDS: DOCUSATE SODIUM 100MG CAPSULE PO SCH ×2 (10:05→21:00)
[2021-02-07] MEDS: MULTIVITAMINS/MINERALS THERAP 1 TAB PO SCH (10:05)
[2021-02-07] MEDS: MAGNESIUM OXIDE 400MG TAB (MAG-OX) PO SCH ×2 (10:05→21:19)
[2021-02-07] MEDS: FLUoxetine 20 MG CAP PO SCH (10:05)
[2021-02-07] MEDS: ACETAMINOPHEN 500 MG TAB PO SCH ×3 (10:05→21:22)
[2021-02-07] MEDS: FUROSEMIDE 20 MG TAB PO SCH (10:05)
[2021-02-07] MEDS: SUCRALFATE 1 GM TAB PO SCH ×4 (10:09→21:22)
[2021-02-07] MEDS: lamoTRIgine 100MG TAB PO SCH ×2 (10:10→21:20)
[2021-02-07] MEDS: PANTOPRAZOLE 40MG TAB (PROTONIX) PO SCH (10:10)
[2021-02-07] MEDS: ENOXAPARIN 40MG/0.4ML SYRINGE (J1650 PER 10MG) SC SCH (10:11)
[2021-02-07] MEDS: FLUTICASONE PROP 0.05% NASAL SPRAY 16 GM (FLONASE) NARES SCH ×2 (10:11→21:00)
[2021-02-07] MEDS ORDERED: POTASSIUM CHLORIDE 10 MEQ SR TABLET PO ONE (10:15)
[2021-02-07 14:00] VITALS: BP 125/65
[2021-02-07 14:24] LABS: HEMATOCRIT 26.9 % (42.0-52.0); HEMOGLOBIN 8.1 g/dl (13.5-17.5)
[2021-02-07 21:00] VITALS: BP 125/65
[2021-02-07] MEDS: SENNA 8.6 MG TAB (SENOKOT) PO SCH (21:00)
[2021-02-07] MEDS: ATORVASTATIN 20 MG TAB PO SCH (21:18)
[2021-02-07] MEDS: LORATADINE 10 MG TAB PO SCH (21:22)
[2021-02-08] MEDS: LEVOTHYROXINE 150MCG TABLET (0.15MG) PO SCH (05:36)
[2021-02-08 06:00] VITALS: BP 136/81
[2021-02-08 07:22] LABS: BLOOD UREA NITROGEN 9 MG/DL (7-18); CALCIUM LEVEL 8.4 MG/DL (8.5-10.1); CARBON DIOXIDE LEVEL 28 MEQ/L (21-32); CHLORIDE LEVEL 107 MEQ/L (98-107); CREATININE FOR GFR 0.77 MG/DL (0.70-1.30); GLOMERULAR FILTRATION RATE > 60.0 (>60); GLUCOSE, FASTING 85 MG/DL (70-100); POTASSIUM SERUM 3.5 MEQ/L (3.5-5.1); SODIUM LEVEL 141 MEQ/L (136-145)
[2021-02-08] MEDS: IPRATROPIUM HFA INHALER 12.9 GRAMS (ATROVENT HFA) INH SCH ×2 (07:39→19:35)
[2021-02-08] MEDS: ADVAIR HFA 230/21MCG INHALER INH SCH ×2 (07:39→19:35)
[2021-02-08] MEDS: FLUoxetine 20 MG CAP PO SCH (09:10)
[2021-02-08] MEDS: SUCRALFATE 1 GM TAB PO SCH ×4 (09:10→21:37)
[2021-02-08] MEDS: FERROUS GLUCONATE 324 MG TAB PO SCH (09:10)
[2021-02-08] MEDS: ASPIRIN 81MG ENTERIC TABLET PO SCH (09:11)
[2021-02-08] MEDS: PANTOPRAZOLE 40MG TAB (PROTONIX) PO SCH (09:11)
[2021-02-08] MEDS: lamoTRIgine 100MG TAB PO SCH ×2 (09:11→21:39)
[2021-02-08] MEDS: FUROSEMIDE 20 MG TAB PO SCH (09:11)
[2021-02-08] MEDS: MULTIVITAMINS/MINERALS THERAP 1 TAB PO SCH (09:11)
[2021-02-08] MEDS: cloZAPine 25 MG TAB (S0136) PO SCH ×2 (09:11→21:39)
[2021-02-08] MEDS: metFORMIN XR 500MG TAB *GLUCOPHAGE XR PO SCH ×2 (09:11→21:38)
[2021-02-08] MEDS: ACETAMINOPHEN 500 MG TAB PO SCH ×3 (09:12→21:37)
[2021-02-08] MEDS: MAGNESIUM OXIDE 400MG TAB (MAG-OX) PO SCH ×2 (09:12→21:38)
[2021-02-08] MEDS: METOPROLOL TART 50 MG TAB PO SCH ×2 (09:12→21:39)
[2021-02-08] MEDS: ENOXAPARIN 40MG/0.4ML SYRINGE (J1650 PER 10MG) SC SCH (09:15)
[2021-02-08] MEDS: FLUTICASONE PROP 0.05% NASAL SPRAY 16 GM (FLONASE) NARES SCH ×2 (09:21→21:00)
[2021-02-08] MEDS: VITAMIN D 50,000 UNITS CAPSULE (ERGOCALCIFEROL 1.25MG) PO SCH (09:22)
[2021-02-08] MEDS: MONTELUKAST 10 MG TAB PO SCH (09:22)
[2021-02-08] MEDS: DOCUSATE SODIUM 100MG CAPSULE PO SCH ×2 (09:22→21:00)
[2021-02-08] MEDS: REMEDY PHYTOPLEX Z-GUARD PASTE 113GM TUBE (FROM STOREROOM PRODUCT) TOP SCH ×3 (09:23→21:00)
[2021-02-08 14:00] VITALS: BP 124/74
[2021-02-08 21:00] VITALS: BP 150/83
[2021-02-08] MEDS: SENNA 8.6 MG TAB (SENOKOT) PO SCH (21:00)
[2021-02-08] MEDS: LORATADINE 10 MG TAB PO SCH (21:38)
[2021-02-08] MEDS: ATORVASTATIN 20 MG TAB PO SCH (21:39)
[2021-02-09] MEDS: LEVOTHYROXINE 150MCG TABLET (0.15MG) PO SCH (05:51)
[2021-02-09 06:00] VITALS: BP 138/81
[2021-02-09 06:57] LABS: BASO # 0.1 10^3/uL (0.0-0.2); BASO % 1.2 % (0.0-1.0); EOS # 0.4 10^3/uL (0.0-0.5); EOS % 6.4 % (0.0-3.0); HEMATOCRIT 25.8 % (42.0-52.0); HEMOGLOBIN 8.1 g/dl (13.5-17.5); LYMPH # 1.9 10^3/uL (1.5-5.0); LYMPH % 33.7 % (24.0-44.0); MEAN CORPUSCULAR HEMOGLOBIN 27.3 pg (27.0-33.0); MEAN CORPUSCULAR HGB CONC 31.4 g/dl (32.0-36.5); MEAN CORPUSCULAR VOLUME 86.9 fl (80.0-96.0); MONO # 0.5 10^3/uL (0.0-0.8); MONO % 8.2 % (2.0-8.0); NEUTROPHILS # 2.8 10^3/uL (1.5-8.5); NEUTROPHILS % 49.6 % (36.0-66.0); PLATELET COUNT, AUTOMATED 244 10^3/uL (150-450); RED BLOOD COUNT 2.97 10^6/uL (4.30-6.10); WHITE BLOOD COUNT 5.6 10^3/uL (4.0-10.0)
[2021-02-09 07:28] LABS: BLOOD UREA NITROGEN 9 MG/DL (7-18); CALCIUM LEVEL 8.6 MG/DL (8.5-10.1); CARBON DIOXIDE LEVEL 32 MEQ/L (21-32); CHLORIDE LEVEL 105 MEQ/L (98-107); CREATININE FOR GFR 0.79 MG/DL (0.70-1.30); GLOMERULAR FILTRATION RATE > 60.0 (>60); GLUCOSE, FASTING 82 MG/DL (70-100); POTASSIUM SERUM 3.9 MEQ/L (3.5-5.1); SODIUM LEVEL 141 MEQ/L (136-145)
[2021-02-09] MEDS: SUCRALFATE 1 GM TAB PO SCH ×4 (07:30→22:57)
[2021-02-09] MEDS: ADVAIR HFA 230/21MCG INHALER INH SCH ×2 (07:39→20:49)
[2021-02-09] MEDS: IPRATROPIUM HFA INHALER 12.9 GRAMS (ATROVENT HFA) INH SCH ×2 (07:39→20:49)
[2021-02-09] MEDS: ACETAMINOPHEN 500 MG TAB PO SCH ×3 (09:00→21:34)
[2021-02-09] MEDS: cloZAPine 25 MG TAB (S0136) PO SCH ×2 (09:46→21:34)
[2021-02-09] MEDS: MONTELUKAST 10 MG TAB PO SCH (09:46)
[2021-02-09] MEDS: FERROUS GLUCONATE 324 MG TAB PO SCH (09:46)
[2021-02-09] MEDS: metFORMIN XR 500MG TAB *GLUCOPHAGE XR PO SCH ×2 (09:46→22:57)
[2021-02-09] MEDS: MULTIVITAMINS/MINERALS THERAP 1 TAB PO SCH (09:46)
[2021-02-09] MEDS: lamoTRIgine 100MG TAB PO SCH ×2 (09:46→21:34)
[2021-02-09] MEDS: FLUoxetine 20 MG CAP PO SCH (09:46)
[2021-02-09] MEDS: METOPROLOL TART 50 MG TAB PO SCH ×2 (09:47→21:33)
[2021-02-09] MEDS: PANTOPRAZOLE 40MG TAB (PROTONIX) PO SCH (09:47)
[2021-02-09] MEDS: ASPIRIN 81MG ENTERIC TABLET PO SCH (09:48)
[2021-02-09] MEDS: MAGNESIUM OXIDE 400MG TAB (MAG-OX) PO SCH ×2 (09:48→21:34)
[2021-02-09] MEDS: ENOXAPARIN 40MG/0.4ML SYRINGE (J1650 PER 10MG) SC SCH (09:48)
[2021-02-09] MEDS: DOCUSATE SODIUM 100MG CAPSULE PO SCH ×2 (09:49→21:00)
[2021-02-09] MEDS: REMEDY PHYTOPLEX Z-GUARD PASTE 113GM TUBE (FROM STOREROOM PRODUCT) TOP SCH ×3 (09:50→22:58)
[2021-02-09] MEDS: FUROSEMIDE 20 MG TAB PO SCH (09:50)
[2021-02-09] MEDS: FLUTICASONE PROP 0.05% NASAL SPRAY 16 GM (FLONASE) NARES SCH ×2 (09:51→22:57)
[2021-02-09 14:00] VITALS: BP 158/67
[2021-02-09 20:00] VITALS: BP 136/71
[2021-02-09] MEDS: SENNA 8.6 MG TAB (SENOKOT) PO SCH (21:00)
--- NOTE | 2021-02-09 21:02 | IPNPDOC ---
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 He acknowledges his left leg is swollen and agrees tro try fluid restriction. He denies any new pain in his right ankle. REVIEW OF SYSTEMS: The following is a completed review of systems and has been reviewed. Review of systems otherwise unremarkable. PAIN: Patient self reports no pain EYES: No recent vision changes EARS, NOSE, & THROAT: No throat pain, or dysphagia, or rhinorrhea CARDIOVASCULAR: Denies chest pain or palpitations PULMONARY: Denies shortness of breath GASTROINTESTINAL: Denies constipation/diarrhea. GENITOURINARY: denies dysuria MUSCULOSKELETAL: right ankle fracture NEUROLOGICAL:denies tremor HEMATOLOGICAL: denies easy bruising SKIN: right ankle surgery incision PSYCHIATRIC: Unremarkable All other review of systems found to be negative. PHYSICAL EXAMINATION: VITAL SIGNS: Please see below. GENERAL: Pleasant and cooperative. No acute distress. HEENT: [PERRL. Extraocular movements intact. Clear conjunctiva CARDIOVASCULAR: Regular rate and rhythm. No murmurs, rubs, or gallops LUNGS: scattered wheeze ABDOMEN: Soft, nontender, nondistended. Positive bowel sounds. Normal active bowel sounds NEUROLOGICAL: Alert and oriented times three. Cranial nerves II through XII grossly intact. Sensation grossly intact EXTREMITIES: 5\5 strength bilateral upper extremities. 5\5 strength right hip flexor and knee extension, able to wiggle toes (limited due to ankle surgery). LLE edema ASSESSMENT:40-year-old M with past medical history of DM, HTN, schizoaffective bipolar who presents status post right ankle fracture with ORIF PLAN: 1. Rehab- PT/OT advance mobility and ADLs, emphasize upper body and core strengthening to better maintain NWB to RLE 2. Ortho s/p right ankle ORIF 01-30-21, NWB, monitor for infection, f/u ortho outpatient 3. Cardiac- metabolic syndrome with HTN c/u ASA and BP meds, will increase lasix to 40mg daily and start fluid restriction -HLD-c/u statin -medicine consulted to assist in overall management 4. Resp- hx of COPD c/u Singulair, Advair, and duonebs prn -PAVAN- nocturnal 02 while inhouse -persistent wheeze on exma, will order CXR 5. Endo- hx of hypothyroidism c/u synthroid -DM c/u metformin and ISS 6. Psych- schizoaffective bipolar d/o- c/u clozapine, prozac, and lamictal 7. GI ppx- protonix and sucralfate -f/u Dr. Gresham for scheduled 02-10-21, will attempt to get transport to office, if not will ask surgeon to come inhouse to advise on continuation of external fixator 8. Pain- tylenol and oxycodone 9. Heme- iron deficiency anemia , c/u supplement 10. DVT ppx- lovenox -dopplers negative for DVT 11. Dispo- TBD Allergies Coded Allergies: benztropine (Verified Adverse Reaction, Intermediate, LOCKS JAW, 02/03/21) Vital Signs Vital Signs Date Time Temp Pulse Resp B/P (MAP) Pulse Ox O2 Delivery O2 Flow Rate FiO2 02/09/21 14:00 97.4 85 20 158/67 (97) 97 Room Air 02/09/21 06:00 2.0 Laboratory Data CBC/BMP Laboratory Tests 02/09/21 06:03 Labs 24H Laboratory Tests 2 02/09/21 06:03: Immature Granulocyte % (Auto) 0.9, Neutrophils (%) (Auto) 49.6, Lymphocytes (%) (Auto) 33.7, Monocytes (%) (Auto) 8.2H, Eosinophils (%) (Auto) 6.4H, Basophils ( %) (Auto) 1.2H, Neutrophils # (Auto) 2.8, Lymphocytes # (Auto) 1.9, Monocytes # (Auto) 0.5, Eosinophils # (Auto) 0.4, Basophils # (Auto) 0.1, Nucleated Red Blood Cells % (auto) 0.0, Anion Gap 4L, Glomerular Filtration Rate > 60.0, Calcium Level 8.6 02/09/21 19:59: Bedside Glucose (Misc Panel) 92 Current Medications Current Medications Current Medications Medications (Trade) Dose Ordered Sig/Buster Route PRN Reason Start Time Stop Time Status Last Admin Dose Admin Acetaminophen (Tylenol Tab) 1,000 mg TID PO 02/03/21 16:00 02/09/21 16:42 Albuterol/ Ipratropium (Duoneb (Ipr 0.5mg/Alb 2.5mg)) 3 ml RTID NEB 02/03/21 20:00 02/03/21 18:22 DC Albuterol/ Ipratropium (Duoneb (Ipr 0.5mg/Alb 2.5mg)) 3 ml TIDP PRN NEB SHORTNESS OF BREATH 02/03/21 18:25 Aspirin (Ecotrin) 81 mg DAILY PO 02/04/21 09:00 02/09/21 09:48 Atorvastatin Calcium (Lipitor) 40 mg QHS PO 02/03/21 21:00 02/08/21 21:39 Bisacodyl (Dulcolax Suppository) 10 mg DAILYPRN PRN [place] CONSTIPATION 02/03/21 14:00 Clozapine (Clozaril) 50 mg BID PO 02/03/21 21:00 02/09/21 09:46 Docusate Sodium (Colace) 100 mg BID PO 02/03/21 21:00 02/09/21 09:49 Enoxaparin Sodium (Lovenox) 40 mg DAILY SC 02/04/21 09:00 02/09/21 09:48 Ferrous Gluconate (Fergon) 324 mg DAILY PO 02/04/21 09:00 02/09/21 09:46 Fluoxetine HCl (PROzac) 20 mg DAILY PO 02/04/21 09:00 02/09/21 09:46 Fluticasone Propionate (Flonase 0.05% Nasal [place]) 1 spray BID NARES 02/03/21 21:00 02/09/21 09:51 Furosemide (Lasix) 20 mg DAILY PO 02/05/21 09:00 02/09/21 09:50 Home Med (Med Rec Complete!) ASDIRECTED XX 02/03/21 17:25 02/03/21 17:29 DC Ipratropium [place] (Atrovent Hfa) 2 puff RBID INH 02/03/21 20:00 02/09/21 20:49 Lamotrigine (LaMICtal) 100 mg BID PO 02/03/21 21:00 02/09/21 09:46 Levothyroxine Sodium (Synthroid) 150 mcg DAILY@06 PO 02/04/21 06:00 02/09/21 05:51 Loratadine (Claritin) 10 mg QHS PO 02/04/21 21:00 02/08/21 21:38 Magnesium Oxide (Mag-Ox) 400 mg BID PO 02/03/21 21:00 02/09/21 09:48 Metformin HCl (Glucophage Xr) 500 mg BID PO 02/03/21 21:00 02/09/21 09:46 Metoprolol Tartrate (Lopressor) 25 mg BID PO 02/05/21 09:00 02/09/21 09:47 Metoprolol Tartrate (Lopressor) 50 mg BID PO 02/03/21 21:00 02/04/21 22:11 DC 02/04/21 21:28 Montelukast Sodium (Singulair) 10 mg DAILY PO 02/04/21 09:00 02/09/21 09:46 Multivitamins (Theragram-M) 1 tab DAILY PO 02/04/21 09:00 02/09/21 09:46 Pantoprazole Sodium (Protonix) 40 mg DAILY PO 02/04/21 09:00 02/09/21 09:47 Salmeterol Xinafoate/ Fluticasone (Advair Hfa 230/ ) 2 puff RBID INH 02/03/21 20:00 02/09/21 20:49 Senna (Senokot) 1 tab QHS PO 02/03/21 21:00 02/04/21 21:29 Sucralfate (Carafate) 1 gm ACHS PO 02/03/21 17:30 02/09/21 16:42 Vitamin D (Drisdol) 50,000 units Tu@09 PO 02/08/21 09:00 02/08/21 09:22 SIMRAN LOWERY MD Feb 09, 2021 21:02
[2021-02-09] MEDS: LORATADINE 10 MG TAB PO SCH (22:57)
[2021-02-09] MEDS: ATORVASTATIN 20 MG TAB PO SCH (22:57)
[2021-02-10 05:32] VITALS: BP 142/80
[2021-02-10] MEDS: LEVOTHYROXINE 150MCG TABLET (0.15MG) PO SCH (06:13)
[2021-02-10] MEDS: ADVAIR HFA 230/21MCG INHALER INH SCH ×2 (07:38→20:22)
[2021-02-10] MEDS: IPRATROPIUM HFA INHALER 12.9 GRAMS (ATROVENT HFA) INH SCH ×2 (07:38→20:22)
[2021-02-10] MEDS: ASPIRIN 81MG ENTERIC TABLET PO SCH (08:54)
[2021-02-10] MEDS: MONTELUKAST 10 MG TAB PO SCH (08:54)
[2021-02-10] MEDS: ACETAMINOPHEN 500 MG TAB PO SCH ×3 (08:54→21:28)
[2021-02-10] MEDS: ENOXAPARIN 40MG/0.4ML SYRINGE (J1650 PER 10MG) SC SCH (08:57)
[2021-02-10] MEDS: SUCRALFATE 1 GM TAB PO SCH ×4 (08:57→21:28)
[2021-02-10] MEDS: cloZAPine 25 MG TAB (S0136) PO SCH ×2 (08:57→21:28)
[2021-02-10] MEDS: DOCUSATE SODIUM 100MG CAPSULE PO SCH ×2 (08:58→21:27)
[2021-02-10] MEDS: METOPROLOL TART 50 MG TAB PO SCH ×2 (08:58→21:27)
[2021-02-10] MEDS: lamoTRIgine 100MG TAB PO SCH ×2 (08:58→21:27)
[2021-02-10] MEDS: FERROUS GLUCONATE 324 MG TAB PO SCH (08:58)
[2021-02-10] MEDS: MULTIVITAMINS/MINERALS THERAP 1 TAB PO SCH (08:58)
[2021-02-10] MEDS: FLUoxetine 20 MG CAP PO SCH (08:58)
[2021-02-10] MEDS: MAGNESIUM OXIDE 400MG TAB (MAG-OX) PO SCH ×2 (08:59→21:28)
[2021-02-10] MEDS: metFORMIN XR 500MG TAB *GLUCOPHAGE XR PO SCH ×2 (08:59→21:27)
[2021-02-10] MEDS: FUROSEMIDE 40 MG TAB PO SCH (08:59)
[2021-02-10] MEDS: PANTOPRAZOLE 40MG TAB (PROTONIX) PO SCH (08:59)
[2021-02-10] MEDS: FLUTICASONE PROP 0.05% NASAL SPRAY 16 GM (FLONASE) NARES SCH ×2 (09:00→21:28)
[2021-02-10] MEDS: REMEDY PHYTOPLEX Z-GUARD PASTE 113GM TUBE (FROM STOREROOM PRODUCT) TOP SCH ×3 (09:00→21:29)
--- NOTE | 2021-02-10 10:48 | IPNPDOC ---
PM&R Progress Note DATE OF SERVICE: Feb 10, 2021 Crnp Progress Note Subjective: Patient reporting he feels well, has no complaints. States his left leg is usually swollen at home, but is a little worse today. REVIEW OF SYSTEMS: The following is a completed review of systems and has been reviewed. Review of systems otherwise unremarkable. PAIN: Patient self reports no pain EYES: No recent vision changes EARS, NOSE, & THROAT: No throat pain, or dysphagia, or rhinorrhea CARDIOVASCULAR: Denies chest pain or palpitations PULMONARY: Denies shortness of breath GASTROINTESTINAL: Denies constipation/diarrhea. GENITOURINARY: denies dysuria MUSCULOSKELETAL: right ankle fracture NEUROLOGICAL:denies tremor HEMATOLOGICAL: denies easy bruising SKIN: right ankle surgery incision PSYCHIATRIC: Unremarkable All other review of systems found to be negative. PHYSICAL EXAMINATION: VITAL SIGNS: Please see below. GENERAL: Pleasant and cooperative. No acute distress. HEENT: [PERRL. Extraocular movements intact. Clear conjunctiva CARDIOVASCULAR: Regular rate and rhythm. No murmurs, rubs, or gallops LUNGS: CTA ABDOMEN: Soft, nontender, nondistended. Positive bowel sounds. Normal active bowel sounds NEUROLOGICAL: Alert and oriented times three. Cranial nerves II through XII grossly intact. Sensation grossly intact EXTREMITIES: 5\5 strength bilateral upper extremities. 5\5 strength right hip flexor and knee extension, able to wiggle toes (limited due to ankle surgery). LLE edema ASSESSMENT:40-year-old M with past medical history of DM, HTN, schizoaffective bipolar who presents status post right ankle fracture with ORIF PLAN: 1. Rehab- PT/OT advance mobility and ADLs, emphasize upper body and core strengthening to better maintain NWB to RLE 2. Ortho s/p right ankle ORIF 01-30-21, NWB, monitor for infection, f/u ortho outpatient 3. Cardiac- metabolic syndrome with HTN c/u ASA and BP meds, c/u lasix to 40mg daily and fluid restriction -HLD-c/u statin -medicine consulted to assist in overall management 4. Resp- hx of COPD c/u Singulair, Advair, and duonebs prn -PAVAN- nocturnal 02 while inhouse -lungs improved, CXR negative 5. Endo- hx of hypothyroidism c/u synthroid -DM c/u metformin and ISS 6. Psych- schizoaffective bipolar d/o- c/u clozapine, prozac, and lamictal 7. GI ppx- protonix and sucralfate -f/u Dr. Gresham for scheduled 02-10-21, plan for surgeon to come inhouse to advise on continuation of external fixator 8. Pain- tylenol and oxycodone 9. Heme- iron deficiency anemia , c/u supplement 10. DVT ppx- lovenox -dopplers negative for DVT 11. Dispo- TBD Allergies Coded Allergies: benztropine (Verified Adverse Reaction, Intermediate, LOCKS JAW, 02/03/21) Vital Signs Vital Signs Date Time Temp Pulse Resp B/P (MAP) Pulse Ox O2 Delivery O2 Flow Rate FiO2 02/10/21 08:58 80 142/80 02/10/21 05:32 97.8 18 99 Nasal Cannula 2.0 Laboratory Data Labs 24H Laboratory Tests 2 02/09/21 19:59: Bedside Glucose (Misc Panel) 92 02/10/21 05:11: Bedside Glucose (Misc Panel) 86 Current Medications Current Medications Current Medications Medications (Trade) Dose Ordered Sig/Buster Route PRN Reason Start Time Stop Time Status Last Admin Dose Admin Acetaminophen (Tylenol Tab) 1,000 mg TID PO 02/03/21 16:00 02/10/21 08:54 Albuterol/ Ipratropium (Duoneb (Ipr 0.5mg/Alb 2.5mg)) 3 ml RTID NEB 02/03/21 20:00 02/03/21 18:22 DC Albuterol/ Ipratropium (Duoneb (Ipr 0.5mg/Alb 2.5mg)) 3 ml TIDP PRN NEB SHORTNESS OF BREATH 02/03/21 18:25 02/10/21 08:07 DC Aspirin (Ecotrin) 81 mg DAILY PO 02/04/21 09:00 02/10/21 08:54 Atorvastatin Calcium (Lipitor) 40 mg QHS PO 02/03/21 21:00 02/09/21 22:57 Bisacodyl (Dulcolax Suppository) 10 mg DAILYPRN PRN [place] CONSTIPATION 02/03/21 14:00 Clozapine (Clozaril) 50 mg BID PO 02/03/21 21:00 02/10/21 08:57 Docusate Sodium (Colace) 100 mg BID PO 02/03/21 21:00 02/10/21 08:58 Enoxaparin Sodium (Lovenox) 40 mg DAILY SC 02/04/21 09:00 02/10/21 08:57 Ferrous Gluconate (Fergon) 324 mg DAILY PO 02/04/21 09:00 02/10/21 08:58 Fluoxetine HCl (PROzac) 20 mg DAILY PO 02/04/21 09:00 02/10/21 08:58 Fluticasone Propionate (Flonase 0.05% Nasal [place]) 1 spray BID NARES 02/03/21 21:00 02/10/21 09:00 Furosemide (Lasix) 20 mg DAILY PO 02/05/21 09:00 02/09/21 21:02 DC 02/09/21 09:50 Furosemide (Lasix) 40 mg DAILY PO 02/10/21 09:00 02/10/21 08:59 Home Med (Med Rec Complete!) ASDIRECTED XX 02/03/21 17:25 02/03/21 17:29 DC Ipratropium [place] (Atrovent Hfa) 2 puff RBID INH 02/03/21 20:00 02/10/21 07:38 Lamotrigine (LaMICtal) 100 mg BID PO 02/03/21 21:00 02/10/21 08:58 Levothyroxine Sodium (Synthroid) 150 mcg DAILY@06 PO 02/04/21 06:00 02/10/21 06:13 Loratadine (Claritin) 10 mg QHS PO 02/04/21 21:00 02/09/21 22:57 Magnesium Oxide (Mag-Ox) 400 mg BID PO 02/03/21 21:00 02/10/21 08:59 Metformin HCl (Glucophage Xr) 500 mg BID PO 02/03/21 21:00 02/10/21 08:59 Metoprolol Tartrate (Lopressor) 25 mg BID PO 02/05/21 09:00 02/10/21 08:58 Metoprolol Tartrate (Lopressor) 50 mg BID PO 02/03/21 21:00 02/04/21 22:11 DC 02/04/21 21:28 Montelukast Sodium (Singulair) 10 mg DAILY PO 02/04/21 09:00 02/10/21 08:54 Multivitamins (Theragram-M) 1 tab DAILY PO 02/04/21 09:00 02/10/21 08:58 Pantoprazole Sodium (Protonix) 40 mg DAILY PO 02/04/21 09:00 02/10/21 08:59 Salmeterol Xinafoate/ Fluticasone (Advair Hfa / ) 2 puff RBID INH 02/03/21 20:00 02/10/21 07:38 Senna (Senokot) 1 tab QHS PO 02/03/21 21:00 02/04/21 21:29 Sucralfate (Carafate) 1 gm ACHS PO 02/03/21 17:30 02/10/21 08:57 Vitamin D (Drisdol) 50,000 units @09 PO 02/08/21 09:00 02/08/21 09:22 SIMRAN LOWERY MD Feb 10, 2021 10:48
[2021-02-10 12:00] VITALS: BP 138/62
[2021-02-10 14:00] VITALS: BP 137/76
[2021-02-10 20:00] VITALS: BP 158/81
[2021-02-10] MEDS: ATORVASTATIN 20 MG TAB PO SCH (21:27)
[2021-02-10] MEDS: LORATADINE 10 MG TAB PO SCH (21:27)
[2021-02-10] MEDS: SENNA 8.6 MG TAB (SENOKOT) PO SCH (21:27)
[2021-02-11 05:41] VITALS: BP 148/79
[2021-02-11] MEDS: LEVOTHYROXINE 150MCG TABLET (0.15MG) PO SCH (05:44)
[2021-02-11] MEDS: ADVAIR HFA 230/21MCG INHALER INH SCH ×2 (07:28→19:35)
[2021-02-11] MEDS: IPRATROPIUM HFA INHALER 12.9 GRAMS (ATROVENT HFA) INH SCH ×2 (07:28→19:34)
[2021-02-11 08:30] VITALS: BP 130/67
[2021-02-11] MEDS: ASPIRIN 81MG ENTERIC TABLET PO SCH (08:56)
[2021-02-11] MEDS: MULTIVITAMINS CHILDREN'S CHEWABLE TABLET PO SCH (08:57)
[2021-02-11] MEDS: lamoTRIgine 100MG TAB PO SCH ×2 (08:57→20:30)
[2021-02-11] MEDS: FERROUS GLUCONATE 324 MG TAB PO SCH (08:57)
[2021-02-11] MEDS: ACETAMINOPHEN 500 MG TAB PO SCH ×3 (08:57→20:30)
[2021-02-11] MEDS: METOPROLOL TART 50 MG TAB PO SCH ×2 (08:57→20:31)
[2021-02-11] MEDS: metFORMIN XR 500MG TAB *GLUCOPHAGE XR PO SCH ×2 (08:57→20:31)
[2021-02-11] MEDS: MONTELUKAST 10 MG TAB PO SCH (08:57)
[2021-02-11] MEDS: cloZAPine 25 MG TAB (S0136) PO SCH ×2 (08:58→20:30)
[2021-02-11] MEDS: FUROSEMIDE 40 MG TAB PO SCH (08:58)
[2021-02-11] MEDS: FLUoxetine 20 MG CAP PO SCH (08:58)
[2021-02-11] MEDS: MAGNESIUM OXIDE 400MG TAB (MAG-OX) PO SCH ×2 (08:58→20:30)
[2021-02-11] MEDS: PANTOPRAZOLE 40MG TAB (PROTONIX) PO SCH (08:58)
[2021-02-11] MEDS: DOCUSATE SODIUM 100MG CAPSULE PO SCH ×2 (08:58→20:33)
[2021-02-11] MEDS: REMEDY PHYTOPLEX Z-GUARD PASTE 113GM TUBE (FROM STOREROOM PRODUCT) TOP SCH ×3 (08:59→20:34)
[2021-02-11] MEDS: FLUTICASONE PROP 0.05% NASAL SPRAY 16 GM (FLONASE) NARES SCH ×2 (08:59→20:33)
[2021-02-11] MEDS: ENOXAPARIN 40MG/0.4ML SYRINGE (J1650 PER 10MG) SC SCH (08:59)
[2021-02-11] MEDS: SUCRALFATE SUSP 1GM/10ML UD PO SCH ×4 (09:02→20:30)
[2021-02-11 09:07] LABS: BASO # 0.1 10^3/uL (0.0-0.2); BASO % 1.1 % (0.0-1.0); EOS # 0.3 10^3/uL (0.0-0.5); EOS % 5.2 % (0.0-3.0); HEMATOCRIT 27.9 % (42.0-52.0); HEMOGLOBIN 8.2 g/dl (13.5-17.5); LYMPH # 1.2 10^3/uL (1.5-5.0); LYMPH % 22.1 % (24.0-44.0); MEAN CORPUSCULAR HEMOGLOBIN 26.2 pg (27.0-33.0); MEAN CORPUSCULAR HGB CONC 29.4 g/dl (32.0-36.5); MEAN CORPUSCULAR VOLUME 89.1 fl (80.0-96.0); MONO # 0.5 10^3/uL (0.0-0.8); MONO % 8.7 % (2.0-8.0); NEUTROPHILS # 3.4 10^3/uL (1.5-8.5); NEUTROPHILS % 60.8 % (36.0-66.0); PLATELET COUNT, AUTOMATED 333 10^3/uL (150-450); RED BLOOD COUNT 3.13 10^6/uL (4.30-6.10); WHITE BLOOD COUNT 5.6 10^3/uL (4.0-10.0)
[2021-02-11 09:32] LABS: BLOOD UREA NITROGEN 8 MG/DL (7-18); CALCIUM LEVEL 8.8 MG/DL (8.5-10.1); CARBON DIOXIDE LEVEL 32 MEQ/L (21-32); CHLORIDE LEVEL 105 MEQ/L (98-107); CREATININE FOR GFR 0.83 MG/DL (0.70-1.30); GLOMERULAR FILTRATION RATE > 60.0 (>60); GLUCOSE, FASTING 102 MG/DL (70-100); POTASSIUM SERUM 3.8 MEQ/L (3.5-5.1); SODIUM LEVEL 143 MEQ/L (136-145)
[2021-02-11 14:00] VITALS: BP 141/75
[2021-02-11 20:15] VITALS: BP 144/78
[2021-02-11] MEDS: SENNA 8.6 MG TAB (SENOKOT) PO SCH (20:30)
[2021-02-11] MEDS: LORATADINE 10 MG TAB PO SCH (20:30)
[2021-02-11] MEDS: ATORVASTATIN 20 MG TAB PO SCH (20:30)
--- NOTE | 2021-02-11 22:05 | IPNPDOC ---
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 REVIEW OF SYSTEMS: The following is a completed review of systems and has been reviewed. Review of systems otherwise unremarkable. PAIN: Patient self reports no pain EYES: No recent vision changes EARS, NOSE, & THROAT: No throat pain, or dysphagia, or rhinorrhea CARDIOVASCULAR: Denies chest pain or palpitations PULMONARY: Denies shortness of breath GASTROINTESTINAL: Denies constipation/diarrhea. GENITOURINARY: denies dysuria MUSCULOSKELETAL: right ankle fracture NEUROLOGICAL:denies tremor HEMATOLOGICAL: denies easy bruising SKIN: right ankle surgery incision PSYCHIATRIC: Unremarkable All other review of systems found to be negative. PHYSICAL EXAMINATION: VITAL SIGNS: Please see below. GENERAL: Pleasant and cooperative. No acute distress. HEENT: [PERRL. Extraocular movements intact. Clear conjunctiva CARDIOVASCULAR: Regular rate and rhythm. No murmurs, rubs, or gallops LUNGS: CTA ABDOMEN: Soft, nontender, nondistended. Positive bowel sounds. Normal active bowel sounds NEUROLOGICAL: Alert and oriented times three. Cranial nerves II through XII grossly intact. Sensation grossly intact EXTREMITIES: 5\5 strength bilateral upper extremities. 5\5 strength right hip flexor and knee extension, able to wiggle toes (limited due to ankle surgery). LLE edema (slightly improve) ASSESSMENT:40-year-old M with past medical history of DM, HTN, schizoaffective bipolar who presents status post right ankle fracture with ORIF PLAN: 1. Rehab- PT/OT advance mobility and ADLs, emphasize upper body and core strengthening to better maintain NWB to RLE 2. Ortho s/p right ankle ORIF 01-30-21, NWB, monitor for infection, f/u ortho outpatient 3. Cardiac- metabolic syndrome with HTN c/u ASA and BP meds, c/u lasix to 40mg daily and fluid restriction -HLD-c/u statin -medicine consulted to assist in overall management 4. Resp- hx of COPD c/u Singulair, Advair, and duonebs prn -PAVAN- nocturnal 02 while inhouse -lungs improved, CXR negative 5. Endo- hx of hypothyroidism c/u synthroid -DM c/u metformin and ISS 6. Psych- schizoaffective bipolar d/o- c/u clozapine, prozac, and lamictal 7. GI ppx- protonix and sucralfate (changed to liquid to avoid reflux) -f/u Dr. Gresham 02-22-21 outpatient, discussed case with surgeon, advised not to unwrap limb, patient not complaining of significant pain 8. Pain- tylenol and oxycodone 9. Heme- iron deficiency anemia , c/u supplement 10. DVT ppx- lovenox -dopplers negative for DVT 11. Dispo- TBD Allergies Coded Allergies: benztropine (Verified Adverse Reaction, Intermediate, LOCKS JAW, 02/03/21) Vital Signs Vital Signs Date Time Temp Pulse Resp B/P (MAP) Pulse Ox O2 Delivery O2 Flow Rate FiO2 02/11/21 20:31 84 144/78 02/11/21 20:15 98.4 18 93 Nasal Cannula 2.0 Laboratory Data CBC/BMP Laboratory Tests 02/11/21 08:49 Labs 24H Laboratory Tests 2 02/11/21 05:24: Bedside Glucose (Misc Panel) 85 02/11/21 08:49: Immature Granulocyte % (Auto) 2.1, Neutrophils (%) (Auto) 60.8, Lymphocytes (%) (Auto) 22.1L, Monocytes (%) (Auto) 8.7H, Eosinophils (%) (Auto) 5.2H, Basophils (%) (Auto) 1.1H, Neutrophils # (Auto) 3.4, Lymphocytes # (Auto) 1.2L, Monocytes # (Auto) 0.5, Eosinophils # (Auto) 0.3, Basophils # (Auto) 0.1, Nucleated Red Blood Cells % (auto) 0.0, Anion Gap 6L, Glomerular Filtration Rate > 60.0, Calcium Level 8.8 02/11/21 11:46: Bedside Glucose (Misc Panel) 96 02/11/21 17:01: Bedside Glucose (Misc Panel) 92 02/11/21 20:39: Bedside Glucose (Misc Panel) 91 Current Medications Current Medications Current Medications Medications (Trade) Dose Ordered Sig/Buster Route PRN Reason Start Time Stop Time Status Last Admin Dose Admin Acetaminophen (Tylenol Tab) 1,000 mg TID PO 02/03/21 16:00 02/11/21 20:30 Albuterol/ Ipratropium (Duoneb (Ipr 0.5mg/Alb 2.5mg)) 3 ml RTID NEB 02/03/21 20:00 02/03/21 18:22 DC Albuterol/ Ipratropium (Duoneb (Ipr 0.5mg/Alb 2.5mg)) 3 ml TIDP PRN NEB SHORTNESS OF BREATH 02/03/21 18:25 02/10/21 08:07 DC Aspirin (Ecotrin) 81 mg DAILY PO 02/04/21 09:00 02/11/21 08:56 Atorvastatin Calcium (Lipitor) 40 mg QHS PO 02/03/21 21:00 02/11/21 20:30 Bisacodyl (Dulcolax Suppository) 10 mg DAILYPRN PRN [place] CONSTIPATION 02/03/21 14:00 Clozapine (Clozaril) 50 mg BID PO 02/03/21 21:00 02/11/21 20:30 Docusate Sodium (Colace) 100 mg BID PO 02/03/21 21:00 02/11/21 08:58 Enoxaparin Sodium (Lovenox) 40 mg DAILY SC 02/04/21 09:00 02/11/21 08:59 Ferrous Gluconate (Fergon) 324 mg DAILY PO 02/04/21 09:00 02/11/21 08:57 Fluoxetine HCl (PROzac) 20 mg DAILY PO 02/04/21 09:00 02/11/21 08:58 Fluticasone Propionate (Flonase 0.05% Nasal [place]) 1 spray BID NARES 02/03/21 21:00 02/11/21 20:33 Furosemide (Lasix) 20 mg DAILY PO 02/05/21 09:00 02/09/21 21:02 DC 02/09/21 09:50 Furosemide (Lasix) 40 mg DAILY PO 02/10/21 09:00 02/11/21 08:58 Home Med (Med Rec Complete!) ASDIRECTED XX 02/03/21 17:25 02/03/21 17:29 DC Ipratropium [place] (Atrovent Hfa) 2 puff RBID INH 02/03/21 20:00 02/11/21 19:34 Lamotrigine (LaMICtal) 100 mg BID PO 02/03/21 21:00 02/11/21 20:30 Levothyroxine Sodium (Synthroid) 150 mcg DAILY@06 PO 02/04/21 06:00 02/11/21 05:44 Loratadine (Claritin) 10 mg QHS PO 02/04/21 21:00 02/11/21 20:30 Magnesium Oxide (Mag-Ox) 400 mg BID PO 02/03/21 21:00 02/11/21 20:30 Metformin HCl (Glucophage Xr) 500 mg BID PO 02/03/21 21:00 02/11/21 20:31 Metoprolol Tartrate (Lopressor) 25 mg BID PO 02/05/21 09:00 02/11/21 20:31 Metoprolol Tartrate (Lopressor) 50 mg BID PO 02/03/21 21:00 02/04/21 22:11 DC 02/04/21 21:28 Montelukast Sodium (Singulair) 10 mg DAILY PO 02/04/21 09:00 02/11/21 08:57 Multivitamins (Fruity Chews-Children'S) 1 tab DAILY PO 02/11/21 09:00 Multivitamins (Theragram-M) 1 tab DAILY PO 02/04/21 09:00 02/11/21 07:54 DC 02/10/21 08:58 Pantoprazole Sodium (Protonix) 40 mg DAILY PO 02/04/21 09:00 02/11/21 08:58 Salmeterol Xinafoate/ Fluticasone (Advair Hfa 230/ ) 2 puff RBID INH 02/03/21 20:00 02/11/21 19:35 Senna (Senokot) 1 tab QHS PO 02/03/21 21:00 02/10/21 21:27 Sucralfate (Carafate Suspension) 1 gm ACHS PO 02/11/21 07:30 02/11/21 20:30 Sucralfate (Carafate) 1 gm ACHS PO 02/03/21 17:30 02/11/21 07:54 DC 02/10/21 21:28 Vitamin D (Drisdol) 50,000 units Tu@09 PO 02/08/21 09:00 02/08/21 09:22 SIMRAN LOWERY MD Feb 11, 2021 22:05
[2021-02-12] MEDS: LEVOTHYROXINE 150MCG TABLET (0.15MG) PO SCH (05:46)
[2021-02-12 05:56] VITALS: BP 134/79
[2021-02-12] MEDS: SUCRALFATE SUSP 1GM/10ML UD PO SCH ×4 (07:56→21:47)
[2021-02-12] MEDS: ENOXAPARIN 40MG/0.4ML SYRINGE (J1650 PER 10MG) SC SCH (07:58)
[2021-02-12] MEDS: MULTIVITAMINS CHILDREN'S CHEWABLE TABLET PO SCH (08:00)
[2021-02-12] MEDS: cloZAPine 25 MG TAB (S0136) PO SCH ×2 (08:00→21:48)
[2021-02-12] MEDS: metFORMIN XR 500MG TAB *GLUCOPHAGE XR PO SCH ×2 (08:00→21:48)
[2021-02-12] MEDS: METOPROLOL TART 50 MG TAB PO SCH ×2 (08:00→21:48)
[2021-02-12] MEDS: PANTOPRAZOLE 40MG TAB (PROTONIX) PO SCH (08:00)
[2021-02-12] MEDS: MONTELUKAST 10 MG TAB PO SCH (08:01)
[2021-02-12] MEDS: FUROSEMIDE 40 MG TAB PO SCH (08:01)
[2021-02-12] MEDS: FLUoxetine 20 MG CAP PO SCH (08:01)
[2021-02-12] MEDS: ACETAMINOPHEN 500 MG TAB PO SCH ×3 (08:01→21:49)
[2021-02-12] MEDS: MAGNESIUM OXIDE 400MG TAB (MAG-OX) PO SCH ×2 (08:01→21:47)
[2021-02-12] MEDS: lamoTRIgine 100MG TAB PO SCH ×2 (08:01→21:47)
[2021-02-12] MEDS: ASPIRIN 81MG ENTERIC TABLET PO SCH (08:01)
[2021-02-12] MEDS: FERROUS GLUCONATE 324 MG TAB PO SCH (08:02)
[2021-02-12] MEDS: REMEDY PHYTOPLEX Z-GUARD PASTE 113GM TUBE (FROM STOREROOM PRODUCT) TOP SCH ×3 (08:02→21:00)
[2021-02-12] MEDS: FLUTICASONE PROP 0.05% NASAL SPRAY 16 GM (FLONASE) NARES SCH ×2 (08:16→21:42)
[2021-02-12] MEDS: DOCUSATE SODIUM 100MG CAPSULE PO SCH ×2 (09:00→21:47)
[2021-02-12 14:00] VITALS: BP 137/71
[2021-02-12] MEDS: ADVAIR HFA 230/21MCG INHALER INH SCH (19:59)
[2021-02-12] MEDS: IPRATROPIUM HFA INHALER 12.9 GRAMS (ATROVENT HFA) INH SCH (19:59)
[2021-02-12 20:15] VITALS: BP 144/68
[2021-02-12] MEDS: SENNA 8.6 MG TAB (SENOKOT) PO SCH (21:47)
[2021-02-12] MEDS: ATORVASTATIN 20 MG TAB PO SCH (21:48)
[2021-02-12] MEDS: LORATADINE 10 MG TAB PO SCH (21:48)
[2021-02-13] MEDS: LEVOTHYROXINE 150MCG TABLET (0.15MG) PO SCH (05:47)
[2021-02-13 06:15] VITALS: BP 135/76
[2021-02-13] MEDS: ADVAIR HFA 230/21MCG INHALER INH SCH ×2 (07:40→20:34)
[2021-02-13] MEDS: IPRATROPIUM HFA INHALER 12.9 GRAMS (ATROVENT HFA) INH SCH ×2 (08:00→20:34)
[2021-02-13] MEDS: REMEDY PHYTOPLEX Z-GUARD PASTE 113GM TUBE (FROM STOREROOM PRODUCT) TOP SCH ×3 (09:00→20:54)
[2021-02-13] MEDS: SUCRALFATE SUSP 1GM/10ML UD PO SCH ×4 (09:38→20:51)
[2021-02-13] MEDS: MONTELUKAST 10 MG TAB PO SCH (09:38)
[2021-02-13] MEDS: ACETAMINOPHEN 500 MG TAB PO SCH ×3 (09:38→20:52)
[2021-02-13] MEDS: lamoTRIgine 100MG TAB PO SCH ×2 (09:38→20:51)
[2021-02-13] MEDS: metFORMIN XR 500MG TAB *GLUCOPHAGE XR PO SCH ×2 (09:38→20:51)
[2021-02-13] MEDS: FUROSEMIDE 40 MG TAB PO SCH (09:39)
[2021-02-13] MEDS: MAGNESIUM OXIDE 400MG TAB (MAG-OX) PO SCH ×2 (09:39→20:52)
[2021-02-13] MEDS: MULTIVITAMINS CHILDREN'S CHEWABLE TABLET PO SCH (09:39)
[2021-02-13] MEDS: FERROUS GLUCONATE 324 MG TAB PO SCH (09:39)
[2021-02-13] MEDS: METOPROLOL TART 50 MG TAB PO SCH ×2 (09:40→20:53)
[2021-02-13] MEDS: cloZAPine 25 MG TAB (S0136) PO SCH ×2 (09:40→20:52)
[2021-02-13] MEDS: ASPIRIN 81MG ENTERIC TABLET PO SCH (09:40)
[2021-02-13] MEDS: PANTOPRAZOLE 40MG TAB (PROTONIX) PO SCH (09:41)
[2021-02-13] MEDS: ENOXAPARIN 40MG/0.4ML SYRINGE (J1650 PER 10MG) SC SCH (09:41)
[2021-02-13] MEDS: FLUoxetine 20 MG CAP PO SCH (09:41)
[2021-02-13] MEDS: DOCUSATE SODIUM 100MG CAPSULE PO SCH ×2 (09:45→20:53)
[2021-02-13] MEDS: FLUTICASONE PROP 0.05% NASAL SPRAY 16 GM (FLONASE) NARES SCH ×2 (09:56→20:54)
[2021-02-13 14:00] VITALS: BP 153/88
[2021-02-13 20:00] VITALS: BP 152/78
[2021-02-13] MEDS: ATORVASTATIN 20 MG TAB PO SCH (20:51)
[2021-02-13] MEDS: LORATADINE 10 MG TAB PO SCH (20:52)
[2021-02-13] MEDS: SENNA 8.6 MG TAB (SENOKOT) PO SCH (20:53)
[2021-02-14] MEDS: LEVOTHYROXINE 150MCG TABLET (0.15MG) PO SCH (05:42)
[2021-02-14 06:00] VITALS: BP 148/68
[2021-02-14 07:34] LABS: BASO % 0.7 % (0.0-1.0); EOS # 0.1 10^3/uL (0.0-0.5); EOS % 1.5 % (0.0-3.0); HEMATOCRIT 28.2 % (42.0-52.0); HEMOGLOBIN 8.5 g/dl (13.5-17.5); LYMPH # 0.6 10^3/uL (1.5-5.0); LYMPH % 10.4 % (24.0-44.0); MEAN CORPUSCULAR HEMOGLOBIN 26.5 pg (27.0-33.0); MEAN CORPUSCULAR HGB CONC 30.1 g/dl (32.0-36.5); MEAN CORPUSCULAR VOLUME 87.9 fl (80.0-96.0); MONO # 0.3 10^3/uL (0.0-0.8); MONO % 5.1 % (2.0-8.0); NEUTROPHILS # 4.4 10^3/uL (1.5-8.5); NEUTROPHILS % 81.2 % (36.0-66.0); PLATELET COUNT, AUTOMATED 471 10^3/uL (150-450); RED BLOOD COUNT 3.21 10^6/uL (4.30-6.10); WHITE BLOOD COUNT 5.5 10^3/uL (4.0-10.0)
[2021-02-14] MEDS: ADVAIR HFA 230/21MCG INHALER INH SCH ×2 (07:42→20:12)
[2021-02-14] MEDS: IPRATROPIUM HFA INHALER 12.9 GRAMS (ATROVENT HFA) INH SCH ×2 (07:42→20:12)
[2021-02-14 07:52] LABS: BLOOD UREA NITROGEN 8 MG/DL (7-18); CALCIUM LEVEL 8.8 MG/DL (8.5-10.1); CARBON DIOXIDE LEVEL 29 MEQ/L (21-32); CHLORIDE LEVEL 104 MEQ/L (98-107); CREATININE FOR GFR 0.75 MG/DL (0.70-1.30); GLOMERULAR FILTRATION RATE > 60.0 (>60); GLUCOSE, FASTING 88 MG/DL (70-100); POTASSIUM SERUM 3.7 MEQ/L (3.5-5.1); SODIUM LEVEL 141 MEQ/L (136-145)
[2021-02-14] MEDS: REMEDY PHYTOPLEX Z-GUARD PASTE 113GM TUBE (FROM STOREROOM PRODUCT) TOP SCH ×3 (09:00→20:30)
[2021-02-14] MEDS: ENOXAPARIN 40MG/0.4ML SYRINGE (J1650 PER 10MG) SC SCH (09:49)
[2021-02-14] MEDS: SUCRALFATE SUSP 1GM/10ML UD PO SCH ×4 (09:51→20:29)
[2021-02-14] MEDS: ASPIRIN 81MG ENTERIC TABLET PO SCH (09:51)
[2021-02-14] MEDS: FERROUS GLUCONATE 324 MG TAB PO SCH (09:51)
[2021-02-14] MEDS: FUROSEMIDE 40 MG TAB PO SCH (09:52)
[2021-02-14] MEDS: METOPROLOL TART 50 MG TAB PO SCH ×2 (09:52→20:29)
[2021-02-14] MEDS: lamoTRIgine 100MG TAB PO SCH ×2 (09:52→20:28)
[2021-02-14] MEDS: MAGNESIUM OXIDE 400MG TAB (MAG-OX) PO SCH ×2 (09:53→20:27)
[2021-02-14] MEDS: MULTIVITAMINS CHILDREN'S CHEWABLE TABLET PO SCH (09:53)
[2021-02-14] MEDS: FLUoxetine 20 MG CAP PO SCH (09:53)
[2021-02-14] MEDS: PANTOPRAZOLE 40MG TAB (PROTONIX) PO SCH (09:53)
[2021-02-14] MEDS: DOCUSATE SODIUM 100MG CAPSULE PO SCH ×2 (09:54→20:29)
[2021-02-14] MEDS: cloZAPine 25 MG TAB (S0136) PO SCH ×2 (09:54→20:27)
[2021-02-14] MEDS: metFORMIN XR 500MG TAB *GLUCOPHAGE XR PO SCH ×2 (09:54→20:27)
[2021-02-14] MEDS: MONTELUKAST 10 MG TAB PO SCH (09:55)
[2021-02-14] MEDS: ACETAMINOPHEN 500 MG TAB PO SCH ×3 (09:55→20:28)
[2021-02-14] MEDS: FLUTICASONE PROP 0.05% NASAL SPRAY 16 GM (FLONASE) NARES SCH ×2 (09:59→20:30)
[2021-02-14] MEDS ORDERED: VARIBAR PUDDING 40% w/v 230ML TUBE As Ordered ONE (12:26)
[2021-02-14] MEDS ORDERED: E-Z-PAQUE 96% w/w SUSP 176GM BTL As Ordered ONE (12:27)
[2021-02-14] MEDS ORDERED: VARIBAR NECTAR 40% w/v 240ML SUSP BTL As Ordered ONE (12:27)
[2021-02-14] MEDS ORDERED: BARIUM SULFATE 700 MG TABLET (E-Z-DISK) As Ordered ONE (12:27)
[2021-02-14 14:00] VITALS: BP 120/71
--- NOTE | 2021-02-14 16:23 | REP ---
INDICATION: dysphagia. COMPARISON: None. TECHNIQUE: The procedure was performed by Chyna Kerr [facility], under the direct supervision of Dr. Panda. The procedure was performed with Crystal Wright from speech pathology present. 5 ml aliquots of thin, pudding, mixed fruit, soft food, hard food and pill consistency barium was administered. FINDINGS: Flash penetration was visualized with thin consistency barium. The detailed report of this examination will be provided by speech pathology. IMPRESSION: Flash penetration was visualized, a detailed report will be provided by speech pathology. 1.9 minutes of fluoroscopy time was utilized for this procedure. Some fluoroscopic images are performed with last image hold technology. These images require no additional radiation <Electronically signed by Chyna Kerr > 02/14/21 1511 <Electronically signed by Arnel Panda > 02/14/21 1617
[2021-02-14 20:00] VITALS: BP 127/58
[2021-02-14] MEDS: ATORVASTATIN 20 MG TAB PO SCH (20:28)
[2021-02-14] MEDS: SENNA 8.6 MG TAB (SENOKOT) PO SCH (20:29)
[2021-02-14] MEDS: LORATADINE 10 MG TAB PO SCH (20:32)
[2021-02-15] MEDS: LEVOTHYROXINE 150MCG TABLET (0.15MG) PO SCH (05:36)
[2021-02-15 05:45] VITALS: BP 134/68
[2021-02-15] MEDS: ADVAIR HFA 230/21MCG INHALER INH SCH ×2 (08:16→19:23)
[2021-02-15] MEDS: IPRATROPIUM HFA INHALER 12.9 GRAMS (ATROVENT HFA) INH SCH ×2 (08:17→19:23)
[2021-02-15] MEDS: REMEDY PHYTOPLEX Z-GUARD PASTE 113GM TUBE (FROM STOREROOM PRODUCT) TOP SCH ×3 (09:00→21:37)
[2021-02-15] MEDS: FLUoxetine 20 MG CAP PO SCH (09:36)
[2021-02-15] MEDS: SUCRALFATE SUSP 1GM/10ML UD PO SCH ×4 (09:36→21:30)
[2021-02-15] MEDS: cloZAPine 25 MG TAB (S0136) PO SCH ×2 (09:36→21:30)
[2021-02-15] MEDS: ACETAMINOPHEN 500 MG TAB PO SCH ×3 (09:36→21:30)
[2021-02-15] MEDS: METOPROLOL TART 50 MG TAB PO SCH ×2 (09:37→21:32)
[2021-02-15] MEDS: lamoTRIgine 100MG TAB PO SCH ×2 (09:37→21:31)
[2021-02-15] MEDS: MAGNESIUM OXIDE 400MG TAB (MAG-OX) PO SCH ×2 (09:38→21:31)
[2021-02-15] MEDS: metFORMIN XR 500MG TAB *GLUCOPHAGE XR PO SCH ×2 (09:38→21:30)
[2021-02-15] MEDS: VITAMIN D 50,000 UNITS CAPSULE (ERGOCALCIFEROL 1.25MG) PO SCH (09:38)
[2021-02-15] MEDS: FERROUS GLUCONATE 324 MG TAB PO SCH (09:38)
[2021-02-15] MEDS: MULTIVITAMINS CHILDREN'S CHEWABLE TABLET PO SCH (09:38)
[2021-02-15] MEDS: FUROSEMIDE 40 MG TAB PO SCH (09:38)
[2021-02-15] MEDS: PANTOPRAZOLE 40MG TAB (PROTONIX) PO SCH (09:39)
[2021-02-15] MEDS: ASPIRIN 81MG ENTERIC TABLET PO SCH (09:39)
[2021-02-15] MEDS: MONTELUKAST 10 MG TAB PO SCH (09:39)
[2021-02-15] MEDS: DOCUSATE SODIUM 100MG CAPSULE PO SCH ×2 (09:39→21:30)
[2021-02-15] MEDS: ENOXAPARIN 40MG/0.4ML SYRINGE (J1650 PER 10MG) SC SCH (09:40)
--- NOTE | 2021-02-15 09:47 | REP ---
INDICATION: r/o infiltrate. COMPARISON: Comparison chest x-ray is from 04 February 2021.. TECHNIQUE: Helical scanning is acquired. 3 mm axial images are generated. Coronal and sagittal MPR and coronal MIP images are generated. FINDINGS: Digital preliminary senior cytogenetics laboratory director radiograph and axial CT images demonstrate extensive new multifocal infiltrates throughout the upper and lower lobes bilaterally. Most prominently involves the right lower lobe and than left lower lobe. There are ground-glass opacities and peripheral and peribronchovascular distributed ill-defined nodular densities. These are all new findings compared to the prior chest x-ray. Commonly reported imaging features of COVID 19 pneumonia are present. Other processes such as influenza pneumonia, drug toxicity, and connective tissue disease can produce a similar pattern. There is no evidence of pleural effusion. There are mildly enlarged subcarinal, precarinal and paratracheal lymph nodes in mediastinum. No adrenal lesion is seen. The visualized upper abdominal structures are unremarkable apart from a mildly enlarged, 14.7 cm spleen. IMPRESSION: Extensive new bilateral multifocal infiltrates consistent with pneumonia. Question viral pneumonia/COVID lung disease. There is mild mediastinal lymphadenopathy which may be reactive. Preliminary report is faxed to the floor at the time of this report. <Electronically signed by Philipp Daniel > 02/15/21 0539
[2021-02-15] MEDS: FLUTICASONE PROP 0.05% NASAL SPRAY 16 GM (FLONASE) NARES SCH ×2 (09:53→21:36)
[2021-02-15] MEDS ORDERED: ALBUTEROL 90 MCG/ACT 8GM HFA INHALER INH PRN (10:15)
[2021-02-15] MEDS: predniSONE 20 MG TAB PO SCH (10:26)
[2021-02-15 10:32] LABS: BASO % 0.2 % (0.0-1.0); EOS % 0.3 % (0.0-3.0); HEMATOCRIT 30.2 % (42.0-52.0); HEMOGLOBIN 8.8 g/dl (13.5-17.5); LYMPH % 7.4 % (24.0-44.0); MEAN CORPUSCULAR HEMOGLOBIN 26.7 pg (27.0-33.0); MEAN CORPUSCULAR HGB CONC 29.1 g/dl (32.0-36.5); MEAN CORPUSCULAR VOLUME 91.8 fl (80.0-96.0); MONO # 0.7 10^3/uL (0.0-0.8); MONO % 5.6 % (2.0-8.0); NEUTROPHILS # 11.2 10^3/uL (1.5-8.5); NEUTROPHILS % 85.4 % (36.0-66.0); PLATELET COUNT, AUTOMATED 535 10^3/uL (150-450); RED BLOOD COUNT 3.29 10^6/uL (4.30-6.10); WHITE BLOOD COUNT 13.1 10^3/uL (4.0-10.0)
[2021-02-15] MEDS ORDERED: predniSONE 20 MG TAB PO SCH (10:45)
[2021-02-15 10:57] LABS: BLOOD UREA NITROGEN 11 MG/DL (7-18); CALCIUM LEVEL 8.8 MG/DL (8.5-10.1); CARBON DIOXIDE LEVEL 30 MEQ/L (21-32); CHLORIDE LEVEL 102 MEQ/L (98-107); CREATININE FOR GFR 0.85 MG/DL (0.70-1.30); GLOMERULAR FILTRATION RATE > 60.0 (>60); GLUCOSE, FASTING 99 MG/DL (70-100); POTASSIUM SERUM 3.9 MEQ/L (3.5-5.1); SODIUM LEVEL 137 MEQ/L (136-145)
[2021-02-15] MEDS: cefTRIAXone SOD 2 GM in D5W MINI-BAG PLUS 50 ML IV SCH (11:33)
[2021-02-15] MEDS: IPRATROPIUM 0.5MG/ALBUTEROL 2.5MG INH SOL UD 3ML (DUONEB) INH SCH ×3 (12:00→19:23)
[2021-02-15] MEDS: AZITHROMYCIN INJ 500 MG, VIAL MATE ADAPTER 1 EACH in NS 250 ML IV SCH (12:36)
[2021-02-15 14:00] VITALS: BP 132/63
[2021-02-15] MEDS ORDERED: SLF 3 ML SYR IV PRN (16:25)
[2021-02-15 20:00] VITALS: BP 129/73
[2021-02-15] MEDS: SENNA 8.6 MG TAB (SENOKOT) PO SCH (21:30)
[2021-02-15] MEDS: LORATADINE 10 MG TAB PO SCH (21:31)
[2021-02-15] MEDS: ATORVASTATIN 20 MG TAB PO SCH (21:31)
[2021-02-15] MEDS: SLF 3 ML SYR IV SCH (21:36)
[2021-02-16] MEDS: IPRATROPIUM 0.5MG/ALBUTEROL 2.5MG INH SOL UD 3ML (DUONEB) INH SCH ×6 (03:43→21:00)
[2021-02-16] MEDS: SLF 3 ML SYR IV SCH ×3 (05:27→20:46)
[2021-02-16] MEDS: LEVOTHYROXINE 150MCG TABLET (0.15MG) PO SCH (05:27)
[2021-02-16 05:44] VITALS: BP 131/74
[2021-02-16 07:15] LABS: BASO % 0.3 % (0.0-1.0); EOS # 0.2 10^3/uL (0.0-0.5); EOS % 2.1 % (0.0-3.0); HEMATOCRIT 23.6 % (42.0-52.0); HEMOGLOBIN 7.2 g/dl (13.5-17.5); LYMPH # 1.7 10^3/uL (1.5-5.0); LYMPH % 18.4 % (24.0-44.0); MEAN CORPUSCULAR HEMOGLOBIN 26.6 pg (27.0-33.0); MEAN CORPUSCULAR HGB CONC 30.5 g/dl (32.0-36.5); MEAN CORPUSCULAR VOLUME 87.1 fl (80.0-96.0); MONO # 0.7 10^3/uL (0.0-0.8); MONO % 7.1 % (2.0-8.0); NEUTROPHILS # 6.7 10^3/uL (1.5-8.5); NEUTROPHILS % 71.1 % (36.0-66.0); PLATELET COUNT, AUTOMATED 464 10^3/uL (150-450); RED BLOOD COUNT 2.71 10^6/uL (4.30-6.10); WHITE BLOOD COUNT 9.4 10^3/uL (4.0-10.0)
[2021-02-16] MEDS: IPRATROPIUM HFA INHALER 12.9 GRAMS (ATROVENT HFA) INH SCH ×2 (07:32→21:00)
[2021-02-16] MEDS: ADVAIR HFA 230/21MCG INHALER INH SCH ×2 (07:32→21:00)
[2021-02-16 07:36] LABS: BLOOD UREA NITROGEN 12 MG/DL (7-18); CALCIUM LEVEL 8.5 MG/DL (8.5-10.1); CARBON DIOXIDE LEVEL 31 MEQ/L (21-32); CHLORIDE LEVEL 104 MEQ/L (98-107); CREATININE FOR GFR 0.77 MG/DL (0.70-1.30); GLOMERULAR FILTRATION RATE > 60.0 (>60); GLUCOSE, FASTING 84 MG/DL (70-100); POTASSIUM SERUM 3.6 MEQ/L (3.5-5.1); SODIUM LEVEL 140 MEQ/L (136-145)
--- NOTE | 2021-02-16 07:40 | IPNPDOC ---
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 REVIEW OF SYSTEMS: The following is a completed review of systems and has been reviewed. Review of systems otherwise unremarkable. PAIN: Patient self reports no pain EYES: No recent vision changes EARS, NOSE, & THROAT: No throat pain, or dysphagia, or rhinorrhea CARDIOVASCULAR: Denies chest pain or palpitations PULMONARY: Denies shortness of breath GASTROINTESTINAL: Denies constipation/diarrhea. GENITOURINARY: denies dysuria MUSCULOSKELETAL: right ankle fracture NEUROLOGICAL:denies tremor HEMATOLOGICAL: denies easy bruising SKIN: right ankle surgery incision PSYCHIATRIC: Unremarkable All other review of systems found to be negative. PHYSICAL EXAMINATION: VITAL SIGNS: Please see below. GENERAL: Pleasant and cooperative. No acute distress. HEENT: PERRL. Extraocular movements intact. Clear conjunctiva CARDIOVASCULAR: Regular rate and rhythm. No murmurs, rubs, or gallops LUNGS: mostly CTA with scattered wheeze ABDOMEN: Soft, nontender, nondistended. Positive bowel sounds. Normal active bowel sounds NEUROLOGICAL: Alert and oriented times three. Cranial nerves II through XII grossly intact. Sensation grossly intact EXTREMITIES: 5\5 strength bilateral upper extremities. 5\5 strength right hip flexor and knee extension, able to wiggle toes (limited due to ankle surgery). LLE edema ( improved) ASSESSMENT:40-year-old M with past medical history of DM, HTN, schizoaffective bipolar who presents status post right ankle fracture with ORIF PLAN: 1. 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 Ortho s/p right ankle ORIF 01-30-, NWB, monitor for infection, f/u ortho outpatient 3. Cardiac- metabolic syndrome with HTN c/u ASA and BP meds, c/u lasix to 40mg daily and fluid restriction (edema improving) -HLD-c/u statin -medicine consulted to assist in overall management 4. Resp- hx of COPD c/u Singulair, Advair, and duonebs prn -PAVAN- nocturnal 02 while inhouse -lungs improved, admission CXR negative 5. Endo- hx of hypothyroidism c/u synthroid -DM c/u metformin and ISS 6. Psych- schizoaffective bipolar d/o- c/u clozapine, prozac, and lamictal 7. GI ppx- protonix and sucralfate (changed to liquid to avoid reflux) -f/u Dr. Gresham 02-22-21 outpatient, discussed case with surgeon, advised not to unwrap limb, patient not complaining of significant pain 8. Pain- tylenol and oxycodone 9. Heme- iron deficiency anemia , c/u supplement 10. DVT ppx- lovenox -dopplers negative for DVT 11. Dispo- 02-15-21 to home, progressing towards goals Allergies Coded Allergies: benztropine (Verified Adverse Reaction, Intermediate, LOCKS JAW, 02/03/21) Vital Signs Vital Signs Date Time Temp Pulse Resp B/P (MAP) Pulse Ox O2 Delivery O2 Flow Rate FiO2 02/16/21 07:33 15 02/16/21 05:44 97.3 86 131/74 (93) 99 Nasal Cannula 3.0 Laboratory Data CBC/BMP Laboratory Tests 02/15/21 10:09 02/16/21 06:52 Labs 24H Laboratory Tests 2 02/15/21 10:09: Immature Granulocyte % (Auto) 1.1, Neutrophils (%) (Auto) 85.4H, Lymphocytes (%) (Auto) 7.4L, Monocytes (%) (Auto) 5.6, Eosinophils (%) (Auto) 0.3, Basophils (%) (Auto) 0.2, Neutrophils # (Auto) 11.2H, Lymphocytes # (Auto) 1.0L, Monocytes # (Auto) 0.7, Eosinophils # (Auto) 0.0, Basophils # (Auto) 0.0, Nucleated Red Blood Cells % (auto) 0.0, Anion Gap 5L, Glomerular Filtration Rate > 60.0, Calcium Level 8.8 02/15/21 10:28: Coronavirus (COVID-19)(PCR) NEGATIVE 02/15/21 10:37: Methicillin-Resist S.aureus DNA PCR NOT DETECTED 02/15/21 11:22: Procalcitonin 5.78 02/15/21 11:45: Bedside Glucose (Misc Panel) 126H 5/4/21 17:14: Bedside Glucose (Misc Panel) 113H 02/15/21 19:35: Bedside Glucose (Misc Panel) 104 02/16/21 05:26: Bedside Glucose (Misc Panel) 92 02/16/21 06:52: Immature Granulocyte % (Auto) 1.0, Neutrophils (%) (Auto) 71.1H, Lymphocytes (%) (Auto) 18.4L, Monocytes (%) (Auto) 7.1, Eosinophils (%) (Auto) 2.1, Basophils (%) (Auto) 0.3, Neutrophils # (Auto) 6.7, Lymphocytes # (Auto) 1.7, Monocytes # (Auto) 0.7, Eosinophils # (Auto) 0.2, Basophils # (Auto) 0.0, Nucleated Red B lood Cells % (auto) 0.0 Microbiology Microbiology 02/15/21 Blood Culture, Received Pending 02/15/21 Blood Culture, Received Pending 02/15/21 Gram Stain - Final, Resulted 02/15/21 Sputum Culture, Resulted Pending 02/15/21 Respiratory Virus Panel (PCR) ([facility]) - Final, Complete Current Medications Current Medications Current Medications Medications (Trade) Dose Ordered Sig/Buster Route PRN Reason Start Time Stop Time Status Last Admin Dose Admin Acetaminophen (Tylenol Tab) 1,000 mg TID PO 02/03/21 16:00 02/15/21 21:30 Albuterol Sulfate (Proventil, Ventolin Hfa) 2 puff Q4H PRN INH WHEEZING 02/15/21 10:15 Albuterol/ Ipratropium (Duoneb (Ipr 0.5mg/Alb 2.5mg)) 3 ml RQ4H INH 02/15/21 12:00 Albuterol/ Ipratropium (Duoneb (Ipr 0.5mg/Alb 2.5mg)) 3 ml RTID NEB 02/03/21 20:00 02/03/21 18:22 DC Albuterol/ Ipratropium (Duoneb (Ipr 0.5mg/Alb 2.5mg)) 3 ml TIDP PRN NEB SHORTNESS OF BREATH 02/03/21 18:25 02/10/21 08:07 DC Aspirin (Ecotrin) 81 mg DAILY PO 02/04/21 09:00 02/15/21 09:39 Atorvastatin Calcium (Lipitor) 40 mg QHS PO 02/03/21 21:00 02/15/21 21:31 Azithromycin 500 mg/IV Miscellaneous Supplies 1 each/ Sodium Chloride 255 ml @ 255 mls/hr Q24H IV 02/15/21 13:00 02/15/21 12:36 Bisacodyl (Dulcolax Suppository) 10 mg DAILYPRN PRN MD CONSTIPATION 02/03/21 14:00 Ceftriaxone Sodium 2 gm/ Dextrose 50 ml @ 100 mls/hr Q24H IV 02/15/21 11:00 02/15/21 11:33 Clozapine (Clozaril) 50 mg BID PO 02/03/21 21:00 02/15/21 21:30 Docusate Sodium (Colace) 100 mg BID PO 02/03/21 21:00 02/15/21 21:30 Enoxaparin Sodium (Lovenox) 40 mg DAILY SC 02/04/21 09:00 02/15/21 09:40 Ferrous Gluconate (Fergon) 324 mg DAILY PO 02/04/21 09:00 02/15/21 09:38 Fluoxetine HCl (PROzac) 20 mg DAILY PO 02/04/21 09:00 02/15/21 09:36 Fluticasone Propionate (Flonase 0.05% Nasal [place]) 1 spray BID NARES 02/03/21 21:00 02/15/21 21:36 Furosemide (Lasix) 20 mg DAILY PO 02/05/21 09:00 02/09/21 21:02 DC 02/09/21 09:50 Furosemide (Lasix) 40 mg DAILY PO 02/10/21 09:00 02/15/21 09:38 Home Med (Med Rec Complete!) ASDIRECTED XX 02/03/21 17:25 02/03/21 17:29 DC Ipratropium [place] (Atrovent Hfa) 2 puff RBID INH 02/03/21 20:00 02/16/21 07:32 Lamotrigine (LaMICtal) 100 mg BID PO 02/03/21 21:00 02/15/21 21:31 Levothyroxine Sodium (Synthroid) 150 mcg DAILY@06 PO 02/04/21 06:00 02/16/21 05:27 Loratadine (Claritin) 10 mg QHS PO 02/04/21 21:00 02/15/21 21:31 Magnesium Oxide (Mag-Ox) 400 mg BID PO 02/03/21 21:00 02/15/21 21:31 Metformin HCl (Glucophage Xr) 500 mg BID PO 02/03/21 21:00 02/15/21 21:30 Metoprolol Tartrate (Lopressor) 25 mg BID PO 02/05/21 09:00 02/15/21 21:32 Metoprolol Tartrate (Lopressor) 50 mg BID PO 02/03/21 21:00 02/04/21 22:11 DC 02/04/21 21:28 Montelukast Sodium (Singulair) 10 mg DAILY PO 02/04/21 09:00 02/15/21 09:39 Multivitamins (Fruity Chews-Children'S) 1 tab DAILY PO 02/11/21 09:00 02/15/21 09:38 Multivitamins (Theragram-M) 1 tab DAILY PO 02/04/21 09:00 02/11/21 07:54 DC 02/10/21 08:58 Pantoprazole Sodium (Protonix) 40 mg DAILY PO 02/04/21 09:00 02/15/21 09:39 Prednisone (Deltasone) 20 mg DAILY PO 02/15/21 10:05 02/15/21 10:26 Prednisone (Deltasone) 40 mg DAILY PO 02/15/21 10:45 02/15/21 10:57 DC Salmeterol Xinafoate/ Fluticasone (Advair Hfa / ) 2 puff RBID INH 02/03/21 20:00 02/16/21 07:32 Senna (Senokot) 1 tab QHS PO 02/03/21 21:00 02/15/21 21:30 Sodium Chloride (Saline Lock Flush) 2 ml ASDIRECTED PRN IV SEE LABEL COMMENTS 02/15/21 16:25 Sodium Chloride (Saline Lock Flush) 2 ml SLF IV 02/15/21 22:00 02/16/21 05:27 Sucralfate (Carafate Suspension) 1 gm ACHS PO 02/11/21 07:30 02/15/21 21:30 Sucralfate (Carafate) 1 gm ACHS PO 02/03/21 17:30 02/11/21 07:54 DC 02/10/21 21:28 Vitamin D (Drisdol) 50,000 units Tu@09 PO 02/08/21 09:00 02/15/21 09:38 SIMRAN LOWERY MD February 16, 2021 07:40
--- NOTE | 2021-02-16 07:50 | IPNPDOC ---
PM&R Progress Note DATE OF SERVICE: February 15, 2021 Maitre D' Progress Note Subjective: Patient seen in his room stating when he work up feeling more short of breath, but is feeling a little better now. He states he feels a little weaker and und erstands he has a pneumonia that will require antibiotics. REVIEW OF SYSTEMS: The following is a completed review of systems and has been reviewed. Review of systems otherwise unremarkable. PAIN: Patient self reports no pain EYES: No recent vision changes EARS, NOSE, & THROAT: No throat pain, or dysphagia, or rhinorrhea CARDIOVASCULAR: Denies chest pain or palpitations PULMONARY: +mild shortness of breath GASTROINTESTINAL: Denies constipation/diarrhea. GENITOURINARY: denies dysuria MUSCULOSKELETAL: right ankle fracture NEUROLOGICAL:denies tremor HEMATOLOGICAL: denies easy bruising SKIN: right ankle surgery incision PSYCHIATRIC: Unremarkable All other review of systems found to be negative. PHYSICAL EXAMINATION: VITAL SIGNS: Please see below. GENERAL: Pleasant and cooperative. No acute distress. HEENT: PERRL. Extraocular movements intact. Clear conjunctiva CARDIOVASCULAR: Regular rate and rhythm. No murmurs, rubs, or gallops LUNGS: +rhonchi throughout ABDOMEN: Soft, nontender, nondistended. Positive bowel sounds. Normal active bowel sounds NEUROLOGICAL: Alert and oriented times three. Cranial nerves II through XII grossly intact. Sensation grossly intact EXTREMITIES: 5\5 strength bilateral upper extremities. 5\5 strength right hip flexor and knee extension, able to wiggle toes (limited due to ankle surgery). LLE edema ( improved) ASSESSMENT:40-year-old M with past medical history of DM, HTN, schizoaffective bipolar who presents status post right ankle fracture with ORIF PLAN: 1. 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 Ortho s/p right ankle ORIF 01-30-21, NWB, monitor for infection, f/u ortho outpatient 3. Cardiac- metabolic syndrome with HTN c/u ASA and BP meds, c/u lasix to 40mg daily and fluid restriction (edema improving) -HLD-c/u statin -medicine consulted to assist in overall management 4. Resp- hx of COPD c/u Singulair, Advair, and duonebs prn -PAVAN- nocturnal 02 while inhouse -patient with desaturations this morning, fevers, CT Chest ordered showing multifocal PNA concern for COvid-patient with known Covid exposure on the unit, however SARs-2 PCR and Resp Panel both negative, patient appears clinically stable stating he has a mild cough and breathing comfortably- hospitalist aware and assisting with care- IVF ordered, MRSA screen pending, blood cx and sputum cx ordered -Ceftriaxone and azythromycin started -will start prednisone 5. Endo- hx of hypothyroidism c/u synthroid -DM c/u metformin and ISS 6. Psych- schizoaffective bipolar d/o- c/u clozapine, prozac, and lamictal 7. GI ppx- protonix and sucralfate (changed to liquid to avoid reflux) -f/u Dr. Gresham 02-22-21 outpatient, discussed case with surgeon, advised not to unwrap limb, patient not complaining of significant pain 8. Pain- tylenol and oxycodone 9. Heme- iron deficiency anemia , c/u supplement 10. DVT ppx- lovenox -dopplers negative for DVT 11. Dispo- plan for for d/c today, however patient now with multifocal PNA will need to delay d/c to home until off IV antibitoics and clinically stable Allergies Coded Allergies: benztropine (Verified Adverse Reaction, Intermediate, LOCKS JAW, 02/03/21) Vital Signs Vital Signs Date Time Temp Pulse Resp B/P (MAP) Pulse Ox O2 Delivery O2 Flow Rate FiO2 02/16/21 07:33 15 02/16/21 05:44 97.3 86 131/74 (93) 99 Nasal Cannula 3.0 Laboratory Data CBC/BMP Laboratory Tests 02/15/21 10:09 02/16/21 06:52 Labs 24H Laboratory Tests 2 02/15/21 10:09: Immature Granulocyte % (Auto) 1.1, Neutrophils (%) (Auto) 85.4H, Lymphocytes (%) (Auto) 7.4L, Monocytes (%) (Auto) 5.6, Eosinophils (%) (Auto) 0.3, Basophils (%) (Auto) 0.2, Neutrophils # (Auto) 11.2H, Lymphocytes # (Auto) 1.0L, Monocytes # (Auto) 0.7, Eosinophils # (Auto) 0.0, Basophils # (Auto) 0.0, Nucleated Red Blood Cells % (auto) 0.0, Anion Gap 5L, Glomerular Filtration Rate > 60.0, Calcium Level 8.8 02/15/21 10:28: Coronavirus (COVID-19)(PCR) NEGATIVE 02/15/21 10:37: Methicillin-Resist S.aureus DNA PCR NOT DETECTED 02/15/21 11:22: Procalcitonin 5.78 02/15/21 11:45: Bedside Glucose (Misc Panel) 126H 02/15/21 17:14: Bedside Glucose (Misc Panel) 113H 02/15/21 19:35: Bedside Glucose (Misc Panel) 104 02/16/21 05:26: Bedside Glucose (Misc Panel) 92 02/16/21 06:52: Immature Granulocyte % (Auto) 1.0, Neutrophils (%) (Auto) 71.1H, Lymphocytes (%) (Auto) 18.4L, Monocytes (%) (Auto) 7.1, Eosinophils (%) (Auto) 2.1, Basophils (%) (Auto) 0.3, Neutrophils # (Auto) 6.7, Lymphocytes # (Auto) 1.7, Monocytes # (Auto) 0.7, Eosinophils # (Auto) 0.2, Basophils # (Auto) 0.0, Nucleated Red Blood Cells % (auto) 0.0, Anion Gap 5L, Glomerular Filtration Rate > 60.0, Calcium Level 8.5 Microbiology Microbiology 02/15/21 Blood Culture, Received Pending 02/15/21 Blood Culture, Received Pending 02/15/21 Gram Stain - Final, Resulted 02/15/21 Sputum Culture, Resulted Pending 02/15/21 Respiratory Virus Panel (PCR) ([facility]) - Final, Complete Current Medications Current Medications Current Medications Medications (Trade) Dose Ordered Sig/Buster Route PRN Reason Start Time Stop Time Status Last Admin Dose Admin Acetaminophen (Tylenol Tab) 1,000 mg TID PO 02/03/21 16:00 02/15/21 21:30 Albuterol Sulfate (Proventil, Ventolin Hfa) 2 puff Q4H PRN INH WHEEZING 02/15/21 10:15 Albuterol/ Ipratropium (Duoneb (Ipr 0.5mg/Alb 2.5mg)) 3 ml RQ4H INH 02/15/21 12:00 Albuterol/ Ipratropium (Duoneb (Ipr 0.5mg/Alb 2.5mg)) 3 ml RTID NEB 02/03/21 20:00 02/03/21 18:22 DC Albuterol/ Ipratropium (Duoneb (Ipr 0.5mg/Alb 2.5mg)) 3 ml TIDP PRN NEB SHORTNESS OF BREATH 02/03/21 18:25 02/10/21 08:07 DC Aspirin (Ecotrin) 81 mg DAILY PO 02/04/21 09:00 02/15/21 09:39 Atorvastatin Calcium (Lipitor) 40 mg QHS PO 02/03/21 21:00 02/15/21 21:31 Azithromycin 500 mg/IV Miscellaneous Supplies 1 each/ Sodium Chloride 255 ml @ 255 mls/hr Q24H IV 02/15/21 13:00 02/15/21 12:36 Bisacodyl (Dulcolax Suppository) 10 mg DAILYPRN PRN [place] CONSTIPATION 02/03/21 14:00 Ceftriaxone Sodium 2 gm/ Dextrose 50 ml @ 100 mls/hr Q24H IV 02/15/21 11:00 02/15/21 11:33 Clozapine (Clozaril) 50 mg BID PO 02/03/21 21:00 02/15/21 21:30 Docusate Sodium (Colace) 100 mg BID PO 02/03/21 21:00 02/15/21 21:30 Enoxaparin Sodium (Lovenox) 40 mg DAILY SC 02/04/21 09:00 02/15/21 09:40 Ferrous Gluconate (Fergon) 324 mg DAILY PO 02/04/21 09:00 02/15/21 09:38 Fluoxetine HCl (PROzac) 20 mg DAILY PO 02/04/21 09:00 02/15/21 09:36 Fluticasone Propionate (Flonase 0.05% Nasal [place]) 1 spray BID NARES 02/03/21 21:00 02/15/21 21:36 Furosemide (Lasix) 20 mg DAILY PO 02/05/21 09:00 02/09/21 21:02 DC 02/09/21 09:50 Furosemide (Lasix) 40 mg DAILY PO 02/10/21 09:00 02/15/21 09:38 Home Med (Med Rec Complete!) ASDIRECTED XX 02/03/21 17:25 02/03/21 17:29 DC Ipratropium [place] (Atrovent Hfa) 2 puff RBID INH 02/03/21 20:00 02/16/21 07:32 Lamotrigine (LaMICtal) 100 mg BID PO 02/03/21 21:00 02/15/21 21:31 Levothyroxine Sodium (Synthroid) 150 mcg DAILY@06 PO 02/04/21 06:00 02/16/21 05:27 Loratadine (Claritin) 10 mg QHS PO 02/04/21 21:00 02/15/21 21:31 Magnesium Oxide (Mag-Ox) 400 mg BID PO 02/03/21 21:00 02/15/21 21:31 Metformin HCl (Glucophage Xr) 500 mg BID PO 02/03/21 21:00 02/15/21 21:30 Metoprolol Tartrate (Lopressor) 25 mg BID PO 02/05/21 09:00 02/15/21 21:32 Metoprolol Tartrate (Lopressor) 50 mg BID PO 02/03/21 21:00 02/04/21 22:11 DC 02/04/21 21:28 Montelukast Sodium (Singulair) 10 mg DAILY PO 02/04/21 09:00 02/15/21 09:39 Multivitamins (Fruity Chews-Children'S) 1 tab DAILY PO 02/11/21 09:00 02/15/21 09:38 Multivitamins (Theragram-M) 1 tab DAILY PO 02/04/21 09:00 02/11/21 07:54 DC 02/10/21 08:58 Pantoprazole Sodium (Protonix) 40 mg DAILY PO 02/04/21 09:00 02/15/21 09:39 Prednisone (Deltasone) 20 mg DAILY PO 02/15/21 10:05 02/15/21 10:26 Prednisone (Deltasone) 40 mg DAILY PO 02/15/21 10:45 02/15/21 10:57 DC Salmeterol Xinafoate/ Fluticasone (Advair Hfa ) 2 puff RBID INH 02/03/21 20:00 02/16/21 07:32 Senna (Senokot) 1 tab QHS PO 02/03/21 21:00 02/15/21 21:30 Sodium Chloride (Saline Lock Flush) 2 ml ASDIRECTED PRN IV SEE LABEL COMMENTS 02/15/21 16:25 Sodium Chloride (Saline Lock Flush) 2 ml SLF IV 02/15/21 22:00 02/16/21 05:27 Sucralfate (Carafate Suspension) 1 gm ACHS PO 02/11/21 07:30 02/15/21 21:30 Sucralfate (Carafate) 1 gm ACHS PO 02/03/21 17:30 02/11/21 07:54 DC 02/10/21 21:28 Vitamin D (Drisdol) 50,000 units Tu@09 PO 02/08/21 09:00 02/15/21 09:38 SMIRAN LOWERY MD February 16, 2021 07:50
[2021-02-16] MEDS: SUCRALFATE SUSP 1GM/10ML UD PO SCH ×4 (08:15→20:45)
[2021-02-16] MEDS: FUROSEMIDE 40 MG TAB PO SCH (08:15)
[2021-02-16] MEDS: PANTOPRAZOLE 40MG TAB (PROTONIX) PO SCH (08:15)
[2021-02-16] MEDS: ENOXAPARIN 40MG/0.4ML SYRINGE (J1650 PER 10MG) SC SCH (08:15)
[2021-02-16] MEDS: ASPIRIN 81MG ENTERIC TABLET PO SCH (08:15)
[2021-02-16] MEDS: lamoTRIgine 100MG TAB PO SCH ×2 (08:16→20:43)
[2021-02-16] MEDS: FERROUS GLUCONATE 324 MG TAB PO SCH (08:16)
[2021-02-16] MEDS: metFORMIN XR 500MG TAB *GLUCOPHAGE XR PO SCH ×2 (08:16→20:43)
[2021-02-16] MEDS: FLUoxetine 20 MG CAP PO SCH (08:16)
[2021-02-16] MEDS: METOPROLOL TART 50 MG TAB PO SCH ×2 (08:16→20:44)
[2021-02-16] MEDS: cloZAPine 25 MG TAB (S0136) PO SCH ×2 (08:16→20:44)
[2021-02-16] MEDS: MONTELUKAST 10 MG TAB PO SCH (08:17)
[2021-02-16] MEDS: ACETAMINOPHEN 500 MG TAB PO SCH ×3 (08:17→20:43)
[2021-02-16] MEDS: predniSONE 20 MG TAB PO SCH (08:17)
[2021-02-16] MEDS: MAGNESIUM OXIDE 400MG TAB (MAG-OX) PO SCH ×2 (08:17→20:44)
[2021-02-16] MEDS: DOCUSATE SODIUM 100MG CAPSULE PO SCH ×2 (08:17→20:45)
[2021-02-16] MEDS: MULTIVITAMINS CHILDREN'S CHEWABLE TABLET PO SCH (08:17)
[2021-02-16] MEDS: FLUTICASONE PROP 0.05% NASAL SPRAY 16 GM (FLONASE) NARES SCH ×2 (08:18→20:45)
[2021-02-16] MEDS: REMEDY PHYTOPLEX Z-GUARD PASTE 113GM TUBE (FROM STOREROOM PRODUCT) TOP SCH ×3 (08:18→20:45)
[2021-02-16] MEDS: cefTRIAXone SOD 2 GM in D5W MINI-BAG PLUS 50 ML IV SCH (11:07)
[2021-02-16] MEDS: AZITHROMYCIN INJ 500 MG, VIAL MATE ADAPTER 1 EACH in NS 250 ML IV SCH (12:12)
[2021-02-16 13:53] LABS: HEMATOCRIT 26.4 % (42.0-52.0); HEMOGLOBIN 7.9 g/dl (13.5-17.5)
[2021-02-16 14:00] VITALS: BP 138/67
[2021-02-16 20:15] VITALS: BP 133/73
[2021-02-16] MEDS: ATORVASTATIN 20 MG TAB PO SCH (20:43)
[2021-02-16] MEDS: LORATADINE 10 MG TAB PO SCH (20:43)
[2021-02-16] MEDS: SENNA 8.6 MG TAB (SENOKOT) PO SCH (20:45)
--- NOTE | 2021-02-16 21:13 | IPNPDOC ---
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 REVIEW OF SYSTEMS: The following is a completed review of systems and has been reviewed. Review of systems otherwise unremarkable. PAIN: Patient self reports no pain EYES: No recent vision changes EARS, NOSE, & THROAT: No throat pain, or dysphagia, or rhinorrhea CARDIOVASCULAR: Denies chest pain or palpitations PULMONARY: +mild shortness of breath GASTROINTESTINAL: Denies constipation/diarrhea. GENITOURINARY: denies dysuria MUSCULOSKELETAL: right ankle fracture NEUROLOGICAL:denies tremor HEMATOLOGICAL: denies easy bruising SKIN: right ankle surgery incision PSYCHIATRIC: Unremarkable All other review of systems found to be negative. PHYSICAL EXAMINATION: VITAL SIGNS: Please see below. GENERAL: Pleasant and cooperative. No acute distress. HEENT: PERRL. Extraocular movements intact. Clear conjunctiva CARDIOVASCULAR: Regular rate and rhythm. No murmurs, rubs, or gallops LUNGS: +rhonchi throughout (improved) ABDOMEN: Soft, nontender, nondistended. Positive bowel sounds. Normal active bowel sounds NEUROLOGICAL: Alert and oriented times three. Cranial nerves II through XII grossly intact. Sensation grossly intact EXTREMITIES: 5\5 strength bilateral upper extremities. 5\5 strength right hip flexor and knee extension, able to wiggle toes (limited due to ankle surgery). LLE edema ( improved) ASSESSMENT:40-year-old M with past medical history of DM, HTN, schizoaffective bipolar who presents status post right ankle fracture with ORIF PLAN: 1. 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 Ortho s/p right ankle ORIF 01-30-21, NWB, monitor for infection, f/u ortho outpatient 3. Cardiac- metabolic syndrome with HTN c/u ASA and BP meds, c/u lasix to 40mg daily and fluid restriction (edema improving) -HLD-c/u statin -medicine consulted to assist in overall management 4. Resp- hx of COPD c/u Singulair, Advair, and duonebs prn -PAVAN- nocturnal 02 while inhouse -patient with desaturations 02-15-21 with fevers, CT Chest ordered showing multifocal PNA concern for COvid-patient with known Covid exposure on the unit, however SARs-2 PCR and Resp Panel both negative, patient continues to appear clinically stable stating he has a mild cough and breathing comfortably- - MRSA negative, blood cx and sputum cx ordered -c/u Ceftriaxone and azythromycin -c/u prednisone 5. Endo- hx of hypothyroidism c/u synthroid -DM c/u metformin and ISS 6. Psych- schizoaffective bipolar d/o- c/u clozapine, prozac, and lamictal 7. GI ppx- protonix and sucralfate (changed to liquid to avoid reflux) -f/u Dr. Gresham 02-22-21 outpatient, discussed case with surgeon, advised not to unwrap limb, patient not complaining of significant pain 8. Pain- tylenol and oxycodone 9. Heme- iron deficiency anemia , c/u supplement 10. DVT ppx- lovenox -dopplers negative for DVT 11. Dispo- plan for home once off IV antibiotics Allergies Coded Allergies: benztropine (Verified Adverse Reaction, Intermediate, LOCKS JAW, 02/03/21) Vital Signs Vital Signs Date Time Temp Pulse Resp B/P (MAP) Pulse Ox O2 Delivery O2 Flow Rate FiO2 02/16/21 20:44 87 133/73 02/16/21 20:15 97.2 18 100 Nasal Cannula 3.0 Laboratory Data CBC/BMP Laboratory Tests 02/16/21 06:52 02/16/21 13:42 Labs 24H Laboratory Tests 2 02/16/21 05:26: Bedside Glucose (Misc Panel) 92 02/16/21 06:52: Immature Granulocyte % (Auto) 1.0, Neutrophils (%) (Auto) 71.1H, Lymphocytes (%) (Auto) 18.4L, Monocytes (%) (Auto) 7.1, Eosinophils (%) (Auto) 2.1, Basophils (%) (Auto) 0.3, Neutrophils # (Auto) 6.7, Lymphocytes # (Auto) 1.7, Monocytes # (Auto) 0.7, Eosinophils # (Auto) 0.2, Basophils # (Auto) 0.0, Nucleated Red Blood Cells % (auto) 0.0, Anion Gap 5L, Glomerular Filtration Rate > 60.0, Calcium Level 8.5 02/16/21 11:44: Bedside Glucose (Misc Panel) 88 02/16/21 16:22: Bedside Glucose (Misc Panel) 109H 02/16/21 20:16: Bedside Glucose (Misc Panel) 98 Microbiology Microbiology 02/15/21 Blood Culture - Preliminary, Resulted No growth after 24 hours . All specim... 02/15/21 Blood Culture - Preliminary, Resulted No growth after 24 hours . All specim... 02/15/21 Gram Stain - Final, Resulted 02/15/21 Sputum Culture, Resulted Pending 02/15/21 Respiratory Virus Panel (PCR) ([facility]) - Final, Complete Current Medications Current Medications Current Medications Medications (Trade) Dose Ordered Sig/Buster Route PRN Reason Start Time Stop Time Status Last Admin Dose Admin Acetaminophen (Tylenol Tab) 1,000 mg TID PO 02/03/21 16:00 02/16/21 20:43 Albuterol Sulfate (Proventil, Ventolin Hfa) 2 puff Q4H PRN INH WHEEZING 02/15/21 10:15 Albuterol/ Ipratropium (Duoneb (Ipr 0.5mg/Alb 2.5mg)) 3 ml RQ4H INH 02/15/21 12:00 Albuterol/ Ipratropium (Duoneb (Ipr 0.5mg/Alb 2.5mg)) 3 ml RTID NEB 02/03/21 20:00 02/03/21 18:22 DC Albuterol/ Ipratropium (Duoneb (Ipr 0.5mg/Alb 2.5mg)) 3 ml TIDP PRN NEB SHORTNESS OF BREATH 02/03/21 18:25 02/10/21 08:07 DC Aspirin (Ecotrin) 81 mg DAILY PO 02/04/21 09:00 02/16/21 08:15 Atorvastatin Calcium (Lipitor) 40 mg QHS PO 02/03/21 21:00 02/16/21 20:43 Azithromycin 500 mg/IV Miscellaneous Supplies 1 each/ Sodium Chloride 255 ml @ 255 mls/hr Q24H IV 02/15/21 13:00 02/16/21 12:12 Bisacodyl (Dulcolax Suppository) 10 mg DAILYPRN PRN [place] CONSTIPATION 02/03/21 14:00 Ceftriaxone Sodium 2 gm/ Dextrose 50 ml @ 100 mls/hr Q24H IV 02/15/21 11:00 02/16/21 11:07 Clozapine (Clozaril) 50 mg BID PO 02/03/21 21:00 02/16/21 20:44 Docusate Sodium (Colace) 100 mg BID PO 02/03/21 21:00 02/15/21 21:30 Enoxaparin Sodium (Lovenox) 40 mg DAILY SC 02/04/21 09:00 02/16/21 08:15 Ferrous Gluconate (Fergon) 324 mg DAILY PO 02/04/21 09:00 02/16/21 08:16 Fluoxetine HCl (PROzac) 20 mg DAILY PO 02/04/21 09:00 02/16/21 08:16 Fluticasone Propionate (Flonase 0.05% Nasal [place]) 1 spray BID NARES 02/03/21 21:00 02/16/21 20:45 Furosemide (Lasix) 20 mg DAILY PO 02/05/21 09:00 02/09/21 21:02 DC 02/09/21 09:50 Furosemide (Lasix) 40 mg DAILY PO 02/10/21 09:00 02/16/21 08:15 Home Med (Med Rec Complete!) ASDIRECTED XX 02/03/21 17:25 02/03/21 17:29 DC Ipratropium [place] (Atrovent Hfa) 2 puff RBID INH 02/03/21 20:00 02/16/21 07:32 Lamotrigine (LaMICtal) 100 mg BID PO 02/03/21 21:00 02/16/21 20:43 Levothyroxine Sodium (Synthroid) 150 mcg DAILY@06 PO 02/04/21 06:00 02/16/21 05:27 Loratadine (Claritin) 10 mg QHS PO 02/04/21 21:00 02/16/21 20:43 Magnesium Oxide (Mag-Ox) 400 mg BID PO 02/03/21 21:00 02/16/21 20:44 Metformin HCl (Glucophage Xr) 500 mg BID PO 02/03/21 21:00 02/16/21 20:43 Metoprolol Tartrate (Lopressor) 25 mg BID PO 02/05/21 09:00 02/16/21 20:44 Metoprolol Tartrate (Lopressor) 50 mg BID PO 02/03/21 21:00 02/04/21 22:11 DC 02/04/21 21:28 Montelukast Sodium (Singulair) 10 mg DAILY PO 02/04/21 09:00 02/16/21 08:17 Multivitamins (Fruity Chews-Children'S) 1 tab DAILY PO 02/11/21 09:00 02/16/21 08:17 Multivitamins (Theragram-M) 1 tab DAILY PO 02/04/21 09:00 02/11/21 07:54 DC 02/10/21 08:58 Pantoprazole Sodium (Protonix) 40 mg DAILY PO 02/04/21 09:00 02/16/21 08:15 Prednisone (Deltasone) 20 mg DAILY PO 02/15/21 10:05 02/16/21 08:17 Prednisone (Deltasone) 40 mg DAILY PO 02/15/21 10:45 02/15/21 10:57 DC Salmeterol Xinafoate/ Fluticasone (Advair Hfa / ) 2 puff RBID INH 02/03/21 20:00 02/16/21 07:32 Senna (Senokot) 1 tab QHS PO 02/03/21 21:00 02/15/21 21:30 Sodium Chloride (Saline Lock Flush) 2 ml ASDIRECTED PRN IV SEE LABEL COMMENTS 02/15/21 16:25 Sodium Chloride (Saline Lock Flush) 2 ml SLF IV 02/15/21 22:00 02/16/21 20:46 Sucralfate (Carafate Suspension) 1 gm ACHS PO 02/11/21 07:30 02/16/21 20:45 Sucralfate (Carafate) 1 gm ACHS PO 02/03/21 17:30 02/11/21 07:54 DC 02/10/21 21:28 Vitamin D (Drisdol) 50,000 units @09 PO 02/08/21 09:00 02/15/21 09:38 SIMRAN LOWERY MD February 16, 2021:13
[2021-02-17] VITALS (12 sets, daily range): BP systolic 129–168; BP diastolic 67–89
[2021-02-17] MEDS: IPRATROPIUM 0.5MG/ALBUTEROL 2.5MG INH SOL UD 3ML (DUONEB) INH SCH ×5 (00:05→20:00)
[2021-02-17] MEDS: SLF 3 ML SYR IV SCH ×3 (05:42→20:47)
[2021-02-17] MEDS: LEVOTHYROXINE 150MCG TABLET (0.15MG) PO SCH (05:42)
[2021-02-17 07:04] LABS: BASO # 0.1 10^3/uL (0.0-0.2); BASO % 0.6 % (0.0-1.0); EOS # 0.3 10^3/uL (0.0-0.5); EOS % 3.2 % (0.0-3.0); HEMATOCRIT 24.6 % (42.0-52.0); HEMOGLOBIN 7.3 g/dl (13.5-17.5); LYMPH # 2.1 10^3/uL (1.5-5.0); LYMPH % 24.1 % (24.0-44.0); MEAN CORPUSCULAR HEMOGLOBIN 26.1 pg (27.0-33.0); MEAN CORPUSCULAR HGB CONC 29.7 g/dl (32.0-36.5); MEAN CORPUSCULAR VOLUME 87.9 fl (80.0-96.0); MONO # 0.5 10^3/uL (0.0-0.8); MONO % 6.2 % (2.0-8.0); NEUTROPHILS # 5.5 10^3/uL (1.5-8.5); NEUTROPHILS % 64.6 % (36.0-66.0); PLATELET COUNT, AUTOMATED 481 10^3/uL (150-450); WHITE BLOOD COUNT 8.5 10^3/uL (4.0-10.0)
[2021-02-17] MEDS: IPRATROPIUM HFA INHALER 12.9 GRAMS (ATROVENT HFA) INH SCH ×2 (07:23→20:04)
[2021-02-17] MEDS: ADVAIR HFA 230/21MCG INHALER INH SCH ×2 (07:23→20:04)
[2021-02-17 07:37] LABS: BLOOD UREA NITROGEN 9 MG/DL (7-18); CALCIUM LEVEL 8.6 MG/DL (8.5-10.1); CARBON DIOXIDE LEVEL 28 MEQ/L (21-32); CHLORIDE LEVEL 105 MEQ/L (98-107); CREATININE FOR GFR 0.74 MG/DL (0.70-1.30); GLOMERULAR FILTRATION RATE > 60.0 (>60); GLUCOSE, FASTING 79 MG/DL (70-100); POTASSIUM SERUM 3.6 MEQ/L (3.5-5.1); SODIUM LEVEL 140 MEQ/L (136-145)
[2021-02-17] MEDS: FUROSEMIDE 40 MG TAB PO SCH (08:38)
[2021-02-17] MEDS: FLUoxetine 20 MG CAP PO SCH (08:38)
[2021-02-17] MEDS: SUCRALFATE SUSP 1GM/10ML UD PO SCH ×4 (08:38→20:43)
[2021-02-17] MEDS: FERROUS GLUCONATE 324 MG TAB PO SCH (08:38)
[2021-02-17] MEDS: MAGNESIUM OXIDE 400MG TAB (MAG-OX) PO SCH ×2 (08:38→20:43)
[2021-02-17] MEDS: lamoTRIgine 100MG TAB PO SCH ×2 (08:38→20:43)
[2021-02-17] MEDS: metFORMIN XR 500MG TAB *GLUCOPHAGE XR PO SCH ×2 (08:39→20:43)
[2021-02-17] MEDS: ASPIRIN 81MG ENTERIC TABLET PO SCH (08:39)
[2021-02-17] MEDS: METOPROLOL TART 50 MG TAB PO SCH ×2 (08:39→20:45)
[2021-02-17] MEDS: PANTOPRAZOLE 40MG TAB (PROTONIX) PO SCH (08:39)
[2021-02-17] MEDS: predniSONE 10 MG TAB PO SCH (08:39)
[2021-02-17] MEDS: MONTELUKAST 10 MG TAB PO SCH (08:40)
[2021-02-17] MEDS: MULTIVITAMINS CHILDREN'S CHEWABLE TABLET PO SCH (08:40)
[2021-02-17] MEDS: ACETAMINOPHEN 500 MG TAB PO SCH ×3 (08:40→20:42)
[2021-02-17] MEDS: cloZAPine 25 MG TAB (S0136) PO SCH ×2 (08:40→20:43)
[2021-02-17] MEDS: DOCUSATE SODIUM 100MG CAPSULE PO SCH ×2 (08:40→20:44)
[2021-02-17] MEDS: ENOXAPARIN 40MG/0.4ML SYRINGE (J1650 PER 10MG) SC SCH (08:41)
[2021-02-17] MEDS: REMEDY PHYTOPLEX Z-GUARD PASTE 113GM TUBE (FROM STOREROOM PRODUCT) TOP SCH ×3 (08:41→20:46)
[2021-02-17] MEDS: FLUTICASONE PROP 0.05% NASAL SPRAY 16 GM (FLONASE) NARES SCH ×2 (08:41→20:46)
[2021-02-17] MEDS: cefTRIAXone SOD 2 GM in D5W MINI-BAG PLUS 50 ML IV SCH (10:26)
[2021-02-17] MEDS ORDERED: ACETAMINOPHEN TAB 650MG DOSE (2X325MG) PO ONE (11:15)
[2021-02-17] MEDS ORDERED: FUROSEMIDE 20MG/2ML VIAL (J1940) IV ONE (12:00)
[2021-02-17] MEDS: AZITHROMYCIN INJ 500 MG, VIAL MATE ADAPTER 1 EACH in NS 250 ML IV SCH (13:22)
--- NOTE | 2021-02-17 18:02 | IPNPDOC ---
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 REVIEW OF SYSTEMS: The following is a completed review of systems and has been reviewed. Review of systems otherwise unremarkable. PAIN: Patient self reports no pain EYES: No recent vision changes EARS, NOSE, & THROAT: No throat pain, or dysphagia, or rhinorrhea CARDIOVASCULAR: Denies chest pain or palpitations PULMONARY: +mild shortness of breath GASTROINTESTINAL: Denies constipation/diarrhea. GENITOURINARY: denies dysuria MUSCULOSKELETAL: right ankle fracture NEUROLOGICAL:denies tremor HEMATOLOGICAL: denies easy bruising SKIN: right ankle surgery incision PSYCHIATRIC: Unremarkable All other review of systems found to be negative. PHYSICAL EXAMINATION: VITAL SIGNS: Please see below. GENERAL: Pleasant and cooperative. No acute distress. HEENT: PERRL. Extraocular movements intact. Clear conjunctiva CARDIOVASCULAR: Regular rate and rhythm. No murmurs, rubs, or gallops LUNGS: +rhonchi throughout (improved) ABDOMEN: Soft, nontender, nondistended. Positive bowel sounds. Normal active bowel sounds NEUROLOGICAL: Alert and oriented times three. Cranial nerves II through XII grossly intact. Sensation grossly intact EXTREMITIES: 5\5 strength bilateral upper extremities. 5\5 strength right hip flexor and knee extension, able to wiggle toes (limited due to ankle surgery). LLE edema ( improved) ASSESSMENT:40-year-old M with past medical history of DM, HTN, schizoaffective bipolar who presents status post right ankle fracture with ORIF PLAN: 1. 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 Ortho s/p right ankle ORIF 01-30-21, NWB, monitor for infection, f/u ortho outpatient -f/u Dr. Gresham 02-22-21 outpatient, discussed case with surgeon, advised not to unwrap limb, patient not complaining of significant pain 3. Cardiac- metabolic syndrome with HTN c/u ASA and BP meds, c/u lasix to 40mg daily and fluid restriction (edema improving) -HLD-c/u statin -medicine consulted to assist in overall management 4. Resp- hx of COPD c/u Singulair, Advair, and duonebs prn -PAVNA- nocturnal 02 while inhouse -patient with desaturations 02-15-21 with fevers, CT Chest ordered showing multifocal PNA concern for COvid-patient with known Covid exposure on the unit, however SARs-2 PCR and Resp Panel both negative, patient continues to appear clinically stable stating he has a mild cough and breathing comfortably- - MRSA negative, blood cx and sputum cx ordered -c/u Ceftriaxone and azythromycin -c/u prednisone will taper quickly 5. Endo- hx of hypothyroidism c/u synthroid -DM c/u metformin and ISS 6. Psych- schizoaffective bipolar d/o- c/u clozapine, prozac, and lamictal 7. GI ppx- protonix and sucralfate (changed to liquid to avoid reflux) -f/u GI outpatient for endoscopy 8. Pain- tylenol and oxycodone 9. Heme- iron deficiency anemia, Hgb 7.3 today, patient receiving 2 units prbcs, c/u supplement 10. DVT ppx- lovenox -dopplers negative for DVT 11. Dispo- plan for home once off IV antibiotics -consent for blood transfusion was obtained over the phone prior to face to face with risks and benefits explained with nurse bedside. Patient agreed to receive 2 units Allergies Coded Allergies: benztropine (Verified Adverse Reaction, Intermediate, LOCKS JAW, 02/03/21) Vital Signs Vital Signs Date Time Temp Pulse Resp B/P (MAP) Pulse Ox O2 Delivery O2 Flow Rate FiO2 02/17/21 17:25 96.5 87 17 157/83 94 Room Air 02/17/21 13:46 1.0 Laboratory Data CBC/BMP Laboratory Tests 02/17/21 06:52 Labs 24H Laboratory Tests 2 02/16/21 20:16: Bedside Glucose (Misc Panel) 98 02/17/21 05:38: Bedside Glucose (Misc Panel) 83 02/17/21 06:52: Immature Granulocyte % (Auto) 1.3, Neutrophils (%) (Auto) 64.6, Lymphocytes (%) (Auto) 24.1, Monocytes (%) (Auto) 6.2, Eosinophils (%) (Auto) 3.2H, Basophils (%) (Auto) 0.6, Neutrophils # (Auto) 5.5, Lymphocytes # (Auto) 2.1, Monocytes # (Auto) 0.5, Eosinophils # (Auto) 0.3, Basophils # (Auto) 0.1, Nucleated Red Blood Cells % (auto) 0.0, Anion Gap 7L, Glomerular Filtration Rate > 60.0, Calcium Level 8.6 02/17/21 11:14: Bedside Glucose (Misc Panel) 98 02/17/21 16:34: Bedside Glucose (Misc Panel) 90 Microbiology Microbiology 02/15/21 Blood Culture - Preliminary, Resulted No Growth after 48 hours. All Specime... 02/15/21 Blood Culture - Preliminary, Resulted No Growth after 48 hours. All Specime... 02/15/21 Gram Stain - Final, Resulted 02/15/21 Sputum Culture - Preliminary, Resulted Streptococcus Pneumoniae 02/15/21 Respiratory Virus Panel (PCR) ([facility]) - Final, Complete Current Medications Current Medications Current Medications Medications (Trade) Dose Ordered Sig/Buster Route PRN Reason Start Time Stop Time Status Last Admin Dose Admin Acetaminophen (Tylenol Tab) 1,000 mg TID PO 02/03/21 16:00 02/17/21 08:40 Albuterol Sulfate (Proventil, Ventolin Hfa) 2 puff Q4H PRN INH WHEEZING 02/15/21 10:15 Albuterol/ Ipratropium (Duoneb (Ipr 0.5mg/Alb 2.5mg)) 3 ml RQ4H INH 02/15/21 12:00 Albuterol/ Ipratropium (Duoneb (Ipr 0.5mg/Alb 2.5mg)) 3 ml RTID NEB 02/03/21 20:00 02/03/21 18:22 DC Albuterol/ Ipratropium (Duoneb (Ipr 0.5mg/Alb 2.5mg)) 3 ml TIDP PRN NEB SHORTNESS OF BREATH 02/03/21 18:25 02/10/21 08:07 DC Aspirin (Ecotrin) 81 mg DAILY PO 02/04/21 09:00 02/17/21 08:39 Atorvastatin Calcium (Lipitor) 40 mg QHS PO 02/03/21 21:00 02/16/21 20:43 Azithromycin 500 mg/IV Miscellaneous Supplies 1 each/ Sodium Chloride 255 ml @ 255 mls/hr Q24H IV 02/15/21 13:00 02/17/21 13:22 Bisacodyl (Dulcolax Suppository) 10 mg DAILYPRN PRN [place] CONSTIPATION 02/03/21 14:00 Ceftriaxone Sodium 2 gm/ Dextrose 50 ml @ 100 mls/hr Q24H IV 02/15/21 11:00 02/17/21 10:26 Clozapine (Clozaril) 50 mg BID PO 02/03/21 21:00 02/17/21 08:40 Docusate Sodium (Colace) 100 mg BID PO 02/03/21 21:00 02/15/21 21:30 Enoxaparin Sodium (Lovenox) 40 mg DAILY SC 02/04/21 09:00 02/17/21 08:41 Ferrous Gluconate (Fergon) 324 mg DAILY PO 02/04/21 09:00 02/17/21 08:38 Fluoxetine HCl (PROzac) 20 mg DAILY PO 02/04/21 09:00 02/17/21 08:38 Fluticasone Propionate (Flonase 0.05% Nasal [place]) 1 spray BID NARES 02/03/21 21:00 02/17/21 08:41 Furosemide (Lasix) 20 mg DAILY PO 02/05/21 09:00 02/09/21 21:02 DC 02/09/21 09:50 Furosemide (Lasix) 40 mg DAILY PO 02/10/21 09:00 02/17/21 08:38 Home Med (Med Rec Complete!) ASDIRECTED XX 02/03/21 17:25 02/03/21 17:29 DC Ipratropium [place] (Atrovent Hfa) 2 puff RBID INH 02/03/21 20:00 02/17/21 07:23 Lamotrigine (LaMICtal) 100 mg BID PO 02/03/21 21:00 02/17/21 08:38 Levothyroxine Sodium (Synthroid) 150 mcg DAILY@06 PO 02/04/21 06:00 02/17/21 05:42 Loratadine (Claritin) 10 mg QHS PO 02/04/21 21:00 02/16/21 20:43 Magnesium Oxide (Mag-Ox) 400 mg BID PO 02/03/21 21:00 02/17/21 08:38 Metformin HCl (Glucophage Xr) 500 mg BID PO 02/03/21 21:00 02/17/21 08:39 Metoprolol Tartrate (Lopressor) 25 mg BID PO 02/05/21 09:00 02/17/21 08:39 Metoprolol Tartrate (Lopressor) 50 mg BID PO 02/03/21 21:00 02/04/21 22:11 DC 02/04/21 21:28 Montelukast Sodium (Singulair) 10 mg DAILY PO 02/04/21 09:00 02/17/21 08:40 Multivitamins (Fruity Chews-Children'S) 1 tab DAILY PO 02/11/21 09:00 02/17/21 08:40 Multivitamins (Theragram-M) 1 tab DAILY PO 02/04/21 09:00 02/11/21 07:54 DC 02/10/21 08:58 Pantoprazole Sodium (Protonix) 40 mg DAILY PO 02/04/21 09:00 02/17/21 08:39 Prednisone (Deltasone) 10 mg DAILY PO 02/17/21 09:00 02/18/21 12:00 02/17/21 08:39 Prednisone (Deltasone) 20 mg DAILY PO 02/15/21 10:05 02/17/21 07:57 DC 02/16/21 08:17 Prednisone (Deltasone) 40 mg DAILY PO 02/15/21 10:45 02/15/21 10:57 DC Salmeterol Xinafoate/ Fluticasone (Advair Hfa 230/ ) 2 puff RBID INH 02/03/21 20:00 02/17/21 07:23 Senna (Senokot) 1 tab QHS PO 02/03/21 21:00 02/15/21 21:30 Sodium Chloride (Saline Lock Flush) 2 ml ASDIRECTED PRN IV SEE LABEL COMMENTS 02/15/21 16:25 Sodium Chloride (Saline Lock Flush) 2 ml SLF IV 02/15/21 22:00 02/17/21 13:22 Sucralfate (Carafate Suspension) 1 gm ACHS PO 02/11/21 07:30 02/17/21 16:45 Sucralfate (Carafate) 1 gm ACHS PO 02/03/21 17:30 02/11/21 07:54 DC 02/10/21 21:28 Vitamin D (Drisdol) 50,000 units Tu@09 PO 02/08/21 09:00 02/15/21 09:38 SIMRAN LOWERY MD February 17, 2021 18:02
[2021-02-17] MEDS: SENNA 8.6 MG TAB (SENOKOT) PO SCH (20:41)
[2021-02-17] MEDS: ATORVASTATIN 20 MG TAB PO SCH (20:43)
[2021-02-17] MEDS: LORATADINE 10 MG TAB PO SCH (20:43)
[2021-02-18] MEDS: LEVOTHYROXINE 150MCG TABLET (0.15MG) PO SCH (05:31)
[2021-02-18] MEDS: SLF 3 ML SYR IV SCH ×3 (05:32→20:40)
[2021-02-18 06:07] VITALS: BP 142/83
[2021-02-18] MEDS: SUCRALFATE SUSP 1GM/10ML UD PO SCH ×4 (06:58→20:38)
[2021-02-18] MEDS: IPRATROPIUM 0.5MG/ALBUTEROL 2.5MG INH SOL UD 3ML (DUONEB) INH SCH ×4 (08:00→20:00)
[2021-02-18] MEDS: ACETAMINOPHEN 500 MG TAB PO SCH ×3 (09:00→20:39)
[2021-02-18 09:36] LABS: HEMATOCRIT 36.3 % (42.0-52.0); MEAN CORPUSCULAR HEMOGLOBIN 27.2 pg (27.0-33.0); MEAN CORPUSCULAR HGB CONC 31.1 g/dl (32.0-36.5); MEAN CORPUSCULAR VOLUME 87.3 fl (80.0-96.0); PLATELET COUNT, AUTOMATED 614 10^3/uL (150-450); RED BLOOD COUNT 4.16 10^6/uL (4.30-6.10); WHITE BLOOD COUNT 9.7 10^3/uL (4.0-10.0)
[2021-02-18] MEDS: ASPIRIN 81MG ENTERIC TABLET PO SCH (09:55)
[2021-02-18] MEDS: FLUoxetine 20 MG CAP PO SCH (09:55)
[2021-02-18] MEDS: DOCUSATE SODIUM 100MG CAPSULE PO SCH ×2 (09:55→20:39)
[2021-02-18] MEDS: lamoTRIgine 100MG TAB PO SCH ×2 (09:56→20:38)
[2021-02-18] MEDS: MULTIVITAMINS CHILDREN'S CHEWABLE TABLET PO SCH (09:56)
[2021-02-18] MEDS: MAGNESIUM OXIDE 400MG TAB (MAG-OX) PO SCH ×2 (09:56→20:38)
[2021-02-18] MEDS: PANTOPRAZOLE 40MG TAB (PROTONIX) PO SCH (09:57)
[2021-02-18] MEDS: MONTELUKAST 10 MG TAB PO SCH (09:57)
[2021-02-18] MEDS: METOPROLOL TART 50 MG TAB PO SCH ×2 (09:58→20:37)
[2021-02-18] MEDS: cloZAPine 25 MG TAB (S0136) PO SCH ×2 (09:58→20:38)
[2021-02-18 09:59] LABS: HEMOGLOBIN 11.3 g/dl (13.5-17.5)
[2021-02-18] MEDS: predniSONE 10 MG TAB PO SCH (09:59)
[2021-02-18] MEDS: FERROUS GLUCONATE 324 MG TAB PO SCH (09:59)
[2021-02-18] MEDS: FLUTICASONE PROP 0.05% NASAL SPRAY 16 GM (FLONASE) NARES SCH ×2 (09:59→20:39)
[2021-02-18] MEDS: ENOXAPARIN 40MG/0.4ML SYRINGE (J1650 PER 10MG) SC SCH (09:59)
[2021-02-18] MEDS: FUROSEMIDE 40 MG TAB PO SCH (09:59)
[2021-02-18] MEDS: metFORMIN XR 500MG TAB *GLUCOPHAGE XR PO SCH ×2 (09:59→20:38)
[2021-02-18 10:00] LABS: BLOOD UREA NITROGEN 9 MG/DL (7-18); CALCIUM LEVEL 10.1 MG/DL (8.5-10.1); CARBON DIOXIDE LEVEL 30 MEQ/L (21-32); CHLORIDE LEVEL 103 MEQ/L (98-107); CREATININE FOR GFR 0.81 MG/DL (0.70-1.30); GLOMERULAR FILTRATION RATE > 60.0 (>60); GLUCOSE, FASTING 81 MG/DL (70-100); POTASSIUM SERUM 3.5 MEQ/L (3.5-5.1); SODIUM LEVEL 140 MEQ/L (136-145)
[2021-02-18] MEDS: REMEDY PHYTOPLEX Z-GUARD PASTE 113GM TUBE (FROM STOREROOM PRODUCT) TOP SCH ×3 (10:00→20:40)
[2021-02-18 10:30] LABS: ATYPICAL LYMPH 1 % (0-5); EOSINOPHILS 1 % (0-3); LYMPHOCYTES 25 % (16-44); METAMYELOCYTES 2 % (0-0); MONOCYTES 4 % (0-5); MYELOCYTES 2 % (0-0); NEUTROPHILS 65 % (28-66); PLATELET ESTIMATE INCREASED (NORMAL)
[2021-02-18 10:31] LABS: ANISOCYTOSIS 1+
[2021-02-18] MEDS: ADVAIR HFA 230/21MCG INHALER INH SCH ×2 (11:01→20:20)
[2021-02-18] MEDS: IPRATROPIUM HFA INHALER 12.9 GRAMS (ATROVENT HFA) INH SCH ×2 (11:01→20:23)
[2021-02-18] MEDS: cefTRIAXone SOD 2 GM in D5W MINI-BAG PLUS 50 ML IV SCH (11:32)
[2021-02-18] MEDS ORDERED: LevoFLOXacin 500 MG TABLET PO ONE (12:00)
[2021-02-18 14:00] VITALS: BP 147/90
[2021-02-18 20:00] VITALS: BP 148/82
[2021-02-18] MEDS: LORATADINE 10 MG TAB PO SCH (20:37)
[2021-02-18] MEDS: ATORVASTATIN 20 MG TAB PO SCH (20:38)
[2021-02-18] MEDS: SENNA 8.6 MG TAB (SENOKOT) PO SCH (20:39)
[2021-02-19] MEDS: IPRATROPIUM 0.5MG/ALBUTEROL 2.5MG INH SOL UD 3ML (DUONEB) INH SCH ×5 (04:00→20:00)
[2021-02-19 05:46] VITALS: BP 148/89
[2021-02-19] MEDS: SUCRALFATE SUSP 1GM/10ML UD PO SCH ×4 (05:54→21:31)
[2021-02-19] MEDS: SLF 3 ML SYR IV SCH ×3 (05:54→21:32)
[2021-02-19] MEDS: LEVOTHYROXINE 150MCG TABLET (0.15MG) PO SCH (05:54)
[2021-02-19] MEDS: LevoFLOXacin 500 MG TABLET PO SCH (05:54)
[2021-02-19 07:15] LABS: HEMATOCRIT 34.4 % (42.0-52.0); HEMOGLOBIN 10.7 g/dl (13.5-17.5); MEAN CORPUSCULAR HEMOGLOBIN 26.8 pg (27.0-33.0); MEAN CORPUSCULAR HGB CONC 31.1 g/dl (32.0-36.5); PLATELET COUNT, AUTOMATED 541 10^3/uL (150-450); WHITE BLOOD COUNT 11.5 10^3/uL (4.0-10.0)
[2021-02-19 07:24] LABS: ATYPICAL LYMPH 5 % (0-5); LYMPHOCYTES 34 % (16-44); METAMYELOCYTES 2 % (0-0); MONOCYTES 9 % (0-5); MYELOCYTES 2 % (0-0); NEUTROPHILS 48 % (28-66); PLATELET ESTIMATE INCREASED (NORMAL)
[2021-02-19 07:25] LABS: ANISOCYTOSIS 2+; POIKILOCYTOSIS 2+; POLYCHROMASIA 1+
[2021-02-19] MEDS: IPRATROPIUM HFA INHALER 12.9 GRAMS (ATROVENT HFA) INH SCH ×2 (08:17→20:48)
[2021-02-19] MEDS: ADVAIR HFA 230/21MCG INHALER INH SCH ×2 (08:17→20:48)
[2021-02-19] MEDS: DOCUSATE SODIUM 100MG CAPSULE PO SCH ×2 (08:50→21:00)
[2021-02-19] MEDS: lamoTRIgine 100MG TAB PO SCH ×2 (08:57→21:29)
[2021-02-19] MEDS: MULTIVITAMINS CHILDREN'S CHEWABLE TABLET PO SCH (08:58)
[2021-02-19] MEDS: cloZAPine 25 MG TAB (S0136) PO SCH ×2 (08:58→21:30)
[2021-02-19] MEDS: ASPIRIN 81MG ENTERIC TABLET PO SCH (08:58)
[2021-02-19] MEDS: MONTELUKAST 10 MG TAB PO SCH (08:58)
[2021-02-19] MEDS: metFORMIN XR 500MG TAB *GLUCOPHAGE XR PO SCH ×2 (08:58→21:29)
[2021-02-19] MEDS: FERROUS GLUCONATE 324 MG TAB PO SCH (08:59)
[2021-02-19] MEDS: METOPROLOL TART 50 MG TAB PO SCH ×2 (08:59→21:30)
[2021-02-19] MEDS: MAGNESIUM OXIDE 400MG TAB (MAG-OX) PO SCH ×2 (08:59→21:29)
[2021-02-19] MEDS: FLUoxetine 20 MG CAP PO SCH (08:59)
[2021-02-19] MEDS: FUROSEMIDE 40 MG TAB PO SCH (08:59)
[2021-02-19] MEDS: PANTOPRAZOLE 40MG TAB (PROTONIX) PO SCH (08:59)
[2021-02-19] MEDS: ACETAMINOPHEN 500 MG TAB PO SCH ×3 (08:59→21:31)
[2021-02-19] MEDS: REMEDY PHYTOPLEX Z-GUARD PASTE 113GM TUBE (FROM STOREROOM PRODUCT) TOP SCH ×3 (09:00→21:31)
[2021-02-19] MEDS: ENOXAPARIN 40MG/0.4ML SYRINGE (J1650 PER 10MG) SC SCH (09:00)
[2021-02-19] MEDS: FLUTICASONE PROP 0.05% NASAL SPRAY 16 GM (FLONASE) NARES SCH ×2 (09:00→21:32)
[2021-02-19 14:00] VITALS: BP 126/80
[2021-02-19 20:00] VITALS: BP 136/89
[2021-02-19] MEDS: SENNA 8.6 MG TAB (SENOKOT) PO SCH (21:00)
[2021-02-19] MEDS: LORATADINE 10 MG TAB PO SCH (21:30)
[2021-02-19] MEDS: ATORVASTATIN 20 MG TAB PO SCH (21:31)
[2021-02-20] MEDS: IPRATROPIUM 0.5MG/ALBUTEROL 2.5MG INH SOL UD 3ML (DUONEB) INH SCH ×5 (04:00→16:00)
[2021-02-20 05:29] VITALS: BP 144/77
[2021-02-20] MEDS: LevoFLOXacin 500 MG TABLET PO SCH (05:35)
[2021-02-20] MEDS: SLF 3 ML SYR IV SCH ×3 (05:35→20:46)
[2021-02-20] MEDS: LEVOTHYROXINE 150MCG TABLET (0.15MG) PO SCH (05:35)
[2021-02-20] MEDS: SUCRALFATE SUSP 1GM/10ML UD PO SCH ×4 (05:35→20:45)
[2021-02-20] MEDS: IPRATROPIUM HFA INHALER 12.9 GRAMS (ATROVENT HFA) INH SCH ×2 (07:20→17:59)
[2021-02-20] MEDS: ADVAIR HFA 230/21MCG INHALER INH SCH ×2 (07:20→17:59)
[2021-02-20] MEDS: MULTIVITAMINS CHILDREN'S CHEWABLE TABLET PO SCH (08:37)
[2021-02-20] MEDS: PANTOPRAZOLE 40MG TAB (PROTONIX) PO SCH (08:37)
[2021-02-20] MEDS: MONTELUKAST 10 MG TAB PO SCH (08:37)
[2021-02-20] MEDS: lamoTRIgine 100MG TAB PO SCH ×2 (08:37→20:44)
[2021-02-20] MEDS: MAGNESIUM OXIDE 400MG TAB (MAG-OX) PO SCH ×2 (08:37→20:44)
[2021-02-20] MEDS: FERROUS GLUCONATE 324 MG TAB PO SCH (08:37)
[2021-02-20] MEDS: metFORMIN XR 500MG TAB *GLUCOPHAGE XR PO SCH ×2 (08:37→20:45)
[2021-02-20] MEDS: cloZAPine 25 MG TAB (S0136) PO SCH ×2 (08:37→20:44)
[2021-02-20] MEDS: FLUTICASONE PROP 0.05% NASAL SPRAY 16 GM (FLONASE) NARES SCH ×2 (08:38→20:46)
[2021-02-20] MEDS: METOPROLOL TART 50 MG TAB PO SCH ×2 (08:38→20:45)
[2021-02-20] MEDS: ASPIRIN 81MG ENTERIC TABLET PO SCH (08:38)
[2021-02-20] MEDS: ACETAMINOPHEN 500 MG TAB PO SCH ×3 (08:38→20:45)
[2021-02-20] MEDS: FUROSEMIDE 40 MG TAB PO SCH (08:38)
[2021-02-20] MEDS: ENOXAPARIN 40MG/0.4ML SYRINGE (J1650 PER 10MG) SC SCH (08:38)
[2021-02-20] MEDS: FLUoxetine 20 MG CAP PO SCH (08:38)
[2021-02-20] MEDS: REMEDY PHYTOPLEX Z-GUARD PASTE 113GM TUBE (FROM STOREROOM PRODUCT) TOP SCH ×3 (08:39→20:47)
[2021-02-20] MEDS: DOCUSATE SODIUM 100MG CAPSULE PO SCH ×2 (08:39→20:45)
[2021-02-20 14:00] VITALS: BP 134/65
[2021-02-20 20:30] VITALS: BP 138/87
[2021-02-20] MEDS: LORATADINE 10 MG TAB PO SCH (20:44)
[2021-02-20] MEDS: ATORVASTATIN 20 MG TAB PO SCH (20:45)
[2021-02-20] MEDS: SENNA 8.6 MG TAB (SENOKOT) PO SCH (20:46)
[2021-02-21] MEDS: LevoFLOXacin 500 MG TABLET PO SCH (05:38)
[2021-02-21] MEDS: LEVOTHYROXINE 150MCG TABLET (0.15MG) PO SCH (05:38)
[2021-02-21] MEDS: SLF 3 ML SYR IV SCH (05:38)
[2021-02-21] MEDS: SUCRALFATE SUSP 1GM/10ML UD PO SCH ×2 (05:38→11:26)
[2021-02-21 06:41] VITALS: BP 139/91
[2021-02-21] MEDS: IPRATROPIUM 0.5MG/ALBUTEROL 2.5MG INH SOL UD 3ML (DUONEB) INH SCH (07:00)
[2021-02-21] MEDS: IPRATROPIUM HFA INHALER 12.9 GRAMS (ATROVENT HFA) INH SCH (07:38)
[2021-02-21] MEDS: ADVAIR HFA 230/21MCG INHALER INH SCH (07:38)
[2021-02-21 07:55] LABS: HEMATOCRIT 36.7 % (42.0-52.0); HEMOGLOBIN 11.2 g/dl (13.5-17.5); MEAN CORPUSCULAR HEMOGLOBIN 26.4 pg (27.0-33.0); MEAN CORPUSCULAR HGB CONC 30.5 g/dl (32.0-36.5); MEAN CORPUSCULAR VOLUME 86.6 fl (80.0-96.0); PLATELET COUNT, AUTOMATED 471 10^3/uL (150-450); RED BLOOD COUNT 4.24 10^6/uL (4.30-6.10); WHITE BLOOD COUNT 10.6 10^3/uL (4.0-10.0)
[2021-02-21 08:16] LABS: BLOOD UREA NITROGEN 8 MG/DL (7-18); CALCIUM LEVEL 8.9 MG/DL (8.5-10.1); CARBON DIOXIDE LEVEL 32 MEQ/L (21-32); CHLORIDE LEVEL 104 MEQ/L (98-107); CREATININE FOR GFR 0.76 MG/DL (0.70-1.30); GLOMERULAR FILTRATION RATE > 60.0 (>60); GLUCOSE, FASTING 78 MG/DL (70-100); POTASSIUM SERUM 3.2 MEQ/L (3.5-5.1); SODIUM LEVEL 140 MEQ/L (136-145)
[2021-02-21] MEDS ORDERED: KCL 10MEQ/100ML SWI (KRUN) 10 MEQ in IV 1 EA IV STA (08:39)
[2021-02-21 08:58] LABS: ATYPICAL LYMPH 6 % (0-5); BASOPHILS 1 % (0-1); EOSINOPHILS 8 % (0-3); LYMPHOCYTES 31 % (16-44); MONOCYTES 7 % (0-5); NEUTROPHILS 45 % (28-66)
[2021-02-21 08:59] LABS: PLATELET ESTIMATE INCREASED (NORMAL)
[2021-02-21] MEDS: ACETAMINOPHEN 500 MG TAB PO SCH (09:00)
[2021-02-21] MEDS: FLUTICASONE PROP 0.05% NASAL SPRAY 16 GM (FLONASE) NARES SCH (09:00)
[2021-02-21] MEDS: REMEDY PHYTOPLEX Z-GUARD PASTE 113GM TUBE (FROM STOREROOM PRODUCT) TOP SCH (09:00)
[2021-02-21] MEDS: ENOXAPARIN 40MG/0.4ML SYRINGE (J1650 PER 10MG) SC SCH (09:00)
[2021-02-21] MEDS: DOCUSATE SODIUM 100MG CAPSULE PO SCH (09:00)
[2021-02-21] MEDS ORDERED: POTASSIUM CHLORIDE 10 MEQ SR TABLET PO ONE (09:00)
[2021-02-21 09:01] LABS: TEAR DROP CELLS 1+
[2021-02-21 09:02] LABS: ANISOCYTOSIS 1+
[2021-02-21] MEDS: FLUoxetine 20 MG CAP PO SCH (09:12)
[2021-02-21] MEDS: ASPIRIN 81MG ENTERIC TABLET PO SCH (09:12)
[2021-02-21] MEDS: MONTELUKAST 10 MG TAB PO SCH (09:12)
[2021-02-21 09:13] VITALS: BP 139/91
[2021-02-21] MEDS: PANTOPRAZOLE 40MG TAB (PROTONIX) PO SCH (09:13)
[2021-02-21] MEDS: FUROSEMIDE 40 MG TAB PO SCH (09:13)
[2021-02-21] MEDS: METOPROLOL TART 50 MG TAB PO SCH (09:13)
[2021-02-21] MEDS: metFORMIN XR 500MG TAB *GLUCOPHAGE XR PO SCH (09:14)
[2021-02-21] MEDS: FERROUS GLUCONATE 324 MG TAB PO SCH (09:14)
[2021-02-21] MEDS: MAGNESIUM OXIDE 400MG TAB (MAG-OX) PO SCH (09:14)
[2021-02-21] MEDS: lamoTRIgine 100MG TAB PO SCH (09:14)
[2021-02-21] MEDS: MULTIVITAMINS CHILDREN'S CHEWABLE TABLET PO SCH (09:15)
[2021-02-21] MEDS: cloZAPine 25 MG TAB (S0136) PO SCH (09:15)
[2021-02-21] MEDS ORDERED: FLUO20CA22 PO (10:08)
[2021-02-21] MEDS ORDERED: FLON1SPR (10:08)
[2021-02-21] MEDS ORDERED: LORA-243 PO (10:08)
[2021-02-21] MEDS ORDERED: LAMO100T3 PO (10:08)
[2021-02-21] MEDS ORDERED: PROAAER10 INH (10:08)
[2021-02-21] MEDS ORDERED: CLOZ50TA PO (10:08)
[2021-02-21] MEDS ORDERED: ASPI-117 PO (10:08)
[2021-02-21] MEDS ORDERED: LEVO150T42 PO (10:08)
[2021-02-21] MEDS ORDERED: INCR1INH INH (10:09)
[2021-02-21] MEDS ORDERED: ATOR40TA75 PO (10:09)
[2021-02-21] MEDS ORDERED: MAGN400T3 PO (10:09)
[2021-02-21] MEDS ORDERED: SUCR1ORA PO (10:09)
[2021-02-21] MEDS ORDERED: ADV500INH INH (10:09)
[2021-02-21] MEDS ORDERED: FURO20TA2 PO (10:09)
[2021-02-21] MEDS ORDERED: POTA10TA14 PO (10:09)
[2021-02-21] MEDS ORDERED: VITA50005 PO (10:09)
[2021-02-21] MEDS ORDERED: METO25TA4 PO (10:09)
[2021-02-21] MEDS ORDERED: SUCR1TAB56 PO (10:09)
[2021-02-21] MEDS ORDERED: METF-838 PO (10:09)
[2021-02-21] MEDS ORDERED: OMEP-221 PO (10:09)
[2021-02-21] MEDS ORDERED: MONT10TA10 PO (10:09)
[2021-02-21] MEDS: KCL 10MEQ/100ML SWI (KRUN) 10 MEQ in IV 1 EA IV SCH ×2 (11:27→13:17)
[2021-02-21 14:00] VITALS: BP 142/92
[2021-02-21 15:10] LABS: BLOOD UREA NITROGEN 9 MG/DL (7-18); CALCIUM LEVEL 9.5 MG/DL (8.5-10.1); CARBON DIOXIDE LEVEL 32 MEQ/L (21-32); CHLORIDE LEVEL 102 MEQ/L (98-107); CREATININE FOR GFR 0.82 MG/DL (0.70-1.30); GLOMERULAR FILTRATION RATE > 60.0 (>60); GLUCOSE, FASTING 97 MG/DL (70-100); POTASSIUM SERUM 3.5 MEQ/L (3.5-5.1); SODIUM LEVEL 138 MEQ/L (136-145)
--- NOTE | 2021-02-23 10:01 | IPNPDOC ---
PM&R Progress Note DATE OF SERVICE: February 18, 2021 [employer] Progress Note Subjective: Patient seen in the gym on the [place] stating he feels more energetic since receiving blood. He denies any difficulty breathing or worsening cough. REVIEW OF SYSTEMS: The following is a completed review of systems and has been reviewed. Review of systems otherwise unremarkable. PAIN: Patient self reports no pain EYES: No recent vision changes EARS, NOSE, & THROAT: No throat pain, or dysphagia, or rhinorrhea CARDIOVASCULAR: Denies chest pain or palpitations PULMONARY: +mild shortness of breath (improved) GASTROINTESTINAL: Denies constipation/diarrhea. GENITOURINARY: denies dysuria MUSCULOSKELETAL: right ankle fracture NEUROLOGICAL:denies tremor HEMATOLOGICAL: denies easy bruising SKIN: right ankle surgery incision PSYCHIATRIC: Unremarkable All other review of systems found to be negative. PHYSICAL EXAMINATION: VITAL SIGNS: Please see below. GENERAL: Pleasant and cooperative. No acute distress. HEENT: PERRL. Extraocular movements intact. Clear conjunctiva CARDIOVASCULAR: Regular rate and rhythm. No murmurs, rubs, or gallops LUNGS: CTA ABDOMEN: Soft, nontender, nondistended. Positive bowel sounds. Normal active bowel sounds NEUROLOGICAL: Alert and oriented times three. Cranial nerves II through XII grossly intact. Sensation grossly intact EXTREMITIES: 5\5 strength bilateral upper extremities. 5\5 strength right hip flexor and knee extension, able to wiggle toes (limited due to ankle surgery). LLE edema ( improved) ASSESSMENT:40-year-old M with past medical history of DM, HTN, schizoaffective bipolar who presents status post right ankle fracture with ORIF PLAN: 1. Rehab- PT/OT advance mobility and ADLs, emphasize upper body and core strengthening to better maintain NWB to [employer]- patient with intermittent vomit following large pills such carafate and MVI most likely due to reflux , MBS ordered 02-15-21 to r/o any structural issues, cleared for regular diet 2. Ortho s/p right ankle ORIF 01-30-21, NWB, monitor for infection, f/u ortho outpatient -f/u Dr. Gresham 02-22-21 outpatient, discussed case with surgeon, advised not to unwrap limb, patient not complaining of significant pain 3. Cardiac- metabolic syndrome with HTN c/u ASA and BP meds, c/u lasix to 40mg daily and fluid restriction (edema improving) -HLD-c/u statin -medicine consulted to assist in overall management 4. Resp- hx of COPD c/u Singulair, Advair, and duonebs prn -PAVAN- nocturnal 02 while inhouse -patient with desaturations 02-15-21 with fevers, CT Chest ordered showing multifocal PNA concern for COvid-patient with known Covid exposure on the unit, however SARs-2 PCR and Resp Panel both negative, patient continues to appear clinically stable stating he has a mild cough and breathing comfortably- - MRSA negative, blood cx and sputum cx ordered -s/p Ceftriaxone and azythromycin- transitioned to levaquin -c/u prednisone will taper quickly 5. Endo- hx of hypothyroidism c/u synthroid -DM c/u metformin and ISS 6. Psych- schizoaffective bipolar d/o- c/u clozapine, prozac, and lamictal 7. GI ppx- protonix and sucralfate (changed to liquid to avoid reflux) -f/u GI outpatient for endoscopy 8. Pain- tylenol and oxycodone 9. Heme- iron deficiency anemia c/u supplement - Hgb 7.3 02/17 now up to 11.3 s/p 2 units prbcs 10. DVT ppx- lovenox -dopplers negative for DVT 11. Dispo- plan for home once off IV antibiotics, goal 02-21-21 Allergies Coded Allergies: benztropine (Verified Adverse Reaction, Intermediate, LOCK[place] JAW, 02/03/21) Vital Signs Vital Signs Date Time Temp Pulse Resp B/P (MAP) Pulse Ox O2 Delivery O2 Flow Rate FiO2 02/21/21 14:00 97.6 80 19 142/92 (109) 92 Room Air 02/20/21 20:30 1.0 Microbiology Microbiology 02/15/21 Blood Culture - Final, Complete NO GROWTH AFTER 5 DAYS 02/15/21 Blood Culture - Final, Complete NO GROWTH AFTER 5 DAYS 02/15/21 Gram Stain - Final, Complete 02/15/21 Sputum Culture - Final, Complete Streptococcus Pneumoniae 02/15/21 Respiratory Virus Panel (PCR) (RUPERT) - Final, Complete Current Medications Current Medications Current Medications Medications (Trade) Dose Ordered Sig/Buster Route PRN Reason Start Time Stop Time Status Last Admin Dose Admin Acetaminophen (Tylenol Tab) 1,000 mg TID PO 02/03/21 16:00 02/21/21 18:51 DC 02/20/21 20:45 Albuterol Sulfate (Proventil, Ventolin Hfa) 2 puff Q4H PRN INH WHEEZING 02/15/21 10:15 02/21/21 18:51 DC Albuterol/ Ipratropium (Duoneb (Ipr 0.5mg/Alb 2.5mg)) 3 ml RQ4H INH 02/15/21 12:00 02/21/21 18:51 DC Albuterol/ Ipratropium (Duoneb (Ipr 0.5mg/Alb 2.5mg)) 3 ml RTID NEB 02/03/21 20:00 02/03/21 18:22 DC Albuterol/ Ipratropium (Duoneb (Ipr 0.5mg/Alb 2.5mg)) 3 ml TIDP PRN NEB SHORTNESS OF BREATH 02/03/21 18:25 02/10/21 08:07 DC Aspirin (Ecotrin) 81 mg DAILY PO 02/04/21 09:00 02/21/21 18:51 DC 02/21/21 09:12 Atorvastatin Calcium (Lipitor) 40 mg QHS PO 02/03/21 21:00 02/21/21 18:51 DC 02/20/21 20:45 Azithromycin 500 mg/IV Miscellaneous Supplies 1 each/ Sodium Chloride 255 ml @ 255 mls/hr Q24H IV 02/15/21 13:00 02/18/21 11:59 DC 02/17/21 13:22 Bisacodyl (Dulcolax Suppository) 10 mg DAILYPRN PRN TX CONSTIPATION 02/03/21 14:00 02/21/21 18:51 DC Ceftriaxone Sodium 2 gm/ Dextrose 50 ml @ 100 mls/hr Q24H IV 02/15/21 11:00 02/18/21 11:59 DC 02/18/21 11:32 Clozapine (Clozaril) 50 mg BID PO 02/03/21 21:00 02/21/21 13:07 DC 02/21/21 09:15 Docusate Sodium (Colace) 100 mg BID PO 02/03/21 21:00 02/21/21 18:51 DC 02/18/21 09:55 Enoxaparin Sodium (Lovenox) 40 mg DAILY SC 02/04/21 09:00 02/21/21 13:07 DC 02/20/21 08:38 Ferrous Gluconate (Fergon) 324 mg DAILY PO 02/04/21 09:00 02/21/21 18:51 DC 02/21/21 09:14 Fluoxetine HCl (PROzac) 20 mg DAILY PO 02/04/21 09:00 02/21/21 18:51 DC 02/21/21 09:12 Fluticasone Propionate (Flonase 0.05% Nasal [place]) 1 spray BID NARES 02/03/21 21:00 02/21/21 18:51 DC 02/20/21 20:46 Furosemide (Lasix) 20 mg DAILY PO 02/05/21 09:00 02/09/21 21:02 DC 02/09/21 09:50 Furosemide (Lasix) 40 mg DAILY PO 02/10/21 09:00 02/21/21 18:51 DC 02/21/21 09:13 Home Med (Med Rec Complete!) ASDIRECTED XX 02/03/21 17:25 02/03/21 17:29 DC Ipratropium [place] (Atrovent Hfa) 2 puff RBID INH 02/03/21 20:00 02/21/21 18:51 DC 02/21/21 07:38 Lamotrigine (LaMICtal) 100 mg BID PO 02/03/21 21:00 02/21/21 18:51 DC 02/21/21 09:14 Levofloxacin (Levaquin) 500 mg DAILY@06 PO 02/19/21 06:00 02/21/21 06:00 DC 02/21/21 05:38 Levothyroxine Sodium (Synthroid) 150 mcg DAILY@06 PO 02/04/21 06:00 02/21/21 18:51 DC 02/21/21 05:38 Loratadine (Claritin) 10 mg QHS PO 02/04/21 21:00 02/21/21 18:51 DC 02/20/21 20:44 Magnesium Oxide (Mag-Ox) 400 mg BID PO 02/03/21 21:00 02/21/21 18:51 DC 02/21/21 09:14 Metformin HCl (Glucophage Xr) 500 mg BID PO 02/03/21 21:00 02/21/21 18:51 DC 02/21/21 09:14 Metoprolol Tartrate (Lopressor) 25 mg BID PO 02/05/21 09:00 02/21/21 18:51 DC 02/21/21 09:13 Metoprolol Tartrate (Lopressor) 50 mg BID PO 02/03/21 21:00 02/04/21 22:11 DC 02/04/21 21:28 Miscellaneous (Unresolved Clarification Entry) SEE LABEL COMMENTS DAILY XX 02/20/21 09:00 02/21/21 18:51 DC Montelukast Sodium (Singulair) 10 mg DAILY PO 02/04/21 09:00 02/21/21 18:51 DC 02/21/21 09:12 Multivitamins (Fruity Chews-Children'S) 1 tab DAILY PO 02/11/21 09:00 02/21/21 18:51 DC 02/21/21 09:15 Multivitamins (Theragram-M) 1 tab DAILY PO 02/04/21 09:00 02/11/21 07:54 DC 02/10/21 08:58 Pantoprazole Sodium (Protonix) 40 mg DAILY PO 02/04/21 09:00 02/21/21 18:51 DC 02/21/21 09:13 Potassium Chloride 10 meq/ IV Miscellaneous Supplies 100 ml @ 100 mls/hr ASDIRECTED STAT IV 02/21/21 08:39 02/21/21 08:43 DC Potassium Chloride 10 meq/ IV Miscellaneous Supplies 100 ml @ 100 mls/hr Q1H IV 02/21/21 09:00 02/21/21 11:59 DC 02/21/21 13:17 Prednisone (Deltasone) 10 mg DAILY PO 02/17/21 09:00 02/18/21 12:00 DC 02/18/21 09:59 Prednisone (Deltasone) 20 mg DAILY PO 02/15/21 10:05 02/17/21 07:57 DC 02/16/21 08:17 Prednisone (Deltasone) 40 mg DAILY PO 02/15/21 10:45 02/15/21 10:57 DC Salmeterol Xinafoate/ Fluticasone (Advair Hfa ) 2 puff RBID INH 02/03/21 20:00 02/21/21 18:51 DC 02/21/21 07:38 Senna (Senokot) 1 tab QHS PO 02/03/21 21:00 02/21/21 18:51 DC 02/17/21 20:41 Sodium Chloride (Saline Lock Flush) 2 ml ASDIRECTED PRN IV SEE LABEL COMMENTS 02/15/21 16:25 02/21/21 18:51 DC 02/18/21 11:32 Sodium Chloride (Saline Lock Flush) 2 ml SLF IV 02/15/21 22:00 02/21/21 18:51 DC 02/21/21 05:38 Sucralfate (Carafate Suspension) 1 gm 0630,1200,1730,2100 PO 02/18/21 17:30 02/21/21 18:51 DC 02/21/21 11:26 Sucralfate (Carafate Suspension) 1 gm ACHS PO 02/11/21 07:30 02/18/21 13:44 DC 02/18/21 11:32 Sucralfate (Carafate) 1 gm ACHS PO 02/03/21 17:30 02/11/21 07:54 DC 02/10/21 21:28 Vitamin D (Drisdol) 50,000 units Tu@09 PO 02/08/21 09:00 02/21/21 18:51 DC 02/15/21 09:38 SIMRAN LOWERY MD February 23, 2021 10:01
--- NOTE | 2021-02-23 10:35 | PMRDS ---
NAME: SOLOMON JEREZ [facility] WT ID#: [id number] : 1980 JOB: [id number] [place]: 02/21/2021 ACCT: [id number] DOCTOR: SIMRAN LOWERY MD PMR DISCHARGE SUMMARY DATE OF ADMISSION: 02/03/2021 DATE OF DISCHARGE: 02/21/2021 CHIEF COMPLAINT/DISCHARGE DIAGNOSIS: Right ankle fracture. HISTORY OF PRESENT ILLNESS: This is a 40-year-old man with a past medical history of diabetes, obesity, schizoaffective, bipolar, hypothyroid, PAVAN, hypertension, and iron deficiency anemia who fell and fractured his ankle requiring ORIF performed on 01/30/2021 with external fixator. He was initially discharged home but presented to [facility] ED on 02/03/2021 complaining of weakness and inability to remain nonweightbearing. He requested more intensive rehab. On admission, he was noted to be anemic with plan for outpatient endoscopic workup with Dr. Bhatti. He was evaluated by Therapy, noted to have mobility and ADL impairments below his prior level of function, and deemed medically appropriate for discharge to ARU. PAST MEDICAL HISTORY: As per HPI. HOSPITAL COURSE: Patient was admitted and enrolled in a comprehensive PT/OT program. He received 24 hour nursing supervision, and weekly team meetings were held to discuss his progress. Patient presented with lower extremity edema for which he was started on Lasix with general improvement in his edema. He complained of intermittent vomiting following intake of large pills, particularly Carafate which was switched to liquid. Modified barium swallow was ordered, and he was followed by Speech and Language Pathology to rule out structural issues and was cleared to continue regular diet. Case was discussed with Dr. Schwartz, orthopedic surgeon, who advised not to unwrap his limb until seen in outpatient. He developed fevers and worsening cough on 02/15/[address] chest showing multifocal pneumonia. He was negative for COVID. However, eventually sputum did grow Streptococcus pneumoniae. He was started on IV ceftriaxone and azithromycin with a short prednisone taper and eventually transitioned to Levaquin. His breathing and saturations and fever eventually improved. He did develop worsening anemia with a hemoglobin of 7.3 requiring 2 units of red blood cells with improvement in his hemoglobin to 11.3. He was instructed to follow up outpatient for endoscopy with GI and continue his iron supplements. On day of discharge, 02/21/2021, patient was noted to have hypokalemia. He was given IV potassium and started on oral potassium, and prior to discharge his potassium corrected to 3.5. He was deemed medically and functionally stable to return home. DISCHARGE MEDICATIONS: As per instructions. FUNCTIONAL HISTORY: On discharge, patient was modified independent from a wheelchair level for ADLs and mobility. Thank you for this referral.
== END 2021-02-21 16:45 | disposition home health service (06) | DRG 559 ==
LOC: M PM&R 16:00
PROVIDERS: ADMIT Physical Medicine & Rehabilitation; ATTEND Physical Medicine & Rehabilitation
PROC: 30233N1 Transfusion of Nonautologous Red Blood Cells into Peripheral Vein, Percutaneous Approach (ICD-10-PCS; principal; 2021-02-17)
DX: S82.51XD Displaced fracture of medial malleolus of right tibia, subsequent encounter for closed fracture with routine healing (principal); J13 Pneumonia due to Streptococcus pneumoniae; Z68.41 Body mass index [BMI] 40.0-44.9, adult; E11.9 Type 2 diabetes mellitus without complications; E66.01 Morbid (severe) obesity due to excess calories; F25.0 Schizoaffective disorder, bipolar type; E03.9 Hypothyroidism, unspecified; G47.33 Obstructive sleep apnea (adult) (pediatric); I10 Essential (primary) hypertension; D50.9 Iron deficiency anemia, unspecified; E78.5 Hyperlipidemia, unspecified; J44.9 Chronic obstructive pulmonary disease, unspecified; J45.909 Unspecified asthma, uncomplicated; K21.9 Gastro-esophageal reflux disease without esophagitis; W19.XXXD Unspecified fall, subsequent encounter; E88.81 Metabolic syndrome and other insulin resistance; Y92.9 Unspecified place or not applicable; Z74.09 Other reduced mobility; Z74.1 Need for assistance with personal care; Z79.82 Long term (current) use of aspirin; Z79.899 Other long term (current) drug therapy; Z88.8 Allergy status to other drugs, medicaments and biological substances; Z79.84 Long term (current) use of oral hypoglycemic drugs; Z20.822 Contact with and (suspected) exposure to COVID-19

== ENCOUNTER → 2021-02-24 | Outpatient (CLI) | payer MEDICARE, MEDICAID ==
[~2021-02-24] MED LIST changes: +FURO20TA2 PO; +METO25TA4 PO; +POTA10TA14 PO; +SUCR1ORA PO
--- NOTE | 2021-02-24 15:29 | REP ---
INDICATION: F/U FX. COMPARISON: There are no postoperative exams to review. Preoperative examination 01/27/2021 was reviewed. TECHNIQUE: Three views FINDINGS: There has been previous ORIF and external fixation. Previously described fractures have been reduced. The previously described subluxation has been reduced. The alignment is near anatomical. IMPRESSION: As above <Electronically signed by Igor Franco > 02/24/21 [id number]
== END ==
LOC: M SOG 13:41
PROVIDERS: ATTEND Student in an Organized Health Care Education/Training Program
DX: S82.51XA Displaced fracture of medial malleolus of right tibia, initial encounter for closed fracture (principal); X58.XXXA Exposure to other specified factors, initial encounter; Y92.9 Unspecified place or not applicable; Y99.9 Unspecified external cause status

== ENCOUNTER → 2021-03-08 | Outpatient (CLI) | payer MEDICARE, MEDICAID ==
--- NOTE | 2021-03-08 15:38 | REP ---
INDICATION: F/U FX. COMPARISON: 02/24/2021 TECHNIQUE: AP and lateral views of the right ankle FINDINGS: Patient is noted to be status post open reduction and fixation for medial and lateral malleolar fractures. There is a fracture of the proximal fibular shaft. Traction device again noted. IMPRESSION: Relatively stable appearing fractures of the proximal fibular diaphysis and orthopedic fixation to the medial and lateral ankle fractures. <Electronically signed by Darrel Moreira > 03/08/21 1530
== END ==
LOC: M SOG 15:09
PROVIDERS: ATTEND Orthopaedic Surgery
DX: Z47.89 Encounter for other orthopedic aftercare (principal); S82.841D Displaced bimalleolar fracture of right lower leg, subsequent encounter for closed fracture with routine healing

== ENCOUNTER → 2021-04-01 | Outpatient (CLI) | payer MEDICARE, MEDICAID ==
[~2021-04-01] MED LIST changes: +ERGO500029 PO; +OMEP40CA4 PO; -OMEP40CA97 PO; -VITA50005 PO
== END ==
LOC: M SOG 07:48
PROVIDERS: ATTEND Student in an Organized Health Care Education/Training Program
DX: S82.51XD Displaced fracture of medial malleolus of right tibia, subsequent encounter for closed fracture with routine healing (principal); Z53.8 Procedure and treatment not carried out for other reasons

== ENCOUNTER → 2021-04-07 | Outpatient (CLI) | payer MEDICARE, MEDICAID ==
--- NOTE | 2021-04-07 10:44 | REP ---
INDICATION: DISP FX OF MED MALLEOLUS OF R TIBIA. COMPARISON: Comparison radiographs are from March 08, 2021.. TECHNIQUE: Three views of the right ankle. FINDINGS: Three views of the right ankle demonstrate 2 metallic screws in the medial malleolus and a screw plate fixation device stabilizing the distal tibiofibular articulation. There is periosteal reaction along the medial aspect of the distal tibia indicating healing. There is diffuse periarticular soft tissue swelling medially and laterally and anteriorly. There is a old pin tract in the calcaneus. IMPRESSION: Status post open reduction internal fixation. Periosteal callus formation and periosteal reaction distal tibia. Diffuse soft tissue swelling. <Electronically signed by Philipp Daniel > 04/07/21 [id number]
== END ==
LOC: M SOG 08:48
PROVIDERS: ATTEND Orthopaedic Surgery
DX: S82.51XD Displaced fracture of medial malleolus of right tibia, subsequent encounter for closed fracture with routine healing (principal)

== ENCOUNTER → 2021-05-05 | Outpatient (CLI) | payer MEDICARE, MEDICAID ==
--- NOTE | 2021-05-05 14:50 | REP ---
INDICATION: DISP FX MED MALLEOLUS RIGHT TIBIA. COMPARISON: 04/07/2021. TECHNIQUE: Four views right ankle. FINDINGS: A plate is again seen in the distal fibula and there are multiple metallic screws in the tibia and fibula, unchanged. Periosteal reaction along the medial aspect of the distal tibia is again noted. The ankle mortise is anatomic. There is again a small linear calcification distal to the lateral malleolus. There is moderate diffuse soft tissue swelling. Old screw hole is again noted in the posterior calcaneus. IMPRESSION: Stable exam. <Electronically signed by Arnel Panda > 05/05/21 [id number]
== END ==
LOC: M SOG 13:44
PROVIDERS: ATTEND Orthopaedic Surgery
DX: S82.51XD Displaced fracture of medial malleolus of right tibia, subsequent encounter for closed fracture with routine healing (principal)

== ENCOUNTER 2021-05-13 12:45 | Outpatient (RCR) | payer MEDICARE, MEDICAID ==
[~2021-05-13 12:45] MED LIST changes: +DIVA125C6 PO; -DIVA1CAP PO; +FLOV250A INH; -FLUO10CA16 PO; +FLUO10CA18 PO; -GNP8.6TA7 PO; -HALO5TA PO; +HALO5TAB33 PO; -MAGN400T3 PO; +MAGN400T33 PO; -MONT10TA10 PO; +MONT10TA97 PO; -OMEP-221 PO; +OMEP40CA5 PO; -POTA10TA14 PO; +POTA1TAB24 PO; +SENN-111 PO
== END 2021-05-14 | disposition still patient (30) ==
LOC: M PT 12:45
PROVIDERS: ATTEND Student in an Organized Health Care Education/Training Program
DX: S82.51XD Displaced fracture of medial malleolus of right tibia, subsequent encounter for closed fracture with routine healing (principal)

== ENCOUNTER → 2021-05-31 | Outpatient (CLI) | payer MEDICARE, MEDICAID ==
[~2021-05-31] MED LIST changes: -DIVA125C6 PO; +DIVA1CAP PO; -FLOV250A INH; +FLUO10CA16 PO; -FLUO10CA18 PO; +HALO5TA PO; -HALO5TAB33 PO; +MAGN400T3 PO; -MAGN400T33 PO; +MONT10TA10 PO; -MONT10TA97 PO; +OMEP-221 PO; -OMEP40CA5 PO; +POTA10TA14 PO; -POTA1TAB24 PO
--- NOTE | 2021-05-31 11:58 | REP ---
INDICATION: FX F/U. COMPARISON: Multiple the latest 05/05/2021 status post ORIF TECHNIQUE: 4 views FINDINGS: Internal fixation plate and screws status quo. Diffuse soft tissue swelling seen previously has resolved. There is no new fracture. IMPRESSION: No significant change other than resolution of soft tissue swelling <Electronically signed by Igor Franco > 05/31/21 [id number]
== END ==
LOC: M SOG 11:22
PROVIDERS: ATTEND Student in an Organized Health Care Education/Training Program
DX: S82.51XD Displaced fracture of medial malleolus of right tibia, subsequent encounter for closed fracture with routine healing (principal)

== ENCOUNTER → 2021-06-14 | Outpatient (RCR) | payer MEDICARE, MEDICAID | END | disposition home or self-care (01) | LOC: M PT 05-16 07:39 | DX: Z47.89 Encounter for other orthopedic aftercare (principal); Z98.890 Other specified postprocedural states ==

== ENCOUNTER 2021-06-16 14:39 | Outpatient (RCR) | payer MEDICARE, MEDICAID ==
[~2021-06-16 14:39] MED LIST changes: +FLOV250A INH
== END 2021-07-14 ==
LOC: M PT 14:39
DX: Z98.890 Other specified postprocedural states (principal); S82.91XD Unspecified fracture of right lower leg, subsequent encounter for closed fracture with routine healing

== ENCOUNTER → 2021-06-30 | Outpatient (CLI) | payer MEDICARE, MEDICAID ==
--- NOTE | 2021-06-30 12:29 | REP ---
INDICATION: MAL FX FOLLOW-UP. COMPARISON: 05/31/2021 TECHNIQUE: Three views FINDINGS: S/p ORIF showing no significant change compared to the prior exam. IMPRESSION: No change from the prior exam. No acute abnormality. <Electronically signed by Igor Franco > 06/30/21 [id number]
== END ==
LOC: M SOG 09:08
PROVIDERS: ATTEND Orthopaedic Surgery
DX: S82.51XD Displaced fracture of medial malleolus of right tibia, subsequent encounter for closed fracture with routine healing (principal); Y92.9 Unspecified place or not applicable; Y93.9 Activity, unspecified; Y99.9 Unspecified external cause status

== ENCOUNTER → 2021-10-05 | Outpatient (CLI) | payer MEDICARE, MEDICAID ==
[~2021-10-05] MED LIST changes: -MAGN400T3 PO; +MAGN400T33 PO
--- NOTE | 2021-10-05 14:02 | REP ---
INDICATION: OTHER NON SPECIFIC ABN FINDING OF LUNG FIELD COMPARISON: 02/15/2021 TECHNIQUE: Standard helical technique without intravenous contrast FINDINGS: There is mediastinal and hilar adenopathy status quo. A small right pleural effusion has developed since the last exam. There is no significant change in appearance of the imaged upper abdomen or imaged osseous structures. Evaluation of the lung nguyễn shows significant improvement in the bilateral patchy airspace opacities. There is a persistent curvilinear density in the right lung base with air bronchograms. IMPRESSION: 1. There is been lung field improvement as described above. 2. Persistent adenopathy and persistent bibasilar opacities with a new small right pleural effusion. Continued follow-up to resolution is recommended. <Electronically signed by Igor Franco > 10/05/21 [id number]
== END ==
LOC: M PLAIMG 13:11
PROVIDERS: ATTEND Physician Assistant
DX: R91.8 Other nonspecific abnormal finding of lung field (principal)